=== PATIENT | female | born 1935 | race Caucasian/White ===

== ENCOUNTER → 2016-10-06 | Outpatient (REF) | payer OTHER, MEDICAID ==
[~2016-10-06] MED LIST: /FAMO2TA PO; /FERG32TA PO; /GLYB5TA; /HYDR10TAB PO; /PANT40TA PO; /WARF25TA; /WARF2TA PO; /WARF5TA; /WARF5TA OR; /WARF5TA PO; ACET-654 PO; ACET325S2 PO; ACET650S3 PR; ACET65SU PR; ACET65TA OR; ADV100INH INH; ADV250INH INH; ALB2.5NEB INH; ALDA25TA2 PO; ALLO100T; ALLO100T OR; ALPR0.25 PO; AMLO10TA OR; AMLO5TAB; AMLO5TAB OR; ARANESP IV; ASPI81TA45 OR; ASPI81TA7 PO; BACT2OIN2 TOP; BALMEX TOP; BALMOINT60 EXT; BISA10SU PR; BUSP5TA PO; BUSP5TAB45 PO; CALCCHW12; CALCIUM/VITAMIN D; CALTRATE OR; CARV12.5 OR; CARV12.5 PO; CARV25TA; CEFT500T; CELE20TA PO; CEPH2CAP PO; CIPR500T4 OR; CITA20TA4 PO; CLOP75TA2 PO; COLA100C PO; COLA100C2 OR; COLA50CA3 PO; CORE12.5; CORE25TA; CORE25TA PO; COUM1TAB19 PO; DIGO0.126; DOCU10CA PO; DOCU10ELUD PO; DULC10SU2 PR; DUONSOL; DUONSOL NEB; ENEM1ENE4 PR; ENEMENE3 PR; FIBER THERAPY; FIBER THERAPY OR; FISH1000 PO; FLEEENE4 PR; FLUC10TA OR; FOLI1TAB2 PO; FOLI1TAB86 PO; FOSAMAX; FURO40TA2; GLUC1VL SC; GLUC4GMTAB PO; GUAISYP5 PO; HUMA100I SC; HUMA75VL; HUMULIN; HUMULIN R; HUMULIN R U-500; HUMULIN R U500 SC; HYDR-3713 PO; INSUH10VL SC; INSUHUMDS SC; INSULADS SC; INSULANT SC; INSULIN; INSULIN HUMAN; INSULIN REG; IPRA2IN INH; IPRASOL4 INH; KAYE1POW5 PO; KLON0.5T PO; LASI40TA; LASI40TA OR; LASI40TA PO; LEVA250T; LEVO250T PO; LEVOFLOXACIN; LEVOFLOXACIN PO; LISI20TA5; LISI40TA; LISI40TA OR; LORT5TAB PO; LOSA50TA20 PO; LOVAZA; LOVAZA OR; MILK2400 PO; MILKSUS PO; MIRA255PW PO; MIRA33504 PO; MIRAPEX; MIRAPEX OR; MUCI600T34 PO; MULTCAP PO; MULTIVIT OR; MULTIVIT/MINERALS PO; MULTLIQ PO; Milk Of Magnesia PO; NEPHTAB PO; NEPRLIQ PO; NEPRLIQ3 PO; NORT10CA2; NORT10CA2 OR; NOVOLOG; NOVOLOG SC; NOVOLOG100 MG/ML; NYAM10003 EXT; NYST100024 TOP; NYSTATIN TOPICAL TOP; NYSTPOW TOP; ONDA1TAB15 PO; ONE A DAY VITAMIN; OXYGEN; PANT40TA2 PO; PLAV75TA38 PO; PROT1TAB2 PO; RENV2TAB PO; ROBISYP PO; SENO8.6T10 PO; SENO8.6T2 PO; SENO8.6T9 PO; SERT25TA85 PO; SILV1CRE19 TOP; SILV50CR TOP; SILVADINE TOP; SIMV40TA2; SIMV40TA2 OR; SIMV40TA2 PO; SODI15SS PO; SODI200S PO; TEKTURNA; TEKTURNA OR; TIOTROPIUM INH; TORS100T12 PO; TRAM50TA2 OR; TYLE325T5 PO; ULOR80TA2 PO; VANC10005 IV; VANC1INJ IV; VELP5CHW PO; VIT D OR; VITAMIN D50000 UNT; VITAMIN D50000 UNT OR; WARF-20 PO; WARF-23 PO; WARF05TA PO; WARF1TAB OR; WARF5VL; XANA0.25 PO; ZETI10TA; ZOCO40TA PO; ZOLO50TA PO; [UNRECOGNIZED DRUG - CODE] PO; [UNRECOGNIZED DRUG - OTHER]; [UNRECOGNIZED DRUG - OTHER]; [UNRECOGNIZED DRUG - OTHER]; [UNRECOGNIZED DRUG - OTHER]; [UNRECOGNIZED DRUG - OTHER]; [UNRECOGNIZED DRUG - OTHER] EX; [UNRECOGNIZED DRUG - OTHER] INH; [UNRECOGNIZED DRUG - REMARK]; aldactone PO; aranesp; coreg PO; demadex; lantus SC; nephrovite; sertaline PO; spiriva INH; uloric PO
[2016-10-06 07:57] LABS: INR 2.53
== END ==
LOC: SKLAB3 07:00
PROVIDERS: ATTEND Family Medicine
DX: I48.91 Unspecified atrial fibrillation (principal)

== ENCOUNTER → 2016-10-13 | Outpatient (REF) | payer OTHER, MEDICAID ==
[2016-10-13 08:53] LABS: INR 2.7
== END | disposition home or self-care (01) ==
LOC: SKLAB3 14:01
PROVIDERS: ATTEND Family Medicine
DX: Z51.81 Encounter for therapeutic drug level monitoring (principal); Z79.01 Long term (current) use of anticoagulants

== ENCOUNTER → 2016-10-22 | Outpatient (REF) | payer OTHER, MEDICAID ==
[2016-10-22 08:51] LABS: INR 1.76
== END ==
LOC: SKLAB3 07:00
PROVIDERS: ATTEND Family Medicine
DX: I48.91 Unspecified atrial fibrillation (principal)

== ENCOUNTER → 2016-10-27 | Outpatient (REF) | payer OTHER, MEDICAID ==
[2016-10-27 07:56] LABS: INR 3.72
== END ==
LOC: SKLAB3 10-27 07:00
PROVIDERS: ATTEND Family Medicine
DX: I48.91 Unspecified atrial fibrillation (principal)

== ENCOUNTER → 2016-11-03 | Outpatient (REF) | payer OTHER, MEDICAID ==
[2016-11-03 07:42] LABS: INR 2.28
== END | disposition home or self-care (01) ==
LOC: SKLAB3 08:25
PROVIDERS: ATTEND Family Medicine
DX: Z51.81 Encounter for therapeutic drug level monitoring (principal); Z79.01 Long term (current) use of anticoagulants

== ENCOUNTER → 2016-11-10 | Outpatient (REF) | payer OTHER, MEDICAID ==
[2016-11-10 14:01] LABS: INR 2.16
== END | disposition home or self-care (01) ==
LOC: SKLAB3 08:00
PROVIDERS: ATTEND Family Medicine
DX: Z51.81 Encounter for therapeutic drug level monitoring (principal); Z79.01 Long term (current) use of anticoagulants

== ENCOUNTER → 2016-11-17 | Outpatient (REF) | payer OTHER, MEDICAID ==
[2016-11-17 08:20] LABS: INR 2.55
== END ==
LOC: SKLAB3 06:47
PROVIDERS: ATTEND Family Medicine
DX: Z51.81 Encounter for therapeutic drug level monitoring (principal); Z79.01 Long term (current) use of anticoagulants

== ENCOUNTER → 2016-11-24 | Outpatient (REF) | payer OTHER, MEDICAID ==
[2016-11-24 08:12] LABS: INR 2.9
== END ==
LOC: SKLAB3 07:00
PROVIDERS: ATTEND Family Medicine
DX: Z51.81 Encounter for therapeutic drug level monitoring (principal); Z79.01 Long term (current) use of anticoagulants

== ENCOUNTER → 2016-12-01 | Outpatient (REF) | payer OTHER, MEDICAID ==
[2016-12-01 07:31] LABS: INR 2.13
== END ==
LOC: SKLAB3 08:00
PROVIDERS: ATTEND Family Medicine
DX: I48.91 Unspecified atrial fibrillation (principal); Z79.01 Long term (current) use of anticoagulants

== ENCOUNTER → 2016-12-08 | Outpatient (REF) | payer OTHER, MEDICAID ==
[2016-12-08 08:03] LABS: INR 1.89
== END ==
LOC: SKLAB3 08:00
PROVIDERS: ATTEND Family Medicine
DX: I48.91 Unspecified atrial fibrillation (principal)

== ENCOUNTER → 2016-12-15 | Outpatient (REF) | payer OTHER, MEDICAID ==
[2016-12-15 07:57] LABS: INR 2.12
== END ==
LOC: SKLAB3 08:00
PROVIDERS: ATTEND Family Medicine
DX: I48.91 Unspecified atrial fibrillation (principal)

== ENCOUNTER → 2016-12-22 | Outpatient (REF) | payer OTHER, MEDICAID ==
[2016-12-22 08:35] LABS: INR 2.03
== END ==
LOC: SKLAB3 08:00
PROVIDERS: ATTEND Family Medicine
DX: I48.91 Unspecified atrial fibrillation (principal)

== ENCOUNTER → 2016-12-29 | Outpatient (REF) | payer OTHER, MEDICAID ==
[~2016-12-29] MED LIST changes: -COLA100C PO; +COLA100C3 PO
[2016-12-29 08:49] LABS: INR 1.64
== END ==
LOC: SKLAB3 08:00
PROVIDERS: ATTEND Family Medicine
DX: Z51.81 Encounter for therapeutic drug level monitoring (principal); Z79.01 Long term (current) use of anticoagulants

== ENCOUNTER → 2017-01-05 | Outpatient (REF) | payer OTHER, MEDICAID ==
[2017-01-05 12:02] LABS: INR 2.13
== END ==
LOC: SKLAB3 08:00
PROVIDERS: ATTEND Family Medicine
DX: Z51.81 Encounter for therapeutic drug level monitoring (principal); Z79.01 Long term (current) use of anticoagulants

== ENCOUNTER → 2017-01-12 | Outpatient (REF) | payer OTHER, MEDICAID ==
[2017-01-12 08:19] LABS: INR 1.44
== END ==
LOC: SKLAB3 08:00
PROVIDERS: ATTEND Family Medicine
DX: I48.91 Unspecified atrial fibrillation (principal)

== ENCOUNTER → 2017-01-19 | Outpatient (REF) | payer OTHER, MEDICAID ==
[2017-01-19 07:48] LABS: INR 2.62
== END ==
LOC: SKLAB3 07:00
PROVIDERS: ATTEND Family Medicine
DX: Z51.81 Encounter for therapeutic drug level monitoring (principal); Z79.01 Long term (current) use of anticoagulants

== ENCOUNTER → 2017-01-26 | Outpatient (REF) | payer OTHER, MEDICAID ==
[2017-01-26 08:45] LABS: INR 2.36
== END ==
LOC: SKLAB3 07:00
PROVIDERS: ATTEND Family Medicine
DX: Z51.81 Encounter for therapeutic drug level monitoring (principal); Z79.01 Long term (current) use of anticoagulants

== ENCOUNTER → 2017-02-02 | Outpatient (REF) | payer OTHER, MEDICAID ==
[2017-02-02 11:24] LABS: INR 3.1
== END ==
LOC: SKLAB3 08:00
PROVIDERS: ATTEND Family Medicine
DX: Z51.81 Encounter for therapeutic drug level monitoring (principal); Z79.01 Long term (current) use of anticoagulants

== ENCOUNTER → 2017-02-05 | Outpatient (REF) | payer OTHER, MEDICAID | LOC: SKLAB7 12:48 | PROVIDERS: ATTEND Family Medicine | DX: Z86.14 Personal history of Methicillin resistant Staphylococcus aureus infection (principal) ==

== ENCOUNTER → 2017-02-09 | Outpatient (REF) | payer OTHER, MEDICAID ==
[2017-02-09 09:09] LABS: INR 3.13
== END ==
LOC: SKLAB3 08:00
PROVIDERS: ATTEND Family Medicine
DX: I48.91 Unspecified atrial fibrillation (principal)

== ENCOUNTER → 2017-02-16 | Outpatient (REF) | payer OTHER, MEDICAID ==
[2017-02-16 10:04] LABS: INR 2.77
== END ==
LOC: SKLAB3 08:00
PROVIDERS: ATTEND Family Medicine
DX: Z51.81 Encounter for therapeutic drug level monitoring (principal); Z79.01 Long term (current) use of anticoagulants

== ENCOUNTER → 2017-02-23 | Outpatient (REF) | payer OTHER, MEDICAID ==
[2017-02-23 07:56] LABS: INR 2.56
== END ==
LOC: SKLAB3 08:00
PROVIDERS: ATTEND Family Medicine
DX: Z51.81 Encounter for therapeutic drug level monitoring (principal); Z79.01 Long term (current) use of anticoagulants

== ENCOUNTER → 2017-03-02 | Outpatient (REF) | payer OTHER, MEDICAID ==
[2017-03-02 08:18] LABS: INR 2.7
== END ==
LOC: SKLAB3 08:00
PROVIDERS: ATTEND Family Medicine
DX: Z51.81 Encounter for therapeutic drug level monitoring (principal); Z79.01 Long term (current) use of anticoagulants

== ENCOUNTER → 2017-03-09 | Outpatient (REF) | payer OTHER, MEDICAID | LOC: SKLAB3 07:00 | PROVIDERS: ATTEND Family Medicine | DX: I48.91 Unspecified atrial fibrillation (principal) ==

== ENCOUNTER → 2017-03-16 | Outpatient (REF) | payer OTHER, MEDICAID | LOC: SKLAB3 07:00 | PROVIDERS: ATTEND Family Medicine | DX: E11.9 Type 2 diabetes mellitus without complications (principal); I48.91 Unspecified atrial fibrillation ==

== ENCOUNTER → 2017-03-16 | Outpatient (REF) | payer OTHER, MEDICAID ==
[2017-03-16 07:44] LABS: INR 3.22
== END ==
LOC: SKLAB3 07:00
PROVIDERS: ATTEND Family Medicine
DX: E11.9 Type 2 diabetes mellitus without complications (principal); I48.91 Unspecified atrial fibrillation

== ENCOUNTER → 2017-03-23 | Outpatient (REF) | payer OTHER, MEDICAID ==
[~2017-03-23] MED LIST changes: -ACET-654 PO; +ACET1TAB17 PO; +BACT2OIN10 TOP; -BACT2OIN2 TOP; -COLA100C3 PO; +COLA100C5 PO; +DOXY100T2 PO; +ENEMENE16 PR; -ENEMENE3 PR; -FOLI1TAB2 PO; +FOLI1TAB4 PO; -NYST100024 TOP; +NYST1POW9 TOP; -ONDA1TAB15 PO; +ONDA4TAB5 PO; +PLAV1TAB2 PO; -PLAV75TA38 PO; -SENO8.6T2 PO; +SENO8.6T5 PO; -SILV1CRE19 TOP; +SILV1CRE60 TOP; +SORB1SOL PO
[2017-03-23 10:03] LABS: INR 2.9
== END ==
LOC: SKLAB3 07:00
PROVIDERS: ATTEND Family Medicine
DX: Z51.81 Encounter for therapeutic drug level monitoring (principal); Z79.01 Long term (current) use of anticoagulants; I48.91 Unspecified atrial fibrillation

== ENCOUNTER → 2017-03-29 | Outpatient (REF) | payer OTHER, MEDICAID ==
[2017-03-29 12:54] LABS: INR 2.88
== END ==
LOC: SKLAB3 07:00
PROVIDERS: ATTEND Family Medicine
DX: Z51.81 Encounter for therapeutic drug level monitoring (principal); Z79.01 Long term (current) use of anticoagulants; I48.91 Unspecified atrial fibrillation

== ENCOUNTER → 2017-04-02 | Outpatient (REF) | payer OTHER, MEDICAID | LOC: SKLAB3 15:12 | PROVIDERS: ATTEND Family Medicine | DX: S60.522A Blister (nonthermal) of left hand, initial encounter (principal); X58.XXXA Exposure to other specified factors, initial encounter; Y92.9 Unspecified place or not applicable; Y93.9 Activity, unspecified; Y99.9 Unspecified external cause status ==

== ENCOUNTER → 2017-04-06 | Outpatient (REF) | payer OTHER, MEDICAID ==
[2017-04-06 08:25] LABS: INR 2.75
== END ==
LOC: SKLAB3 07:00
PROVIDERS: ATTEND Family Medicine
DX: Z51.81 Encounter for therapeutic drug level monitoring (principal); Z79.01 Long term (current) use of anticoagulants; I48.91 Unspecified atrial fibrillation

== ENCOUNTER → 2017-04-13 | Outpatient (REF) | payer OTHER, MEDICAID ==
[2017-04-13 06:57] LABS: INR 2.6
== END ==
LOC: SKLAB3 07:00
PROVIDERS: ATTEND Family Medicine
DX: Z51.81 Encounter for therapeutic drug level monitoring (principal); Z79.01 Long term (current) use of anticoagulants; I48.91 Unspecified atrial fibrillation

== ENCOUNTER → 2017-04-16 | Outpatient (REF) | payer OTHER, MEDICAID | LOC: SKLAB3 10:47 | PROVIDERS: ATTEND Family Medicine | DX: Z86.73 Personal history of transient ischemic attack (TIA), and cerebral infarction without residual deficits (principal) ==

== ENCOUNTER → 2017-04-20 | Outpatient (REF) | payer OTHER, MEDICAID ==
[2017-04-20 08:36] LABS: INR 3.16
== END ==
LOC: SKLAB3 07:00
PROVIDERS: ATTEND Family Medicine
DX: Z51.81 Encounter for therapeutic drug level monitoring (principal); Z79.01 Long term (current) use of anticoagulants; I48.91 Unspecified atrial fibrillation

== ENCOUNTER → 2017-04-27 | Outpatient (REF) | payer OTHER, MEDICAID ==
[2017-04-27 09:14] LABS: INR 3.17
== END ==
LOC: SKLAB3 07:22
PROVIDERS: ATTEND Family Medicine
DX: I48.91 Unspecified atrial fibrillation (principal); Z86.14 Personal history of Methicillin resistant Staphylococcus aureus infection

== ENCOUNTER → 2017-05-04 | Outpatient (REF) | payer OTHER, MEDICAID | LOC: SKLAB3 14:27 | PROVIDERS: ATTEND Family Medicine | DX: Z86.73 Personal history of transient ischemic attack (TIA), and cerebral infarction without residual deficits (principal) ==

== ENCOUNTER → 2017-05-04 | Outpatient (REF) | payer OTHER, MEDICAID ==
[2017-05-04 07:45] LABS: INR 2.62
== END ==
LOC: SKLAB3 07:00
PROVIDERS: ATTEND Family Medicine
DX: Z51.81 Encounter for therapeutic drug level monitoring (principal); Z79.01 Long term (current) use of anticoagulants; I48.91 Unspecified atrial fibrillation

== ENCOUNTER → 2017-05-11 | Outpatient (REF) | payer OTHER, MEDICAID ==
[2017-05-11 08:05] LABS: INR 2.82
== END ==
LOC: SKLAB3 07:00
PROVIDERS: ATTEND Family Medicine
DX: Z51.81 Encounter for therapeutic drug level monitoring (principal); Z79.01 Long term (current) use of anticoagulants; I48.91 Unspecified atrial fibrillation

== ENCOUNTER → 2017-05-18 | Outpatient (REF) | payer OTHER, MEDICAID ==
[2017-05-18 08:28] LABS: INR 3.12
== END ==
LOC: SKLAB3 07:00
PROVIDERS: ATTEND Family Medicine
DX: Z51.81 Encounter for therapeutic drug level monitoring (principal); Z79.01 Long term (current) use of anticoagulants; I48.91 Unspecified atrial fibrillation

== ENCOUNTER → 2017-05-25 | Outpatient (REF) | payer OTHER, MEDICAID ==
[2017-05-25 07:27] LABS: INR 3.21
== END ==
LOC: SKLAB3 05-24 14:18
PROVIDERS: ATTEND Family Medicine
DX: Z51.81 Encounter for therapeutic drug level monitoring (principal); Z79.01 Long term (current) use of anticoagulants

== ENCOUNTER → 2017-06-01 | Outpatient (REF) | payer OTHER, MEDICAID ==
[2017-06-01 09:37] LABS: INR 3.01
== END ==
LOC: SKLAB3 07:00
PROVIDERS: ATTEND Family Medicine
DX: Z51.81 Encounter for therapeutic drug level monitoring (principal); Z79.01 Long term (current) use of anticoagulants

== ENCOUNTER → 2017-06-08 | Outpatient (REF) | payer OTHER, MEDICAID ==
[2017-06-08 07:44] LABS: INR 3.31
== END ==
LOC: SKLAB3 08:02
PROVIDERS: ATTEND Family Medicine
DX: Z51.81 Encounter for therapeutic drug level monitoring (principal); Z79.01 Long term (current) use of anticoagulants; I48.91 Unspecified atrial fibrillation

== ENCOUNTER → 2017-06-15 | Outpatient (REF) | payer OTHER, MEDICAID ==
[2017-06-15 08:16] LABS: INR 3.12
== END ==
LOC: SKLAB3 07:00
PROVIDERS: ATTEND Family Medicine
DX: I48.91 Unspecified atrial fibrillation (principal)

== ENCOUNTER → 2017-06-22 | Outpatient (REF) | payer OTHER, MEDICAID ==
[2017-06-22 07:39] LABS: INR 3.14
== END ==
LOC: SKLAB3 07:00
PROVIDERS: ATTEND Family Medicine
DX: Z51.81 Encounter for therapeutic drug level monitoring (principal); Z79.01 Long term (current) use of anticoagulants; I48.91 Unspecified atrial fibrillation

== ENCOUNTER → 2017-06-24 | Outpatient (REF) | payer OTHER, MEDICAID ==
[2017-06-24 09:57] LABS: BASO % 0.3 % (0.0-1.0); EOS # 0.3 10^3/uL (0.0-0.50); EOS % 2.8 % (0.0-3.0); IMMATURE GRANULOCYTE % 0.5 % (0-0); LYMPH # 1.8 10^3/uL (1.5-4.5); LYMPH % 19.5 % (24.0-44.0); MEAN CORPUSCULAR HEMOGLOBIN 32.9 pg (27.0-33.0); MEAN CORPUSCULAR HGB CONC 30.6 g/dl (32.0-36.5); MEAN CORPUSCULAR VOLUME 107.7 fl (80.0-96.0); MONO # 1.4 10^3/uL (0.0-0.8); MONO % 14.3 % (0.0-5.0); NEUTROPHILS # 5.9 10^3/uL (1.8-7.7); NEUTROPHILS % 62.6 % (36.0-66.0); PLATELET COUNT, AUTOMATED 229 10^3/uL (150-450); RED CELL DISTRIBUTION WIDTH 15.7 % (11.5-14.5); WHITE BLOOD COUNT 9.4 10^3/uL (4.0-10.0)
[2017-06-24 10:12] LABS: INR 3.71
[2017-06-24 20:39] LABS: MEAN CORPUSCULAR HEMOGLOBIN 33.4 pg (27.0-33.0); MEAN CORPUSCULAR HGB CONC 31.3 g/dl (32.0-36.5); MEAN CORPUSCULAR VOLUME 106.8 fl (80.0-96.0); RED CELL DISTRIBUTION WIDTH 15.4 % (11.5-14.5); WHITE BLOOD COUNT 11.2 10^3/uL (4.0-10.0)
== END ==
LOC: SKLAB3 09:25
PROVIDERS: ATTEND Family Medicine
DX: K62.5 Hemorrhage of anus and rectum (principal)

== ENCOUNTER → 2017-06-25 | Outpatient (REF) | payer OTHER, MEDICAID ==
--- NOTE | 2017-06-25 17:17 | REP ---
REASON: Pain. COMPARISON: None. There is evidence of an old irregular erosion involving the distal aspect of the tuft of the 2nd digit of the left hand. There is no evidence of an acute fracture. IMPRESSION: Chronic changes seen involving the tuft of the 2nd digit of the left hand. Signed by Barron Ramos DO 06/28/2017 04:40 P
== END ==
LOC: SKLAB3 13:53
PROVIDERS: ATTEND Family Medicine
DX: M19.042 Primary osteoarthritis, left hand (principal)

== ENCOUNTER → 2017-06-26 | Outpatient (REF) | payer OTHER, MEDICAID ==
[2017-06-26 08:19] LABS: MEAN CORPUSCULAR HEMOGLOBIN 33.8 pg (27.0-33.0); MEAN CORPUSCULAR HGB CONC 30.6 g/dl (32.0-36.5)
[2017-06-26 08:27] LABS: MEAN CORPUSCULAR VOLUME 110.5 fl (80.0-96.0)
== END ==
LOC: SKLAB3 12:08
PROVIDERS: ATTEND Family Medicine
DX: D72.829 Elevated white blood cell count, unspecified (principal)

== ENCOUNTER → 2017-06-29 | Outpatient (REF) | payer OTHER, MEDICAID | LOC: SKLAB3 19:03 | PROVIDERS: ATTEND Family Medicine | DX: K62.5 Hemorrhage of anus and rectum (principal) ==

== ENCOUNTER → 2017-06-29 | Outpatient (REF) | payer OTHER, MEDICAID ==
[2017-06-29 08:03] LABS: INR 1.17
[2017-06-29 18:48] LABS: MEAN CORPUSCULAR HEMOGLOBIN 33.7 pg (27.0-33.0); MEAN CORPUSCULAR HGB CONC 30.6 g/dl (32.0-36.5); RED CELL DISTRIBUTION WIDTH 16.5 % (11.5-14.5); WHITE BLOOD COUNT 10.1 10^3/uL (4.0-10.0)
== END ==
LOC: SKLAB3 07:05
PROVIDERS: ATTEND Family Medicine
DX: I48.91 Unspecified atrial fibrillation (principal)

== ENCOUNTER → 2017-06-30 | Outpatient (REF) | payer OTHER, MEDICAID ==
[2017-06-30 05:10] LABS: MEAN CORPUSCULAR HEMOGLOBIN 33.6 pg (27.0-33.0); RED CELL DISTRIBUTION WIDTH 16.4 % (11.5-14.5); WHITE BLOOD COUNT 10.1 10^3/uL (4.0-10.0)
[2017-06-30 05:13] LABS: MEAN CORPUSCULAR VOLUME 108.4 fl (80.0-96.0)
== END ==
LOC: SKLAB3 00:14
PROVIDERS: ATTEND Family Medicine
DX: K62.5 Hemorrhage of anus and rectum (principal)

== ENCOUNTER 2017-07-01 13:57 | Inpatient (IN) | payer OTHER, MEDICAID, MEDICARE ==
[~2017-07-01] VITALS: Ht 160 cm; Wt 90.9 kg
[~2017-07-01 13:57] MED LIST changes: -DOXY100T2 PO; -SORB1SOL PO
[2017-07-01] MEDS ORDERED: SORB1SOL PO (14:40)
[2017-07-01] MEDS ORDERED: NEPHTAB PO (14:40)
[2017-07-01 16:11] LABS: BASO % 0.1 % (0.0-1.0); EOS # 0.2 10^3/uL (0.0-0.50); EOS % 1.7 % (0.0-3.0); IMMATURE GRANULOCYTE % 0.4 % (0-0); LYMPH % 14.3 % (24.0-44.0); MEAN CORPUSCULAR HEMOGLOBIN 33.9 pg (27.0-33.0); MONO % 13.5 % (0.0-5.0); NEUTROPHILS # 9.6 10^3/uL (1.8-7.7); PLATELET COUNT, AUTOMATED 165 10^3/uL (150-450); RED CELL DISTRIBUTION WIDTH 16.5 % (11.5-14.5); WHITE BLOOD COUNT 13.7 10^3/uL (4.0-10.0)
[2017-07-01 16:13] LABS: ADD MORPHOLOGY? YES; MEAN CORPUSCULAR VOLUME 109.5 fl (80.0-96.0); MONO # 1.9 10^3/uL (0.0-0.8)
[2017-07-01] MEDS ORDERED: PANTOPRAZOLE 40MG INJ (PROTONIX) (C9113) IV ONE (16:15)
[2017-07-01 16:25] LABS: INR 1.34
[2017-07-01 16:40] LABS: ANISOCYTOSIS 2+
[2017-07-01 16:49] LABS: ALBUMIN/GLOBULIN RATIO 0.91 (1.00-1.93); BILIRUBIN,DIRECT 0.2 MG/DL (0.0-0.2); BILIRUBIN,TOTAL 0.4 MG/DL (0.2-1.0); CALCIUM LEVEL 8.2 MG/DL (8.8-10.2); CREATININE FOR GFR 4.17 MG/DL (0.55-1.02); GLOMERULAR FILTRATION RATE 10.9 (>32); POTASSIUM SERUM 4.9 MEQ/L (3.5-5.1); TOTAL PROTEIN 6.3 GM/DL (6.4-8.2)
[2017-07-01] MEDS ORDERED: WARF-20 PO (18:20)
[2017-07-01] MEDS ORDERED: ONDANSETRON 4MG/2ML VIAL (J2405) IV PRN (20:45)
[2017-07-01] MEDS ORDERED: GLUCOSE 4 GM CHEW TABLET PO PRN (20:45)
[2017-07-01] MEDS ORDERED: IPRATROPIUM 0.5MG/ALBUTEROL 2.5MG INH SOL UD 3ML (DUONEB)(J7620) INH PRN (20:45)
[2017-07-01] MEDS ORDERED: guaiFENesin DM LIQ 10ML UD PO PRN (20:45)
[2017-07-01] MEDS ORDERED: ACETAMINOPHEN 650 MG SUPP PR PRN (20:45)
[2017-07-01] MEDS ORDERED: GLUCAGON FOR INJ 1 MG VIAL (J1610) SC PRN (20:45)
[2017-07-01] MEDS ORDERED: ONDANSETRON 4 MG TAB (S0181) PO PRN (20:45)
[2017-07-01] MEDS ORDERED: DEXTROSE 50% 50 ML SYRINGE IV PRN (20:45)
[2017-07-01] MEDS: SIMVASTATIN 20 MG TAB PO SCH (21:00)
[2017-07-01] MEDS: ADVAIR HFA 45/21MCG INHALER INH SCH (21:00)
[2017-07-01] MEDS: HumaLOG INSULIN (NovoLOG) PER UNIT SC SCH (21:00)
[2017-07-01] MEDS ORDERED: CARVedilol 12.5 MG TAB PO SCH (21:00)
[2017-07-01] MEDS: DOCUSATE SODIUM 100 MG CAP PO SCH (22:04)
[2017-07-01] MEDS: SENOKOT S TAB PO SCH (22:04)
[2017-07-01] MEDS: DOXYCYCLINE HYCLATE 100 MG TAB PO SCH (22:06)
[2017-07-01] MEDS: IPRATROPIUM 0.5MG/ALBUTEROL 2.5MG INH SOL UD 3ML (DUONEB)(J7620) INH SCH (22:45)
[2017-07-02 01:08] VITALS: BP 97/42
[2017-07-02 04:00] VITALS: BP 92/42
[2017-07-02] MEDS ORDERED: METAL LOCK LOOP XX ONE (05:13)
[2017-07-02 07:19] LABS: ALBUMIN 2.7 GM/DL (3.2-5.2); ALBUMIN/GLOBULIN RATIO 0.84 (1.00-1.93); BILIRUBIN,TOTAL 0.5 MG/DL (0.2-1.0); CALCIUM LEVEL 8.3 MG/DL (8.8-10.2); CREATININE FOR GFR 4.87 MG/DL (0.55-1.02); GLOMERULAR FILTRATION RATE 9.1 (>32); TOTAL PROTEIN 5.9 GM/DL (6.4-8.2)
[2017-07-02 07:22] LABS: POTASSIUM SERUM 5.3 MEQ/L (3.5-5.1)
--- NOTE | 2017-07-02 07:48 | HPE ---
DATE OF ADMISSION: 07/01/2017 PRIMARY CARE PROVIDER: Marty Ho MD VICE PRESIDENT QUALITY: Mei Landeros MD BUSINESS APPLICATIONS DEVELOPER: Alyssa Bauman MD CHIEF COMPLAINT: Maroon-colored stools. HISTORY OF PRESENT ILLNESS: The patient is an 82-year-old female resident of [facility] who has notably had maroon-colored stools for the past 1 week. Coumadin for atrial fibrillation was discontinued several days ago, however, she is continued on her Plavix and maroon-colored stools continued. The patient herself denies any specific complaints. She denies any lightheadedness, dizziness, fatigue, or anything other than she has felt over the last several months. She denies chest pain, lightheadedness, dizziness, or any other change in her medications. PAST MEDICAL HISTORY: 1. Coronary artery disease status post coronary artery bypass graft (CABG). 2. Methicillin-resistant Staphylococcus aureus (MRSA). 3. Endocarditis. 4. Diabetes mellitus. 5. Peripheral vascular disease. 6. Congestive heart failure. 7. Atrial fibrillation status post pacer, normally on Coumadin. 8. Anemia of chronic disease in end-stage renal disease. 9. Mitral valve disease status post porcine replacement. 10. Depression. 11. Chronic obstructive pulmonary disease (COPD). 12. Gastroparesis. 13. Peripheral vascular disease with left below knee amputation (BKA), right above knee amputation (AKA). 14. End-stage renal disease on hemodialysis. 15. Heparin-induced thrombocytopenia. ALLERGIES: HEPARIN, LEVOFLOXACIN, MORPHINE, ZOSYN, METOPROLOL. SURGICAL HISTORY: 1. Tunneled hemodialysis (HD) catheter placement. 2. Hysterectomy. 3. Pacemaker insertion. 4. Mitral valve replacement with porcine valve. 5. CABG. 6. Left BKA. 7. Right AKA. SOCIAL HISTORY: She is a resident of [facility]. She travels with a DO NOT RESUSCITATE/DO NOT INTUBATE Medical Orders for Life-Sustaining Treatment form. She is a never smoker. Denies alcohol. She is accompanied in the emergency room by four adult children and one adult grandchild. FAMILY HISTORY: Noncontributory. REVIEW OF SYSTEMS: Negative other than history present illness (HPI). LONG TERM MEDICATIONS: - Dulcolax per rectally daily as needed for constipation - Plavix 75 mg daily - enema per rectally as needed for constipation daily - NovoLog before food - milk of magnesia 30 mL by mouth as needed for constipation daily - Nepro with Carb Steady 90 mL by mouth twice a day - sorbitol 15 grams 70% weekly by mouth - acetaminophen 650 per rectum every 4 hours as needed for pain or fever, 650 mg by mouth every 4 hours as needed for pain - DuoNebs inhaled every 2 hours as needed for wheezing and four times a day - carvedilol 12.5 mg by mouth twice a day - Celexa 20 mg daily - Senna-S 8.6-50 mg one tablet by mouth twice a day - Colace 100 mg by mouth twice a day - folic acid 1 mg daily - guaifenesin-dextromethorphan 100-10 mg/5 mL solution 10 mL every 2 hours as needed for cough - Zofran 4 mg every 6 hours as needed for nausea - Protonix 40 mg daily - Advair Diskus 100-50 one puff inhaled twice a day - Renvela 3200 mg by mouth with meals - simvastatin 40 mg by mouth nightly - vitamin B complex PHYSICAL EXAMINATION: Temperature 99.3, pulse 60, respiratory rate 18, blood pressure 121/44, oxygen saturation 100% on room air. GENERAL: She is an obese, elderly, female. She appears pale. She is laying in a stretcher at a 60 degree angle on her right side. She does not appear to be in any acute distress whatsoever. She does not have any accessory muscle use and is quite comfortable. HEENT: Cranial nerves II-XII are grossly intact. She has moist mucous membranes. She has conjunctival pallor. No elevation in central venous pressure (CVP). CARDIOVASCULAR: S1, S2, irregularly irregular and she does have a pansystolic murmur. RESPIRATORY EXAM: Fairly clear. ABDOMINAL EXAM: Bowel sounds are present. The abdomen is soft and is obese. EXTREMITIES: She is status post amputation of the bilateral lower extremities. LABORATORY STUDIES: WBC 13.7, hemoglobin 9.3, hematocrit 30, platelet count 165. Chemistry panel: Sodium 137, potassium 4.9, chloride 101, bicarbonate 28, BUN 34, creatinine 4.1, lactic acid 2.5, alkaline phosphatase 186, lipase 278, INR is 1.3. No new imaging. ASSESSMENT AND PLAN: This is an 82-year-old female with gastrointestinal (GI) bleed. 1. Gastrointestinal (GI) bleed, likely lower, likely related to anticoagulation and antiplatelet use. She has a history of atrial fibrillation for which she was on Coumadin, this has been held. At this time her INR is 1.3, however she has remained on Plavix and I will hold this. She is asymptomatic at this point in time and is scheduled for regular hemodialysis tomorrow. I have contacted nephrology service who will see the patient in consultation. The plan is to transfuse her potentially during hemodialysis tomorrow. Continue to trend her hemoglobin and hematocrit. I will provide her with a clear liquid diet, consistent carbohydrate, renal diet. If her hemoglobin and hematocrit does not respond appropriately to transfusion or she should continue to bleed or drop, she may need repeat colonoscopies. These were done, as per the family statements, several years ago by Dr. Galeano. 2. End-stage renal disease. Nephrology's help will be greatly appreciated. Continue with Nepro. Dialysis Wednesday, Wednesday, Wednesday. Renvela, vitamin B complex. 3. Congestive heart failure. Volume status is optimized via hemodialysis. The patient is on a beta casie. 4. Diabetes mellitus. She will be on sliding scale insulin. 5. Left index finger swelling. She may have a paronychial abscess present. I will place her on doxycycline 100 mg by mouth twice a day. Should it not improve, could consider general surgery consultation for incision and drainage ( I and D). Apparently, she has been struggling with this for quite some time at the skilled nursing. 6. Peripheral vascular disease status post bypass, currently at her baseline. 7. Anemia of chronic disease and renal disease as well as acute blood loss. Continue to monitor. She may benefit from erythropoietin. 8. Depression. Continue with Celexa. 9. Chronic obstructive pulmonary disease (COPD). Continue with DuoNebs standing and as needed, as well as Advair. 10. Gastroesophageal reflux disease. Continue with Protonix. 11. Coronary artery disease. She is on a beta casie and a statin. We are holding any antiplatelets for the time being. 12. Chronic constipation. We will hold some of her bowel regimen for the time being. 13. Heparin-induced thrombocytopenia. We are avoiding all pharmacological anticoagulants at this time. 14. Lactic acidosis, possibly related to bleeding versus chronic increased work of breathing related to chronic obstructive pulmonary disease (COPD). We will trend this. 15. Deep venous thrombosis (DVT) prophylaxis. No pharmacological agents. She does not have lower extremities for compression stockings or thromboembolism deterrents (TEDs). DISPOSITION: The patient is admitted to the progressive care unit under Dr. David's service who will continue following the patient tomorrow at [address] [facility] [place]
[2017-07-02 08:00] VITALS: BP 94/34
[2017-07-02] MEDS: IPRATROPIUM 0.5MG/ALBUTEROL 2.5MG INH SOL UD 3ML (DUONEB)(J7620) INH SCH ×3 (08:00→20:00)
--- NOTE | 2017-07-02 08:26 | ECGEPIP ---
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
[2017-07-02] MEDS: CARVedilol 3.125 MG TAB PO SCH ×2 (09:00→21:00)
[2017-07-02] MEDS ORDERED: DARBEPOETIN 100 MCG/0.5 ML *DIALYSIS* SYRINGE (J0882) IV SCH (09:45)
[2017-07-02] MEDS: ADVAIR HFA 45/21MCG INHALER INH SCH ×2 (10:19→21:49)
[2017-07-02] MEDS: PANTOPRAZOLE 40MG TAB (PROTONIX) PO SCH (10:26)
[2017-07-02] MEDS: NEPHRO-VIT TAB (NEPHROCAPS) PO SCH (10:26)
[2017-07-02] MEDS: HumaLOG INSULIN (NovoLOG) PER UNIT SC SCH ×4 (10:26→21:00)
[2017-07-02] MEDS: (RENVELA) SEVELAMER **CARBONate** 800 MG TAB PO SCH ×3 (10:26→17:17)
[2017-07-02] MEDS: FOLIC ACID 1 MG TAB PO SCH (10:27)
[2017-07-02] MEDS: DOXYCYCLINE HYCLATE 100 MG TAB PO SCH ×2 (10:27→21:05)
[2017-07-02] MEDS: MUPIROCIN 2% OINT 22 GM TUBE TOP SCH ×2 (11:20→21:00)
[2017-07-02] MEDS: CitaloPRAM (CeleXA) 20 MG TAB PO SCH (11:20)
[2017-07-02] MEDS: SENOKOT S TAB PO SCH ×2 (11:20→21:06)
[2017-07-02] MEDS: DOCUSATE SODIUM 100 MG CAP PO SCH ×2 (11:20→21:05)
[2017-07-02] MEDS ORDERED: HEPARIN 1,000 UNITS/ML 10ML VIAL (FOR RADIOLOGY& DIALYSIS ONLY) XX ONE (12:00)
--- NOTE | 2017-07-02 12:45 | IPNPDOC ---
Subjective Date Seen The patient was seen on 07/02/17. Subjective Chief Complaint/HPI The patient is a 82-year-old female admitted with a reason for visit of Gi Bleed. Events since last encounter Had BM this am. No blood documented. Guiac sent Feels well. No n/v or abd pain Constitutional: Denies: Chills, Fever Pulmonary: Denies: Dyspnea, Cough Cardiovascular: Denies: Chest Pain, Palpitations Gastrointestinal: Denies: Nausea, Vomiting, Abdominal Pain, Diarrhea, Constipation Objective Physical Examination General Exam: Positive: Alert, No Acute Distress Chest Exam: Positive: Normal air movement, Rales (few crackles extreme bases BL ), Negative: Rhonchi, Wheezing Heart Exam: Positive: Rate Normal, Regular Rhythm Abdomen Exam: Positive: Normal bowel sounds, Soft, Negative: Tenderness Extremity Exam: Positive: Other (BL AKA) Skin Exam: Positive: Other skin issue (left index finger with swelling of DIP localized around peronychea with scabbed wound on ulnar aspect need neail withotu surrounding erythema or drainage or floculance.) Assessment /Plan Problems (1) GI bleed Status: Acute Problem Text: Coumadin held a few days ago - INR 1.34 Plavicx held on admission No further blood noted per nursing in ER overflow. Occult blood pending. Hgb stable thus far (2) Paronychia Status: Acute Problem Text: doxycycline ordered Start Bactroban (3) ESRD (end stage renal disease) on dialysis Status: Chronic Response to Treatment: Stable Problem Text: per Nephrology (4) CHF (congestive heart failure) Status: Chronic Response to Treatment: Stable (5) A-fib Status: Chronic Response to Treatment: Stable Problem Text: coumadin held per GI bleed (6) Diabetes Status: Chronic Plan/VTE VTE Prophylaxis Ordered?: No (BL AKa, GI bleed) VTE Exclusion Pharmacological: Active Bleeding VS, I&O, 24H, Fishbone Vital Signs/I&O Vital Signs Date Time Temp Pulse Resp B/P (MAP) Pulse Ox O2 Delivery O2 Flow Rate FiO2 07/02/17 09:00 60 94/34 07/02/17 08:00 97.3 18 98 Room Air 07/02/17 04:00 2.0 I&O- Last 24 Hours up to 6 AM 07/03/17 06:00 Intake Total 360 ml Balance 360 ml Laboratory Data 24H LABS Laboratory Tests 2 07/01/17 16:04: Immature Granulocyte % (Auto) 0.4H, White Blood Count 13.7H, Red Blood Count 2.74L, Hemoglobin 9.3L, Hematocrit 30.0L, Mean Corpuscular Volume 109.5H, Mean Corpuscular Hemoglobin 33.9H, Mean Corpuscular Hemoglobin Concent 31.0L, Red Cell Distribution Width 16.5H, Platelet Count 165, Neutrophils (%) (Auto) 70.0H , Lymphocytes (%) (Auto) 14.3L, Monocytes (%) (Auto) 13.5H, Eosinophils (%) ( Auto) 1.7, Basophils (%) (Auto) 0.1, Neutrophils # (Auto) 9.6H, Lymphocytes # ( Auto) 2.0, Monocytes # (Auto) 1.9H, Eosinophils # (Auto) 0.2, Basophils # (Auto ) 0.0, Immature Granulocyte # (Auto) 0.1H, Nucleated Red Blood Cells % (auto) 0.0, Platelet Estimate NORMAL, Anisocytosis 2+, Macrocytosis 2+, Prothrombin Time 16.9H, Prothromb Time International Ratio 1.34, Activated Partial Thromboplast Time 37.9, Anion Gap 8, Glomerular Filtration Rate 10.9L, Lactic Acid Level 2.5*H, Calcium Level 8.2L, Aspartate Amino Transf (AST/SGOT) 19, Alanine Aminotransferase (ALT/SGPT) 20, Alkaline Phosphatase 186H, Total Bilirubin 0.4, Direct Bilirubin 0.2, Total Protein 6.3L, Albumin 3.0L, Albumin/ Globulin Ratio 0.91L, Lipase 278 07/01/17 19:59: Lactic Acid Level 2.4*H 07/01/17 22:12: Bedside Glucose (Misc Panel) 199H 07/02/17 06:44: Anion Gap 9, Glomerular Filtration Rate 9.1L, Calcium Level 8.3L, Aspartate Amino Transf (AST/SGOT) 17, Alanine Aminotransferase (ALT/SGPT) 19, Alkaline Phosphatase 155H, Total Bilirubin 0.5, Total Protein 5.9L, Albumin 2.7L, Albumin /Globulin Ratio 0.84L, Blood Urea Nitrogen 42H, Creatinine 4.87H, Sodium Level 135L, Potassium Level 5.3H, Chloride Level 100, Carbon Dioxide Level 26, Gamma Glutamyl Transpeptidase 93H CBC/BMP Laboratory Tests 07/01/17 16:04 Red Blood Count 2.74 L, Mean Corpuscular Volume 109.5 H, Mean Corpuscular Hemoglobin 33.9 H, Mean Corpuscular Hemoglobin Concent 31.0 L, Red Cell Distribution Width 16.5 H, Neutrophils (%) (Auto) 70.0 H, Lymphocytes (%) (Auto ) 14.3 L, Monocytes (%) (Auto) 13.5 H, Eosinophils (%) (Auto) 1.7, Basophils (% ) (Auto) 0.1, Neutrophils # (Auto) 9.6 H, Lymphocytes # (Auto) 2.0, Monocytes # (Auto) 1.9 H, Eosinophils # (Auto) 0.2, Basophils # (Auto) 0.0 07/02/17 00:37 07/02/17 06:44 Calcium Level 8.3 L, Aspartate Amino Transf (AST/SGOT) 17, Alanine Aminotransferase (ALT/SGPT) 19, Gamma Glutamyl Transpeptidase 93 H, Alkaline Phosphatase 155 H, Total Bilirubin 0.5, Total Protein 5.9 L, Albumin 2.7 L KAMINI ROTHMAN PA-C Jul 02, 2017 12:45
[2017-07-02 16:00] VITALS: BP 144/54
[2017-07-02] MEDS: ACETAMINOPHEN 325 MG TAB PO PRN (17:18)
[2017-07-02 20:00] VITALS: BP 121/45
[2017-07-02] MEDS: SIMVASTATIN 20 MG TAB PO SCH (21:06)
[2017-07-02 23:59] VITALS: BP 130/59
[2017-07-03 04:30] VITALS: BP 94/50
[2017-07-03 05:43] LABS: MEAN CORPUSCULAR HEMOGLOBIN 33.8 pg (27.0-33.0); MEAN CORPUSCULAR HGB CONC 30.8 g/dl (32.0-36.5)
[2017-07-03 05:47] LABS: MEAN CORPUSCULAR VOLUME 109.8 fl (80.0-96.0)
[2017-07-03 06:17] LABS: ALBUMIN 2.7 GM/DL (3.2-5.2); ALBUMIN/GLOBULIN RATIO 0.82 (1.00-1.93); BILIRUBIN,TOTAL 0.4 MG/DL (0.2-1.0); CALCIUM LEVEL 8.2 MG/DL (8.8-10.2); CREATININE FOR GFR 2.89 MG/DL (0.55-1.02); GLOMERULAR FILTRATION RATE 16.6 (>32)
[2017-07-03 06:31] LABS: POTASSIUM SERUM 4.2 MEQ/L (3.5-5.1)
[2017-07-03] MEDS: ADVAIR HFA 45/21MCG INHALER INH SCH ×2 (07:17→20:01)
[2017-07-03] MEDS: IPRATROPIUM 0.5MG/ALBUTEROL 2.5MG INH SOL UD 3ML (DUONEB)(J7620) INH SCH ×4 (07:17→20:00)
[2017-07-03 08:08] VITALS: BP 115/46
[2017-07-03] MEDS: HumaLOG INSULIN (NovoLOG) PER UNIT SC SCH ×4 (08:29→21:00)
[2017-07-03] MEDS: (RENVELA) SEVELAMER **CARBONate** 800 MG TAB PO SCH ×3 (08:29→18:00)
[2017-07-03] MEDS: SENOKOT S TAB PO SCH ×2 (08:29→20:56)
[2017-07-03] MEDS: DOCUSATE SODIUM 100 MG CAP PO SCH ×2 (08:30→20:56)
[2017-07-03] MEDS: CitaloPRAM (CeleXA) 20 MG TAB PO SCH (08:30)
[2017-07-03] MEDS: FOLIC ACID 1 MG TAB PO SCH (08:30)
[2017-07-03] MEDS: DOXYCYCLINE HYCLATE 100 MG TAB PO SCH ×2 (08:30→20:56)
[2017-07-03] MEDS: PANTOPRAZOLE 40MG TAB (PROTONIX) PO SCH (08:30)
[2017-07-03] MEDS: CARVedilol 3.125 MG TAB PO SCH ×2 (08:31→21:00)
[2017-07-03] MEDS: MUPIROCIN 2% OINT 22 GM TUBE TOP SCH ×2 (08:35→20:57)
[2017-07-03] MEDS: NEPHRO-VIT TAB (NEPHROCAPS) PO SCH (08:35)
[2017-07-03 12:04] VITALS: BP 114/50
[2017-07-03 20:00] VITALS: BP 119/50
[2017-07-03] MEDS: SIMVASTATIN 20 MG TAB PO SCH (20:56)
--- NOTE | 2017-07-03 21:09 | IPNPDOC ---
Subjective Date Seen The patient was seen on 07/03/17. Subjective Chief Complaint/HPI The patient is a 82-year-old female admitted with a reason for visit of Gi Bleed. Events since last encounter She has had no further GI bleeding. Her H&H has been stable. She has no other complaints. She would like to return back to the [facility] as soon as possible. Constitutional: Denies: Fever, Malaise Pulmonary: Denies: Cough Cardiovascular: Denies: Chest Pain, Palpitations Gastrointestinal: Denies: Nausea, Vomiting, Abdominal Pain, Melena, Hematochezia Genitourinary: Denies: Dysuria Psych: Reports: Mood Normal Objective Physical Examination General Exam: Positive: Alert, No Acute Distress Chest Exam: Positive: Normal air movement, Negative: Wheezing Heart Exam: Positive: Rate Normal, Regular Rhythm Abdomen Exam: Positive: Normal bowel sounds, Soft, Negative: Tenderness Extremity Exam: Positive: Other (BL AKA) Psych Exam: Positive: Mood NL Assessment /Plan Problems (1) GI bleed Status: Acute Problem Text: Coumadin held, I'll check an INR for tomorrow. Plavix held on admission. Her H&H has been stable. No further blood noted per the patient or nursing. Occult blood pending. (2) Paronychia Status: Acute Problem Text: On doxycycline and Bactroban. We'll monitor. (3) ESRD (end stage renal disease) on dialysis Status: Chronic Response to Treatment: Stable Problem Text: per Nephrology (4) CHF (congestive heart failure) Status: Chronic Response to Treatment: Stable (5) A-fib Status: Chronic Response to Treatment: Stable Problem Text: coumadin held per GI bleed (6) Diabetes Status: Chronic Plan/VTE VTE Prophylaxis Ordered?: No (BL AKa, GI bleed) VTE Exclusion Pharmacological: Active Bleeding Disposition Will go back to the [facility] likely on Wednesday. VS, I&O, 24H, Fishbone Vital Signs/I&O Vital Signs Date Time Temp Pulse Resp B/P (MAP) Pulse Ox O2 Delivery O2 Flow Rate FiO2 07/03/17 20:00 97.2 61 20 119/50 (73) 98 07/03/17 08:51 Nasal Cannula 2.0 I&O- Last 24 Hours up to 6 AM 07/04/17 05:59 Intake Total 800 ml Output Total 0 ml Balance 800 ml Laboratory Data 24H LABS Laboratory Tests 2 07/03/17 04:59: Anion Gap 8, Glomerular Filtration Rate 16.6L, Blood Urea Nitrogen 16#, Creatinine 2.89H, Sodium Level 136, Potassium Level 4.2#, Chloride Level 99, Carbon Dioxide Level 29, Calcium Level 8.2L, Aspartate Amino Transf (AST/SGOT) 18, Alanine Aminotransferase (ALT/SGPT) 17, Alkaline Phosphatase 147H, Total Bilirubin 0.4, Total Protein 6.0L, Albumin 2.7L, Albumin/Globulin Ratio 0.82L 07/03/17 11:26: Bedside Glucose (Misc Panel) 146H 07/03/17 16:47: Bedside Glucose (Misc Panel) 133H 07/03/17 20:13: Bedside Glucose (Misc Panel) 134H CBC/BMP Laboratory Tests 07/03/17 04:59 Red Blood Count 2.66 L, Mean Corpuscular Volume 109.8 H, Mean Corpuscular Hemoglobin 33.8 H, Mean Corpuscular Hemoglobin Concent 30.8 L, Red Cell Distribution Width 16.0 H, Calcium Level 8.2 L, Aspartate Amino Transf (AST/SGOT ) 18, Alanine Aminotransferase (ALT/SGPT) 17, Alkaline Phosphatase 147 H, Total Bilirubin 0.4, Total Protein 6.0 L, Albumin 2.7 L Sharan Musa MD Jul 03, 2017 21:09
[2017-07-04 04:00] VITALS: BP 119/52
[2017-07-04 05:40] LABS: MEAN CORPUSCULAR HEMOGLOBIN 32.9 pg (27.0-33.0); MEAN CORPUSCULAR HGB CONC 29.8 g/dl (32.0-36.5); RED CELL DISTRIBUTION WIDTH 15.9 % (11.5-14.5); WHITE BLOOD COUNT 9.2 10^3/uL (4.0-10.0)
[2017-07-04 05:41] LABS: MEAN CORPUSCULAR VOLUME 110.6 fl (80.0-96.0)
[2017-07-04 05:58] LABS: ALBUMIN 2.7 GM/DL (3.2-5.2); CALCIUM LEVEL 8.8 MG/DL (8.8-10.2); CREATININE FOR GFR 4.43 MG/DL (0.55-1.02); GLOMERULAR FILTRATION RATE 10.2 (>32); PHOSPHORUS LEVEL 3.9 MG/DL (2.5-4.9); POTASSIUM SERUM 4.8 MEQ/L (3.5-5.1)
[2017-07-04] MEDS: ADVAIR HFA 45/21MCG INHALER INH SCH ×2 (07:11→19:40)
[2017-07-04] MEDS: IPRATROPIUM 0.5MG/ALBUTEROL 2.5MG INH SOL UD 3ML (DUONEB)(J7620) INH SCH ×4 (07:12→19:41)
[2017-07-04 07:53] VITALS: BP 123/58
[2017-07-04] MEDS: CARVedilol 3.125 MG TAB PO SCH ×2 (09:00→20:38)
[2017-07-04] MEDS: (RENVELA) SEVELAMER **CARBONate** 800 MG TAB PO SCH ×3 (09:09→17:13)
[2017-07-04] MEDS: HumaLOG INSULIN (NovoLOG) PER UNIT SC SCH ×4 (09:09→20:34)
[2017-07-04] MEDS: SENOKOT S TAB PO SCH ×2 (09:10→20:33)
[2017-07-04] MEDS: DOCUSATE SODIUM 100 MG CAP PO SCH ×2 (09:10→20:33)
[2017-07-04] MEDS: PANTOPRAZOLE 40MG TAB (PROTONIX) PO SCH (09:10)
[2017-07-04] MEDS: NEPHRO-VIT TAB (NEPHROCAPS) PO SCH (09:10)
[2017-07-04] MEDS: DOXYCYCLINE HYCLATE 100 MG TAB PO SCH ×2 (09:10→20:33)
[2017-07-04] MEDS: FOLIC ACID 1 MG TAB PO SCH (09:10)
[2017-07-04] MEDS: CitaloPRAM (CeleXA) 20 MG TAB PO SCH (09:10)
[2017-07-04] MEDS: MUPIROCIN 2% OINT 22 GM TUBE TOP SCH ×2 (09:11→20:34)
[2017-07-04] MEDS: ACETAMINOPHEN 325 MG TAB PO PRN (10:49)
[2017-07-04 11:05] VITALS: BP 117/49
--- NOTE | 2017-07-04 11:38 | CR ---
DATE OF CONSULTATION: 07/02/2017 REQUESTING PHYSICIAN: Dr. Fabricio Funes. REASON FOR CONSULTATION: Management of end-stage renal disease on hemodialysis. CHIEF COMPLAINT: Maroon colored stools. HISTORY OF PRESENT ILLNESS: Patient is an 82-year-old female resident of [facility] who is end-stage renal disease on hemodialysis Wednesday, Wednesday, Wednesday via tunneled PermaCath. The patient also has a history of coronary artery disease status post coronary artery bypass graft (CABG), atrial fibrillation status post pacemaker, on Coumadin, cardiomyopathy, history of mitral valve replacement with porcine valve, history of endocarditis, diabetes, peripheral vascular disease status post left iglyr-soe-rosh amputation and right btkhf-zna-btwj amputation. The patient was in her usual state of health until she developed maroon colored stools for about the past week. Her Coumadin was discontinued at that time and she continued on her Plavix. The patient continued to have maroon colored stools and so was sent to the emergency room. The patient herself denies any symptoms. No lightheadedness. No chest pain. No shortness of breath, palpitations, fatigue. She is seen today on hemodialysis and is tolerating her maintenance treatment without issue. Her hemoglobin since admission has been stable at 9.3, which is fairly close to her baseline. PAST MEDICAL HISTORY: 1. Coronary artery disease status post CABG. 2. Mitral valve replacement with porcine valve. 3. Peripheral vascular disease status post left msplt-czj-gbbr amputation and right lgdoe-uul-adrr amputation. 4. End-stage renal disease on hemodialysis via right internal jugular (IJ) PermaCath Wednesday, Wednesday, Wednesday. 5. Congestive heart failure. 6. Diabetes. 7. Endocarditis. 8. Atrial fibrillation status post pacemaker. 9. Depression. 10. Gastroparesis. 11. Heparin-induced thrombocytopenia. PAST SURGICAL HISTORY: 1. Tunneled PermaCath in the right IJ. 2. Hysterectomy. 3. Pacemaker insertion. 4. Mitral valve replacement with porcine valve. 5. CABG. 6. Left below-knee amputation (BKA). 7. Right above-knee amputation (AKA). ALLERGIES: HEPARIN, LEVAQUIN, MORPHINE, ZOSYN, METOPROLOL. SOCIAL HISTORY: The patient resides at [facility]. She is a never smoker, no alcohol, no drugs. DO NOT RESUSCITATE/DO NOT INTUBATE. FAMILY HISTORY: Noncontributory. REVIEW OF SYSTEMS: Negative for headache, lightheadedness, change in vision, nausea, vomiting, diarrhea, abdominal pain, chest pain, shortness of breath, palpitations. Review of systems positive for 1-week history of recurrent maroon colored stools. Remainder of review of systems is negative. [facility] MEDICATIONS: - carvedilol 12.5 mg by mouth twice a day - Plavix 75 mg daily - insulin - Nepro twice a day - Celexa 20 mg daily - Colace 100 mg twice a day - folic acid 1 mg daily - Protonix 40 mg daily - Renvela 3200 mg by mouth with meals - simvastatin 40 mg by mouth nightly - vitamin B complex - sorbitol 15 grams by mouth weekly PHYSICAL EXAMINATION: Temperature 97.3, pulse 60, respiratory rate 18, blood pressure systolic 94-144 over diastolic 34-54, saturating 98% on room air. Intake and output: Hemodialysis today removed 1500 mL ultrafiltration. GENERAL: The patient is seen on hemodialysis receiving her maintenance treatment with no acute distress. HEAD AND NECK: Extraocular muscles are intact. Mucous membranes are moist. Neck veins are not prominent. CARDIOVASCULAR: S1, S2, irregularly irregular. Systolic ejection murmur. RESPIRATORY: Symmetric air entry bilaterally without crackle. ABDOMEN: Soft, obese, nontender. Bowel sounds present. EXTREMITIES: Status post bilateral lower extremity amputations. NEUROLOGIC: Alert, conversational, appropriately interactive. PSYCHIATRIC: Appropriate mood and affect. LABORATORIES: White count 13.7, hemoglobin 9.3, repeat hemoglobin 9.3, platelets 165. Sodium 135, potassium 5.3, bicarbonate 26, calcium 8.3, corrected calcium 9.3, glucose 117. INPATIENT MEDICATIONS: Reviewed by myself and include: - carvedilol 3.125 mg by mouth twice a day - Celexa 20 mg by mouth daily - Aranesp 100 mcg intravenously (IV) with hemodialysis - folic acid 1 mg by mouth daily - doxycycline 100 mg by mouth twice a day - insulin - Bactroban topical ointment - Protonix 40 mg by mouth daily - Advair two puffs inhaled twice a day - sevelamer 3200 mg by mouth with meals - Zocor 40 mg at bedtime - vitamin B complex one tablet by mouth daily ASSESSMENT AND PLAN: This is an 82-year-old female with past medical history of end-stage renal disease on hemodialysis, atrial fibrillation, and other lengthy comorbid conditions as mentioned above, who was admitted with gastrointestinal (GI) bleed. 1. GI bleed. Patient's hemoglobin has remained stable. Her Coumadin is on hold. She is tolerating a clear liquid diet and is on oral Protonix. We will continue to trend her hemoglobin and transfuse if her hemoglobin falls to around eight or less. At this point, hold transfusion. The patient continues on Aranesp with hemodialysis. 2. End-stage renal disease. The patient continues with her maintenance hemodialysis sessions. While she is on a clear liquid diet, her Renvela can be held as discussed with the nursing staff. 3. History of atrial fibrillation. Coumadin currently on hold. The patient is rate controlled with a beta casie. 4. History of congestive heart failure. The patient will continue to receive ultrafiltration as tolerated by hemodynamics and her volume status is fairly acceptable at present. 5. Mild lactic acidosis. May be due to slow GI bleed. Repeat lactic is pending. Thank you for involving us in the care of this patient. I will be happy to follow the patient along with you.
--- NOTE | 2017-07-04 11:38 | IPN ---
DATE OF SERVICE: 07/03/2017 SUBJECTIVE: The patient was seen this morning at the bedside. She denies any complaints. Per the patient and the nursing staff at the bedside, the patient has not had any more stools overnight. Her hemoglobin has remained stable and the patient denies any symptoms. REVIEW OF SYSTEMS: Negative for chest pain, palpitations, nausea, vomiting, shortness of breath. Remainder of review of systems is negative. VITAL SIGNS: Temperature 97.7, pulse 60, respiratory rate 18, blood pressure 115/46, saturating 100% on 2 liters nasal cannula. Intake and output: Hemodialysis yesterday removed 1500 mL. Weight in the bed scale today 91.8 kg. PHYSICAL EXAMINATION: GENERAL: The patient is awake, alert, oriented, sipping on beverages in no acute distress. HEAD AND NECK: Extraocular muscles are intact. Moist mucous membranes. Neck is supple. No jugular venous distention (JVD). CHEST: S1, S2, 2+ radial pulse. LUNGS: Clear to auscultation bilaterally. ABDOMEN: Soft, obese, nontender. EXTREMITIES: Bilateral amputations of the lower extremities. NEUROLOGIC: Conversational, appropriately interactive. PSYCHIATRIC: Appropriate mood and affect. LABORATORIES: White count 9.0, hemoglobin 9.0, platelets 191. Sodium 136, potassium 4.2, bicarbonate 29, corrected calcium 9.1, glucose 134. INPATIENT MEDICATIONS: Reviewed by myself. There is no change in the past 24 hours. ASSESSMENT AND PLAN: 1. Slow gastrointestinal (GI) bleed. Patient's Coumadin has been held for about 1 week. Her Plavix has been held on admission. Her hemoglobin has been fairly stable. Goal hemoglobin in dialysis patients is 10-11. Patient is not far off from her baseline. She has not had any recurrent bloody stools per the patient or the nursing staff. She remains on Protonix. 2. End-stage renal disease on hemodialysis. The patient continues on her maintenance hemodialysis treatments. Next treatment will be Wednesday, 07/05. 3. Congestive heart failure (CHF). Volume status fairly stable at present. Continue with ultrafiltration on hemodialysis. 4. Atrial fibrillation. Rate controlled with beta casie. Anticoagulation currently on hold.
[2017-07-04 14:00] VITALS: BP 111/44
[2017-07-04] MEDS: SIMVASTATIN 20 MG TAB PO SCH (20:33)
--- NOTE | 2017-07-04 21:28 | IPNPDOC ---
Subjective Date Seen The patient was seen on 07/04/17. Subjective Chief Complaint/HPI The patient is a 82-year-old female admitted with a reason for visit of Gi Bleed. Events since last encounter Both the patient and nursing denies seeing any new blood today. Unfortunately her H&H did drop a bit. She has no other complaints. General: Reports: Normal Appetite Pulmonary: Denies: Cough Cardiovascular: Denies: Chest Pain, Palpitations Genitourinary: Denies: Dysuria Psych: Reports: Mood Normal Objective Physical Examination General Exam: Positive: Alert, No Acute Distress Chest Exam: Positive: Clear to auscultation, Normal air movement Heart Exam: Positive: Rate Normal, Regular Rhythm Abdomen Exam: Positive: Normal bowel sounds, Soft, Negative: Tenderness Extremity Exam: Positive: Other (BL AKA) Psych Exam: Positive: Mood NL Assessment /Plan Problems (1) GI bleed Status: Acute Problem Text: Coumadin held, I'll check an INR for tomorrow. Plavix held on admission. Her H&H drifted down a little bit. No further blood noted per the patient or nursing. We'll need to monitor carefully. (2) ESRD (end stage renal disease) on dialysis Status: Chronic Response to Treatment: Stable Problem Text: Dr. Pal Bauman has seen her today. (3) Paronychia Status: Acute Problem Text: On doxycycline and Bactroban. We'll monitor. (4) CHF (congestive heart failure) Status: Chronic Response to Treatment: Stable (5) A-fib Status: Chronic Response to Treatment: Stable Problem Text: coumadin held per GI bleed (6) Diabetes Status: Chronic Plan/VTE VTE Prophylaxis Ordered?: No (BL AKa, GI bleed) VTE Exclusion Pharmacological: Active Bleeding VS, I&O, 24H, Fishbone Vital Signs/I&O Vital Signs Date Time Temp Pulse Resp B/P (MAP) Pulse Ox O2 Delivery O2 Flow Rate FiO2 07/04/17 20:38 60 98/62 07/04/17 14:00 97.8 18 97 Room Air 07/04/17 07:53 2.0 I&O- Last 24 Hours up to 6 AM 07/05/17 05:59 Intake Total 1280 ml Output Total 0 ml Balance 1280 ml Laboratory Data 24H LABS Laboratory Tests 2 07/04/17 04:51: Blood Urea Nitrogen 30#H, Creatinine 4.43#H, Sodium Level 136, Potassium Level 4.8, Chloride Level 99, Carbon Dioxide Level 29, Anion Gap 8, Glomerular Filtration Rate 10.2L, Calcium Level 8.8, Phosphorus Level 3.9, Albumin 2.7L 07/04/17 11:28: Bedside Glucose (Misc Panel) 171H 07/04/17 16:19: Bedside Glucose (Misc Panel) 160H 07/04/17 20:24: Bedside Glucose (Misc Panel) 105 CBC/BMP Laboratory Tests 07/04/17 04:51 Red Blood Count 2.55 L, Mean Corpuscular Volume 110.6 H, Mean Corpuscular Hemoglobin 32.9, Mean Corpuscular Hemoglobin Concent 29.8 L, Red Cell Distribution Width 15.9 H, Anion Gap 8 Sharan Musa MD Jul 04, 2017 21:28
--- NOTE | 2017-07-04 21:34 | IPN ---
DATE: 07/04/2017 SUBJECTIVE: The patient was seen this morning at the bedside. She has no complaints. She feels well. She is tolerating her renal diet. She had one bowel movement overnight. A stool occult is still pending. She denies any abdominal cramps. She feels well. REVIEW OF SYSTEMS: Negative for chest pain, palpitations, shortness of breath, nausea, vomiting, diarrhea, abdominal pain. Remainder of review of systems is negative. OBJECTIVE: VITAL SIGNS: Temperature 97.7, pulse 60, respiratory rate 18, blood pressure 117/49, saturating 100% on room air. INTAKE AND OUTPUT: Oral intake yesterday 800 mL. PHYSICAL EXAMINATION: GENERAL: The patient is seen in bed, sitting upright, eating, alert and oriented times three in no acute distress. HEAD/NECK: Extraocular muscles are intact. Mucous membranes are moist. Neck is supple. No jugular venous distention (JVD). CARDIOVASCULAR: S1, S2. Irregularly irregular. Systolic murmur. Two plus radial pulse. No edema at the hips. RESPIRATORY: Clear to auscultation. Patient breathing comfortable on room air. ABDOMEN: Obese, soft, nontender. EXTREMITIES: Status post amputation of the bilateral lower extremities. NEUROLOGIC: Appropriately interactive and conversational. PSYCHIATRIC: Appropriate mood and affect. LABORATORY DATA: Hemoglobin 8.4 from 9.0 earlier, and 9.3 before that. White count 9.2, platelets 201. Sodium 136, potassium 4.8, bicarbonate 29, glucose 160, corrected calcium 9.8, phosphorus 3.9. MICROBIOLOGY: Stool occult blood is ordered and pending. INPATIENT MEDICATIONS: Reviewed by myself. The patient's Plavix and Coumadin both remain on hold. She continues on Aranesp and Protonix. There is no significant change in the past 24 hours in her medications. ASSESSMENT AND PLAN: 1. End-stage renal disease on hemodialysis via right internal jugular (IJ) PermaCath. The patient's next hemodialysis treatment will be WednesdayJuly 05. If her hemoglobin drops further, she will received packed red blood cells with dialysis tomorrow as she will be dialyzed inpatient. She cannot be discharged until the following morning, provided that she remains stable. 2. Gastrointestinal (GI) bleed. The patient's Coumadin and Plavix are both on hold. She is on Protonix. She had one stool in the past 24 hours. Stool occult is still pending. Her hemoglobin has slowly drifted down over the past 48 hours, likely a component of dilution along with GI bleed. Today's hemoglobin is 8.4. If her hemoglobin is lower tomorrow, I will transfuse her a unit of packed red blood cells with dialysis. She continues on Aranesp as well. 3. Atrial fibrillation. The patient remains on beta casie. Her anticoagulant is held. DISPOSITION: The patient will be dialyzed inpatient on 07/05; hence, cannot be discharged until 07/06. She should have gastrointestinal evaluation as outpatient for endoscopy, colonoscopy, or as decided upon by the primary medical service.
[2017-07-04 22:00] VITALS: BP 98/62
[2017-07-05 06:00] VITALS: BP 119/48
[2017-07-05] MEDS: CARVedilol 3.125 MG TAB PO SCH ×2 (06:14→20:26)
[2017-07-05] MEDS: CitaloPRAM (CeleXA) 20 MG TAB PO SCH (06:21)
[2017-07-05] MEDS: SENOKOT S TAB PO SCH ×2 (06:21→20:30)
[2017-07-05] MEDS: FOLIC ACID 1 MG TAB PO SCH (06:21)
[2017-07-05] MEDS: (RENVELA) SEVELAMER **CARBONate** 800 MG TAB PO SCH ×3 (06:22→18:17)
[2017-07-05] MEDS: DOXYCYCLINE HYCLATE 100 MG TAB PO SCH ×2 (06:22→20:30)
[2017-07-05] MEDS: MUPIROCIN 2% OINT 22 GM TUBE TOP SCH ×2 (06:22→20:31)
[2017-07-05] MEDS: PANTOPRAZOLE 40MG TAB (PROTONIX) PO SCH (06:22)
[2017-07-05] MEDS: DOCUSATE SODIUM 100 MG CAP PO SCH ×2 (06:22→20:30)
[2017-07-05 06:23] LABS: MEAN CORPUSCULAR HEMOGLOBIN 33.5 pg (27.0-33.0); MEAN CORPUSCULAR HGB CONC 30.6 g/dl (32.0-36.5); RED CELL DISTRIBUTION WIDTH 15.9 % (11.5-14.5); WHITE BLOOD COUNT 10.6 10^3/uL (4.0-10.0)
[2017-07-05 06:25] LABS: MEAN CORPUSCULAR VOLUME 109.4 fl (80.0-96.0)
[2017-07-05 06:37] LABS: INR 1.3
[2017-07-05] MEDS: ACETAMINOPHEN 325 MG TAB PO PRN (06:38)
[2017-07-05] MEDS: ADVAIR HFA 45/21MCG INHALER INH SCH ×2 (07:40→19:35)
[2017-07-05] MEDS: IPRATROPIUM 0.5MG/ALBUTEROL 2.5MG INH SOL UD 3ML (DUONEB)(J7620) INH SCH ×4 (07:41→19:36)
[2017-07-05] MEDS: HumaLOG INSULIN (NovoLOG) PER UNIT SC SCH ×4 (07:54→20:26)
--- NOTE | 2017-07-05 10:44 | IPNPDOC ---
Subjective Date Seen The patient was seen on 07/05/17. Subjective Chief Complaint/HPI The patient is a 82-year-old female admitted with a reason for visit of Gi Bleed. Events since last encounter Hgb stable. left hand with abscessed finger noted by nursing staff Constitutional: Denies: Chills, Fever, Night Sweats ENT: Denies: Head Aches, Ear Pain, Dysphagia Pulmonary: Denies: Dyspnea, Cough Cardiovascular: Denies: Chest Pain, Palpitations, Orthopnea, Paroxysmal Noc. Dyspnea, Lt Headedness Objective Physical Examination General Exam: Positive: Alert, No Acute Distress Chest Exam: Positive: Normal air movement, Negative: Wheezing Heart Exam: Positive: Rate Normal, Regular Rhythm Abdomen Exam: Positive: Normal bowel sounds, Soft, Negative: Tenderness Extremity Exam: Positive: Other (BL AKA) Skin Exam: Positive: Other skin issue (left hand 1st finger with infection, ingrown finger nail) Psych Exam: Positive: Mood NL Assessment /Plan Problems (1) GI bleed Status: Acute Problem Text: 07/05: INR subtherapeutic. remains on hold due to anemia. NO OB resulted Coumadin held, I'll check an INR for tomorrow. Plavix held on admission. Her H& H has been stable. No further blood noted per the patient or nursing. Occult blood pending. (2) Paronychia Status: Acute Problem Text: On doxycycline and Bactroban. We'll monitor. (3) ESRD (end stage renal disease) on dialysis Status: Chronic Response to Treatment: Stable Problem Text: per Nephrology (4) CHF (congestive heart failure) Status: Chronic Response to Treatment: Stable (5) A-fib Status: Chronic Response to Treatment: Stable Problem Text: coumadin held per GI bleed (6) Diabetes Status: Chronic Plan/VTE VTE Prophylaxis Ordered?: No (BL AKa, GI bleed) VTE Exclusion Pharmacological: Active Bleeding VS, I&O, 24H, Fishbone Vital Signs/I&O Vital Signs Date Time Temp Pulse Resp B/P (MAP) Pulse Ox O2 Delivery O2 Flow Rate FiO2 07/05/17 07:55 Room Air 07/05/17 06:14 60 119/48 07/05/17 06:00 98.3 18 96 2.0 I&O- Last 24 Hours up to 6 AM 07/06/17 06:00 Intake Total 180 ml Output Total 0 ml Balance 180 ml Laboratory Data 24H LABS Laboratory Tests 2 07/04/17 11:28: Bedside Glucose (Misc Panel) 171H 07/04/17 16:19: Bedside Glucose (Misc Panel) 160H 07/04/17 20:24: Bedside Glucose (Misc Panel) 105 07/05/17 05:38: Prothrombin Time 16.5H, Prothromb Time International Ratio 1.30 07/05/17 06:21: Bedside Glucose (Misc Panel) 132H CBC/BMP Laboratory Tests 07/05/17 05:38 Red Blood Count 2.54 L, Mean Corpuscular Volume 109.4 H, Mean Corpuscular Hemoglobin 33.5 H, Mean Corpuscular Hemoglobin Concent 30.6 L, Red Cell Distribution Width 15.9 H Prachi Riggs HAIRCUTTER Jul 05, 2017 10:44
[2017-07-05] MEDS: NEPHRO-VIT TAB (NEPHROCAPS) PO SCH (13:05)
[2017-07-05] MEDS ORDERED: HEPARIN 1,000 UNITS/ML 10ML VIAL (FOR RADIOLOGY& DIALYSIS ONLY) XX ONE (15:00)
[2017-07-05] MEDS: SIMVASTATIN 20 MG TAB PO SCH (20:30)
--- NOTE | 2017-07-05 21:17 | IPN ---
DATE: 07/05/2017 SUBJECTIVE: The patient is seen this morning on hemodialysis. She has no complaints. She feels well. She continues to receive oral antibiotics for her left hand index finger paronychia. She is recieving 1 unit packed red blood cells with hemodialysis. She did not have any bowel movements overnight. Her hemoglobin today is 8.5. REVIEW OF SYSTEMS: Negative for headache, dizziness, chest pain, palpitations, shortness of breath, nausea, vomiting, diarrhea, positive for left hand index finger tenderness. Remainder of review of systems is negative. VITAL SIGNS: Temperature 98.3, pulse 60, respiratory rate 18, blood pressure 119/48, saturating 96% on 2 liters nasal cannula. Intake and output: Hemodialysis today removed 2000 mL ultrafiltration. Weight on the bed scale pre-dialysis 91.1 kg. PHYSICAL EXAMINATION: General: The patient is seen on hemodialysis, comfortable. In no acute distress. Head and neck: Extraocular muscles are intact. Neck is supple. Moist tongue. She has a right IJ permacath. Chest: S1, S2. 2+ radial pulse. Lungs: Clear to auscultation bilaterally. Abdomen: Soft, obese, nontender. Extremities: Bilateral lower extremity amputatio, left hand with index finger with purplish discoloration. LABS: White count 10.6, hemoglobin 8.5, platelets 239. Sodium 136, potassium 4.8 , bicarbonate 29, calcium 8.8, phosphorous 3.9, glucose 98. Microbiology: Her fecal occult blood has not resulted. INPATIENT MEDICATIONS: Reviewed by myself. There are no significant changes in the last 24 hours. ASSESSMENT AND PLAN: 1. End-stage renal disease, on hemodialysis. The patient continues with her maintenance treatment. She received 1 unit packed red blood cells with dialysis today. 2. GI bleed. The patient's Coumadin and Plavix are both held. She is on oral Protonix. There is only one bowel movement recorded in the last three days. That is likely why her fecal occult has not yet resulted. She continues on Aranesp with hemodialysis. She should followup with GI as outpatient or as decided upon the primary medical service. 3. Atrial fibrillation. The patient remained rate controlled with a beta casie. Her anticoagulation is on hold. 4. Left index finger swelling. The patient reports a history of recent trauma to the finger. She is currently on antibiotics with doxycycline as well as Bactroban. Further management as per the primary team. MTDD
[2017-07-05 22:00] VITALS: BP 118/52
[2017-07-06 06:00] VITALS: BP 133/56
[2017-07-06 07:07] LABS: RED CELL DISTRIBUTION WIDTH 18.7 % (11.5-14.5); WHITE BLOOD COUNT 10.7 10^3/uL (4.0-10.0)
[2017-07-06 07:10] LABS: MEAN CORPUSCULAR VOLUME 106.5 fl (80.0-96.0)
[2017-07-06] MEDS: NEPHRO-VIT TAB (NEPHROCAPS) PO SCH (08:00)
[2017-07-06] MEDS: PANTOPRAZOLE 40MG TAB (PROTONIX) PO SCH (08:00)
[2017-07-06] MEDS: SENOKOT S TAB PO SCH (08:00)
[2017-07-06] MEDS: IPRATROPIUM 0.5MG/ALBUTEROL 2.5MG INH SOL UD 3ML (DUONEB)(J7620) INH SCH ×2 (08:00→12:00)
[2017-07-06] MEDS: FOLIC ACID 1 MG TAB PO SCH (08:00)
[2017-07-06] MEDS: DOXYCYCLINE HYCLATE 100 MG TAB PO SCH (08:00)
[2017-07-06] MEDS: CitaloPRAM (CeleXA) 20 MG TAB PO SCH (08:00)
[2017-07-06] MEDS: DOCUSATE SODIUM 100 MG CAP PO SCH (08:00)
[2017-07-06] MEDS: (RENVELA) SEVELAMER **CARBONate** 800 MG TAB PO SCH (08:00)
[2017-07-06] MEDS: HumaLOG INSULIN (NovoLOG) PER UNIT SC SCH (08:01)
[2017-07-06 08:04] VITALS: BP 133/56
[2017-07-06] MEDS: CARVedilol 3.125 MG TAB PO SCH (08:04)
[2017-07-06] MEDS: MUPIROCIN 2% OINT 22 GM TUBE TOP SCH (08:05)
[2017-07-06] MEDS ORDERED: DOXY100T2 PO (08:28)
[2017-07-06] MEDS: ADVAIR HFA 45/21MCG INHALER INH SCH (09:00)
--- NOTE | 2017-07-06 10:05 | DSES ---
DATE OF ADMISSION: 07/01/2017 DATE OF DISCHARGE: 07/06/2017 ATTENDING PHYSICIAN: Padma Morales DO PRIMARY CARE PHYSICIAN: Marty Ho MD, at [facility] CATTLE STICKER: Mei Landeros MD S[employer]OL [employer]ANT CONSULTANT: Alyssa Bauman MD HISTORY OF PRESENT ILLNESS: An 82-year-old female presented to the emergency department (ED) with maroon-colored stools for the past week. Her warfarin had been discontinued several days prior to her presentation. The patient was continued on her Plavix, and her maroon-colored stools had continued. The patient presented with no active complaints or symptoms of active gastrointestinal (GI) bleed. She was subsequently admitted to family medicine service. HOSPITAL COURSE: The patient's nephrology service was consulted, and she was maintained on her hemodialysis days throughout her hospitalization. Hemoglobins have remained stable throughout her hospitalization, and intervention was deemed inappropriate in the inpatient setting. Most recent hemoglobin is 9.7, which appears the patient's baseline. Renal function monitored and treated by the patient's field crop grower. On physical examination today, blood pressure 133/56, oxygen saturation 95% on 2 liters nasal cannula, heart rate 60, respiratory rate 18, temperature 97.5. Most recent hemoglobin 9.7. Stool was not obtained for hemoccult while hospitalized. On physical examination, HEENT: Neck is supple without lymphadenopathy or jugular venous distention (JVD). Cardiovascular: Heart rate and rhythm are regular. Pulmonary: Lungs are clear. Abdomen: Soft and nontender. Skin: The patient does have an ingrown fingernail, which is thickened and yellow along with a small cellulitis noted to the 1st finger. ASSESSMENT/DISCHARGE DIAGNOSES: 1. Gastrointestinal bleed, likely related to anticoagulation and antiplatelet use. 2. End-stage renal disease. SECONDARY DIAGNOSES: Include: 1. Congestive heart failure. 2. Diabetes. 3. Left index finger cellulitis with paronychia. 4. Peripheral vascular disease. 5. Anemia of chronic disease. 6. Depression. 7. Chronic obstructive pulmonary disease. 8. Gastroesophageal reflux disease. 9. Coronary artery disease. 10. Chronic constipation. 11. Heparin-induced thrombocytopenia. 12. Lactic acidosis. PLAN: The patient will be discharged back to [facility]. Diet is a renal diet. Activity is returned to previous activity. MEDICATIONS: Are as follows: - doxycycline 100 mg by mouth twice a day - acetaminophen 325 mg two by mouth every 4 hours as needed for pain - acetaminophen 650 mg suppository every 4 hours per rectum as needed for pain or fever - DuoNeb every 2 hours as needed for wheezing - DuoNeb every 6 hours scheduled - Dulcolax suppository daily as needed constipation - carvedilol 12.5 mg by mouth twice a day - citalopram 20 mg by mouth daily - Senokot/docusate one tablet by mouth twice a day - Colace 100 mg by mouth twice a day - enema daily as needed constipation - folic acid 1 mg by mouth daily - guaifenesin with dextromethorphan 10 mL by mouth every 4 hours as needed for cough - insulin sliding scale before meals - milk of magnesia 30 mL by mouth daily as needed constipation - Nepro with Carb Steady one 90 mL can by mouth twice a day - Zofran 4 mg by mouth every 6 hours as needed for nausea - Protonix 40 mg daily - Advair 100-50 mcg one puff twice a day - Renvela 800 mg tablets - she is to take 3200 mg by mouth with meals - simvastatin 40 mg by mouth nightly - Sorbitol 70% solution 15 grams by mouth weekly - vitamin B complex one tablet by mouth daily MEDICATIONS: Held include her Plavix, as well as her warfarin. The patient will need a GI consult as an outpatient for further evaluation of the maroon-colored stools. However, she does have a stable hemoglobin at this point. The patient's finger continues to have significant paronychia with some surrounding cellulitis, and a surgical consult may be warranted for further treatment on an outpatient basis, as well. The patient is discharged in stable and satisfactory condition. No further questions at discharge. MTDD
== END 2017-07-06 11:30 | DRG 813 ==
LOC: EDBD 13:57 → M ED 13:57 → M ED INP 20:22 → M PCU 07-02 15:28 → M MSPAV 07-04 10:59
PROVIDERS: ADMIT Internal Medicine; ATTEND Family Medicine
PROC: 5A1D70Z Performance of Urinary Filtration, Intermittent, Less than 6 Hours Per Day (ICD-10-PCS; principal; 2017-07-02)
PROC: 30253N1 (ICD-10-PCS; 2017-07-05)
DX: D68.32 Hemorrhagic disorder due to extrinsic circulating anticoagulants (principal); N18.6 End stage renal disease; K62.5 Hemorrhage of anus and rectum; D62 Acute posthemorrhagic anemia; E87.2 Acidosis; I48.2 Chronic atrial fibrillation; I25.10 Atherosclerotic heart disease of native coronary artery without angina pectoris; E11.51 Type 2 diabetes mellitus with diabetic peripheral angiopathy without gangrene; I50.9 Heart failure, unspecified; D63.1 Anemia in chronic kidney disease; F32.9 Major depressive disorder, single episode, unspecified; J44.9 Chronic obstructive pulmonary disease, unspecified; E11.43 Type 2 diabetes mellitus with diabetic autonomic (poly)neuropathy; E66.9 Obesity, unspecified; D75.82 Heparin induced thrombocytopenia (HIT); K59.00 Constipation, unspecified; K21.9 Gastro-esophageal reflux disease without esophagitis; L03.012 Cellulitis of left finger; K31.84 Gastroparesis; Z66 Do not resuscitate; Z89.611 Acquired absence of right leg above knee; Z89.512 Acquired absence of left leg below knee; Z95.3 Presence of xenogenic heart valve; Z86.14 Personal history of Methicillin resistant Staphylococcus aureus infection; Z99.2 Dependence on renal dialysis; Z95.0 Presence of cardiac pacemaker; Z95.1 Presence of aortocoronary bypass graft; Z79.02 Long term (current) use of antithrombotics/antiplatelets; Z79.4 Long term (current) use of insulin; Z79.899 Other long term (current) drug therapy; Z79.01 Long term (current) use of anticoagulants; Z88.6 Allergy status to analgesic agent; Z88.8 Allergy status to other drugs, medicaments and biological substances; Z68.35 Body mass index [BMI] 35.0-35.9, adult; T45.515A Adverse effect of anticoagulants, initial encounter

== ENCOUNTER → 2017-07-01 | Outpatient (REF) | payer OTHER, MEDICAID ==
[2017-07-01 09:22] LABS: MEAN CORPUSCULAR HEMOGLOBIN 33.6 pg (27.0-33.0); MEAN CORPUSCULAR HGB CONC 30.2 g/dl (32.0-36.5); RED CELL DISTRIBUTION WIDTH 16.4 % (11.5-14.5); WHITE BLOOD COUNT 8.6 10^3/uL (4.0-10.0)
[2017-07-01 09:27] LABS: MEAN CORPUSCULAR VOLUME 111.1 fl (80.0-96.0)
== END ==
LOC: SKLAB3 06:58
PROVIDERS: ATTEND Family Medicine
DX: D64.9 Anemia, unspecified (principal)

== ENCOUNTER → 2017-07-02 | Outpatient (REF) | payer OTHER, MEDICAID ==
[~2017-07-02] MED LIST changes: +DOXY100T2 PO; +SORB1SOL PO
--- NOTE | 2017-07-02 17:23 | CR ---
DATE OF CONSULTATION: 07/02/2017 REASON FOR CONSULTATION: Rectal bleeding. HISTORY OF PRESENT ILLNESS: The patient is an 82-year-old woman who resides at the [facility] for about the last 2 years. She has multiple medical problems including end-stage renal disease on hemodialysis, diabetes mellitus, peripheral vascular disease status post bilateral below-knee amputations, atrial fibrillation, chronic obstructive pulmonary disease, and congestive heart failure. She has been on Coumadin for her atrial fib. She reports that she has had some rectal bleeding for about the last week. She was noted to have a mild to moderate drop in her hematocrit over the last several days but it has been stable over the last 2-3 days. She was transferred from the [facility] to the emergency department for evaluation. She was found to have some guaiac positive material, but not bright red blood on rectal exam. She has had a colonoscopy back in August 2015, by Dr. Perera at which time he also performed an EGD. Her colonoscopy had shown some internal hemorrhoids which were described as moderate as well as multiple diverticula of the sigmoid colon. The patient has do not intubate (DNI ) and Do not resuscitate (DNR) in place at the [facility]. MEDICATIONS: Medications are multiple and as listed in the patient's medical record. ALLERGIES: Allergies are reported to levofloxacin, morphine, piperacillin, tazobactam. SURGICAL HISTORY: Surgical history is significant for a tunneled hemodialysis catheter. She has had a hysterectomy. She has undergone a pacemaker insertion as well as a mitral valve replacement with a porcine valve. She has had a coronary artery bypass grafting. She is described as having a left below-knee amputation and a right above-knee amputation secondary to have a peripheral vascular disease. SOCIAL HISTORY: Patient is a nonsmoker. She has several children who are apparently still involved in her care. FAMILY HISTORY: Is of no benefit in this elderly patient. REVIEW OF SYSTEMS: Shows no chest pain or shortness of breath. It is solely because of her rectal bleeding that she is presenting. PHYSICAL EXAMINATION: Reveals a pleasant older woman lying on the hospital stretcher. She is alert, oriented and cooperative. She seems to have a pretty good grasp of her medical history. Vital signs at time of her exam show her to be afebrile with a pulse of approximately 60, respirations of 16 and an acceptable blood pressure of approximately 127 systolic. Her room air O2 sats are fine. Physical exam reveals her to be perhaps slightly pale. Sclerae are anicteric. Her mucous membranes are moist. Heart exam shows a regular rhythm with a systolic murmur. Lungs are clear to auscultation. The abdomen is somewhat protuberant. She has bowel sounds present. There is no tympany to percussion. There is no tenderness to percussion. The abdomen is soft and nontender to palpation. LABORATORY DATA: Laboratory studies reveal a white blood cell count of 14 with a hemoglobin of 9 and a hematocrit of 30 and platelet count of 165,000. This is minimally changed from labs done on the and the morning of the 5th at the [facility]. On the her hemoglobin was 9.8 with a hematocrit of 32. Her chemistry profile showed normal electrolytes with BUN of 34, creatinine 4.1 and a glucose of 226. IMPRESSION: 1. Rectal bleeding which based on her report and the changes in her hemoglobin and hematocrit would seem to be relatively minor bleeding. RECOMMENDATIONS: The patient has A DO NOT RESUSCITATE and DO NOT INTUBATE order as part of her health plan. She has multiple medical problems including cardiac , respiratory and renal problems. She is on dialysis. She has known diverticulosis, which is a potential source for bleeding as well as noted hemorrhoids. As of 2 years ago we know that she did not have a malignant lesion to account for her bleeding. This is one thing we probably do not need to be concerned with. I do not think an aggressive approach to identifying the source of her bleeding is warranted. Her Coumadin is being held at this point and I think this is reasonable. I would recommend close monitoring of the patient as to the degree of bleeding and whether this ceases on its own. Only if her bleeding became more pronounced or her blood testing showed significant fall in her hemoglobin and hematocrit would I recommend any additional testing. PHILIP
== END ==
LOC: SKLAB3 07:00
PROVIDERS: ATTEND Family Medicine
DX: D64.9 Anemia, unspecified (principal); K92.1 Melena

== ENCOUNTER → 2017-08-18 | Outpatient (REF) | payer OTHER, MEDICAID | LOC: SKLAB3 07:00 | PROVIDERS: ATTEND Family Medicine | DX: E11.9 Type 2 diabetes mellitus without complications (principal) ==

== ENCOUNTER → 2017-11-16 | Outpatient (REF) | payer OTHER, MEDICAID ==
[2017-11-16 08:20] LABS: ESTIMATED AVERAGE GLUCOSE 177 MG/DL (60-110); HEMOGLOBIN A1c 7.8 %
== END ==
LOC: SKLAB2 14:11
DX: E11.9 Type 2 diabetes mellitus without complications (principal); R05 Cough
CPT/HCPCS: 71045

== ENCOUNTER 2017-11-23 11:11 | Inpatient (IN) | payer OTHER, MEDICAID ==
[2017-11-23] MEDS: IPRATROPIUM 0.5MG/ALBUTEROL 2.5MG INH SOL UD 3ML (DUONEB)(J7620) NEB ×6 (12:38→20:09)
[2017-11-23 13:11] LABS: INFLUENZA A AMPLIFICATION NEGATIVE (NEGATIVE); INFLUENZA B AMPLIFICATION NEGATIVE (NEGATIVE)
[2017-11-23 13:16] LABS: BASO % 0.2 % (0.0-1.0); EOS # 0.1 10^3/uL (0.0-0.50); EOS % 0.8 % (0.0-3.0); HEMATOCRIT 34.1 % (36.0-47.0); HEMOGLOBIN 10.8 g/dl (12.0-16.0); IMMATURE GRANULOCYTE % 2.7 % (0-3.0); LYMPH # 1.3 10^3/uL (1.5-4.5); MEAN CORPUSCULAR HEMOGLOBIN 33.2 pg (27.0-33.0); MEAN CORPUSCULAR HGB CONC 31.7 g/dl (32.0-36.5); MEAN CORPUSCULAR VOLUME 104.9 fl (80.0-96.0); MONO # 1.9 10^3/uL (0.0-0.8); MONO % 11.8 % (0.0-5.0); NEUTROPHILS # 12.5 10^3/uL (1.8-7.7); NEUTROPHILS % 76.5 % (36.0-66.0); PLATELET COUNT, AUTOMATED 149 10^3/uL (150-450); RED BLOOD COUNT 3.25 10^6/uL (4.00-5.40); RED CELL DISTRIBUTION WIDTH 16.3 % (11.5-14.5); WHITE BLOOD COUNT 16.4 10^3/uL (4.0-10.0)
[2017-11-23 13:27] LABS: INR 1.07; PROTHROMBIN TIME 14.1 SECONDS (12.4-14.5)
[2017-11-23 13:45] LABS: LACTIC ACID SEPSIS PROTOCOL 2.1 MMOL/L (0.4-2.0)
[2017-11-23] MEDS ORDERED: IPRATROPIUM 0.5MG/ALBUTEROL 2.5MG INH SOL UD 3ML (DUONEB)(J7620) NEB ×2 (13:45)
[2017-11-23 13:46] LABS: ALBUMIN 2.8 GM/DL (3.2-5.2); ALKALINE PHOSPHATASE 130 U/L (45-117); ALT/SGPT 29 U/L (12-78); ANION GAP 10 MEQ/L (8-16); AST/SGOT 19 U/L (7-37); BILIRUBIN,DIRECT 0.2 MG/DL (0.0-0.2); BILIRUBIN,TOTAL 0.5 MG/DL (0.2-1.0); BLOOD UREA NITROGEN 44 MG/DL (7-18); CALCIUM LEVEL 8.1 MG/DL (8.8-10.2); CARBON DIOXIDE LEVEL 26 MEQ/L (21-32); CHLORIDE LEVEL 97 MEQ/L (98-107); CREATININE FOR GFR 3.68 MG/DL (0.55-1.30); GLOMERULAR FILTRATION RATE 12.6 (>32); GLUCOSE, FASTING 243 MG/DL (70-100); NT-PRO BNP 31854 PG/ML (<450); POTASSIUM SERUM 4.7 MEQ/L (3.5-5.1); SODIUM LEVEL 133 MEQ/L (136-145); TOTAL PROTEIN 6.3 GM/DL (6.4-8.2)
[2017-11-23] MEDS ORDERED: ACETAMINOPHEN TAB 650MG DOSE (2X325MG) PO ×2 (14:00)
[2017-11-23] MEDS ORDERED: DEXTROSE 50% 50 ML SYRINGE IV ×2 (14:00)
[2017-11-23] MEDS ORDERED: GLUCOSE 4 GM CHEW TABLET PO ×2 (14:00)
[2017-11-23] MEDS ORDERED: GLUCAGON FOR INJ 1 MG VIAL (J1610) SC ×2 (14:00)
[2017-11-23] MEDS ORDERED: MEROPENEM INJ 1 GM in APPROPRIATE DILUENT 1 EA IV (14:45)
[2017-11-23] MEDS: NS 500 ML IV ×2 (15:00)
[2017-11-23] MEDS: MEROPENEM INJ 500 MG in APPROPRIATE DILUENT 1 EA IV (16:00)
[2017-11-23] MEDS: ASPIRIN 81 MG ENTERIC TAB PO ×2 (18:01)
[2017-11-23] MEDS: CitaloPRAM (CeleXA) 20 MG TAB PO ×2 (18:01)
[2017-11-23 18:03] LABS: BEDSIDE GLUCOSE 236 MG/DL (83-110)
[2017-11-23] MEDS: HumaLOG INSULIN (NovoLOG) PER UNIT SC ×4 (18:17→21:00)
[2017-11-23 18:22] LABS: CK-MB VALUE MASS 2.1 NG/ML (0.0-3.6); CPK CREATINE PHOSPHOKINASE 80 U/L (26-192); MB/CK RELATIVE INDEX 2.62 (< OR =4); TROPONIN I 0.06 NG/ML (< 0.10)
[2017-11-23] MEDS: CARVedilol 12.5 MG TAB PO ×2 (20:41)
[2017-11-23] MEDS: DOCUSATE SODIUM 100 MG CAP PO ×2 (21:00)
[2017-11-23] MEDS: SENOKOT S TAB PO ×2 (22:11)
[2017-11-23] MEDS: SIMVASTATIN 40 MG TAB PO ×2 (22:11)
[2017-11-23 23:10] LABS: BEDSIDE GLUCOSE 208 MG/DL (83-110)
[2017-11-24] MEDS: IPRATROPIUM 0.5MG/ALBUTEROL 2.5MG INH SOL UD 3ML (DUONEB)(J7620) NEB ×8 (01:55→21:54)
[2017-11-24 02:34] LABS: CK-MB VALUE MASS 2.1 NG/ML (0.0-3.6); CPK CREATINE PHOSPHOKINASE 89 U/L (26-192); MB/CK RELATIVE INDEX 2.35 (< OR =4); TROPONIN I 0.07 NG/ML (< 0.10)
[2017-11-24 05:41] LABS: BASO % 0.1 % (0.0-1.0); EOS # 0.1 10^3/uL (0.0-0.50); EOS % 0.9 % (0.0-3.0); HEMATOCRIT 32.4 % (36.0-47.0); HEMOGLOBIN 10.4 g/dl (12.0-16.0); IMMATURE GRANULOCYTE % 1.9 % (0-3.0); LYMPH # 1.5 10^3/uL (1.5-4.5); LYMPH % 9.1 % (24.0-44.0); MEAN CORPUSCULAR HEMOGLOBIN 32.5 pg (27.0-33.0); MEAN CORPUSCULAR HGB CONC 32.1 g/dl (32.0-36.5); MEAN CORPUSCULAR VOLUME 101.3 fl (80.0-96.0); MONO # 1.7 10^3/uL (0.0-0.8); MONO % 10.2 % (0.0-5.0); NEUTROPHILS # 12.6 10^3/uL (1.8-7.7); NEUTROPHILS % 77.8 % (36.0-66.0); PLATELET COUNT, AUTOMATED 143 10^3/uL (150-450); RED CELL DISTRIBUTION WIDTH 16.1 % (11.5-14.5); WHITE BLOOD COUNT 16.2 10^3/uL (4.0-10.0)
[2017-11-24 06:26] LABS: ALBUMIN 2.6 GM/DL (3.2-5.2); ALBUMIN/GLOBULIN RATIO 0.74 (1.00-1.93); ALKALINE PHOSPHATASE 119 U/L (45-117); ALT/SGPT 26 U/L (12-78); ANION GAP 12 MEQ/L (8-16); AST/SGOT 17 U/L (7-37); BILIRUBIN,TOTAL 0.6 MG/DL (0.2-1.0); BLOOD UREA NITROGEN 53 MG/DL (7-18); CALCIUM LEVEL 7.9 MG/DL (8.8-10.2); CARBON DIOXIDE LEVEL 22 MEQ/L (21-32); CHLORIDE LEVEL 98 MEQ/L (98-107); CREATININE FOR GFR 4.44 MG/DL (0.55-1.30); GLOMERULAR FILTRATION RATE 10.1 (>32); GLUCOSE, FASTING 188 MG/DL (70-100); MAGNESIUM LEVEL 2.2 MG/DL (1.8-2.4); POTASSIUM SERUM 4.5 MEQ/L (3.5-5.1); SODIUM LEVEL 132 MEQ/L (136-145); TOTAL PROTEIN 6.1 GM/DL (6.4-8.2)
[2017-11-24] MEDS: PANTOPRAZOLE 40MG TAB (PROTONIX) PO ×2 (09:04)
[2017-11-24] MEDS: SENOKOT S TAB PO ×4 (09:04→20:10)
[2017-11-24] MEDS: HumaLOG INSULIN (NovoLOG) PER UNIT SC ×8 (09:04→20:16)
[2017-11-24] MEDS: ASPIRIN 81 MG ENTERIC TAB PO ×2 (09:04)
[2017-11-24] MEDS: DOCUSATE SODIUM 100 MG CAP PO ×4 (09:04→20:10)
[2017-11-24] MEDS: CitaloPRAM (CeleXA) 20 MG TAB PO ×2 (09:04)
[2017-11-24 10:46] LABS: CK-MB VALUE MASS 2.2 NG/ML (0.0-3.6); CPK CREATINE PHOSPHOKINASE 84 U/L (26-192); MB/CK RELATIVE INDEX 2.61 (< OR =4); TROPONIN I 0.06 NG/ML (< 0.10)
[2017-11-24] MEDS: HEPARIN 1,000 UNITS/ML 10ML VIAL (FOR RADIOLOGY& DIALYSIS ONLY) XX ×2 (11:15)
[2017-11-24 12:04] LABS: BEDSIDE GLUCOSE 174 MG/DL (83-110)
[2017-11-24 17:20] LABS: BEDSIDE GLUCOSE 132 MG/DL (83-110)
[2017-11-24] MEDS: MEROPENEM INJ 500 MG in APPROPRIATE DILUENT 1 EA IV (17:22)
[2017-11-24] MEDS: VANCOMYCIN HCL 1,000 MG, VIAL MATE ADAPTER 1 EACH in D5W 250 ML IV ×2 (17:57)
[2017-11-24 20:11] LABS: BEDSIDE GLUCOSE 209 MG/DL (83-110)
[2017-11-24] MEDS: SIMVASTATIN 40 MG TAB PO ×2 (20:11)
[2017-11-24] MEDS: CARVedilol 12.5 MG TAB PO ×2 (20:13)
[2017-11-25] MEDS: IPRATROPIUM 0.5MG/ALBUTEROL 2.5MG INH SOL UD 3ML (DUONEB)(J7620) NEB ×8 (01:15→19:16)
[2017-11-25 06:07] LABS: BASO % 0.1 % (0.0-1.0); EOS # 0.1 10^3/uL (0.0-0.50); EOS % 0.6 % (0.0-3.0); HEMATOCRIT 32.5 % (36.0-47.0); HEMOGLOBIN 10.4 g/dl (12.0-16.0); IMMATURE GRANULOCYTE % 1.9 % (0-3.0); LYMPH # 1.3 10^3/uL (1.5-4.5); LYMPH % 8.1 % (24.0-44.0); MEAN CORPUSCULAR HEMOGLOBIN 33.1 pg (27.0-33.0); MEAN CORPUSCULAR VOLUME 103.5 fl (80.0-96.0); MONO # 1.8 10^3/uL (0.0-0.8); MONO % 11.2 % (0.0-5.0); NEUTROPHILS # 12.5 10^3/uL (1.8-7.7); NEUTROPHILS % 78.1 % (36.0-66.0); PLATELET COUNT, AUTOMATED 154 10^3/uL (150-450); RED BLOOD COUNT 3.14 10^6/uL (4.00-5.40); RED CELL DISTRIBUTION WIDTH 16.1 % (11.5-14.5); WHITE BLOOD COUNT 15.9 10^3/uL (4.0-10.0)
[2017-11-25 06:16] LABS: ALBUMIN 2.4 GM/DL (3.2-5.2); ALBUMIN/GLOBULIN RATIO 0.62 (1.00-1.93); ALKALINE PHOSPHATASE 130 U/L (45-117); ALT/SGPT 23 U/L (12-78); ANION GAP 11 MEQ/L (8-16); AST/SGOT 18 U/L (7-37); BILIRUBIN,TOTAL 0.6 MG/DL (0.2-1.0); BLOOD UREA NITROGEN 26 MG/DL (7-18); CALCIUM LEVEL 7.9 MG/DL (8.8-10.2); CARBON DIOXIDE LEVEL 26 MEQ/L (21-32); CHLORIDE LEVEL 99 MEQ/L (98-107); CREATININE FOR GFR 3.13 MG/DL (0.55-1.30); GLOMERULAR FILTRATION RATE 15.2 (>32); GLUCOSE, FASTING 227 MG/DL (70-100); POTASSIUM SERUM 4.1 MEQ/L (3.5-5.1); SODIUM LEVEL 136 MEQ/L (136-145); TOTAL PROTEIN 6.3 GM/DL (6.4-8.2)
[2017-11-25] MEDS: HumaLOG INSULIN (NovoLOG) PER UNIT SC ×8 (07:42→20:34)
[2017-11-25] MEDS: ASPIRIN 81 MG ENTERIC TAB PO ×2 (09:18)
[2017-11-25] MEDS: PANTOPRAZOLE 40MG TAB (PROTONIX) PO ×2 (09:18)
[2017-11-25] MEDS: SENOKOT S TAB PO ×4 (09:18→20:33)
[2017-11-25] MEDS: CitaloPRAM (CeleXA) 20 MG TAB PO ×2 (09:18)
[2017-11-25] MEDS: DOCUSATE SODIUM 100 MG CAP PO ×4 (09:18→20:33)
[2017-11-25] MEDS: CARVedilol 12.5 MG TAB PO ×4 (09:19→20:33)
[2017-11-25 11:15] LABS: BEDSIDE GLUCOSE 154 MG/DL (83-110)
[2017-11-25] MEDS: CHECK TO SEE IF PATIENT IS RECEIVING DIALYSIS TODAY AND REFER TO THE VANCOMYCIN ORDER XX ×2 (15:24)
[2017-11-25] MEDS: MEROPENEM INJ 500 MG in APPROPRIATE DILUENT 1 EA IV (15:31)
[2017-11-25 16:53] LABS: BEDSIDE GLUCOSE 160 MG/DL (83-110)
[2017-11-25] MEDS: SIMVASTATIN 40 MG TAB PO ×2 (20:34)
[2017-11-25 20:36] LABS: BEDSIDE GLUCOSE 198 MG/DL (83-110)
[2017-11-26] MEDS: IPRATROPIUM 0.5MG/ALBUTEROL 2.5MG INH SOL UD 3ML (DUONEB)(J7620) NEB ×6 (02:48→20:05)
[2017-11-26 05:03] LABS: BASO % 0.2 % (0.0-1.0); EOS # 0.2 10^3/uL (0.0-0.50); HEMATOCRIT 32.2 % (36.0-47.0); HEMOGLOBIN 10.1 g/dl (12.0-16.0); IMMATURE GRANULOCYTE % 1.8 % (0-3.0); LYMPH # 1.3 10^3/uL (1.5-4.5); LYMPH % 8.2 % (24.0-44.0); MEAN CORPUSCULAR HEMOGLOBIN 32.6 pg (27.0-33.0); MEAN CORPUSCULAR HGB CONC 31.4 g/dl (32.0-36.5); MEAN CORPUSCULAR VOLUME 103.9 fl (80.0-96.0); MONO # 1.8 10^3/uL (0.0-0.8); MONO % 11.1 % (0.0-5.0); NEUTROPHILS # 12.4 10^3/uL (1.8-7.7); NEUTROPHILS % 77.7 % (36.0-66.0); PLATELET COUNT, AUTOMATED 159 10^3/uL (150-450)
[2017-11-26 05:19] LABS: ALBUMIN 2.5 GM/DL (3.2-5.2); ALBUMIN/GLOBULIN RATIO 0.66 (1.00-1.93); ALKALINE PHOSPHATASE 133 U/L (45-117); ALT/SGPT 23 U/L (12-78); ANION GAP 10 MEQ/L (8-16); AST/SGOT 19 U/L (7-37); BILIRUBIN,TOTAL 0.6 MG/DL (0.2-1.0); BLOOD UREA NITROGEN 38 MG/DL (7-18); CALCIUM LEVEL 7.8 MG/DL (8.8-10.2); CARBON DIOXIDE LEVEL 26 MEQ/L (21-32); CHLORIDE LEVEL 99 MEQ/L (98-107); CREATININE FOR GFR 4.27 MG/DL (0.55-1.30); GLOMERULAR FILTRATION RATE 10.6 (>32); GLUCOSE, FASTING 212 MG/DL (70-100); MAGNESIUM LEVEL 2.1 MG/DL (1.8-2.4); POTASSIUM SERUM 4.4 MEQ/L (3.5-5.1); SODIUM LEVEL 135 MEQ/L (136-145); TOTAL PROTEIN 6.3 GM/DL (6.4-8.2); VANCOMYCIN RANDOM 11.3 UG/ML
[2017-11-26] MEDS: HumaLOG INSULIN (NovoLOG) PER UNIT SC ×8 (08:27→21:09)
[2017-11-26] MEDS: CitaloPRAM (CeleXA) 20 MG TAB PO ×2 (08:28)
[2017-11-26] MEDS: ASPIRIN 81 MG ENTERIC TAB PO ×2 (08:28)
[2017-11-26] MEDS: SENOKOT S TAB PO ×4 (08:28→21:10)
[2017-11-26] MEDS: PANTOPRAZOLE 40MG TAB (PROTONIX) PO ×2 (08:28)
[2017-11-26] MEDS: DOCUSATE SODIUM 100 MG CAP PO ×4 (08:28→21:10)
[2017-11-26] MEDS: HEPARIN 1,000 UNITS/ML 10ML VIAL (FOR RADIOLOGY& DIALYSIS ONLY) XX ×2 (11:00)
[2017-11-26 13:42] LABS: BEDSIDE GLUCOSE 95 MG/DL (83-110)
[2017-11-26] MEDS: CHECK TO SEE IF PATIENT IS RECEIVING DIALYSIS TODAY AND REFER TO THE VANCOMYCIN ORDER XX ×2 (16:00)
[2017-11-26] MEDS: MEROPENEM INJ 500 MG in APPROPRIATE DILUENT 1 EA IV (16:08)
[2017-11-26] MEDS: VANCOMYCIN HCL 1,000 MG, VIAL MATE ADAPTER 1 EACH in D5W 250 ML IV ×2 (17:06)
[2017-11-26 17:08] LABS: BEDSIDE GLUCOSE 139 MG/DL (83-110)
[2017-11-26] MEDS: CARVedilol 12.5 MG TAB PO ×2 (21:10)
[2017-11-26] MEDS: SIMVASTATIN 40 MG TAB PO ×2 (21:10)
[2017-11-26 21:22] LABS: BEDSIDE GLUCOSE 179 MG/DL (83-110)
[2017-11-27] MEDS: IPRATROPIUM 0.5MG/ALBUTEROL 2.5MG INH SOL UD 3ML (DUONEB)(J7620) NEB ×8 (00:25→20:00)
[2017-11-27] MEDS ORDERED: SLF 3 ML SYR IV ×2 (03:30)
[2017-11-27] MEDS: SLF 3 ML SYR IV ×6 (06:02→21:04)
[2017-11-27 06:30] LABS: BASO % 0.1 % (0.0-1.0); EOS # 0.2 10^3/uL (0.0-0.50); EOS % 1.3 % (0.0-3.0); HEMATOCRIT 33.1 % (36.0-47.0); HEMOGLOBIN 10.5 g/dl (12.0-16.0); IMMATURE GRANULOCYTE % 1.5 % (0-3.0); LYMPH # 1.2 10^3/uL (1.5-4.5); LYMPH % 8.3 % (24.0-44.0); MEAN CORPUSCULAR HEMOGLOBIN 32.8 pg (27.0-33.0); MEAN CORPUSCULAR HGB CONC 31.7 g/dl (32.0-36.5); MEAN CORPUSCULAR VOLUME 103.4 fl (80.0-96.0); MONO # 1.9 10^3/uL (0.0-0.8); MONO % 13.4 % (0.0-5.0); NEUTROPHILS # 10.8 10^3/uL (1.8-7.7); NEUTROPHILS % 75.4 % (36.0-66.0); PLATELET COUNT, AUTOMATED 171 10^3/uL (150-450); RED CELL DISTRIBUTION WIDTH 15.9 % (11.5-14.5); WHITE BLOOD COUNT 14.3 10^3/uL (4.0-10.0)
[2017-11-27 06:54] LABS: ALBUMIN 2.4 GM/DL (3.2-5.2); ALBUMIN/GLOBULIN RATIO 0.62 (1.00-1.93); ALKALINE PHOSPHATASE 135 U/L (45-117); ALT/SGPT 21 U/L (12-78); ANION GAP 10 MEQ/L (8-16); AST/SGOT 20 U/L (7-37); BILIRUBIN,TOTAL 0.6 MG/DL (0.2-1.0); BLOOD UREA NITROGEN 20 MG/DL (7-18); CARBON DIOXIDE LEVEL 27 MEQ/L (21-32); CHLORIDE LEVEL 99 MEQ/L (98-107); CREATININE FOR GFR 2.97 MG/DL (0.55-1.30); GLOMERULAR FILTRATION RATE 16.1 (>32); GLUCOSE, FASTING 215 MG/DL (70-100); MAGNESIUM LEVEL 2.1 MG/DL (1.8-2.4); POTASSIUM SERUM 3.6 MEQ/L (3.5-5.1); SODIUM LEVEL 136 MEQ/L (136-145); TOTAL PROTEIN 6.3 GM/DL (6.4-8.2)
[2017-11-27] MEDS: HumaLOG INSULIN (NovoLOG) PER UNIT SC ×8 (08:17→21:00)
[2017-11-27] MEDS: SENOKOT S TAB PO ×4 (08:17→20:47)
[2017-11-27] MEDS: PANTOPRAZOLE 40MG TAB (PROTONIX) PO ×2 (08:18)
[2017-11-27] MEDS: DOCUSATE SODIUM 100 MG CAP PO ×4 (08:18→20:46)
[2017-11-27] MEDS: ASPIRIN 81 MG ENTERIC TAB PO ×2 (08:18)
[2017-11-27] MEDS: CitaloPRAM (CeleXA) 20 MG TAB PO ×2 (08:18)
[2017-11-27] MEDS: CARVedilol 12.5 MG TAB PO ×4 (08:18→20:46)
[2017-11-27] MEDS: CEFUROXIME 500 MG TAB PO ×2 (09:48)
[2017-11-27 12:05] LABS: BEDSIDE GLUCOSE 160 MG/DL (83-110)
[2017-11-27] MEDS: CHECK TO SEE IF PATIENT IS RECEIVING DIALYSIS TODAY AND REFER TO THE VANCOMYCIN ORDER XX ×2 (16:00)
[2017-11-27 17:13] LABS: BEDSIDE GLUCOSE 141 MG/DL (83-110)
[2017-11-27] MEDS: SIMVASTATIN 40 MG TAB PO ×2 (20:47)
[2017-11-27] MEDS: NYSTATIN 100,000 UNITS/GM TOPICAL PWD 15 GM TOP ×2 (20:48)
[2017-11-27 21:17] LABS: BEDSIDE GLUCOSE 130 MG/DL (83-110)
[2017-11-28] MEDS: IPRATROPIUM 0.5MG/ALBUTEROL 2.5MG INH SOL UD 3ML (DUONEB)(J7620) NEB ×8 (01:28→20:54)
[2017-11-28 06:11] LABS: BASO % 0.2 % (0.0-1.0); EOS # 0.2 10^3/uL (0.0-0.50); EOS % 1.5 % (0.0-3.0); HEMATOCRIT 33.2 % (36.0-47.0); HEMOGLOBIN 10.2 g/dl (12.0-16.0); IMMATURE GRANULOCYTE % 1.6 % (0-3.0); LYMPH # 1.5 10^3/uL (1.5-4.5); LYMPH % 10.1 % (24.0-44.0); MEAN CORPUSCULAR HEMOGLOBIN 32.4 pg (27.0-33.0); MEAN CORPUSCULAR HGB CONC 30.7 g/dl (32.0-36.5); MEAN CORPUSCULAR VOLUME 105.4 fl (80.0-96.0); MONO # 1.9 10^3/uL (0.0-0.8); MONO % 13.1 % (0.0-5.0); NEUTROPHILS # 10.7 10^3/uL (1.8-7.7); NEUTROPHILS % 73.5 % (36.0-66.0); PLATELET COUNT, AUTOMATED 190 10^3/uL (150-450); RED BLOOD COUNT 3.15 10^6/uL (4.00-5.40); WHITE BLOOD COUNT 14.5 10^3/uL (4.0-10.0)
[2017-11-28 06:32] LABS: ALBUMIN 2.5 GM/DL (3.2-5.2); ALBUMIN/GLOBULIN RATIO 0.63 (1.00-1.93); ALKALINE PHOSPHATASE 132 U/L (45-117); ALT/SGPT 20 U/L (12-78); ANION GAP 10 MEQ/L (8-16); AST/SGOT 19 U/L (7-37); BILIRUBIN,TOTAL 0.6 MG/DL (0.2-1.0); BLOOD UREA NITROGEN 30 MG/DL (7-18); CARBON DIOXIDE LEVEL 28 MEQ/L (21-32); CHLORIDE LEVEL 97 MEQ/L (98-107); CREATININE FOR GFR 4.43 MG/DL (0.55-1.30); GLOMERULAR FILTRATION RATE 10.2 (>32); GLUCOSE, FASTING 165 MG/DL (70-100); POTASSIUM SERUM 4.2 MEQ/L (3.5-5.1); SODIUM LEVEL 135 MEQ/L (136-145); TOTAL PROTEIN 6.5 GM/DL (6.4-8.2)
[2017-11-28] MEDS: SLF 3 ML SYR IV ×6 (06:36→20:24)
[2017-11-28] MEDS: CitaloPRAM (CeleXA) 20 MG TAB PO ×2 (08:33)
[2017-11-28] MEDS: ASPIRIN 81 MG ENTERIC TAB PO ×2 (08:33)
[2017-11-28] MEDS: PANTOPRAZOLE 40MG TAB (PROTONIX) PO ×2 (08:33)
[2017-11-28] MEDS: CARVedilol 12.5 MG TAB PO ×4 (08:33→20:24)
[2017-11-28] MEDS: SENOKOT S TAB PO ×4 (08:33→20:23)
[2017-11-28] MEDS: DOCUSATE SODIUM 100 MG CAP PO ×4 (08:33→20:23)
[2017-11-28] MEDS: HumaLOG INSULIN (NovoLOG) PER UNIT SC ×8 (08:34→20:22)
[2017-11-28] MEDS: NYSTATIN 100,000 UNITS/GM TOPICAL PWD 15 GM TOP ×4 (08:35→20:23)
[2017-11-28 11:41] LABS: BEDSIDE GLUCOSE 181 MG/DL (83-110)
[2017-11-28] MEDS: CHECK TO SEE IF PATIENT IS RECEIVING DIALYSIS TODAY AND REFER TO THE VANCOMYCIN ORDER XX ×2 (16:00)
[2017-11-28 17:20] LABS: BEDSIDE GLUCOSE 138 MG/DL (83-110)
[2017-11-28] MEDS: SIMVASTATIN 40 MG TAB PO ×2 (20:23)
[2017-11-28 20:34] LABS: BEDSIDE GLUCOSE 149 MG/DL (83-110)
[2017-11-29] MEDS: IPRATROPIUM 0.5MG/ALBUTEROL 2.5MG INH SOL UD 3ML (DUONEB)(J7620) NEB ×4 (00:55→07:54)
[2017-11-29 05:21] LABS: BASO % 0.3 % (0.0-1.0); EOS # 0.2 10^3/uL (0.0-0.50); HEMATOCRIT 31.7 % (36.0-47.0); HEMOGLOBIN 9.9 g/dl (12.0-16.0); IMMATURE GRANULOCYTE % 1.4 % (0-3.0); LYMPH # 1.5 10^3/uL (1.5-4.5); LYMPH % 12.7 % (24.0-44.0); MEAN CORPUSCULAR HEMOGLOBIN 32.6 pg (27.0-33.0); MEAN CORPUSCULAR HGB CONC 31.2 g/dl (32.0-36.5); MEAN CORPUSCULAR VOLUME 104.3 fl (80.0-96.0); MONO # 1.6 10^3/uL (0.0-0.8); MONO % 13.9 % (0.0-5.0); NEUTROPHILS # 8.2 10^3/uL (1.8-7.7); NEUTROPHILS % 69.7 % (36.0-66.0); PLATELET COUNT, AUTOMATED 173 10^3/uL (150-450); RED BLOOD COUNT 3.04 10^6/uL (4.00-5.40); RED CELL DISTRIBUTION WIDTH 15.8 % (11.5-14.5); WHITE BLOOD COUNT 11.8 10^3/uL (4.0-10.0)
[2017-11-29 05:43] LABS: ALKALINE PHOSPHATASE 118 U/L (45-117); ALT/SGPT 17 U/L (12-78); ANION GAP 13 MEQ/L (8-16); AST/SGOT 15 U/L (7-37); BLOOD UREA NITROGEN 37 MG/DL (7-18); CALCIUM LEVEL 7.7 MG/DL (8.8-10.2); CARBON DIOXIDE LEVEL 24 MEQ/L (21-32); CHLORIDE LEVEL 97 MEQ/L (98-107); CREATININE FOR GFR 5.68 MG/DL (0.55-1.30); GLOMERULAR FILTRATION RATE 7.6 (>32); GLUCOSE, FASTING 148 MG/DL (70-100); POTASSIUM SERUM 3.8 MEQ/L (3.5-5.1); SODIUM LEVEL 134 MEQ/L (136-145)
[2017-11-29] MEDS: SENOKOT S TAB PO ×2 (05:43)
[2017-11-29] MEDS: SLF 3 ML SYR IV ×2 (05:43)
[2017-11-29] MEDS: PANTOPRAZOLE 40MG TAB (PROTONIX) PO ×2 (05:43)
[2017-11-29] MEDS: DOCUSATE SODIUM 100 MG CAP PO ×2 (05:43)
[2017-11-29 05:44] LABS: ALBUMIN 2.4 GM/DL (3.2-5.2); ALBUMIN/GLOBULIN RATIO 0.67 (1.00-1.93); BILIRUBIN,TOTAL 0.5 MG/DL (0.2-1.0)
[2017-11-29] MEDS: ASPIRIN 81 MG ENTERIC TAB PO ×2 (05:44)
[2017-11-29] MEDS: CitaloPRAM (CeleXA) 20 MG TAB PO ×2 (05:44)
[2017-11-29] MEDS: HumaLOG INSULIN (NovoLOG) PER UNIT SC ×2 (08:25)
[2017-11-29] MEDS ORDERED: CEFUROXIME 500 MG TAB PO ×2 (16:00)
== END 2017-11-29 10:15 | DRG 177 ==
LOC: M ED 11:11 → M ED INP 12:45 → M PCU 20:45
DX: J15.6 Pneumonia due to other Gram-negative bacteria (principal); N18.6 End stage renal disease; I13.2 Hypertensive heart and chronic kidney disease with heart failure and with stage 5 chronic kidney disease, or end stage renal disease; E87.1 Hypo-osmolality and hyponatremia; I25.10 Atherosclerotic heart disease of native coronary artery without angina pectoris; J18.9 Pneumonia, unspecified organism; E11.22 Type 2 diabetes mellitus with diabetic chronic kidney disease; E11.51 Type 2 diabetes mellitus with diabetic peripheral angiopathy without gangrene; I50.9 Heart failure, unspecified; I48.91 Unspecified atrial fibrillation; D63.1 Anemia in chronic kidney disease; F32.9 Major depressive disorder, single episode, unspecified; Z66 Do not resuscitate; K31.84 Gastroparesis; J44.9 Chronic obstructive pulmonary disease, unspecified; L53.9 Erythematous condition, unspecified; E11.43 Type 2 diabetes mellitus with diabetic autonomic (poly)neuropathy; E78.5 Hyperlipidemia, unspecified; Z89.511 Acquired absence of right leg below knee; Z89.612 Acquired absence of left leg above knee; Z95.3 Presence of xenogenic heart valve; Z95.5 Presence of coronary angioplasty implant and graft; Z86.14 Personal history of Methicillin resistant Staphylococcus aureus infection; Z99.2 Dependence on renal dialysis; Z95.0 Presence of cardiac pacemaker; Z79.82 Long term (current) use of aspirin; Z79.4 Long term (current) use of insulin; Z79.899 Other long term (current) drug therapy

== ENCOUNTER → 2018-02-15 | Outpatient (REF) | payer OTHER, MEDICAID ==
[2018-02-15 09:35] LABS: ESTIMATED AVERAGE GLUCOSE 171 MG/DL (60-110); HEMOGLOBIN A1c 7.6 %
== END ==
LOC: SKLAB3 07:00
DX: E11.9 Type 2 diabetes mellitus without complications (principal)
CPT/HCPCS: 83036

== ENCOUNTER 2018-03-16 15:41 | Inpatient (IN) | payer OTHER, MEDICAID ==
[2018-03-16 16:19] LABS: BASO % 0.1 % (0.0-1.0); HEMATOCRIT 32.3 % (36.0-47.0); HEMOGLOBIN 10.2 g/dl (12.0-15.5); IMMATURE GRANULOCYTE % 1.1 % (0-3.0); LYMPH % 4.2 % (24.0-44.0); MEAN CORPUSCULAR HEMOGLOBIN 33.1 pg (27.0-33.0); MEAN CORPUSCULAR HGB CONC 31.6 g/dl (32.0-36.5); MEAN CORPUSCULAR VOLUME 104.9 fl (80.0-96.0); MONO # 1.6 10^3/uL (0.0-0.8); MONO % 6.9 % (0.0-5.0); NEUTROPHILS # 19.9 10^3/uL (1.8-7.7); NEUTROPHILS % 87.7 % (36.0-66.0); PLATELET COUNT, AUTOMATED 160 10^3/uL (150-450); RED BLOOD COUNT 3.08 10^6/uL (4.00-5.40); RED CELL DISTRIBUTION WIDTH 15.5 % (11.5-14.5); VENOUS BASE EXCESS -3.1 (-2.0-2.0); VENOUS HCO3 23.1 MEQ/L (23.0-27.0); VENOUS O2 SATURATION 69.7 % (60.0-80.0); VENOUS PARTIAL PRESSURE CO2 46.3 mmHg (38.0-50.0); VENOUS PARTIAL PRESSURE O2 38.3 mmHg (30.0-50.0); VENOUS PH 7.316 UNITS (7.330-7.430); VENOUS STANDARD HCO3 21.4 MEQ/L; VENOUS TOTAL CO2 24.5 MEQ/L (24.0-28.0); WHITE BLOOD COUNT 22.6 10^3/uL (4.0-10.0)
[2018-03-16 16:33] LABS: INR 1.16; PARTIAL THROMBOPLASTIN TIME 37.6 SECONDS (26.8-37.9)
[2018-03-16 16:50] LABS: ALBUMIN 2.8 GM/DL (3.2-5.2); ALKALINE PHOSPHATASE 171 U/L (45-117); ALT/SGPT 22 U/L (12-78); AMYLASE 54 U/L (25-115); ANION GAP 14 MEQ/L (8-16); AST/SGOT 17 U/L (7-37); BILIRUBIN,DIRECT 0.3 MG/DL (0.0-0.2); BILIRUBIN,TOTAL 0.6 MG/DL (0.2-1.0); BLOOD UREA NITROGEN 21 MG/DL (7-18); CARBON DIOXIDE LEVEL 25 MEQ/L (21-32); CHLORIDE LEVEL 100 MEQ/L (98-107); CK-MB VALUE MASS < 1.0 NG/ML (<3.6); CPK CREATINE PHOSPHOKINASE 42 U/L (26-192); CREATININE FOR GFR 2.75 MG/DL (0.55-1.30); GLOMERULAR FILTRATION RATE 17.6 (>32); GLUCOSE, FASTING 316 MG/DL (70-100); MB/CK RELATIVE INDEX 2.38 (< OR =4); POTASSIUM SERUM 4.3 MEQ/L (3.5-5.1); SODIUM LEVEL 139 MEQ/L (136-145); TOTAL PROTEIN 6.3 GM/DL (6.4-8.2); TROPONIN I 0.04 NG/ML (< 0.10)
[2018-03-16 16:56] LABS: LACTIC ACID SEPSIS PROTOCOL 2.2 MMOL/L (0.4-2.0)
[2018-03-16] MEDS ORDERED: GENTAMICIN 100 MG in D5W 50 ML IV (17:45)
[2018-03-16] MEDS: VANCOMYCIN HCL 1,000 MG, VIAL MATE ADAPTER 1 EACH in D5W 250 ML IV (18:09)
[2018-03-16] MEDS ORDERED: ONDANSETRON 4MG/2ML VIAL (J2405) IV (19:00)
[2018-03-16] MEDS: GENTAMICIN 100 MG in APPROPRIATE DILUENT 1 EA IV (19:41)
[2018-03-16] MEDS ORDERED: IPRATROPIUM 0.5MG/ALBUTEROL 2.5MG INH SOL UD 3ML (DUONEB)(J7620) INH (19:45)
[2018-03-16] MEDS ORDERED: MOM 30ML SUSPENSION UDC PO (19:45)
[2018-03-16] MEDS ORDERED: BISACODYL 10 MG SUPP PR (19:45)
[2018-03-16] MEDS ORDERED: guaiFENesin DM LIQ 10ML UD PO (19:45)
[2018-03-16] MEDS: IPRATROPIUM 0.5MG/ALBUTEROL 2.5MG INH SOL UD 3ML (DUONEB)(J7620) INH (20:00)
[2018-03-16] MEDS: ADVAIR HFA 45/21MCG INHALER INH (21:00)
[2018-03-16] MEDS: HEPARIN SOD (PORCINE) 5000 UNITS/ML VIAL SC (21:04)
[2018-03-16] MEDS: DOCUSATE SODIUM 100 MG CAP PO (21:05)
[2018-03-16] MEDS: SENOKOT S TAB PO (21:05)
[2018-03-16] MEDS: CARVedilol 12.5 MG TAB PO (21:05)
[2018-03-16] MEDS: SIMVASTATIN 40 MG TAB PO (21:09)
[2018-03-17] MEDS: zolPIDEM TARTRATE 5 MG TAB PO (00:19)
[2018-03-17] MEDS: CARVedilol 12.5 MG TAB PO ×2 (06:00→21:00)
[2018-03-17 06:40] LABS: BASO % 0.1 % (0.0-1.0); HEMATOCRIT 30.4 % (36.0-47.0); HEMOGLOBIN 9.8 g/dl (12.0-15.5); IMMATURE GRANULOCYTE % 0.8 % (0-3.0); LYMPH # 1.4 10^3/uL (1.5-4.5); LYMPH % 6.3 % (24.0-44.0); MEAN CORPUSCULAR HEMOGLOBIN 33.6 pg (27.0-33.0); MEAN CORPUSCULAR HGB CONC 32.2 g/dl (32.0-36.5); MEAN CORPUSCULAR VOLUME 104.1 fl (80.0-96.0); MONO % 9.8 % (0.0-5.0); NEUTROPHILS # 17.7 10^3/uL (1.8-7.7); PLATELET COUNT, AUTOMATED 172 10^3/uL (150-450); RED BLOOD COUNT 2.92 10^6/uL (4.00-5.40); RED CELL DISTRIBUTION WIDTH 15.5 % (11.5-14.5); WHITE BLOOD COUNT 21.3 10^3/uL (4.0-10.0)
[2018-03-17 06:42] LABS: MONO # 2.1 10^3/uL (0.0-0.8); POSITIVE DIFF POS FLAG
[2018-03-17 07:04] LABS: ALBUMIN 2.6 GM/DL (3.2-5.2); ALBUMIN/GLOBULIN RATIO 0.63 (1.00-1.93); ALKALINE PHOSPHATASE 156 U/L (45-117); ALT/SGPT 17 U/L (12-78); ANION GAP 12 MEQ/L (8-16); AST/SGOT 18 U/L (7-37); BILIRUBIN,TOTAL 0.5 MG/DL (0.2-1.0); BLOOD UREA NITROGEN 30 MG/DL (7-18); CALCIUM LEVEL 8.3 MG/DL (8.8-10.2); CARBON DIOXIDE LEVEL 25 MEQ/L (21-32); CHLORIDE LEVEL 103 MEQ/L (98-107); CREATININE FOR GFR 3.53 MG/DL (0.55-1.30); GLOMERULAR FILTRATION RATE 13.2 (>32); GLUCOSE, FASTING 261 MG/DL (70-100); MAGNESIUM LEVEL 2.4 MG/DL (1.8-2.4); POTASSIUM SERUM 4.1 MEQ/L (3.5-5.1); SODIUM LEVEL 140 MEQ/L (136-145); TOTAL PROTEIN 6.7 GM/DL (6.4-8.2)
[2018-03-17 07:09] LABS: VANCOMYCIN LEVEL TROUGH 12.6 UG/ML (10.0-20.0)
[2018-03-17 07:11] LABS: GENTAMICIN LEVEL TROUGH 3.8 MCG/ML (0.0-2.0)
[2018-03-17] MEDS ORDERED: GLUCOSE 4 GM CHEW TABLET PO (08:00)
[2018-03-17] MEDS ORDERED: DEXTROSE 50% 50 ML SYRINGE IV (08:00)
[2018-03-17] MEDS ORDERED: GLUCAGON FOR INJ 1 MG VIAL (J1610) SC (08:00)
[2018-03-17] MEDS ORDERED: cefTAZidime 1 GM in D5W MINI-BAG PLUS 50 ML IV (08:45)
[2018-03-17] MEDS: IPRATROPIUM 0.5MG/ALBUTEROL 2.5MG INH SOL UD 3ML (DUONEB)(J7620) INH ×4 (08:57→20:00)
[2018-03-17] MEDS: ADVAIR HFA 45/21MCG INHALER INH ×2 (08:59→20:27)
[2018-03-17] MEDS ORDERED: GENTAMICIN 80 MG in APPROPRIATE DILUENT 1 EA IV (09:00)
[2018-03-17 09:17] LABS: LACTIC ACID SEPSIS PROTOCOL 1.4 MMOL/L (0.4-2.0)
[2018-03-17 09:22] LABS: ABG BASE EXCESS 1.8 (-2.0-2.0); ABG HCO3 27.2 MEQ/L (22.0-26.0); ABG O2 SATURATION 98.3 % (95.0-99.0); ABG PARTIAL PRESSURE CO2 46.1 mmHg (35.0-45.0); ABG STANDARD HCO3 26.1 MEQ/L (22.0-26.0); ABG TOTAL CO2 28.6 MEQ/L (23.0-31.0); ABG pH (ARTERIAL) 7.388 UNITS (7.350-7.450)
[2018-03-17] MEDS: HumaLOG INSULIN (NovoLOG) PER UNIT SC ×4 (10:02→21:00)
[2018-03-17] MEDS: NS 500 ML IV (10:03)
[2018-03-17] MEDS: MIRALAX *UNIT DOSE* 17GM PACKET PO (10:03)
[2018-03-17] MEDS: VITAMIN D 1,000 INTERNATIONAL UNITS TABLET PO (10:03)
[2018-03-17] MEDS: DOCUSATE SODIUM 100 MG CAP PO ×2 (10:04→21:51)
[2018-03-17] MEDS: FOLIC ACID 1 MG TAB PO (10:04)
[2018-03-17] MEDS: ASPIRIN ENTERIC 325 MG TAB PO (10:04)
[2018-03-17] MEDS: PANTOPRAZOLE 40MG TAB (PROTONIX) PO (10:04)
[2018-03-17] MEDS: NEPHRO-VIT TAB (NEPHROCAPS) PO (10:04)
[2018-03-17] MEDS: SENOKOT S TAB PO ×2 (10:04→21:51)
[2018-03-17] MEDS: CitaloPRAM (CeleXA) 20 MG TAB PO (10:04)
[2018-03-17 11:38] LABS: BEDSIDE GLUCOSE 251 MG/DL (83-110)
[2018-03-17] MEDS: MEROPENEM INJ 500 MG in APPROPRIATE DILUENT 1 EA IV (12:36)
[2018-03-17] MEDS: **VANCO AFTER HD** MISC XX (16:19)
[2018-03-17 16:41] LABS: BEDSIDE GLUCOSE 132 MG/DL (83-110)
[2018-03-17] MEDS ORDERED: LIDOCAINE 1% MDV 20ML VIAL As Ordered (19:51)
[2018-03-17] MEDS: LIDOCAINE 1% MDV 20ML VIAL SC (20:00)
[2018-03-17 20:51] LABS: BEDSIDE GLUCOSE 177 MG/DL (83-110)
[2018-03-17] MEDS: SIMVASTATIN 40 MG TAB PO (21:51)
[2018-03-18 06:27] LABS: BASO % 0.2 % (0.0-1.0); EOS # 0.3 10^3/uL (0.0-0.50); EOS % 1.6 % (0.0-3.0); HEMOGLOBIN 9.6 g/dl (12.0-15.5); IMMATURE GRANULOCYTE % 0.9 % (0-3.0); LYMPH # 1.4 10^3/uL (1.5-4.5); LYMPH % 9.2 % (24.0-44.0); MEAN CORPUSCULAR HEMOGLOBIN 33.2 pg (27.0-33.0); MEAN CORPUSCULAR VOLUME 103.8 fl (80.0-96.0); MONO % 12.9 % (0.0-5.0); NEUTROPHILS # 11.4 10^3/uL (1.8-7.7); NEUTROPHILS % 75.2 % (36.0-66.0); PLATELET COUNT, AUTOMATED 162 10^3/uL (150-450); RED BLOOD COUNT 2.89 10^6/uL (4.00-5.40); RED CELL DISTRIBUTION WIDTH 15.6 % (11.5-14.5); WHITE BLOOD COUNT 15.2 10^3/uL (4.0-10.0)
[2018-03-18 06:46] LABS: ALBUMIN 2.5 GM/DL (3.2-5.2); ALBUMIN/GLOBULIN RATIO 0.61 (1.00-1.93); ALKALINE PHOSPHATASE 146 U/L (45-117); ALT/SGPT 19 U/L (12-78); ANION GAP 10 MEQ/L (8-16); AST/SGOT 18 U/L (7-37); BILIRUBIN,TOTAL 0.4 MG/DL (0.2-1.0); BLOOD UREA NITROGEN 48 MG/DL (7-18); CALCIUM LEVEL 8.2 MG/DL (8.8-10.2); CARBON DIOXIDE LEVEL 25 MEQ/L (21-32); CHLORIDE LEVEL 102 MEQ/L (98-107); CREATININE FOR GFR 4.48 MG/DL (0.55-1.30); GLUCOSE, FASTING 132 MG/DL (70-100); MAGNESIUM LEVEL 2.4 MG/DL (1.8-2.4); POTASSIUM SERUM 4.6 MEQ/L (3.5-5.1); SODIUM LEVEL 137 MEQ/L (136-145); TOTAL PROTEIN 6.6 GM/DL (6.4-8.2)
[2018-03-18] MEDS ORDERED: DARBEPOETIN 100 MCG/0.5 ML *DIALYSIS* SYRINGE (J0882) IV (08:00)
[2018-03-18] MEDS: IPRATROPIUM 0.5MG/ALBUTEROL 2.5MG INH SOL UD 3ML (DUONEB)(J7620) INH ×4 (08:00→20:00)
[2018-03-18] MEDS: ADVAIR HFA 45/21MCG INHALER INH ×2 (08:13→23:35)
[2018-03-18] MEDS: SENOKOT S TAB PO ×2 (08:31→21:40)
[2018-03-18] MEDS: VITAMIN D 1,000 INTERNATIONAL UNITS TABLET PO (08:32)
[2018-03-18] MEDS: ASPIRIN ENTERIC 325 MG TAB PO (08:32)
[2018-03-18] MEDS: DOCUSATE SODIUM 100 MG CAP PO ×2 (08:32→21:00)
[2018-03-18] MEDS: PANTOPRAZOLE 40MG TAB (PROTONIX) PO (08:33)
[2018-03-18] MEDS: ACETAMINOPHEN 500 MG TAB PO (08:33)
[2018-03-18] MEDS: FOLIC ACID 1 MG TAB PO (08:33)
[2018-03-18] MEDS: MIRALAX *UNIT DOSE* 17GM PACKET PO (08:33)
[2018-03-18] MEDS: CitaloPRAM (CeleXA) 20 MG TAB PO (08:33)
[2018-03-18] MEDS: HumaLOG INSULIN (NovoLOG) PER UNIT SC ×4 (08:34→20:41)
[2018-03-18 11:44] LABS: BEDSIDE GLUCOSE 146 MG/DL (83-110)
[2018-03-18] MEDS: NEPHRO-VIT TAB (NEPHROCAPS) PO (12:39)
[2018-03-18] MEDS: **VANCO AFTER HD** MISC XX (15:06)
[2018-03-18] MEDS: MEROPENEM INJ 500 MG in APPROPRIATE DILUENT 1 EA IV (15:36)
[2018-03-18 17:23] LABS: BEDSIDE GLUCOSE 195 MG/DL (83-110)
[2018-03-18 20:33] LABS: BEDSIDE GLUCOSE 184 MG/DL (83-110)
[2018-03-18] MEDS: CARVedilol 12.5 MG TAB PO (21:00)
[2018-03-18] MEDS: SIMVASTATIN 40 MG TAB PO (21:40)
[2018-03-19] MEDS: CARVedilol 12.5 MG TAB PO ×2 (05:24→21:27)
[2018-03-19 06:36] LABS: BASO % 0.3 % (0.0-1.0); EOS # 0.2 10^3/uL (0.0-0.50); EOS % 2.1 % (0.0-3.0); HEMATOCRIT 30.9 % (36.0-47.0); IMMATURE GRANULOCYTE % 1.5 % (0-3.0); LYMPH # 1.4 10^3/uL (1.5-4.5); MEAN CORPUSCULAR HEMOGLOBIN 33.1 pg (27.0-33.0); MEAN CORPUSCULAR HGB CONC 32.4 g/dl (32.0-36.5); MEAN CORPUSCULAR VOLUME 102.3 fl (80.0-96.0); MONO # 1.4 10^3/uL (0.0-0.8); MONO % 12.3 % (0.0-5.0); NEUTROPHILS # 7.8 10^3/uL (1.8-7.7); NEUTROPHILS % 70.8 % (36.0-66.0); PLATELET COUNT, AUTOMATED 176 10^3/uL (150-450); RED BLOOD COUNT 3.02 10^6/uL (4.00-5.40); RED CELL DISTRIBUTION WIDTH 15.3 % (11.5-14.5); WHITE BLOOD COUNT 11.1 10^3/uL (4.0-10.0)
[2018-03-19] MEDS ORDERED: LIDOCAINE 2% INJ 100 MG/5 ML SDV (FOR ANES.) As Ordered (06:58)
[2018-03-19] MEDS ORDERED: PROPOFOL 200 MG/20 ML VIAL As Ordered (06:59)
[2018-03-19 07:00] LABS: ALBUMIN 2.5 GM/DL (3.2-5.2); ALBUMIN/GLOBULIN RATIO 0.64 (1.00-1.93); ALKALINE PHOSPHATASE 155 U/L (45-117); ALT/SGPT 21 U/L (12-78); ANION GAP 13 MEQ/L (8-16); AST/SGOT 20 U/L (7-37); BILIRUBIN,TOTAL 0.3 MG/DL (0.2-1.0); BLOOD UREA NITROGEN 66 MG/DL (7-18); CARBON DIOXIDE LEVEL 24 MEQ/L (21-32); CHLORIDE LEVEL 100 MEQ/L (98-107); CREATININE FOR GFR 5.57 MG/DL (0.55-1.30); GLOMERULAR FILTRATION RATE 7.8 (>32); GLUCOSE, FASTING 184 MG/DL (70-100); MAGNESIUM LEVEL 2.5 MG/DL (1.8-2.4); POTASSIUM SERUM 4.8 MEQ/L (3.5-5.1); SODIUM LEVEL 137 MEQ/L (136-145); TOTAL PROTEIN 6.4 GM/DL (6.4-8.2)
[2018-03-19] MEDS ORDERED: fentaNYL 100 MCG/2 ML INJECTION (J3010) As Ordered (07:00)
[2018-03-19] MEDS: BUPIVACAINE HCL 0.5% 30 ML VIAL As Ordered (07:15)
[2018-03-19] MEDS: HEPARIN SOD (PORCINE) 5000 UNITS/ML VIAL As Ordered (07:15)
[2018-03-19] MEDS: LIDOCAINE 1% MDV 20ML VIAL As Ordered (07:15)
[2018-03-19] MEDS: HumaLOG INSULIN (NovoLOG) PER UNIT SC ×4 (07:30→21:00)
[2018-03-19] MEDS ORDERED: MIDAZOLAM INJ 2 MG/2 ML VIAL (J2250) As Ordered (07:50)
[2018-03-19] MEDS: IPRATROPIUM 0.5MG/ALBUTEROL 2.5MG INH SOL UD 3ML (DUONEB)(J7620) INH ×4 (08:00→20:00)
[2018-03-19] MEDS: ALBUTEROL SULFATE 2.5 MG/0.5 ML INH NEB SOLN INH (08:12)
[2018-03-19] MEDS ORDERED: ALBUTEROL SULFATE 2.5 MG/0.5 ML INH NEB SOLN As Ordered (08:18)
[2018-03-19] MEDS: ADVAIR HFA 45/21MCG INHALER INH ×2 (08:27→20:29)
[2018-03-19] MEDS ORDERED: fentaNYL 100 MCG/2 ML INJECTION (J3010) IV (08:30)
[2018-03-19] MEDS: NS 1,000 ML IV (10:15)
[2018-03-19] MEDS: MIRALAX *UNIT DOSE* 17GM PACKET PO (11:01)
[2018-03-19] MEDS: NEPHRO-VIT TAB (NEPHROCAPS) PO (11:19)
[2018-03-19] MEDS: VITAMIN D 1,000 INTERNATIONAL UNITS TABLET PO (11:20)
[2018-03-19] MEDS: ASPIRIN ENTERIC 325 MG TAB PO (11:20)
[2018-03-19] MEDS: SENOKOT S TAB PO ×2 (11:20→21:00)
[2018-03-19] MEDS: FOLIC ACID 1 MG TAB PO (11:21)
[2018-03-19] MEDS: PANTOPRAZOLE 40MG TAB (PROTONIX) PO (11:21)
[2018-03-19] MEDS: CitaloPRAM (CeleXA) 20 MG TAB PO (11:21)
[2018-03-19 13:36] LABS: BEDSIDE GLUCOSE 168 MG/DL (83-110)
[2018-03-19] MEDS: HEPARIN 1,000 UNITS/ML 10ML VIAL (FOR RADIOLOGY& DIALYSIS ONLY) XX (13:45)
[2018-03-19] MEDS: **VANCO AFTER HD** MISC XX (15:32)
[2018-03-19] MEDS: VANCOMYCIN HCL 1,000 MG, VIAL MATE ADAPTER 1 EACH in D5W 250 ML IV (15:32)
[2018-03-19 16:50] LABS: BEDSIDE GLUCOSE 270 MG/DL (83-110)
[2018-03-19 20:27] LABS: BEDSIDE GLUCOSE 209 MG/DL (83-110)
[2018-03-19] MEDS: SIMVASTATIN 40 MG TAB PO (21:26)
[2018-03-19] MEDS: ACETAMINOPHEN 500 MG TAB PO (23:47)
[2018-03-20] MEDS: CARVedilol 12.5 MG TAB PO ×2 (05:00→21:39)
[2018-03-20 06:01] LABS: BASO % 0.3 % (0.0-1.0); EOS # 0.3 10^3/uL (0.0-0.50); HEMOGLOBIN 9.9 g/dl (12.0-15.5); IMMATURE GRANULOCYTE % 2.9 % (0-3.0); LYMPH # 1.7 10^3/uL (1.5-4.5); LYMPH % 17.7 % (24.0-44.0); MEAN CORPUSCULAR HEMOGLOBIN 32.8 pg (27.0-33.0); MEAN CORPUSCULAR HGB CONC 31.9 g/dl (32.0-36.5); MEAN CORPUSCULAR VOLUME 102.6 fl (80.0-96.0); MONO # 1.3 10^3/uL (0.0-0.8); MONO % 14.2 % (0.0-5.0); NEUTROPHILS # 5.8 10^3/uL (1.8-7.7); NEUTROPHILS % 61.9 % (36.0-66.0); PLATELET COUNT, AUTOMATED 200 10^3/uL (150-450); RED BLOOD COUNT 3.02 10^6/uL (4.00-5.40); RED CELL DISTRIBUTION WIDTH 15.4 % (11.5-14.5); WHITE BLOOD COUNT 9.4 10^3/uL (4.0-10.0)
[2018-03-20 06:22] LABS: ALBUMIN 2.4 GM/DL (3.2-5.2); ALKALINE PHOSPHATASE 158 U/L (45-117); ALT/SGPT 19 U/L (12-78); ANION GAP 10 MEQ/L (8-16); AST/SGOT 21 U/L (7-37); BILIRUBIN,TOTAL 0.4 MG/DL (0.2-1.0); BLOOD UREA NITROGEN 36 MG/DL (7-18); C REACTIVE PROTEIN QUANTITATIV 6.68 MG/DL (0.00-0.30); CALCIUM LEVEL 8.1 MG/DL (8.8-10.2); CARBON DIOXIDE LEVEL 25 MEQ/L (21-32); CHLORIDE LEVEL 103 MEQ/L (98-107); CREATININE FOR GFR 3.91 MG/DL (0.55-1.30); GLOMERULAR FILTRATION RATE 11.7 (>32); GLUCOSE, FASTING 128 MG/DL (70-100); MAGNESIUM LEVEL 2.2 MG/DL (1.8-2.4); POTASSIUM SERUM 4.1 MEQ/L (3.5-5.1); SODIUM LEVEL 138 MEQ/L (136-145); TOTAL PROTEIN 6.4 GM/DL (6.4-8.2)
[2018-03-20 06:31] LABS: ERYTHROCYTE SEDIMENTATION RATE 68 mm/hr (0-30)
[2018-03-20] MEDS: MIRALAX *UNIT DOSE* 17GM PACKET PO (07:15)
[2018-03-20] MEDS: SENOKOT S TAB PO ×2 (07:15→21:32)
[2018-03-20] MEDS: HumaLOG INSULIN (NovoLOG) PER UNIT SC ×4 (07:24→21:35)
[2018-03-20] MEDS: VITAMIN D 1,000 INTERNATIONAL UNITS TABLET PO (07:24)
[2018-03-20] MEDS: PANTOPRAZOLE 40MG TAB (PROTONIX) PO (07:24)
[2018-03-20] MEDS: ASPIRIN ENTERIC 325 MG TAB PO (07:25)
[2018-03-20] MEDS: ACETAMINOPHEN 500 MG TAB PO (07:25)
[2018-03-20] MEDS: NEPHRO-VIT TAB (NEPHROCAPS) PO (07:25)
[2018-03-20] MEDS: FOLIC ACID 1 MG TAB PO (07:25)
[2018-03-20] MEDS: CitaloPRAM (CeleXA) 20 MG TAB PO (07:25)
[2018-03-20] MEDS: IPRATROPIUM 0.5MG/ALBUTEROL 2.5MG INH SOL UD 3ML (DUONEB)(J7620) INH ×4 (08:00→20:00)
[2018-03-20] MEDS: ADVAIR HFA 45/21MCG INHALER INH ×2 (08:47→21:43)
[2018-03-20 11:54] LABS: BEDSIDE GLUCOSE 214 MG/DL (83-110)
[2018-03-20] MEDS: **VANCO AFTER HD** MISC XX (12:06)
[2018-03-20 16:57] LABS: BEDSIDE GLUCOSE 238 MG/DL (83-110)
[2018-03-20] MEDS: SIMVASTATIN 40 MG TAB PO (21:37)
[2018-03-20 21:52] LABS: BEDSIDE GLUCOSE 184 MG/DL (83-110)
[2018-03-21 06:08] LABS: BASO % 0.3 % (0.0-1.0); EOS # 0.3 10^3/uL (0.0-0.50); EOS % 2.9 % (0.0-3.0); HEMATOCRIT 29.7 % (36.0-47.0); HEMOGLOBIN 9.8 g/dl (12.0-15.5); IMMATURE GRANULOCYTE % 2.4 % (0-3.0); LYMPH # 1.8 10^3/uL (1.5-4.5); LYMPH % 19.4 % (24.0-44.0); MEAN CORPUSCULAR HEMOGLOBIN 33.6 pg (27.0-33.0); MEAN CORPUSCULAR VOLUME 101.7 fl (80.0-96.0); MONO # 1.4 10^3/uL (0.0-0.8); MONO % 14.7 % (0.0-5.0); NEUTROPHILS # 5.6 10^3/uL (1.8-7.7); NEUTROPHILS % 60.3 % (36.0-66.0); PLATELET COUNT, AUTOMATED 184 10^3/uL (150-450); RED BLOOD COUNT 2.92 10^6/uL (4.00-5.40); RED CELL DISTRIBUTION WIDTH 15.4 % (11.5-14.5); WHITE BLOOD COUNT 9.2 10^3/uL (4.0-10.0)
[2018-03-21 06:26] LABS: ALBUMIN 2.4 GM/DL (3.2-5.2); ALBUMIN/GLOBULIN RATIO 0.67 (1.00-1.93); ALKALINE PHOSPHATASE 139 U/L (45-117); ALT/SGPT 17 U/L (12-78); ANION GAP 10 MEQ/L (8-16); AST/SGOT 15 U/L (7-37); BILIRUBIN,TOTAL 0.3 MG/DL (0.2-1.0); BLOOD UREA NITROGEN 44 MG/DL (7-18); CALCIUM LEVEL 7.8 MG/DL (8.8-10.2); CARBON DIOXIDE LEVEL 24 MEQ/L (21-32); CHLORIDE LEVEL 102 MEQ/L (98-107); CREATININE FOR GFR 5.05 MG/DL (0.55-1.30); GLOMERULAR FILTRATION RATE 8.7 (>32); GLUCOSE, FASTING 150 MG/DL (70-100); MAGNESIUM LEVEL 2.4 MG/DL (1.8-2.4); POTASSIUM SERUM 4.4 MEQ/L (3.5-5.1); SODIUM LEVEL 136 MEQ/L (136-145); VANCOMYCIN RANDOM 18.9 UG/ML
[2018-03-21] MEDS: FOLIC ACID 1 MG TAB PO (07:01)
[2018-03-21] MEDS: ASPIRIN ENTERIC 325 MG TAB PO (07:01)
[2018-03-21] MEDS: PANTOPRAZOLE 40MG TAB (PROTONIX) PO (07:01)
[2018-03-21] MEDS: VITAMIN D 1,000 INTERNATIONAL UNITS TABLET PO (07:01)
[2018-03-21] MEDS: CitaloPRAM (CeleXA) 20 MG TAB PO (07:02)
[2018-03-21] MEDS: HumaLOG INSULIN (NovoLOG) PER UNIT SC ×4 (07:30→21:00)
[2018-03-21] MEDS: NEPHRO-VIT TAB (NEPHROCAPS) PO (07:40)
[2018-03-21] MEDS: IPRATROPIUM 0.5MG/ALBUTEROL 2.5MG INH SOL UD 3ML (DUONEB)(J7620) INH ×4 (08:00→20:00)
[2018-03-21] MEDS: SENOKOT S TAB PO ×2 (09:00→22:54)
[2018-03-21] MEDS: MIRALAX *UNIT DOSE* 17GM PACKET PO (09:00)
[2018-03-21] MEDS: ADVAIR HFA 45/21MCG INHALER INH ×2 (09:38→21:00)
[2018-03-21 11:34] LABS: BEDSIDE GLUCOSE 215 MG/DL (83-110)
[2018-03-21 14:11] LABS: BEDSIDE GLUCOSE 203 MG/DL (83-110)
[2018-03-21] MEDS: **VANCO AFTER HD** MISC XX (16:00)
[2018-03-21] MEDS: VANCOMYCIN HCL 1,000 MG, VIAL MATE ADAPTER 1 EACH in D5W 250 ML IV (16:49)
[2018-03-21 16:50] LABS: BEDSIDE GLUCOSE 147 MG/DL (83-110)
[2018-03-21] MEDS ORDERED: LIDOCAINE 2% INJ 100 MG/5 ML SDV (FOR ANES.) As Ordered ×2 (17:31→18:35)
[2018-03-21] MEDS ORDERED: PROPOFOL 200 MG/20 ML VIAL As Ordered (17:31)
[2018-03-21] MEDS: CETACAINE SPRAY 5GM As Ordered (18:11)
[2018-03-21] MEDS ORDERED: fentaNYL 100 MCG/2 ML INJECTION (J3010) As Ordered (18:35)
[2018-03-21] MEDS ORDERED: NORCO, ANEXSIA 5/325MG TABLET (HYDROcodone/ACETAMINOPHEN) PO (19:00)
[2018-03-21] MEDS: LR 1,000 ML IV (19:00)
[2018-03-21] MEDS ORDERED: ONDANSETRON 4MG/2ML VIAL (J2405) IV (19:00)
[2018-03-21 21:14] LABS: BEDSIDE GLUCOSE 170 MG/DL (83-110)
[2018-03-21] MEDS: SIMVASTATIN 40 MG TAB PO (22:54)
[2018-03-21] MEDS: CARVedilol 12.5 MG TAB PO (22:54)
[2018-03-22 06:42] LABS: BASO # 0.1 10^3/uL (0.0-0.2); BASO % 0.5 % (0.0-1.0); EOS # 0.3 10^3/uL (0.0-0.50); EOS % 3.1 % (0.0-3.0); HEMATOCRIT 32.6 % (36.0-47.0); HEMOGLOBIN 10.4 g/dl (12.0-15.5); IMMATURE GRANULOCYTE % 3.6 % (0-3.0); LYMPH # 1.9 10^3/uL (1.5-4.5); LYMPH % 20.4 % (24.0-44.0); MEAN CORPUSCULAR HEMOGLOBIN 33.2 pg (27.0-33.0); MEAN CORPUSCULAR HGB CONC 31.9 g/dl (32.0-36.5); MEAN CORPUSCULAR VOLUME 104.2 fl (80.0-96.0); MONO # 1.4 10^3/uL (0.0-0.8); MONO % 14.8 % (0.0-5.0); NEUTROPHILS # 5.5 10^3/uL (1.8-7.7); NEUTROPHILS % 57.6 % (36.0-66.0); PLATELET COUNT, AUTOMATED 195 10^3/uL (150-450); RED BLOOD COUNT 3.13 10^6/uL (4.00-5.40); RED CELL DISTRIBUTION WIDTH 15.6 % (11.5-14.5); WHITE BLOOD COUNT 9.5 10^3/uL (4.0-10.0)
[2018-03-22] MEDS: CARVedilol 12.5 MG TAB PO (06:48)
[2018-03-22 07:11] LABS: ALBUMIN 2.6 GM/DL (3.2-5.2); ALBUMIN/GLOBULIN RATIO 0.67 (1.00-1.93); ALKALINE PHOSPHATASE 160 U/L (45-117); ALT/SGPT 19 U/L (12-78); ANION GAP 12 MEQ/L (8-16); AST/SGOT 16 U/L (7-37); BILIRUBIN,TOTAL 0.3 MG/DL (0.2-1.0); BLOOD UREA NITROGEN 30 MG/DL (7-18); CALCIUM LEVEL 8.3 MG/DL (8.8-10.2); CARBON DIOXIDE LEVEL 24 MEQ/L (21-32); CHLORIDE LEVEL 102 MEQ/L (98-107); CREATININE FOR GFR 4.31 MG/DL (0.55-1.30); GLOMERULAR FILTRATION RATE 10.5 (>32); GLUCOSE, FASTING 151 MG/DL (70-100); MAGNESIUM LEVEL 2.3 MG/DL (1.8-2.4); POTASSIUM SERUM 4.6 MEQ/L (3.5-5.1); SODIUM LEVEL 138 MEQ/L (136-145); TOTAL PROTEIN 6.5 GM/DL (6.4-8.2)
[2018-03-22] MEDS: ADVAIR HFA 45/21MCG INHALER INH (07:57)
[2018-03-22] MEDS: IPRATROPIUM 0.5MG/ALBUTEROL 2.5MG INH SOL UD 3ML (DUONEB)(J7620) INH (07:58)
[2018-03-22] MEDS: MIRALAX *UNIT DOSE* 17GM PACKET PO (09:13)
[2018-03-22] MEDS: ASPIRIN ENTERIC 325 MG TAB PO (09:14)
[2018-03-22] MEDS: NEPHRO-VIT TAB (NEPHROCAPS) PO (09:14)
[2018-03-22] MEDS: FOLIC ACID 1 MG TAB PO (09:14)
[2018-03-22] MEDS: PANTOPRAZOLE 40MG TAB (PROTONIX) PO (09:14)
[2018-03-22] MEDS: SENOKOT S TAB PO (09:14)
[2018-03-22] MEDS: CitaloPRAM (CeleXA) 20 MG TAB PO (09:14)
[2018-03-22] MEDS: VITAMIN D 1,000 INTERNATIONAL UNITS TABLET PO (09:14)
[2018-03-22] MEDS: HumaLOG INSULIN (NovoLOG) PER UNIT SC (09:16)
== END 2018-03-22 11:45 | DRG 314 ==
LOC: M MSPAV 03-17 02:40 → M ED 15:41 → M ED INP 18:58
PROC: B246ZZ4 Ultrasonography of Right and Left Heart, Transesophageal (ICD-10-PCS; principal; 2018-03-19 07:14)
PROC: 02HV33Z Insertion of Infusion Device into Superior Vena Cava, Percutaneous Approach (ICD-10-PCS; 2018-03-19 07:14)
DX: T82.7XXA Infection and inflammatory reaction due to other cardiac and vascular devices, implants and grafts, initial encounter (principal); N18.6 End stage renal disease; A41.9 Sepsis, unspecified organism; E87.2 Acidosis; I82.210 Acute embolism and thrombosis of superior vena cava; I25.10 Atherosclerotic heart disease of native coronary artery without angina pectoris; E11.51 Type 2 diabetes mellitus with diabetic peripheral angiopathy without gangrene; I50.9 Heart failure, unspecified; I48.91 Unspecified atrial fibrillation; D63.1 Anemia in chronic kidney disease; F32.9 Major depressive disorder, single episode, unspecified; J44.9 Chronic obstructive pulmonary disease, unspecified; G47.33 Obstructive sleep apnea (adult) (pediatric); E11.43 Type 2 diabetes mellitus with diabetic autonomic (poly)neuropathy; K31.84 Gastroparesis; Z95.3 Presence of xenogenic heart valve; Z66 Do not resuscitate; Z89.611 Acquired absence of right leg above knee; Z89.512 Acquired absence of left leg below knee; Z95.0 Presence of cardiac pacemaker; Z95.1 Presence of aortocoronary bypass graft; Z99.2 Dependence on renal dialysis; Z79.82 Long term (current) use of aspirin; Z79.899 Other long term (current) drug therapy; Z88.8 Allergy status to other drugs, medicaments and biological substances

== ENCOUNTER → 2018-03-16 | Outpatient (REF) | payer OTHER, MEDICAID ==
[2018-03-16 14:24] LABS: BASO % 0.1 % (0.0-1.0); HEMATOCRIT 32.5 % (36.0-47.0); HEMOGLOBIN 10.3 g/dl (12.0-15.5); IMMATURE GRANULOCYTE % 1.2 % (0-3.0); LYMPH # 1.8 10^3/uL (1.5-4.5); LYMPH % 7.7 % (24.0-44.0); MEAN CORPUSCULAR HEMOGLOBIN 33.4 pg (27.0-33.0); MEAN CORPUSCULAR HGB CONC 31.7 g/dl (32.0-36.5); MEAN CORPUSCULAR VOLUME 105.5 fl (80.0-96.0); MONO # 1.7 10^3/uL (0.0-0.8); MONO % 7.4 % (0.0-5.0); NEUTROPHILS # 19.7 10^3/uL (1.8-7.7); NEUTROPHILS % 83.6 % (36.0-66.0); PLATELET COUNT, AUTOMATED 170 10^3/uL (150-450); RED BLOOD COUNT 3.08 10^6/uL (4.00-5.40); RED CELL DISTRIBUTION WIDTH 15.6 % (11.5-14.5); WHITE BLOOD COUNT 23.5 10^3/uL (4.0-10.0)
== END ==
LOC: SKLAB3 13:08
DX: R50.9 Fever, unspecified (principal); R94.31 Abnormal electrocardiogram [ECG] [EKG]; Z98.890 Other specified postprocedural states; Z95.0 Presence of cardiac pacemaker; I51.7 Cardiomegaly; J98.11 Atelectasis; Z95.828 Presence of other vascular implants and grafts

== ENCOUNTER → 2018-04-08 | Outpatient (REF) | payer OTHER, MEDICAID | LOC: SKLAB3 08:00 | DX: R89.5 Abnormal microbiological findings in specimens from other organs, systems and tissues (principal) | CPT/HCPCS: 36415 ==

== ENCOUNTER → 2018-04-18 | Outpatient (REF) | payer OTHER, MEDICAID ==
[2018-04-18 12:56] LABS: HEMATOCRIT 29.4 % (36.0-47.0); HEMOGLOBIN 9.2 g/dl (12.0-15.5); MEAN CORPUSCULAR HEMOGLOBIN 34.1 pg (27.0-33.0); MEAN CORPUSCULAR HGB CONC 31.3 g/dl (32.0-36.5); MEAN CORPUSCULAR VOLUME 108.9 fl (80.0-96.0); PLATELET COUNT, AUTOMATED 110 10^3/uL (150-450); RED CELL DISTRIBUTION WIDTH 17.5 % (11.5-14.5); WHITE BLOOD COUNT 7.7 10^3/uL (4.0-10.0)
[2018-04-18 13:22] LABS: ANION GAP 7 MEQ/L (8-16); BLOOD UREA NITROGEN 11 MG/DL (7-18); CALCIUM LEVEL 8.1 MG/DL (8.8-10.2); CARBON DIOXIDE LEVEL 30 MEQ/L (21-32); CHLORIDE LEVEL 104 MEQ/L (98-107); CREATININE FOR GFR 2.13 MG/DL (0.55-1.30); GLOMERULAR FILTRATION RATE 23.7 (>32); GLUCOSE, FASTING 158 MG/DL (70-100); POTASSIUM SERUM 3.8 MEQ/L (3.5-5.1); SODIUM LEVEL 141 MEQ/L (136-145)
== END ==
LOC: SKLAB3 04:31
DX: R06.02 Shortness of breath (principal); R06.2 Wheezing
CPT/HCPCS: 71045

== ENCOUNTER 2018-04-20 01:02 | Emergency (ER) | payer OTHER, MEDICAID ==
[2018-04-20] MEDS ORDERED: ISOVUE-370 76% 100ML VIAL (Q9967) As Ordered ×2 (01:50→05:45)
[2018-04-20] MEDS ORDERED: CitaloPRAM (CeleXA) 20 MG TAB PO (09:00)
[2018-04-20] MEDS ORDERED: PANTOPRAZOLE 40MG TAB (PROTONIX) PO (09:00)
[2018-04-20] MEDS ORDERED: VITAMIN D 1,000 INTERNATIONAL UNITS TABLET PO (09:00)
[2018-04-20] MEDS ORDERED: NEPHRO-VIT TAB (NEPHROCAPS) PO (09:00)
[2018-04-20] MEDS ORDERED: DOCUSATE SODIUM 100 MG CAP PO (09:00)
[2018-04-20] MEDS ORDERED: MIRALAX *UNIT DOSE* 17GM PACKET PO (09:00)
[2018-04-20] MEDS ORDERED: SENOKOT S TAB PO (09:00)
[2018-04-20] MEDS ORDERED: FOLIC ACID 1 MG TAB PO (09:00)
[2018-04-20] MEDS ORDERED: ACETAMINOPHEN TAB 650MG DOSE (2X325MG) PO ×2 (09:00→09:15)
[2018-04-20] MEDS ORDERED: ASPIRIN ENTERIC 325 MG TAB PO (09:00)
[2018-04-20] MEDS ORDERED: HEPARIN DRIP 25,000 UNITS in APPROPRIATE DILUENT 1 EA IV (09:13)
[2018-04-20] MEDS ORDERED: HEPARIN SOD (PORCINE) 5000 UNITS/ML VIAL IV (09:15)
[2018-04-20] MEDS ORDERED: MOM 30ML SUSPENSION UDC PO (09:15)
[2018-04-20] MEDS ORDERED: BISACODYL 10 MG SUPP PR (09:15)
[2018-04-20] MEDS ORDERED: guaiFENesin DM LIQ 10ML UD PO (09:15)
[2018-04-20] MEDS ORDERED: IPRATROPIUM 0.5MG/ALBUTEROL 2.5MG INH SOL UD 3ML (DUONEB)(J7620) INH ×2 (09:15→13:00)
[2018-04-20] MEDS ORDERED: SIMVASTATIN 40 MG TAB PO (21:00)
[2018-04-21] MEDS ORDERED: CARVedilol 12.5 MG TAB PO (09:00)
== END 2018-04-20 10:49 ==
LOC: M ED 04-22 08:57 → M ED INP 08:57
DX: T82.868A Thrombosis due to vascular prosthetic devices, implants and grafts, initial encounter (principal); N18.6 End stage renal disease; I13.2 Hypertensive heart and chronic kidney disease with heart failure and with stage 5 chronic kidney disease, or end stage renal disease; I82.C21 Chronic embolism and thrombosis of right internal jugular vein; R06.02 Shortness of breath; I25.10 Atherosclerotic heart disease of native coronary artery without angina pectoris; E11.22 Type 2 diabetes mellitus with diabetic chronic kidney disease; I50.9 Heart failure, unspecified; E78.00 Pure hypercholesterolemia, unspecified; K21.9 Gastro-esophageal reflux disease without esophagitis; M10.9 Gout, unspecified; E11.51 Type 2 diabetes mellitus with diabetic peripheral angiopathy without gangrene; I48.91 Unspecified atrial fibrillation; E55.9 Vitamin D deficiency, unspecified; E11.40 Type 2 diabetes mellitus with diabetic neuropathy, unspecified; Z95.1 Presence of aortocoronary bypass graft; Z99.2 Dependence on renal dialysis; Z95.0 Presence of cardiac pacemaker; Z89.611 Acquired absence of right leg above knee; Z89.512 Acquired absence of left leg below knee; Z79.82 Long term (current) use of aspirin; Z79.4 Long term (current) use of insulin; Z79.899 Other long term (current) drug therapy; Z95.2 Presence of prosthetic heart valve; Z98.41 Cataract extraction status, right eye; Z98.42 Cataract extraction status, left eye; Y83.1 Surgical operation with implant of artificial internal device as the cause of abnormal reaction of the patient, or of later complication, without mention of misadventure at the time of the procedure
CPT/HCPCS: Q9967

== ENCOUNTER 2018-04-22 09:53 | Inpatient (IN) | payer OTHER, MEDICAID ==
[2018-04-22] MEDS: FOLIC ACID 1 MG TAB PO (09:00)
[2018-04-22] MEDS: MIRALAX *UNIT DOSE* 17GM PACKET PO (09:00)
[2018-04-22] MEDS: CitaloPRAM (CeleXA) 20 MG TAB PO (09:00)
[2018-04-22] MEDS: ASPIRIN ENTERIC 325 MG TAB PO (09:00)
[2018-04-22] MEDS: VITAMIN D 1,000 INTERNATIONAL UNITS TABLET PO (09:00)
[2018-04-22] MEDS: NEPHRO-VIT TAB (NEPHROCAPS) PO (09:00)
[2018-04-22 11:22] LABS: LACTIC ACID SEPSIS PROTOCOL 1.4 MMOL/L (0.4-2.0)
[2018-04-22 11:33] LABS: BASO % 0.1 % (0.0-1.0); EOS # 0.1 10^3/uL (0.0-0.50); EOS % 1.8 % (0.0-3.0); HEMATOCRIT 31.8 % (36.0-47.0); HEMOGLOBIN 9.7 g/dl (12.0-15.5); IMMATURE GRANULOCYTE % 0.5 % (0-3.0); LYMPH # 0.9 10^3/uL (1.5-4.5); LYMPH % 11.4 % (24.0-44.0); MEAN CORPUSCULAR HEMOGLOBIN 33.8 pg (27.0-33.0); MEAN CORPUSCULAR HGB CONC 30.5 g/dl (32.0-36.5); MEAN CORPUSCULAR VOLUME 110.8 fl (80.0-96.0); MONO # 1.2 10^3/uL (0.0-0.8); NEUTROPHILS # 5.4 10^3/uL (1.8-7.7); NEUTROPHILS % 70.2 % (36.0-66.0); PLATELET COUNT, AUTOMATED 109 10^3/uL (150-450); RED BLOOD COUNT 2.87 10^6/uL (4.00-5.40); WHITE BLOOD COUNT 7.6 10^3/uL (4.0-10.0)
[2018-04-22 11:45] LABS: POS COUNT POS FLAG
[2018-04-22 11:46] LABS: INR 1.07; PROTHROMBIN TIME 14.1 SECONDS (12.1-14.4)
[2018-04-22 11:57] LABS: ALBUMIN/GLOBULIN RATIO 0.94 (1.00-1.93); ALKALINE PHOSPHATASE 242 U/L (45-117); ALT/SGPT 49 U/L (12-78); ANION GAP 6 MEQ/L (8-16); AST/SGOT 67 U/L (7-37); BILIRUBIN,DIRECT 0.5 MG/DL (0.0-0.2); BILIRUBIN,TOTAL 0.8 MG/DL (0.2-1.0); BLOOD UREA NITROGEN 10 MG/DL (7-18); CALCIUM LEVEL 8.1 MG/DL (8.8-10.2); CARBON DIOXIDE LEVEL 33 MEQ/L (21-32); CHLORIDE LEVEL 105 MEQ/L (98-107); CREATININE FOR GFR 1.94 MG/DL (0.55-1.30); GLOMERULAR FILTRATION RATE 26.4 (>32); GLUCOSE, FASTING 158 MG/DL (70-100); NT-PRO BNP 15748 PG/ML (<450); SODIUM LEVEL 144 MEQ/L (136-145); TOTAL PROTEIN 6.2 GM/DL (6.4-8.2)
[2018-04-22] MEDS ORDERED: GLUCOSE 4 GM CHEW TABLET PO (13:15)
[2018-04-22] MEDS ORDERED: DEXTROSE 50% 50 ML SYRINGE IV (13:15)
[2018-04-22] MEDS ORDERED: BISACODYL 10 MG SUPP PR (13:15)
[2018-04-22] MEDS ORDERED: GLUCAGON FOR INJ 1 MG VIAL (J1610) SC (13:15)
[2018-04-22] MEDS ORDERED: ONDANSETRON 4MG/2ML VIAL (J2405) IV (13:30)
[2018-04-22 13:48] LABS: C REACTIVE PROTEIN QUANTITATIV 5.04 MG/DL (0.00-0.30)
[2018-04-22 14:21] LABS: ERYTHROCYTE SEDIMENTATION RATE 28 mm/hr (0-30)
[2018-04-22 17:13] LABS: CK-MB VALUE MASS 1.2 NG/ML (<3.6); CPK CREATINE PHOSPHOKINASE 37 U/L (26-192); MB/CK RELATIVE INDEX 3.24 (< OR =4); TROPONIN I 0.04 NG/ML (< 0.10)
[2018-04-22 17:31] LABS: BEDSIDE GLUCOSE 144 MG/DL (83-110)
[2018-04-22] MEDS: HumaLOG INSULIN (NovoLOG) PER UNIT SC ×2 (17:41→20:48)
[2018-04-22] MEDS: POLYVINYL ALCOHOL OPHTH SOLN 15 ML(LIQUITEARS) OU ×2 (17:41→21:11)
[2018-04-22] MEDS: MIDODRINE 5 MG TAB PO (17:42)
[2018-04-22] MEDS: (RENVELA) SEVELAMER **CARBONate** 800 MG TAB PO (17:47)
[2018-04-22] MEDS: CARVedilol 12.5 MG TAB PO (17:47)
[2018-04-22] MEDS: NS 250 ML IV (20:15)
[2018-04-22] MEDS: ADVAIR HFA 45/21MCG INHALER INH (20:31)
[2018-04-22 20:52] LABS: BEDSIDE GLUCOSE 164 MG/DL (83-110)
[2018-04-22] MEDS: SENOKOT S TAB PO (21:11)
[2018-04-22] MEDS: SIMVASTATIN 40 MG TAB PO (21:11)
[2018-04-22 23:00] LABS: CPK CREATINE PHOSPHOKINASE 35 U/L (26-192); TROPONIN I 0.02 NG/ML (< 0.10)
[2018-04-22 23:01] LABS: CK-MB VALUE MASS 1.2 NG/ML (<3.6); MB/CK RELATIVE INDEX 3.42 (< OR =4)
[2018-04-23] MEDS: CARVedilol 12.5 MG TAB PO (05:05)
[2018-04-23 05:45] LABS: HEMATOCRIT 31.6 % (36.0-47.0); HEMOGLOBIN 9.4 g/dl (12.0-15.5); MEAN CORPUSCULAR HEMOGLOBIN 33.3 pg (27.0-33.0); MEAN CORPUSCULAR HGB CONC 29.7 g/dl (32.0-36.5); MEAN CORPUSCULAR VOLUME 112.1 fl (80.0-96.0); PLATELET COUNT, AUTOMATED 125 10^3/uL (150-450); RED BLOOD COUNT 2.82 10^6/uL (4.00-5.40); RED CELL DISTRIBUTION WIDTH 18.1 % (11.5-14.5); WHITE BLOOD COUNT 6.7 10^3/uL (4.0-10.0)
[2018-04-23 06:03] LABS: ALBUMIN 2.8 GM/DL (3.2-5.2); ALBUMIN/GLOBULIN RATIO 0.93 (1.00-1.93); ALKALINE PHOSPHATASE 236 U/L (45-117); ALT/SGPT 42 U/L (12-78); ANION GAP 10 MEQ/L (8-16); AST/SGOT 51 U/L (7-37); BILIRUBIN,TOTAL 0.8 MG/DL (0.2-1.0); CALCIUM LEVEL 8.1 MG/DL (8.8-10.2); CARBON DIOXIDE LEVEL 27 MEQ/L (21-32); CHLORIDE LEVEL 105 MEQ/L (98-107); CREATININE FOR GFR 2.79 MG/DL (0.55-1.30); GLOMERULAR FILTRATION RATE 17.3 (>32); GLUCOSE, FASTING 144 MG/DL (70-100); MAGNESIUM LEVEL 2.2 MG/DL (1.8-2.4); POTASSIUM SERUM 4.1 MEQ/L (3.5-5.1); SODIUM LEVEL 142 MEQ/L (136-145); TOTAL PROTEIN 5.8 GM/DL (6.4-8.2)
[2018-04-23 06:20] LABS: BLOOD UREA NITROGEN 16 MG/DL (7-18)
[2018-04-23] MEDS: ADVAIR HFA 45/21MCG INHALER INH ×2 (07:42→19:40)
[2018-04-23] MEDS: FONDAPARINUX SODIUM 2.5 MG/0.5 ML SYR (J1652 PER 0.5MG) SC (09:19)
[2018-04-23] MEDS: HumaLOG INSULIN (NovoLOG) PER UNIT SC ×4 (09:19→21:00)
[2018-04-23] MEDS: MIRALAX *UNIT DOSE* 17GM PACKET PO (09:19)
[2018-04-23] MEDS: FOLIC ACID 1 MG TAB PO (09:20)
[2018-04-23] MEDS: ASPIRIN ENTERIC 325 MG TAB PO (09:20)
[2018-04-23] MEDS: (RENVELA) SEVELAMER **CARBONate** 800 MG TAB PO ×3 (09:20→18:01)
[2018-04-23] MEDS: POLYVINYL ALCOHOL OPHTH SOLN 15 ML(LIQUITEARS) OU ×3 (09:20→21:05)
[2018-04-23] MEDS: PANTOPRAZOLE 40MG TAB (PROTONIX) PO (09:20)
[2018-04-23] MEDS: NEPHRO-VIT TAB (NEPHROCAPS) PO (09:20)
[2018-04-23] MEDS: MIDODRINE 5 MG TAB PO ×3 (09:20→16:00)
[2018-04-23] MEDS: CitaloPRAM (CeleXA) 20 MG TAB PO (09:20)
[2018-04-23] MEDS: SENOKOT S TAB PO ×2 (09:20→21:05)
[2018-04-23] MEDS: VITAMIN D 1,000 INTERNATIONAL UNITS TABLET PO (09:21)
[2018-04-23 11:53] LABS: BEDSIDE GLUCOSE 149 MG/DL (83-110)
[2018-04-23] MEDS ORDERED: DARBEPOETIN 100 MCG/0.5 ML *DIALYSIS* SYRINGE (J0882) IV (19:15)
[2018-04-23] MEDS: SIMVASTATIN 40 MG TAB PO (21:05)
[2018-04-23 21:34] LABS: BEDSIDE GLUCOSE 147 MG/DL (83-110)
[2018-04-23 22:17] LABS: BEDSIDE GLUCOSE 169 MG/DL (83-110)
[2018-04-24] MEDS: ACETAMINOPHEN 325 MG TAB PO (04:26)
[2018-04-24 06:08] LABS: HEMATOCRIT 31.2 % (36.0-47.0); HEMOGLOBIN 9.5 g/dl (12.0-15.5); MEAN CORPUSCULAR HEMOGLOBIN 33.6 pg (27.0-33.0); MEAN CORPUSCULAR HGB CONC 30.4 g/dl (32.0-36.5); MEAN CORPUSCULAR VOLUME 110.2 fl (80.0-96.0); PLATELET COUNT, AUTOMATED 133 10^3/uL (150-450); RED BLOOD COUNT 2.83 10^6/uL (4.00-5.40); WHITE BLOOD COUNT 7.4 10^3/uL (4.0-10.0)
[2018-04-24 06:33] LABS: ALBUMIN 2.8 GM/DL (3.2-5.2); ALBUMIN/GLOBULIN RATIO 0.82 (1.00-1.93); ALKALINE PHOSPHATASE 229 U/L (45-117); ALT/SGPT 37 U/L (12-78); ANION GAP 7 MEQ/L (8-16); AST/SGOT 44 U/L (7-37); BILIRUBIN,TOTAL 0.7 MG/DL (0.2-1.0); BLOOD UREA NITROGEN 14 MG/DL (7-18); CALCIUM LEVEL 8.2 MG/DL (8.8-10.2); CARBON DIOXIDE LEVEL 27 MEQ/L (21-32); CHLORIDE LEVEL 104 MEQ/L (98-107); CREATININE FOR GFR 2.82 MG/DL (0.55-1.30); GLOMERULAR FILTRATION RATE 17.1 (>32); GLUCOSE, FASTING 125 MG/DL (70-100); MAGNESIUM LEVEL 2.1 MG/DL (1.8-2.4); POTASSIUM SERUM 4.2 MEQ/L (3.5-5.1); SODIUM LEVEL 138 MEQ/L (136-145); TOTAL PROTEIN 6.2 GM/DL (6.4-8.2)
[2018-04-24] MEDS: HumaLOG INSULIN (NovoLOG) PER UNIT SC ×4 (07:30→20:43)
[2018-04-24] MEDS: ADVAIR HFA 45/21MCG INHALER INH ×2 (07:34→20:51)
[2018-04-24] MEDS: VITAMIN D 1,000 INTERNATIONAL UNITS TABLET PO (08:37)
[2018-04-24] MEDS: (RENVELA) SEVELAMER **CARBONate** 800 MG TAB PO ×3 (08:37→17:26)
[2018-04-24] MEDS: FOLIC ACID 1 MG TAB PO (08:37)
[2018-04-24] MEDS: SENOKOT S TAB PO ×2 (08:37→22:19)
[2018-04-24] MEDS: MIRALAX *UNIT DOSE* 17GM PACKET PO (08:37)
[2018-04-24] MEDS: CitaloPRAM (CeleXA) 20 MG TAB PO (08:37)
[2018-04-24] MEDS: NEPHRO-VIT TAB (NEPHROCAPS) PO (08:37)
[2018-04-24] MEDS: ASPIRIN ENTERIC 325 MG TAB PO (08:37)
[2018-04-24] MEDS: PANTOPRAZOLE 40MG TAB (PROTONIX) PO (08:37)
[2018-04-24] MEDS: FONDAPARINUX SODIUM 2.5 MG/0.5 ML SYR (J1652 PER 0.5MG) SC (08:38)
[2018-04-24] MEDS: POLYVINYL ALCOHOL OPHTH SOLN 15 ML(LIQUITEARS) OU ×3 (08:38→22:19)
[2018-04-24] MEDS: MIDODRINE 5 MG TAB PO ×3 (08:38→15:33)
[2018-04-24 11:39] LABS: BEDSIDE GLUCOSE 157 MG/DL (83-110)
[2018-04-24 16:29] LABS: BEDSIDE GLUCOSE 126 MG/DL (83-110)
[2018-04-24 19:56] LABS: BEDSIDE GLUCOSE 139 MG/DL (83-110)
[2018-04-24] MEDS: SIMVASTATIN 40 MG TAB PO (22:19)
[2018-04-25] MEDS: (RENVELA) SEVELAMER **CARBONate** 800 MG TAB PO ×3 (06:27→18:07)
[2018-04-25] MEDS: MIRALAX *UNIT DOSE* 17GM PACKET PO (06:27)
[2018-04-25] MEDS: VITAMIN D 1,000 INTERNATIONAL UNITS TABLET PO (06:27)
[2018-04-25] MEDS: MIDODRINE 5 MG TAB PO ×3 (06:27→18:07)
[2018-04-25] MEDS: PANTOPRAZOLE 40MG TAB (PROTONIX) PO (06:28)
[2018-04-25] MEDS: CitaloPRAM (CeleXA) 20 MG TAB PO (06:28)
[2018-04-25] MEDS: ACETAMINOPHEN 325 MG TAB PO ×2 (06:28→22:12)
[2018-04-25] MEDS: SENOKOT S TAB PO ×2 (06:28→20:14)
[2018-04-25] MEDS: FOLIC ACID 1 MG TAB PO (06:28)
[2018-04-25] MEDS: POLYVINYL ALCOHOL OPHTH SOLN 15 ML(LIQUITEARS) OU ×3 (06:29→20:14)
[2018-04-25] MEDS: ASPIRIN ENTERIC 325 MG TAB PO (06:29)
[2018-04-25 06:40] LABS: HEMATOCRIT 34.1 % (36.0-47.0); HEMOGLOBIN 10.4 g/dl (12.0-15.5); MEAN CORPUSCULAR HGB CONC 30.5 g/dl (32.0-36.5); MEAN CORPUSCULAR VOLUME 111.4 fl (80.0-96.0); PLATELET COUNT, AUTOMATED 138 10^3/uL (150-450); RED BLOOD COUNT 3.06 10^6/uL (4.00-5.40); RED CELL DISTRIBUTION WIDTH 17.8 % (11.5-14.5); WHITE BLOOD COUNT 8.1 10^3/uL (4.0-10.0)
[2018-04-25] MEDS: NEPHRO-VIT TAB (NEPHROCAPS) PO (06:41)
[2018-04-25 06:58] LABS: CORTISOL AM 25.6 UG/DL (4.3-22.4)
[2018-04-25 06:59] LABS: ALBUMIN/GLOBULIN RATIO 0.83 (1.00-1.93); ALKALINE PHOSPHATASE 255 U/L (45-117); ALT/SGPT 33 U/L (12-78); ANION GAP 7 MEQ/L (8-16); AST/SGOT 30 U/L (7-37); BILIRUBIN,TOTAL 0.7 MG/DL (0.2-1.0); BLOOD UREA NITROGEN 23 MG/DL (7-18); CALCIUM LEVEL 8.3 MG/DL (8.8-10.2); CARBON DIOXIDE LEVEL 28 MEQ/L (21-32); CHLORIDE LEVEL 102 MEQ/L (98-107); CREATININE FOR GFR 4.01 MG/DL (0.55-1.30); GLOMERULAR FILTRATION RATE 11.4 (>32); GLUCOSE, FASTING 116 MG/DL (70-100); MAGNESIUM LEVEL 2.3 MG/DL (1.8-2.4); POTASSIUM SERUM 4.3 MEQ/L (3.5-5.1); SODIUM LEVEL 137 MEQ/L (136-145); TOTAL PROTEIN 6.6 GM/DL (6.4-8.2)
[2018-04-25] MEDS: ADVAIR HFA 45/21MCG INHALER INH ×2 (07:50→19:58)
[2018-04-25] MEDS: HumaLOG INSULIN (NovoLOG) PER UNIT SC ×4 (08:48→20:21)
[2018-04-25] MEDS: HEPARIN 1,000 UNITS/ML 10ML VIAL (FOR RADIOLOGY& DIALYSIS ONLY) XX (11:15)
[2018-04-25 12:00] LABS: BEDSIDE GLUCOSE 146 MG/DL (83-110)
[2018-04-25 18:06] LABS: BEDSIDE GLUCOSE 143 MG/DL (83-110)
[2018-04-25] MEDS: SIMVASTATIN 40 MG TAB PO (20:14)
[2018-04-25 20:21] LABS: BEDSIDE GLUCOSE 131 MG/DL (83-110)
[2018-04-25] MEDS: NS 250 ML IV (21:29)
[2018-04-26 06:24] LABS: HEMATOCRIT 34.8 % (36.0-47.0); HEMOGLOBIN 10.5 g/dl (12.0-15.5); MEAN CORPUSCULAR HEMOGLOBIN 33.2 pg (27.0-33.0); MEAN CORPUSCULAR HGB CONC 30.2 g/dl (32.0-36.5); MEAN CORPUSCULAR VOLUME 110.1 fl (80.0-96.0); PLATELET COUNT, AUTOMATED 152 10^3/uL (150-450); RED BLOOD COUNT 3.16 10^6/uL (4.00-5.40); RED CELL DISTRIBUTION WIDTH 17.7 % (11.5-14.5); WHITE BLOOD COUNT 7.9 10^3/uL (4.0-10.0)
[2018-04-26 06:52] LABS: ALBUMIN 2.9 GM/DL (3.2-5.2); ALBUMIN/GLOBULIN RATIO 0.76 (1.00-1.93); ALKALINE PHOSPHATASE 244 U/L (45-117); ALT/SGPT 28 U/L (12-78); ANION GAP 9 MEQ/L (8-16); AST/SGOT 26 U/L (7-37); BILIRUBIN,TOTAL 0.7 MG/DL (0.2-1.0); BLOOD UREA NITROGEN 14 MG/DL (7-18); CALCIUM LEVEL 8.5 MG/DL (8.8-10.2); CARBON DIOXIDE LEVEL 27 MEQ/L (21-32); CHLORIDE LEVEL 103 MEQ/L (98-107); CREATININE FOR GFR 3.34 MG/DL (0.55-1.30); GLOMERULAR FILTRATION RATE 14.1 (>32); GLUCOSE, FASTING 123 MG/DL (70-100); MAGNESIUM LEVEL 2.2 MG/DL (1.8-2.4); POTASSIUM SERUM 4.5 MEQ/L (3.5-5.1); SODIUM LEVEL 139 MEQ/L (136-145); TOTAL PROTEIN 6.7 GM/DL (6.4-8.2)
[2018-04-26] MEDS: ADVAIR HFA 45/21MCG INHALER INH ×2 (08:18→20:01)
[2018-04-26] MEDS: ASPIRIN ENTERIC 325 MG TAB PO (09:04)
[2018-04-26] MEDS: SENOKOT S TAB PO ×2 (09:04→20:35)
[2018-04-26] MEDS: CitaloPRAM (CeleXA) 20 MG TAB PO (09:04)
[2018-04-26] MEDS: (RENVELA) SEVELAMER **CARBONate** 800 MG TAB PO ×3 (09:04→17:26)
[2018-04-26] MEDS: FOLIC ACID 1 MG TAB PO (09:04)
[2018-04-26] MEDS: HumaLOG INSULIN (NovoLOG) PER UNIT SC ×4 (09:04→20:20)
[2018-04-26] MEDS: MIDODRINE 5 MG TAB PO ×3 (09:05→16:07)
[2018-04-26] MEDS: MIRALAX *UNIT DOSE* 17GM PACKET PO (09:05)
[2018-04-26] MEDS: VITAMIN D 1,000 INTERNATIONAL UNITS TABLET PO (09:05)
[2018-04-26] MEDS: PANTOPRAZOLE 40MG TAB (PROTONIX) PO (09:05)
[2018-04-26] MEDS: POLYVINYL ALCOHOL OPHTH SOLN 15 ML(LIQUITEARS) OU ×3 (09:06→20:36)
[2018-04-26] MEDS: NEPHRO-VIT TAB (NEPHROCAPS) PO (09:18)
[2018-04-26 11:25] LABS: BEDSIDE GLUCOSE 161 MG/DL (83-110)
[2018-04-26 16:29] LABS: BEDSIDE GLUCOSE 136 MG/DL (83-110)
[2018-04-26 20:13] LABS: BEDSIDE GLUCOSE 155 MG/DL (83-110)
[2018-04-26] MEDS: SIMVASTATIN 40 MG TAB PO (20:35)
[2018-04-26] MEDS: ACETAMINOPHEN 325 MG TAB PO (20:36)
[2018-04-27] MEDS: CitaloPRAM (CeleXA) 20 MG TAB PO (06:14)
[2018-04-27] MEDS: FOLIC ACID 1 MG TAB PO (06:14)
[2018-04-27] MEDS: MIDODRINE 5 MG TAB PO (06:15)
[2018-04-27] MEDS: VITAMIN D 1,000 INTERNATIONAL UNITS TABLET PO (06:15)
[2018-04-27] MEDS: ASPIRIN ENTERIC 325 MG TAB PO (06:15)
[2018-04-27] MEDS: PANTOPRAZOLE 40MG TAB (PROTONIX) PO (06:15)
[2018-04-27] MEDS: NEPHRO-VIT TAB (NEPHROCAPS) PO (06:15)
[2018-04-27] MEDS: MIRALAX *UNIT DOSE* 17GM PACKET PO (06:15)
[2018-04-27] MEDS: SENOKOT S TAB PO (06:15)
[2018-04-27] MEDS: POLYVINYL ALCOHOL OPHTH SOLN 15 ML(LIQUITEARS) OU (06:15)
[2018-04-27 06:22] LABS: HEMATOCRIT 33.2 % (36.0-47.0); MEAN CORPUSCULAR HEMOGLOBIN 33.2 pg (27.0-33.0); MEAN CORPUSCULAR HGB CONC 30.1 g/dl (32.0-36.5); MEAN CORPUSCULAR VOLUME 110.3 fl (80.0-96.0); PLATELET COUNT, AUTOMATED 170 10^3/uL (150-450); RED BLOOD COUNT 3.01 10^6/uL (4.00-5.40); RED CELL DISTRIBUTION WIDTH 17.8 % (11.5-14.5); WHITE BLOOD COUNT 10.3 10^3/uL (4.0-10.0)
[2018-04-27 06:36] LABS: ALBUMIN 2.8 GM/DL (3.2-5.2); ALBUMIN/GLOBULIN RATIO 0.78 (1.00-1.93); ALKALINE PHOSPHATASE 253 U/L (45-117); ALT/SGPT 24 U/L (12-78); ANION GAP 9 MEQ/L (8-16); AST/SGOT 32 U/L (7-37); BILIRUBIN,TOTAL 0.5 MG/DL (0.2-1.0); BLOOD UREA NITROGEN 23 MG/DL (7-18); CALCIUM LEVEL 8.3 MG/DL (8.8-10.2); CARBON DIOXIDE LEVEL 28 MEQ/L (21-32); CHLORIDE LEVEL 101 MEQ/L (98-107); CREATININE FOR GFR 4.46 MG/DL (0.55-1.30); GLOMERULAR FILTRATION RATE 10.1 (>32); GLUCOSE, FASTING 141 MG/DL (70-100); MAGNESIUM LEVEL 2.1 MG/DL (1.8-2.4); POTASSIUM SERUM 4.8 MEQ/L (3.5-5.1); SODIUM LEVEL 138 MEQ/L (136-145); TOTAL PROTEIN 6.4 GM/DL (6.4-8.2)
[2018-04-27] MEDS: HumaLOG INSULIN (NovoLOG) PER UNIT SC (07:18)
[2018-04-27] MEDS: (RENVELA) SEVELAMER **CARBONate** 800 MG TAB PO (07:18)
[2018-04-27] MEDS ORDERED: MOM 30ML SUSPENSION UDC PO (07:30)
[2018-04-27] MEDS ORDERED: guaiFENesin DM LIQ 10ML UD PO (07:30)
[2018-04-27] MEDS: ACETAMINOPHEN TAB 650MG DOSE (2X325MG) PO (07:44)
[2018-04-27] MEDS: DOCUSATE SODIUM 100 MG CAP PO (07:45)
[2018-04-27] MEDS: ADVAIR HFA 45/21MCG INHALER INH (07:50)
== END 2018-04-27 08:22 | DRG 312 ==
LOC: M MSPAV 04-23 21:16 → M ED 09:53 → M ED INP 13:54 → M PCU 15:40
PROVIDERS: Hospitalist
PROC: 5A1D70Z Performance of Urinary Filtration, Intermittent, Less than 6 Hours Per Day (ICD-10-PCS; principal; 2018-04-23)
DX: I95.3 Hypotension of hemodialysis (principal); N18.6 End stage renal disease; E11.22 Type 2 diabetes mellitus with diabetic chronic kidney disease; E11.51 Type 2 diabetes mellitus with diabetic peripheral angiopathy without gangrene; E11.43 Type 2 diabetes mellitus with diabetic autonomic (poly)neuropathy; I48.2 Chronic atrial fibrillation; D63.1 Anemia in chronic kidney disease; I50.9 Heart failure, unspecified; J44.9 Chronic obstructive pulmonary disease, unspecified; Z66 Do not resuscitate; E66.01 Morbid (severe) obesity due to excess calories; K59.00 Constipation, unspecified; Z99.2 Dependence on renal dialysis; F32.9 Major depressive disorder, single episode, unspecified; Z95.0 Presence of cardiac pacemaker; Z95.4 Presence of other heart-valve replacement; Z95.1 Presence of aortocoronary bypass graft; Z89.521 Acquired absence of right knee; Z89.522 Acquired absence of left knee; Z86.14 Personal history of Methicillin resistant Staphylococcus aureus infection; Z87.891 Personal history of nicotine dependence; Z79.82 Long term (current) use of aspirin; Z79.899 Other long term (current) drug therapy; Z79.4 Long term (current) use of insulin; Z88.5 Allergy status to narcotic agent; Z88.8 Allergy status to other drugs, medicaments and biological substances; Z88.1 Allergy status to other antibiotic agents

== ENCOUNTER → 2018-05-17 | Outpatient (REF) | payer MEDICAID, MEDICARE, OTHER ==
[2018-05-17 08:15] LABS: ESTIMATED AVERAGE GLUCOSE 117 MG/DL (60-110); HEMOGLOBIN A1c 5.7 %
== END ==
LOC: SKLAB3 08:00
DX: E11.9 Type 2 diabetes mellitus without complications (principal)
CPT/HCPCS: 83036

== ENCOUNTER → 2018-08-15 | Outpatient (REF) | payer MEDICAID, MEDICARE ==
[2018-08-15 12:12] LABS: ESTIMATED AVERAGE GLUCOSE 134 MG/DL (60-110); HEMOGLOBIN A1c 6.3 %
== END ==
LOC: SKLAB3 07:00
DX: E11.9 Type 2 diabetes mellitus without complications (principal)
CPT/HCPCS: 83036

== ENCOUNTER 2018-08-21 02:36 | Inpatient (IN) | payer MEDICARE, MEDICAID ==
[2018-08-21] MEDS: IPRATROPIUM 0.5MG/ALBUTEROL 2.5MG INH SOL UD 3ML (DUONEB)(J7620) NEB ×4 (03:00→20:24)
[2018-08-21 03:35] LABS: BASO % 0.3 % (0.0-1.0); EOS # 0.4 10^3/uL (0.0-0.50); EOS % 3.3 % (0.0-3.0); HEMATOCRIT 33.7 % (36.0-47.0); HEMOGLOBIN 10.5 g/dl (12.0-15.5); IMMATURE GRANULOCYTE % 0.4 % (0-3.0); LYMPH # 1.4 10^3/uL (1.5-4.5); LYMPH % 10.9 % (24.0-44.0); MEAN CORPUSCULAR HEMOGLOBIN 32.9 pg (27.0-33.0); MEAN CORPUSCULAR HGB CONC 31.2 g/dl (32.0-36.5); MEAN CORPUSCULAR VOLUME 105.6 fl (80.0-96.0); MONO # 1.6 10^3/uL (0.0-0.8); MONO % 12.7 % (0.0-5.0); NEUTROPHILS # 9.2 10^3/uL (1.8-7.7); NEUTROPHILS % 72.4 % (36.0-66.0); PLATELET COUNT, AUTOMATED 192 10^3/uL (150-450); RED BLOOD COUNT 3.19 10^6/uL (4.00-5.40); RED CELL DISTRIBUTION WIDTH 19.1 % (11.5-14.5); WHITE BLOOD COUNT 12.7 10^3/uL (4.0-10.0)
[2018-08-21 03:52] LABS: LACTIC ACID SEPSIS PROTOCOL 1.3 MMOL/L (0.4-2.0)
[2018-08-21 03:53] LABS: ANION GAP 12 MEQ/L (8-16); BLOOD UREA NITROGEN 39 MG/DL (7-18); CALCIUM LEVEL 8.7 MG/DL (8.8-10.2); CARBON DIOXIDE LEVEL 27 MEQ/L (21-32); CHLORIDE LEVEL 97 MEQ/L (98-107); CPK CREATINE PHOSPHOKINASE 56 U/L (26-192); CREATININE FOR GFR 4.59 MG/DL (0.55-1.30); GLOMERULAR FILTRATION RATE 9.7 (>32); GLUCOSE, FASTING 189 MG/DL (70-100); MB/CK RELATIVE INDEX 3.39 (< OR =4); NT-PRO BNP 20853 PG/ML (<450); POTASSIUM SERUM 4.7 MEQ/L (3.5-5.1); SODIUM LEVEL 136 MEQ/L (136-145); TROPONIN I 0.04 NG/ML (< 0.10)
[2018-08-21 04:05] LABS: INFLUENZA A AMPLIFICATION NEGATIVE (NEGATIVE); INFLUENZA B AMPLIFICATION NEGATIVE (NEGATIVE)
[2018-08-21 04:25] LABS: VENOUS BASE EXCESS -0.7 (-2.0-2.0); VENOUS HCO3 26.3 MEQ/L (23.0-27.0); VENOUS O2 SATURATION 97.8 % (60.0-80.0); VENOUS PARTIAL PRESSURE CO2 54.4 mmHg (38.0-50.0); VENOUS PARTIAL PRESSURE O2 105.7 mmHg (30.0-50.0); VENOUS PH 7.303 UNITS (7.330-7.430); VENOUS STANDARD HCO3 23.9 MEQ/L
[2018-08-21 05:39] LABS: VENOUS BASE EXCESS -3.4 (-2.0-2.0); VENOUS HCO3 23.3 MEQ/L (23.0-27.0); VENOUS O2 SATURATION 89.9 % (60.0-80.0); VENOUS PARTIAL PRESSURE CO2 49.1 mmHg (38.0-50.0); VENOUS PARTIAL PRESSURE O2 64.5 mmHg (30.0-50.0); VENOUS PH 7.294 UNITS (7.330-7.430); VENOUS STANDARD HCO3 21.5 MEQ/L; VENOUS TOTAL CO2 24.8 MEQ/L (24.0-28.0)
[2018-08-21] MEDS: IMIPENEM/CILASTATIN 500 MG in D5W MINI-BAG PLUS 100 ML IV ×2 (05:46→17:45)
[2018-08-21] MEDS ORDERED: NS 1,000 ML IV (06:04)
[2018-08-21] MEDS ORDERED: GLUCAGON FOR INJ 1 MG VIAL (J1610) SC (06:15)
[2018-08-21] MEDS ORDERED: BISACODYL 5 MG TAB PO (06:15)
[2018-08-21] MEDS ORDERED: HEPARIN SOD (PORCINE) 5000 UNITS/ML VIAL SC (06:15)
[2018-08-21] MEDS ORDERED: IPRATROPIUM 0.5MG/ALBUTEROL 2.5MG INH SOL UD 3ML (DUONEB)(J7620) NEB (06:15)
[2018-08-21] MEDS ORDERED: DEXTROSE 50% 50 ML SYRINGE IV (06:15)
[2018-08-21] MEDS ORDERED: GLUCOSE 4 GM CHEW TABLET PO (06:15)
[2018-08-21] MEDS ORDERED: BISACODYL 10 MG SUPP PR (06:15)
[2018-08-21] MEDS ORDERED: VANCOMYCIN INTERMITTENT/PULSE DOSING BY CLINICAL PHARMACIST PER DOSING PROTOCOL XX (07:00)
[2018-08-21] MEDS: ADVAIR HFA 45/21MCG INHALER INH ×2 (07:56→20:24)
[2018-08-21] MEDS ORDERED: FONDAPARINUX SODIUM 2.5 MG/0.5 ML SYR (J1652 PER 0.5MG) SC (09:00)
[2018-08-21] MEDS: MIRALAX *UNIT DOSE* 17GM PACKET PO (09:00)
[2018-08-21 09:38] LABS: BEDSIDE GLUCOSE 291 MG/DL (83-110)
[2018-08-21] MEDS: (RENVELA) SEVELAMER **CARBONate** 800 MG TAB PO ×3 (09:53→18:43)
[2018-08-21] MEDS: HumaLOG INSULIN (NovoLOG) PER UNIT SC ×4 (09:53→20:57)
[2018-08-21] MEDS: SENOKOT S TAB PO ×2 (09:54→20:58)
[2018-08-21] MEDS: CitaloPRAM (CeleXA) 10 MG TABLET PO (09:54)
[2018-08-21] MEDS: DOCUSATE SODIUM 100 MG CAP PO ×2 (09:54→20:58)
[2018-08-21] MEDS: MIDODRINE 5 MG TAB PO ×3 (09:54→17:46)
[2018-08-21] MEDS: ASPIRIN ENTERIC 325 MG TAB PO (09:54)
[2018-08-21] MEDS: FOLIC ACID 1 MG TAB PO (09:54)
[2018-08-21] MEDS: VANCOMYCIN HCL 1,000 MG, VIAL MATE ADAPTER 1 EACH in D5W 250 ML IV (09:55)
[2018-08-21] MEDS: PANTOPRAZOLE 40MG TAB (PROTONIX) PO (10:03)
[2018-08-21 11:55] LABS: BEDSIDE GLUCOSE 274 MG/DL (83-110)
[2018-08-21] MEDS ORDERED: D5W IV (12:00)
[2018-08-21] MEDS ORDERED: CILASTATIN IV (12:00)
[2018-08-21] MEDS ORDERED: IMIPENEM IV (12:00)
[2018-08-21 17:55] LABS: BEDSIDE GLUCOSE 270 MG/DL (83-110)
[2018-08-21 20:32] LABS: BEDSIDE GLUCOSE 274 MG/DL (83-110)
[2018-08-21] MEDS: SIMVASTATIN 40 MG TAB PO (20:58)
[2018-08-22] MEDS: IPRATROPIUM 0.5MG/ALBUTEROL 2.5MG INH SOL UD 3ML (DUONEB)(J7620) NEB ×4 (01:34→20:00)
[2018-08-22] MEDS: CitaloPRAM (CeleXA) 10 MG TABLET PO (06:08)
[2018-08-22] MEDS: IMIPENEM/CILASTATIN 500 MG in D5W MINI-BAG PLUS 100 ML IV ×2 (06:08→17:36)
[2018-08-22] MEDS: (RENVELA) SEVELAMER **CARBONate** 800 MG TAB PO ×3 (06:09→17:36)
[2018-08-22] MEDS: SENOKOT S TAB PO ×2 (06:09→20:15)
[2018-08-22] MEDS: PANTOPRAZOLE 40MG TAB (PROTONIX) PO (06:09)
[2018-08-22] MEDS: DOCUSATE SODIUM 100 MG CAP PO ×2 (06:10→20:14)
[2018-08-22] MEDS: MIDODRINE 5 MG TAB PO ×3 (06:10→17:36)
[2018-08-22] MEDS: HumaLOG INSULIN (NovoLOG) PER UNIT SC ×4 (07:30→20:15)
[2018-08-22] MEDS: ADVAIR HFA 45/21MCG INHALER INH ×2 (08:04→20:24)
[2018-08-22] MEDS ORDERED: SLF 3 ML SYR IV (10:45)
[2018-08-22 11:47] LABS: BEDSIDE GLUCOSE 195 MG/DL (83-110)
[2018-08-22] MEDS: ASPIRIN ENTERIC 325 MG TAB PO (12:08)
[2018-08-22 13:38] LABS: HEMATOCRIT 32.9 % (36.0-47.0); HEMOGLOBIN 10.5 g/dl (12.0-15.5); MEAN CORPUSCULAR HEMOGLOBIN 33.8 pg (27.0-33.0); MEAN CORPUSCULAR HGB CONC 31.9 g/dl (32.0-36.5); MEAN CORPUSCULAR VOLUME 105.8 fl (80.0-96.0); PLATELET COUNT, AUTOMATED 200 10^3/uL (150-450); RED BLOOD COUNT 3.11 10^6/uL (4.00-5.40); RED CELL DISTRIBUTION WIDTH 19.1 % (11.5-14.5)
[2018-08-22 14:21] LABS: ANION GAP 10 MEQ/L (8-16); BLOOD UREA NITROGEN 55 MG/DL (7-18); CALCIUM LEVEL 8.5 MG/DL (8.8-10.2); CARBON DIOXIDE LEVEL 26 MEQ/L (21-32); CHLORIDE LEVEL 97 MEQ/L (98-107); CREATININE FOR GFR 5.74 MG/DL (0.55-1.30); GLOMERULAR FILTRATION RATE 7.5 (>32); GLUCOSE, FASTING 186 MG/DL (70-100); POTASSIUM SERUM 4.9 MEQ/L (3.5-5.1); SODIUM LEVEL 133 MEQ/L (136-145); VANCOMYCIN RANDOM 12.6 UG/ML
[2018-08-22 17:22] LABS: BEDSIDE GLUCOSE 110 MG/DL (83-110)
[2018-08-22] MEDS: HEPARIN 1,000 UNITS/ML 10ML VIAL (FOR RADIOLOGY& DIALYSIS ONLY) XX (17:25)
[2018-08-22] MEDS: FOLIC ACID 1 MG TAB PO (17:35)
[2018-08-22] MEDS: MIRALAX *UNIT DOSE* 17GM PACKET PO (17:35)
[2018-08-22] MEDS: SLF 3 ML SYR IV ×2 (17:36→21:25)
[2018-08-22] MEDS: VANCOMYCIN HCL 1,000 MG, VIAL MATE ADAPTER 1 EACH in D5W 250 ML IV (17:37)
[2018-08-22] MEDS: **VANCO AFTER HD** MISC XX (17:38)
[2018-08-22 20:15] LABS: BEDSIDE GLUCOSE 133 MG/DL (83-110)
[2018-08-22] MEDS: SIMVASTATIN 40 MG TAB PO (20:15)
[2018-08-23] MEDS: IPRATROPIUM 0.5MG/ALBUTEROL 2.5MG INH SOL UD 3ML (DUONEB)(J7620) NEB ×4 (02:00→20:00)
[2018-08-23 05:38] LABS: HEMATOCRIT 33.4 % (36.0-47.0); HEMOGLOBIN 10.4 g/dl (12.0-15.5); MEAN CORPUSCULAR HEMOGLOBIN 32.6 pg (27.0-33.0); MEAN CORPUSCULAR HGB CONC 31.1 g/dl (32.0-36.5); MEAN CORPUSCULAR VOLUME 104.7 fl (80.0-96.0); PLATELET COUNT, AUTOMATED 185 10^3/uL (150-450); RED BLOOD COUNT 3.19 10^6/uL (4.00-5.40); WHITE BLOOD COUNT 9.7 10^3/uL (4.0-10.0)
[2018-08-23] MEDS: SLF 3 ML SYR IV ×3 (05:51→20:18)
[2018-08-23] MEDS: IMIPENEM/CILASTATIN 500 MG in D5W MINI-BAG PLUS 100 ML IV ×2 (05:51→20:18)
[2018-08-23 06:04] LABS: ALBUMIN 3.2 GM/DL (3.2-5.2); ANION GAP 9 MEQ/L (8-16); BLOOD UREA NITROGEN 29 MG/DL (7-18); CARBON DIOXIDE LEVEL 28 MEQ/L (21-32); CHLORIDE LEVEL 100 MEQ/L (98-107); CREATININE FOR GFR 4.05 MG/DL (0.55-1.30); GLOMERULAR FILTRATION RATE 11.2 (>32); GLUCOSE, FASTING 115 MG/DL (70-100); PHOSPHORUS LEVEL 3.5 MG/DL (2.5-4.9); POTASSIUM SERUM 4.6 MEQ/L (3.5-5.1); SODIUM LEVEL 137 MEQ/L (136-145)
[2018-08-23] MEDS: ADVAIR HFA 45/21MCG INHALER INH ×2 (08:02→19:48)
[2018-08-23] MEDS: CitaloPRAM (CeleXA) 10 MG TABLET PO (08:10)
[2018-08-23] MEDS: FOLIC ACID 1 MG TAB PO (08:10)
[2018-08-23] MEDS: DOCUSATE SODIUM 100 MG CAP PO ×2 (08:10→20:18)
[2018-08-23] MEDS: HumaLOG INSULIN (NovoLOG) PER UNIT SC ×4 (08:10→21:00)
[2018-08-23] MEDS: MIDODRINE 5 MG TAB PO ×3 (08:10→16:01)
[2018-08-23] MEDS: ASPIRIN ENTERIC 325 MG TAB PO (08:10)
[2018-08-23] MEDS: SENOKOT S TAB PO ×2 (08:10→20:18)
[2018-08-23] MEDS: (RENVELA) SEVELAMER **CARBONate** 800 MG TAB PO ×3 (08:10→17:55)
[2018-08-23] MEDS: MIRALAX *UNIT DOSE* 17GM PACKET PO (08:11)
[2018-08-23] MEDS: PANTOPRAZOLE 40MG TAB (PROTONIX) PO (08:11)
[2018-08-23 11:43] LABS: BEDSIDE GLUCOSE 161 MG/DL (83-110)
[2018-08-23] MEDS: **VANCO AFTER HD** MISC XX (16:00)
[2018-08-23] MEDS: SIMVASTATIN 40 MG TAB PO (20:18)
[2018-08-23 21:02] LABS: BEDSIDE GLUCOSE 151 MG/DL (83-110)
[2018-08-23 21:02] LABS: BEDSIDE GLUCOSE 148 MG/DL (83-110)
[2018-08-24] MEDS: ACETAMINOPHEN TAB 650MG DOSE (2X325MG) PO (01:44)
[2018-08-24] MEDS: IPRATROPIUM 0.5MG/ALBUTEROL 2.5MG INH SOL UD 3ML (DUONEB)(J7620) NEB ×2 (02:00→08:00)
[2018-08-24] MEDS: ASPIRIN ENTERIC 325 MG TAB PO (06:16)
[2018-08-24] MEDS: MIRALAX *UNIT DOSE* 17GM PACKET PO (06:16)
[2018-08-24] MEDS: (RENVELA) SEVELAMER **CARBONate** 800 MG TAB PO (06:16)
[2018-08-24] MEDS: MIDODRINE 5 MG TAB PO (06:16)
[2018-08-24] MEDS: PANTOPRAZOLE 40MG TAB (PROTONIX) PO (06:17)
[2018-08-24] MEDS: CitaloPRAM (CeleXA) 10 MG TABLET PO (06:17)
[2018-08-24] MEDS: IMIPENEM/CILASTATIN 500 MG in D5W MINI-BAG PLUS 100 ML IV (06:17)
[2018-08-24] MEDS: FOLIC ACID 1 MG TAB PO (06:17)
[2018-08-24] MEDS: SENOKOT S TAB PO (06:17)
[2018-08-24] MEDS: DOCUSATE SODIUM 100 MG CAP PO (06:17)
[2018-08-24] MEDS: SLF 3 ML SYR IV (06:18)
[2018-08-24 06:27] LABS: BEDSIDE GLUCOSE 144 MG/DL (83-110)
[2018-08-24] MEDS: ADVAIR HFA 45/21MCG INHALER INH (08:14)
[2018-08-24] MEDS: HumaLOG INSULIN (NovoLOG) PER UNIT SC (08:19)
== END 2018-08-24 09:30 | DRG 193 ==
LOC: M MS5PR 08-23 16:07 → M ED 02:36 → M ED INP 06:04 → M PCU 07:50
PROC: 5A1D70Z Performance of Urinary Filtration, Intermittent, Less than 6 Hours Per Day (ICD-10-PCS; principal; 2018-08-22)
DX: J18.9 Pneumonia, unspecified organism (principal); N18.6 End stage renal disease; J96.01 Acute respiratory failure with hypoxia; J44.0 Chronic obstructive pulmonary disease with (acute) lower respiratory infection; Z68.42 Body mass index [BMI] 45.0-49.9, adult; Y95 Nosocomial condition; E11.22 Type 2 diabetes mellitus with diabetic chronic kidney disease; E11.51 Type 2 diabetes mellitus with diabetic peripheral angiopathy without gangrene; I50.9 Heart failure, unspecified; I48.91 Unspecified atrial fibrillation; D63.1 Anemia in chronic kidney disease; Z66 Do not resuscitate; E66.01 Morbid (severe) obesity due to excess calories; F32.9 Major depressive disorder, single episode, unspecified; I95.89 Other hypotension; I25.10 Atherosclerotic heart disease of native coronary artery without angina pectoris; E11.43 Type 2 diabetes mellitus with diabetic autonomic (poly)neuropathy; Z86.718 Personal history of other venous thrombosis and embolism; Z95.3 Presence of xenogenic heart valve; Z99.2 Dependence on renal dialysis; Z95.1 Presence of aortocoronary bypass graft; Z95.0 Presence of cardiac pacemaker; Z86.14 Personal history of Methicillin resistant Staphylococcus aureus infection; Z89.611 Acquired absence of right leg above knee; Z89.512 Acquired absence of left leg below knee; Z79.82 Long term (current) use of aspirin; Z79.899 Other long term (current) drug therapy; Z88.1 Allergy status to other antibiotic agents; Z88.5 Allergy status to narcotic agent; Z88.8 Allergy status to other drugs, medicaments and biological substances; Z79.4 Long term (current) use of insulin

== ENCOUNTER → 2018-08-26 | Outpatient (REF) | payer MEDICARE, MEDICAID ==
[2018-08-26 15:11] LABS: HEMATOCRIT 35.8 % (36.0-47.0); MEAN CORPUSCULAR HEMOGLOBIN 32.1 pg (27.0-33.0); MEAN CORPUSCULAR HGB CONC 30.7 g/dl (32.0-36.5); MEAN CORPUSCULAR VOLUME 104.4 fl (80.0-96.0); PLATELET COUNT, AUTOMATED 163 10^3/uL (150-450); RED BLOOD COUNT 3.43 10^6/uL (4.00-5.40); RED CELL DISTRIBUTION WIDTH 18.4 % (11.5-14.5); WHITE BLOOD COUNT 9.2 10^3/uL (4.0-10.0)
[2018-08-26 15:51] LABS: ANION GAP 8 MEQ/L (8-16); BLOOD UREA NITROGEN 19 MG/DL (7-18); CALCIUM LEVEL 8.4 MG/DL (8.8-10.2); CARBON DIOXIDE LEVEL 28 MEQ/L (21-32); CHLORIDE LEVEL 102 MEQ/L (98-107); CPK CREATINE PHOSPHOKINASE 41 U/L (26-192); CREATININE FOR GFR 3.18 MG/DL (0.55-1.30); GLOMERULAR FILTRATION RATE 14.9 (>32); GLUCOSE, FASTING 111 MG/DL (70-100); POTASSIUM SERUM 4.6 MEQ/L (3.5-5.1); SODIUM LEVEL 138 MEQ/L (136-145); TROPONIN I 0.06 NG/ML (< 0.10)
== END ==
LOC: SKLAB3 14:40
DX: I51.7 Cardiomegaly (principal); I44.4 Left anterior fascicular block; R07.9 Chest pain, unspecified
CPT/HCPCS: 71045

== ENCOUNTER → 2018-11-01 | Outpatient (CLI) | payer MEDICARE, MEDICAID ==
[~2018-11-01] MED LIST changes: -ACET1TAB17 PO; +ACET1TAB55 PO; +ALBU83IN INH; +ASPI325T25 PO; +ASPI81TA24 PO; +CEFU50TA PO; +CELE10TA PO; +DOXY-350 PO; +DOXY100C PO; +DOXY100T PO; -ENEMENE16 PR; +ENEMENE4 PR; +ENEMENE6 PR; +FOLI1TAB11 PO; -FOLI1TAB4 PO; +HEPARIN 1,000 UNITS/ML 10ML VIAL (FOR RADIOLOGY& DIALYSIS ONLY) As Ordered ONE; +HUMA100I3 SC; +IPRA0.00 INH; -IPRASOL4 INH; +ISOVUE-300 61% 50ML VIAL (Q9967) As Ordered ONE; +KION15SU PO; +LIDOCAINE 2% MDV 20 ML VIAL As Ordered ONE; +MIDO5TA PO; +MILK120011 PO; -MILKSUS PO; +MUCI600T37 PO; -PANT40TA2 PO; +PANT40TA3 PO; +PRED10TA2 PO; +REFR0.5D8 OU; +VANC250C2 IV; +VITA2000 PO
--- NOTE | 2018-11-01 22:10 | ROOPDOC ---
[facility] Report Of Operation Report of Operation DATE OF PROCEDURE: 11/01/2018 PREPROCEDURE DIAGNOSES: End-stage renal disease requiring access for renal replacement therapy. Dysfunctional right brachiocephalic autogenous arterio venous fistula, dysfunctional left internal jugular vein tunneled central venous catheter. POSTPROCEDURE DIAGNOSES: End-stage renal disease requiring access for renal replacement therapy. Dysfunctional right brachiocephalic autogenous arteriovenous fistula, dysfunctional left internal jugular vein tunneled central venous catheter. PROCEDURE: Fluoroscopic guided left internal jugular vein 23 cm tip to cuff tunneled central venous catheter evaluation. Removal of the left internal jugular vein tunneled central venous catheter with removal of a 23 cm tip to cuff [employer] [place] catheter. Placement of a left internal jugular vein tunneled central venous catheter with a 23 cm tip to cuff [facility] split hemodialysis catheter. ATTENDING SURGEON: DR. Lyla Magallanes M.D. TURN OPERATOR: Cristine Means and Annelise Mo INDICATION:Patient is an 83-year-old female who has renal failure who requires access for renal replacement therapy. Patient has previously undergone ultrasound and fluoroscopic guided left internal jugular vein tunneled central venous catheter placement with a 23 cm tip to cuff [employer] [place] hemodialysis catheter. The catheter has been dysfunctional with inability to perform adequate hemodialysis. 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 Patient will undergo evaluation of her left internal jugular vein tunneled central venous catheter with possible removal, replacement, angioplasty, stenting, atherectomy and/or placement of a catheter at a new location. The procedure was described and explained to the patient in detail including drawing of pictures demonstrating the procedure and anatomy. Risks, benefits and alternative treatment options were discussed with the patient. Alternative treatment options included but were not limited to no intervention. Benefits included but were not limited to access for hemodialysis until permanent access for renal replacement therapy is created and/or functional. Risks included, but were not limited to infection, bleeding, pneumothorax, hemothorax, possible need for open surgical intervention, allergic reaction or complication from prepping and draping materials, possible need for transfusion of blood products, allergic and/or adverse reaction to the local or IV anesthetic , cerebrovascular accident, myocardial infarction, pulmonary embolus, deep venous thrombosis, loss of limb, loss of life, poor satisfaction, poor outcome and or results. Risks of not performing the procedure included but were not limited to inability to obtain renal replacement therapy via hemodialysis and . The patient's questions were answered. The patient voices understanding and acceptance of these risks, benefits and alternative treatment options. The patient voices acceptance of the risks associated with the procedure and consents to proceed. There were no promises or guarantees made to the patient regarding the outcome or results of the procedure. ANESTHESIA: Local with 20 mL of 2% lidocaine. EBL: 20 ml. IVF: 120 ml. FLUORO TIME: 0.5 minutes. CONTRAST: None. COMPLICATIONS: None. DRAINS: None. SPECIMENS: None. IMPLANTS: Left internal jugular vein tunneled central venous catheter with use of a 23 cm tip to cuff [facility] split hemodialysis catheter. DESCRIPTION OF PROCEDURE: Patient was taken to the angiography suite, placed supine on the angiography room table and then prepped and draped in a standard surgical fashion. A procedural timeout was conducted by myself and the team members in the room confirming the correct patient, procedure and laterality. Fluoroscopy was used to evaluate the tunneled left internal jugular vein central venous catheter which showed the catheter tip to be foreshortened into the superior vena cava and abutting against the wall of the superior vena cava with pacer wires coursing from the left side into the right heart. Both ports of the catheter were aspirated noted to not aspirate at all after which 2 stiff angled glide wires were advanced through the catheter ports and advanced into the inferior vena cava. The skin and subcutaneous tissue overlying the catheter and subcutaneous cuff were then anesthetized with 2% lidocaine. The subcutaneous cuff were sharply dissected free through the entry site in the right chest. The catheter was removed. The new catheter was positioned under fluoroscopic guidance with the tip in the superior vena cava right atrial junction after being advanced over the 2 angled glide wires under fluoroscopic guidance. Both ports of the catheter were aspirated, noted to aspirate easily and then flushed with heparinized saline. The catheter was secured to the right anterior chest wall using #2-0 Prolene suture after anesthetizing the overlying skin and subcutaneous tissue with 2% lidocaine. Dressings were applied. The patient tolerated the procedure well. All instrument, sponge and needle counts w ere correct at the end of the case. There were no complications. Dr. Magallanes was present for and directed the entire case. Patient was transferred to the recovery area and subsequently discharged in stable condition. The tunneled central venous catheter is stable for use for hemodialysis access. RADIOLOGIC SUPERVISION AND INTERPRETATION: The initial fluoroscopic evaluation showed the left internal jugular vein tunneled central venous catheter to be with the tip in the superior vena cava with the tip of the catheter abutting against the wall of this. Vena cava. The catheter was removed over 2 stiff angled glide wires and there was fibrin sheath noted to be adherent to the catheter. Fluoroscopic guidance was then used to position the new catheter with the tip in the superior vena cava/right atrial junction after being advanced over the 2 stiff angled Glidewire's. Final fluoroscopic image showed the catheter to be in good position and good alignment with no pneumo- or hemothorax noted with the tip in the superior vena cava/right atrial junction. The tunneled central venous catheter is stable for use for hemodialysis access. Eddie Magallanes MD Nov 01, 2018 22:10
== END | disposition home or self-care (01) ==
LOC: M IRPRO 07:15
PROVIDERS: ATTEND Surgery Vascular Surgery
DX: T82.49XA Other complication of vascular dialysis catheter, initial encounter (principal); T82.590A Other mechanical complication of surgically created arteriovenous fistula, initial encounter; N18.6 End stage renal disease; Z99.2 Dependence on renal dialysis
CPT/HCPCS: 36581; 77001; C1750; C1769; Q9967

== ENCOUNTER → 2018-11-15 | Outpatient (REF) | payer MEDICARE, MEDICAID ==
[~2018-11-15] MED LIST changes: -/FAMO2TA PO; -/FERG32TA PO; -/GLYB5TA; -/HYDR10TAB PO; -/PANT40TA PO; -/WARF25TA; -/WARF2TA PO; -/WARF5TA; -/WARF5TA OR; -/WARF5TA PO; +ASPI-255 PO; -ASPI325T25 PO; -CITA20TA4 PO; +CITA20TA6 PO; +COUM1TAB16 PO; +COUM1TAB17; +COUM1TAB17 OR; +COUM1TAB17 PO; +COUM1TAB18; -DOCU10ELUD PO; +DOCU5LIQ PO; +FAMO1TAB11 PO; +FERR1TAB6 PO; +GLUC1VIA2 SC; -GLUC1VL SC; -GLUC4GMTAB PO; +GLYB1TAB29; -HEPARIN 1,000 UNITS/ML 10ML VIAL (FOR RADIOLOGY& DIALYSIS ONLY) As Ordered ONE; +HYDR-3677 PO; -ISOVUE-300 61% 50ML VIAL (Q9967) As Ordered ONE; +LEAD1CHW PO; -LIDOCAINE 2% MDV 20 ML VIAL As Ordered ONE; -MIRA255PW PO; +NEPH1TAB11 PO; -NEPHTAB PO; +POLY1POW4 PO; -SILV50CR TOP; +THER1CRE16 TOP; -VANC250C2 IV; +VANC250C3 IV
[2018-11-15 08:11] LABS: HEMOGLOBIN A1c 5.7 %
== END ==
LOC: SKLAB3 07:00
PROVIDERS: ATTEND Family Medicine
DX: E11.9 Type 2 diabetes mellitus without complications (principal)

== ENCOUNTER 2018-11-17 15:09 | Inpatient (IN) | payer MEDICARE, MEDICAID ==
[2018-11-17] MEDS ORDERED: ALPR0.25 PO (16:37)
[2018-11-17 17:26] LABS: BASO % 0.2 % (0.0-1.0); EOS % 0.2 % (0.0-3.0); HEMATOCRIT 34.2 % (36.0-47.0); HEMOGLOBIN 10.8 g/dl (12.0-15.5); MEAN CORPUSCULAR HEMOGLOBIN 33.2 pg (27.0-33.0); MEAN CORPUSCULAR HGB CONC 31.6 g/dl (32.0-36.5); MEAN CORPUSCULAR VOLUME 105.2 fl (80.0-96.0); MONO % 11.9 % (0.0-5.0); NEUTROPHILS # 13.5 10^3/uL (1.8-7.7); NEUTROPHILS % 81.3 % (36.0-66.0); PLATELET COUNT, AUTOMATED 189 10^3/uL (150-450); RED BLOOD COUNT 3.25 10^6/uL (4.00-5.40); WHITE BLOOD COUNT 16.6 10^3/uL (4.0-10.0)
[2018-11-17] MEDS ORDERED: IPRATROPIUM 0.5MG/ALBUTEROL 2.5MG INH SOL UD 3ML (DUONEB)(J7620) NEB ONE (17:30)
[2018-11-17 17:56] LABS: BLOOD UREA NITROGEN 26 MG/DL (7-18); CALCIUM LEVEL 8.4 MG/DL (8.8-10.2); CARBON DIOXIDE LEVEL 28 MEQ/L (21-32); CHLORIDE LEVEL 100 MEQ/L (98-107); CK-MB VALUE MASS < 1.0 NG/ML (<3.6); CPK CREATINE PHOSPHOKINASE 29 U/L (26-192); CREATININE FOR GFR 3.28 MG/DL (0.55-1.30); GLOMERULAR FILTRATION RATE 14.3 (>32); GLUCOSE, FASTING 161 MG/DL (70-100); MB/CK RELATIVE INDEX 3.45 (< OR =4); NT-PRO BNP 25516 PG/ML (<450); POTASSIUM SERUM 4.3 MEQ/L (3.5-5.1); SODIUM LEVEL 137 MEQ/L (136-145); THYROID STIMULATING HORMONE 0.532 uIU/ML (0.358-3.740); TROPONIN I 0.04 NG/ML (< 0.10)
--- NOTE | 2018-11-17 18:16 | ECGEPIP ---
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
[2018-11-17] MEDS ORDERED: MEROPENEM INJ 1 GM in APPROPRIATE DILUENT 1 EA IV ONE ×2 (18:30→20:30)
[2018-11-17] MEDS ORDERED: VANCOMYCIN HCL 1,000 MG, VIAL MATE ADAPTER 1 EACH in D5W 250 ML IV ONE ×2 (19:00→20:30)
[2018-11-17] MEDS ORDERED: BISACODYL 10 MG SUPP PR PRN (20:15)
[2018-11-17] MEDS ORDERED: POLYVINYL ALCOHOL OPHTH SOLN 15 ML(LIQUITEARS) OU PRN (20:30)
[2018-11-17] MEDS ORDERED: IPRATROPIUM 0.5MG/ALBUTEROL 2.5MG INH SOL UD 3ML (DUONEB)(J7620) INH PRN (20:30)
[2018-11-17] MEDS ORDERED: (RENVELA) SEVELAMER **CARBONate** 800 MG TAB PO SCH (20:30)
[2018-11-17] MEDS ORDERED: GLUCAGON FOR INJ 1 MG VIAL (J1610) SC PRN (20:45)
[2018-11-17] MEDS ORDERED: DEXTROSE 50% 50 ML SYRINGE IV PRN (20:45)
[2018-11-17] MEDS ORDERED: GLUCOSE 4 GM CHEW TABLET PO PRN (20:45)
[2018-11-17] MEDS: ACETAMINOPHEN TAB 650MG DOSE (2X325MG) PO PRN (21:00)
[2018-11-17] MEDS: DOCUSATE SODIUM 100 MG CAP PO SCH (21:00)
[2018-11-17] MEDS: ADVAIR HFA 45/21MCG INHALER INH SCH (21:00)
[2018-11-17] MEDS: SENOKOT S TAB PO SCH (21:00)
[2018-11-17] MEDS ORDERED: HEPARIN SOD (PORCINE) 5000 UNITS/ML VIAL SC SCH (21:00)
[2018-11-17] MEDS: SIMVASTATIN 40 MG TAB PO SCH (21:00)
[2018-11-17] MEDS: HumaLOG INSULIN (NovoLOG) PER UNIT SC SCH (21:00)
--- NOTE | 2018-11-17 21:20 | HPE ---
DATE OF ADMISSION: 11/17/2018 CHIEF COMPLAINT: Shortness of breath, weakness, cough. HISTORY OF PRESENT ILLNESS: This is an 83-year-old female with past medical history of end-stage renal disease, on hemodialysis Wednesday, Wednesday, Wednesday, atrial fibrillation, not on anticoagulation secondary to history of gastrointestinal (GI) bleed, chronic hypoxic respiratory failure, on chronic oxygen at bedtime, who presents from [facility] with shortness of breath for 5-6 days with coughing, chills, and general malaise. Patient reports everyone in the [place] [facility] seems to have been ill lately. She has been having a slightly productive cough. She has overall felt unwell and short of breath. She denies any reported fevers. REVIEW OF SYSTEMS: Negative in systems except as noted above. PAST MEDICAL HISTORY: As noted above in history of present illness (HPI). Additionally, patient has a history of diabetes and bilateral amputations. PAST SURGICAL HISTORY: 1. History of open heart surgery. 2. 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 HOME MEDICATIONS: - Tylenol 650 mg every 4 as needed for pain - DuoNeb every 2 as needed wheezing - DuoNeb every 4 around the clock - alprazolam 0.25 mg every 8 as needed for anxiety - aspirin 325 mg daily - Dulcolax 10 mg suppository daily as needed for constipation - Refresh Tears one drop both eyes three times a day - vitamin D 2000 capsules daily - Celexa 10 mg daily - Senokot-S two tablets by mouth twice a day - Colace 100 mg twice a day - folic acid 1 mg daily - midodrine 5 mg daily - Protonix 40 mg daily - MiraLax one packet daily - Advair one puff daily - Renagel 1600 mg with meals - simvastatin 40 mg at bedtime - Nephro-Erica one tablet daily - insulin sliding scale - Kionex 15 grams one time a week ALLERGIES: Patient is allergic to HEPARIN, LEVOFLOXACIN, MORPHINE, PIPERACILLIN, and TAZOBACTAM. FAMILY HISTORY: Both her parents had heart disease. SOCIAL HISTORY: Patient has been for 5 years and has eight children. One of her children is from cancer. No smoking, alcohol, drugs. PHYSICAL EXAMINATION: VITAL SIGNS: Show temperature of 98.2, blood pressure 118/71, heart rate of 95, saturating 98% on 2 liters. GENERAL: She appears mildly short of breath and fatigued. HEENT: Oropharynx clear. CARDIOVASCULAR: Patient has a systolic murmur and is with an irregularly irregular rate. LUNGS: Unable to examine her lungs posteriorly secondary to patient's weakness but was clear in the anterior lung field. ABDOMEN: Soft, nontender, nondistended. EXTREMITIES: Patient has a right AKA and a left BKA. No edema. NEUROLOGIC: She is alert and oriented, follows commands. No focal neurologic deficits. SKIN: Intact. PSYCHIATRIC: Mood stable. LABORATORY DATA: Reveal leukocytosis with a white count to 16, hemoglobin of 10, platelets of 189. Chemistry reveals a potassium of 4.3, creatinine of 3.8. Lactate 1.3. Troponin negative. BNP is elevated to 25,000. Her last was 20,000 in July 2018. IMAGING: Shows chest x-ray with bibasilar atelectasis or infiltrates, increased on the right and new on the left. Right upper lobe atelectasis or infiltrate. New compared to the previous study. Small right pleural effusion. Cardiomegaly. ASSESSMENT AND PLAN: This is an 83-year-old female who presents from a [place] [facility] with history of end-stage renal disease, on dialysis Wednesday, Wednesday, Wednesday, atrial fibrillation, not on anticoagulation, diabetes, peripheral vascular disease with bilateral amputations, who presents with shortness of breath, cough, and bilateral infiltrates concerning for bilateral healthcare-acquired pneumonia. 1. Bilateral healthcare-acquired pneumonia. Given patient's history of allergy to Zosyn, will start the patient on vancomycin and meropenem for healthcare-acquired pneumonia (HCAP) coverage. We will give her supportive care with supplemental oxygenation and nebulizer treatment. I am also going to order blood cultures for her as well as sputum cultures. 2. End-stage renal disease. Patient should continue hemodialysis Wednesday, Wednesday, Wednesday. Team in the morning to consult nephrology for ongoing dialysis here while patient is in the hospital. 3. Atrial fibrillation. Patient is not on anticoagulation and has been deemed not an anticoagulant candidate. She is currently rate controlled. 4. Patient has a history of diabetes, and I am starting her on an insulin sliding scale. 5. Patient has a long home medication list, and her medications were continued. 6. Deep vein thrombosis (DVT) prophylaxis. Patient is reportedly allergic to heparin, and I am going to avoid Lovenox given that she is on dialysis. Primary team tomorrow can decide whether they want to put her on any sort of DVT prophylaxis. Patient reports that she does not have a DO NOT RESUSCITATE on file but is considering. At this time she wants more time to think about it, and primary team can readdress this in the morning. Patient's primary care physician is Dr. Ho, and the patient will be transferred to the family medicine service tomorrow.
--- NOTE | 2018-11-17 23:55 | PHACANCOPD ---
PHARMACY VANCOMYCIN DOSING Pt Demographics Demographics Patient Age:83 , Weight:83.450 , Gender: female Adjusted Body Weight Events Past 24 Hours Events Past 24 Hours: YES: Dialysis Vancomycin Vancomycin indication: HAP Vancomycin Target Ranges: 15-20 mcg/ml Vancomycin Load Y/N: No Load Dose Date Time Vancomycin Load Dose: Date: Time: Vancomycin Dose Date: 11/17/18. Current Vancomycin Dose: [VANCO 1GM IV x1 @ 21:00] Intermittent Dosing?: Yes Labs Labs Laboratory Tests 11/17/18 17:19 Red Blood Count 3.25 L, Mean Corpuscular Volume 105.2 H, Mean Corpuscular Hemoglobin 33.2 H, Mean Corpuscular Hemoglobin Concent 31.6 L, Red Cell Distribution Width 18.7 H, Neutrophils (%) (Auto) 81.3 H, Lymphocytes (%) (Auto) 6.0 L, Monocytes (%) (Auto) 11.9 H, Eosinophils (%) (Auto) 0.2, Basophils (%) (Auto) 0.2, Neutrophils # (Auto) 13.5 H, Lymphocytes # (Auto) 1.0 L, Monocytes # (Auto) 2.0 H, Eosinophils # (Auto) 0.0, Basophils # (Auto) 0.0, Calcium Level 8.4 L, Total Creatine Kinase 29 Creatinine Clearance Date:11/17/18. Creatinine Clearance: [<10ml/min Hx HD MWFs]. Assessment and Plan Maintaining Current Dose?: Yes Reason for dose change: No Dose Change Pharmacist Note Pharmacist Note Date: 11/17/18. PharmD note: 83YO FEMALE 83kg in WEIGHT; NOTED RT AKA & LT BKA THEREFORE 55" HEIGHT. NOTED Hx of HS MON WED & FRIs SHE RECEIVED A 1GM DOSE OF VANCO IN THE ER @21:00 WE WILL PROCEED WITH VANCO FM FOLLOWING HD DAYS BERTHA RAPP PHARMACY Nov 17, 2018 23:55
[2018-11-18 04:45] VITALS: BP 115/47
[2018-11-18] MEDS: MIDODRINE 5 MG TAB PO SCH ×3 (05:48→16:00)
[2018-11-18 06:19] LABS: HEMATOCRIT 34.5 % (36.0-47.0); MEAN CORPUSCULAR HEMOGLOBIN 32.9 pg (27.0-33.0); MEAN CORPUSCULAR HGB CONC 31.9 g/dl (32.0-36.5); MEAN CORPUSCULAR VOLUME 103.3 fl (80.0-96.0); PLATELET COUNT, AUTOMATED 196 10^3/uL (150-450); RED BLOOD COUNT 3.34 10^6/uL (4.00-5.40); WHITE BLOOD COUNT 18.8 10^3/uL (4.0-10.0)
[2018-11-18 06:47] LABS: CALCIUM LEVEL 8.5 MG/DL (8.8-10.2); CREATININE FOR GFR 3.77 MG/DL (0.55-1.30); GLOMERULAR FILTRATION RATE 12.2 (>32); POTASSIUM SERUM 4.6 MEQ/L (3.5-5.1)
[2018-11-18 07:37] LABS: VANCOMYCIN RANDOM 12.6 UG/ML
[2018-11-18] MEDS: ADVAIR HFA 45/21MCG INHALER INH SCH ×2 (07:40→18:23)
[2018-11-18] MEDS: IPRATROPIUM 0.5MG/ALBUTEROL 2.5MG INH SOL UD 3ML (DUONEB)(J7620) INH SCH ×4 (07:40→18:22)
[2018-11-18 08:00] VITALS: BP 118/60
--- NOTE | 2018-11-18 08:02 | IPNPDOC ---
Subjective Date Seen The patient was seen on 11/18/18. Subjective Chief Complaint/HPI Patient lying in bed as I entered the room. She appeared to be comfortable. She reported to feel tired. Constitutional: Denies: Chills, Fever Pulmonary: Reports: Cough; Denies: Dyspnea, Pleuritic Chest Pain Cardiovascular: Denies: Chest Pain, Palpitations, Orthopnea Gastrointestinal: Denies: Nausea, Abdominal Pain Psych: Reports: Mood Normal Objective Physical Examination General Exam: Positive: Alert, No Acute Distress Neck Exam: Positive: Supple; Negative: JVD Chest Exam: Positive: Rhonchi (Bibasilar); Negative: Rales, Wheezing Heart Exam: Positive: Rate Normal, Irregular Rhythm, Murmurs Telemetry: Positive: Atrial fibrillation Abdomen Exam: Positive: Normal bowel sounds, Soft; Negative: Tenderness Extremity Exam: Positive: Other (RLE AKA, LLE BKA) Skin Exam: Positive: Nl turgor and temperature Psych Exam: Positive: Mood NL Assessment /Plan Assessment Agree with below. Seen with family at bedside, appeared comfortable. -- CDT Problems (1) Nosocomial pneumonia Status: Acute Problem Text: 11/18/18: D1 of Vancomycin and Meropenem. Duonebs and O2. BC are pending. WBC 18.8, T-Max 100.9 Chest x-ray: Impression: 1. Bibasilar atelectasis or infiltrates increased on the right and new on the left. 2. Right upper lobe atelectasis or infiltrate new compared to the previous study. 3. Small right pleural effusion. 4. Cardiomegaly. (2) Diabetes mellitus, type 2 Status: Chronic Response to Treatment: Stable Problem Text: 11/18/18: Basal insulin with sliding scale coverage. Carb Con sistent diet (3) End stage renal disease on dialysis Status: Chronic Problem Specific Plan: Consult Specialist Problem Text: Nephrology to be consulted Plan/VTE VTE Prophylaxis Ordered?: No (Hx of GI bleed) VS, I&O, 24H, Fishbone Vital Signs/I&O Vital Signs Date Time Temp Pulse Resp B/P (MAP) Pulse Ox O2 Delivery O2 Flow Rate FiO2 11/18/18 04:45 97.7 82 18 115/47 (69) 4.0 11/17/18 23:08 94 11/17/18 22:38 Nasal Cannula I&O- Last 24 Hours up to 6 AM 11/18/18 06:00 Intake Total 0 ml Output Total 0 ml Balance 0 ml Laboratory Data 24H LABS Laboratory Tests 2 11/17/18 17:19: Immature Granulocyte % (Auto) 0.4, White Blood Count 16.6H, Red Blood Count 3.25L, Hemoglobin 10.8L, Hematocrit 34.2L, Mean Corpuscular Volume 105.2H, Mean Corpuscular Hemoglobin 33.2H, Mean Corpuscular Hemoglobin Concent 31.6L, Red Cell Distribution Width 18.7H, Platelet Count 189, Neutrophils (%) (Auto) 81.3H, Lymphocytes (%) (Auto) 6.0L, Monocytes (%) (Auto) 11.9H, Eosinophils (%) (Auto) 0.2, Basophils (%) (Auto) 0.2, Neutrophils # (Auto) 13.5H, Lymphocytes # (Auto) 1.0L, Monocytes # (Auto) 2.0H, Eosinophils # (Auto) 0.0, Basophils # (Auto) 0.0, Nucleated Red Blood Cells % (auto) 0.0, Anion Gap 9, Glomerular Filtration Rate 14.3L, Lactic Acid Level 1.3, Blood Urea Nitrogen 26H, Creatinine 3.28H, Sodium Level 137, Potassium Level 4.3, Chloride Level 100, Carbon Dioxide Level 28, Calcium Level 8.4L, Total Creatine Kinase 29, Creatine Kinase MB < 1.0, Creatine Kinase MB Relative Index 3.45, Troponin I 0.04, [id number]-Type Natriuretic Peptide 95984I, Thyroid Stimulating Hormone (TSH) 0.532 11/17/18 21:00: Bedside Glucose (Misc Panel) 130H 11/18/18 05:43: Nucleated Red Blood Cells % (auto) 0.0, Anion Gap 10, Glomerular Filtration Rate 12.2L, Blood Urea Nitrogen 33H, Creatinine 3.77H, Sodium Level 133L, Potassium Level 4.6, Chloride Level 98, Carbon Dioxide Level 25, Calcium Level 8.5L, Random Vancomycin Level 12.6 CBC/BMP Laboratory Tests 11/17/18 17:19 Red Blood Count 3.25 L, Mean Corpuscular Volume 105.2 H, Mean Corpuscular Hemoglobin 33.2 H, Mean Corpuscular Hemoglobin Concent 31.6 L, Red Cell Distribution Width 18.7 H, Neutrophils (%) (Auto) 81.3 H, Lymphocytes (%) (Auto) 6.0 L, Monocytes (%) (Auto) 11.9 H, Eosinophils (%) (Auto) 0.2, Basophils (%) (Auto) 0.2, Neutrophils # (Auto) 13.5 H, Lymphocytes # (Auto) 1.0 L, Monocytes # (Auto) 2.0 H, Eosinophils # (Auto) 0.0, Basophils # (Auto) 0.0, Calcium Level 8.4 L, Total Creatine Kinase 29 11/18/18 05:43 Red Blood Count 3.34 L, Mean Corpuscular Volume 103.3 H, Mean Corpuscular Hemoglobin 32.9, Mean Corpuscular Hemoglobin Concent 31.9 L, Red Cell Distribution Width 18.5 H, Calcium Level 8.5 L Microbiology Microbiology 11/18/18 Blood Culture, Received Pending SAMSON REEDER Nov 18, 2018 08:02 NICHO ORELLANA DO Nov 19, 2018 01:50
[2018-11-18] MEDS ORDERED: VANCOMYCIN HCL 500 MG in D5W MINI-BAG PLUS 100 ML IV ONE (09:00)
[2018-11-18] MEDS: DOCUSATE SODIUM 100 MG CAP PO SCH ×2 (09:00→20:49)
[2018-11-18] MEDS: MIRALAX *UNIT DOSE* 17GM PACKET PO SCH (09:18)
[2018-11-18] MEDS: ASPIRIN ENTERIC 325 MG TAB PO SCH (09:18)
[2018-11-18] MEDS: HumaLOG INSULIN (NovoLOG) PER UNIT SC SCH ×4 (09:18→21:00)
[2018-11-18] MEDS: VITAMIN D 1,000 INTERNATIONAL UNITS TABLET PO SCH (09:19)
[2018-11-18] MEDS: NEPHRO-VIT TAB (NEPHROCAPS) PO SCH (09:19)
[2018-11-18] MEDS: CitaloPRAM (CeleXA) 10 MG TABLET PO SCH (09:19)
[2018-11-18] MEDS: SENOKOT S TAB PO SCH ×2 (09:19→20:48)
[2018-11-18] MEDS: FOLIC ACID 1 MG TAB PO SCH (09:19)
[2018-11-18] MEDS: PANTOPRAZOLE 40MG TAB (PROTONIX) PO SCH (09:19)
[2018-11-18 12:00] VITALS: BP 116/59
--- NOTE | 2018-11-18 15:22 | PHACANCOPD ---
PHARMACY VANCOMYCIN DOSING Pt Demographics Demographics Patient Age:83 , Weight:83.500 , Gender: female Adjusted Body Weight Vancomycin Vancomycin indication: HAP Vancomycin Target Ranges: 15-20 mcg/ml Vancomycin Load Y/N: No Load Dose Date Time Vancomycin Load Dose: Date: Time: Vancomycin Dose Date: 11/17/18. Current Vancomycin Dose: [VANCO 1GM IV x1 @ 21:00] Intermittent Dosing?: Yes Labs Micro Microbiology 11/18/18 Blood Culture, Received Pending 11/18/18 Gram Stain - Final, Resulted 11/18/18 Sputum Culture, Resulted Pending 11/18/18 MRSA Screen, Received Pending Creatinine Clearance Date:11/17/18. Creatinine Clearance: [<10ml/min Hx HD MWFs]. Assessment and Plan Maintaining Current Dose?: Yes Reason for dose change: No Dose Change Pharmacist Note Pharmacist Note 11/18/18: Day #2 vancomycin therapy for the empiric treatment of HAP (pt recently discharged 09/2018) - aiming for a goal trough of 15-20mcg/ml. A random vancomycin level was obtained this morning which resulted at 12.6mcg/ml (patient receives dialysis M,W,F). An additional 500mg dose was given prior to dialysis this morning to ensure the patient remained therapeutic during her dialysis session, and she will resume her current regimen of vanco 1g IV today after HD. We will continue to monitor and schedule further random levels accordingly. Date: 11/17/18. PharmD note: 83YO FEMALE 83kg in WEIGHT; NOTED RT AKA & LT BKA THEREFORE 55" HEIGHT. NOTED Hx of HS MON WED & FRIs SHE RECEIVED A 1GM DOSE OF VANCO IN THE ER @21:00 WE WILL PROCEED WITH VANCO FM FOLLOWING HD DAYS CHARMAINE RUIZ PHARMACY Nov 18, 2018 15:22
--- NOTE | 2018-11-18 15:30 | CR ---
DATE OF CONSULTATION: 11/18/2018 CONSULTATION FOR: Dr. Noman David REASON FOR CONSULTATION: To assist in the management of end-stage renal disease. HISTORY OF PRESENT ILLNESS: Mrs. Garcia is an 83-year-old female with multiple chronic medical problems, including hypertension, end-stage renal disease, diabetes, peripheral vascular disease, and congestive heart failure. She was admitted last evening with shortness of breath and cough and noticed to have pneumonia. She is due for dialysis today, and nephrology consultation was requested. The patient is seen this morning. PAST MEDICAL HISTORY: Significant for 1. Longstanding history of diabetes. 2. Hypertension. 3. Congestive heart failure. 4. End-stage renal disease. 5. Anemia with prior history of gastrointestinal (GI) bleed. 6. History of atrial fibrillation. 7. History of prior pneumonia just a couple of months ago. 8. History of chronic hypoxemia, on oxygen. PAST SURGICAL HISTORY: Significant for: 1. Arteriovenous (AV) fistula creation and ligation due to steal syndrome. 2. Perm-A-Cath placement. 3. Bilateral lower extremity amputations. 4. She has right [id number] and left [id number] amputations. 5. She also has history of coronary artery bypass graft (CABG) in the past. PERSONAL AND SOCIAL HISTORY: The patient is a long-term [facility] resident and does not smoke or drink. FAMILY HISTORY: Significant for diabetes but no family history for end-stage renal disease. REVIEW OF SYSTEMS: The patient reports cough and shortness of breath. She has chronic hypoxemia and has been on supplemental oxygen. She denies any hemoptysis or pleuritic type of chest pain. GASTROINTESTINAL SYSTEM: Negative for nausea, vomiting or diarrhea. GENITOURINARY SYSTEM: Significant for prior history of urinary tract infections (UTIs). She denies any dysuria or hematuria. ENDOCRINE SYSTEM: S significant for type 2 diabetes and secondary hyperparathyroidism. She does not have any thyroid problems known. HEMATOLOGICAL SYSTEM: Significant for anemia of chronic kidney disease. She is not on any anticoagulation. NEUROLOGICAL SYSTEM: Negative for seizures or stroke. PSYCHOSOCIAL SYSTEM: Significant for anxiety and neurological system is negative for seizures or stroke. MEDICATIONS: Her medications as an outpatient include: - DuoNeb every 4 hours as needed - alprazolam 0.25 mg every 8 hours as needed for anxiety - aspirin 325 mg daily - vitamin D 2000 units daily - Dulcolax suppository 10 mg as needed for constipation - Celexa 10 mg daily - Senokot-S two tablets twice a day - folic acid 1 mg daily - midodrine 5 mg three times a day - Protonix 40 mg daily - Advair Diskus twice a day - Renagel 1600 mg three times a day with meals - simvastatin 40 mg daily - Nephro-Erica one tablet daily ALLERGIES: She has allergy to LEVOFLOXACIN, MORPHINE, TAZOBACTAM, HEPARIN, and Sulfa. PHYSICAL EXAMINATION: The patient is sitting in the bed with head end elevated this morning and the time of my visit. She is using oxygen via nasal cannula at 4 liters. Temperature 97.3 degrees Fahrenheit, heart rate 80 per minute, respiratory rate 18 per minute, blood pressure 118/60 mm of mercury, and oxygen saturation 99% on 4 liters oxygen. Her head is atraumatic. Neck is supple, and jugular venous distention (JVD) is mildly elevated. She has no oral thrush or ulcers. Heart sounds are irregular in rhythm and without a pericardial friction rub. Lungs with diminished breath sounds and bilateral rales. Abdomen soft, obese, and nontender, and bowel sounds are normal. Extremities have no cyanosis or clubbing. Bilateral lower extremity amputations are chronic and old. Neurologically, she is at her baseline mentation. LABORATORY DATA: Today's labs show WBC count 18.8, hemoglobin 11.0, hematocrit 34.5. Sodium 133, potassium 4.6, CO2 27 BUN 33, and creatinine 3.77. Glucose 163 and calcium 8.5. PROBLEMS: 1. End-stage renal disease. The patient is regularly dialyzed on Wednesday, Wednesday, and Wednesday schedule. She was last dialyzed on Wednesday and is going to be dialyzed this afternoon. 2. Shortness of breath and hypoxemia. This is a chronic problem, however, seems to be worse, most likely related to her pneumonia and decompensated volume status. We will try to remove about 3 liters of fluid as tolerated. Her chest x-ray did show bilateral basilar infiltrates. 3. Anemia. Her anemia is optimum at this point. Does not need any urgent intervention. 4. Pneumonia. The patient has history of recurrent pneumonia. She is being treated with meropenem and vancomycin in view of methicillin-resistant Staphylococcus aureus (MRSA). Vancomycin will need to be dosed after each hemodialysis. 5. Chronic hypotension. The patient should continue with midodrine three times a day as chronically. We will try to remove fluid as tolerated with dialysis. Thank you for involving me in the care of Mrs. Garcia. I will follow her along with you. PHILIP
[2018-11-18] MEDS ORDERED: VANCOMYCIN HCL 1,000 MG, VIAL MATE ADAPTER 1 EACH in D5W 250 ML IV SCH (16:00)
[2018-11-18] MEDS: **VANCO AFTER HD** MISC XX SCH (16:00)
[2018-11-18 16:06] VITALS: BP 143/56
[2018-11-18] MEDS: MEROPENEM INJ 500 MG in APPROPRIATE DILUENT 1 EA IV SCH (20:48)
[2018-11-18] MEDS: SIMVASTATIN 40 MG TAB PO SCH (20:48)
[2018-11-18 22:00] VITALS: BP 130/82
[2018-11-19 02:00] VITALS: BP 151/57
[2018-11-19 06:00] VITALS: BP 120/60
[2018-11-19] MEDS: IPRATROPIUM 0.5MG/ALBUTEROL 2.5MG INH SOL UD 3ML (DUONEB)(J7620) INH SCH ×4 (08:00→19:51)
[2018-11-19] MEDS: MIDODRINE 5 MG TAB PO SCH ×3 (08:20→17:45)
[2018-11-19] MEDS: (RENVELA) SEVELAMER **CARBONate** 800 MG TAB PO SCH ×3 (08:21→17:45)
[2018-11-19] MEDS: HumaLOG INSULIN (NovoLOG) PER UNIT SC SCH ×4 (08:21→22:00)
[2018-11-19] MEDS: CitaloPRAM (CeleXA) 10 MG TABLET PO SCH (08:22)
[2018-11-19] MEDS: ASPIRIN ENTERIC 325 MG TAB PO SCH (08:22)
[2018-11-19] MEDS: MIRALAX *UNIT DOSE* 17GM PACKET PO SCH (08:22)
[2018-11-19] MEDS: FOLIC ACID 1 MG TAB PO SCH (08:22)
[2018-11-19] MEDS: DOCUSATE SODIUM 100 MG CAP PO SCH ×2 (08:22→20:02)
[2018-11-19] MEDS: VITAMIN D 1,000 INTERNATIONAL UNITS TABLET PO SCH (08:22)
[2018-11-19] MEDS: SENOKOT S TAB PO SCH ×2 (08:23→20:02)
[2018-11-19] MEDS: NEPHRO-VIT TAB (NEPHROCAPS) PO SCH (08:23)
[2018-11-19] MEDS: PANTOPRAZOLE 40MG TAB (PROTONIX) PO SCH (08:23)
[2018-11-19 08:40] LABS: BASO % 0.3 % (0.0-1.0); EOS # 0.3 10^3/uL (0.0-0.50); EOS % 2.5 % (0.0-3.0); HEMATOCRIT 32.8 % (36.0-47.0); HEMOGLOBIN 10.3 g/dl (12.0-15.5); LYMPH # 0.9 10^3/uL (1.5-4.5); LYMPH % 6.8 % (24.0-44.0); MEAN CORPUSCULAR HEMOGLOBIN 32.7 pg (27.0-33.0); MEAN CORPUSCULAR HGB CONC 31.4 g/dl (32.0-36.5); MEAN CORPUSCULAR VOLUME 104.1 fl (80.0-96.0); MONO % 15.4 % (0.0-5.0); NEUTROPHILS # 9.5 10^3/uL (1.8-7.7); PLATELET COUNT, AUTOMATED 191 10^3/uL (150-450); RED BLOOD COUNT 3.15 10^6/uL (4.00-5.40); WHITE BLOOD COUNT 12.9 10^3/uL (4.0-10.0)
[2018-11-19] MEDS: ADVAIR HFA 45/21MCG INHALER INH SCH ×2 (08:41→19:52)
[2018-11-19 10:00] VITALS: BP 106/41
--- NOTE | 2018-11-19 13:56 | IPNPDOC ---
Subjective Date Seen The patient was seen on 11/19/18. Subjective Chief Complaint/HPI No new complaints. Breathing is improved. No fevers, no chills Constitutional: Denies: Chills ENT: Denies: Head Aches Pulmonary: Denies: Dyspnea, Pleuritic Chest Pain Cardiovascular: Denies: Chest Pain, Palpitations Gastrointestinal: Denies: Nausea, Abdominal Pain Hematologic: Denies: Bruising, Bleeding Excessively Neurological: Denies: Weakness, Numbness Psych: Reports: Mood Normal Objective Physical Examination General Exam: Positive: Alert, No Acute Distress Neck Exam: Positive: Supple; Negative: JVD Chest Exam: Positive: Rhonchi (Bibasilar); Negative: Rales, Wheezing Heart Exam: Positive: Rate Normal, Irregular Rhythm, Murmurs Telemetry: Positive: Atrial fibrillation Abdomen Exam: Positive: Normal bowel sounds, Soft; Negative: Tenderness Extremity Exam: Positive: Other (RLE AKA, LLE BKA) Skin Exam: Positive: Nl turgor and temperature Psych Exam: Positive: Mood NL Assessment /Plan Problems (1) Nosocomial pneumonia Status: Acute Response to Treatment: Improving Problem Text: 11/19: Day 2 of antibiotics. WBC improved. 11/18/18: D1 of Vancomycin and Meropenem. Duonebs and O2. BC are pending. WBC 18.8, T-Max 100.9 Chest x-ray: Impression: 1. Bibasilar atelectasis or infiltrates increased on the right and new on the left. 2. Right upper lobe atelectasis or infiltrate new compared to the previous study. 3. Small right pleural effusion. 4. Cardiomegaly. (2) Diabetes mellitus, type 2 Status: Chronic Response to Treatment: Stable Problem Text: 11/18/18: Basal insulin with sliding scale coverage. Carb Consistent diet (3) End stage renal disease on dialysis Status: Chronic Problem Specific Plan: Consult Specialist Problem Text: 11/19. Dr. Bauman's note reviewed, appreciate. Nephrology to be consulted Plan/VTE VTE Prophylaxis Ordered?: Yes VS, I&O, 24H, Fishbone Vital Signs/I&O Vital Signs Date Time Temp Pulse Resp B/P (MAP) Pulse Ox O2 Delivery O2 Flow Rate FiO2 11/19/18 11:53 4.0 11/19/18 10:00 97.1 89 20 106/41 (62) 100 2/21/19 22:38 Nasal Cannula I&O- Last 24 Hours up to 6 AM 11/19/18 06:00 Intake Total 710 ml Output Total 2500 ml Balance -1790 ml Laboratory Data 24H LABS Laboratory Tests 2 11/18/18 17:08: Bedside Glucose (Misc Panel) 94 11/18/18 21:20: Bedside Glucose (Misc Panel) 170H 11/19/18 08:13: Immature Granulocyte % (Auto) 1.0, White Blood Count 12.9H, Red Blood Count 3.15L, Hemoglobin 10.3L, Hematocrit 32.8L, Mean Corpuscular Volume 104.1H, Mean Corpuscular Hemoglobin 32.7, Mean Corpuscular Hemoglobin Concent 31.4L, Red Cell Distribution Width 18.2H, Platelet Count 191, Neutrophils (%) (Auto) 74.0H, Lymphocytes (%) (Auto) 6.8L, Monocytes (%) (Auto) 15.4H, Eosinophils (%) (Auto) 2.5, Basophils (%) (Auto) 0.3, Neutrophils # (Auto) 9.5H, Lymphocytes # (Auto) 0.9L, Monocytes # (Auto) 2.0H, Eosinophils # (Auto) 0.3, Basophils # (Auto) 0.0, Nucleated Red Blood Cells % (auto) 0.0 CBC/BMP Laboratory Tests 11/19/18 08:13 Red Blood Count 3.15 L, Mean Corpuscular Volume 104.1 H, Mean Corpuscular Hemoglobin 32.7, Mean Corpuscular Hemoglobin Concent 31.4 L, Red Cell Distribution Width 18.2 H, Neutrophils (%) (Auto) 74.0 H, Lymphocytes (%) (Auto) 6.8 L, Monocytes (%) (Auto) 15.4 H, Eosinophils (%) (Auto) 2.5, Basophils (%) (Auto) 0.3, Neutrophils # (Auto) 9.5 H, Lymphocytes # (Auto) 0.9 L, Monocytes # (Auto) 2.0 H, Eosinophils # (Auto) 0.3, Basophils # (Auto) 0.0 Microbiology Microbiology 11/18/18 Blood Culture - Preliminary, Resulted No growth after 24 hours . All specim... 11/18/18 Gram Stain - Final, Resulted 11/18/18 Sputum Culture - Preliminary, Resulted Yeast Like Organism 11/18/18 MRSA Screen - Final, Complete Marin Teran MD Nov 19, 2018 13:54
[2018-11-19 14:00] VITALS: BP 146/93
[2018-11-19] MEDS: **VANCO AFTER HD** MISC XX SCH (16:00)
[2018-11-19 18:00] VITALS: BP 110/50
[2018-11-19] MEDS: MEROPENEM INJ 500 MG in APPROPRIATE DILUENT 1 EA IV SCH (20:02)
[2018-11-19] MEDS: SIMVASTATIN 40 MG TAB PO SCH (20:02)
[2018-11-19 22:00] VITALS: BP 132/53
--- NOTE | 2018-11-19 23:25 | IPN ---
DATE: 11/19/2018 Ms. Garcia is seen this morning on her bedside. She is feeling much better today and her dyspnea and cough has improved. She was dialyzed yesterday which she tolerated very well. We were able to remove about 2.5 liters of fluid. She is being treated for bilateral pneumonia. She denies any nausea, vomiting, chest pain or hemoptysis. PHYSICAL EXAMINATION: VITAL SIGNS: On physical exam temperature 97.1 degrees Fahrenheit, heart rate 89 per minute and respiratory rate 20 per minute. Blood pressure 106/40 mmHg and oxygen saturation 100% on 4 liters oxygen. HEENT: Head is atraumatic. Neck is supple and without jugular venous distention (JVD) or thyroid enlargement. Perma-Cath is present on left upper chest. HEART: Sounds are irregular in rhythm. LUNGS: Lungs with bibasilar rales. ABDOMEN: Soft, obese and nontender and bowel sounds are normal. EXTREMITIES: Extremities have no cyanosis or clubbing. She has bilateral lower extremity amputations previously. NEUROLOGICAL: Neurologically she is at her baseline mentation without a focal deficit. LABORATORIES: Today's laboratories show white blood cell (WBC) count 12.9, hemoglobin 10.3 and hematocrit 32.8. PROBLEMS: 1. End-stage renal disease. The patient was dialyzed yesterday and her next dialysis will be scheduled for Wednesday. 2. Congestive heart failure. Volume status is very well compensated now, 2.5 liters fluid was removed yesterday. We will continue to aggressively manage her volume status with dialysis. 3. Bilateral pneumonia. Her leukocytosis and dyspnea has improved significantly. She remains on antibiotics and oxygen supplementation. 4. Anemia. Anemia is stable and does not need any urgent intervention at present.
[2018-11-20 06:00] VITALS: BP 144/65
[2018-11-20 06:14] LABS: BASO % 0.2 % (0.0-1.0); EOS # 0.4 10^3/uL (0.0-0.50); EOS % 3.4 % (0.0-3.0); HEMATOCRIT 34.7 % (36.0-47.0); HEMOGLOBIN 10.9 g/dl (12.0-15.5); LYMPH # 1.2 10^3/uL (1.5-4.5); LYMPH % 10.1 % (24.0-44.0); MEAN CORPUSCULAR HEMOGLOBIN 32.8 pg (27.0-33.0); MEAN CORPUSCULAR HGB CONC 31.4 g/dl (32.0-36.5); MEAN CORPUSCULAR VOLUME 104.5 fl (80.0-96.0); MONO # 1.7 10^3/uL (0.0-0.8); MONO % 14.9 % (0.0-5.0); NEUTROPHILS # 8.2 10^3/uL (1.8-7.7); NEUTROPHILS % 70.5 % (36.0-66.0); PLATELET COUNT, AUTOMATED 160 10^3/uL (150-450); RED BLOOD COUNT 3.32 10^6/uL (4.00-5.40); WHITE BLOOD COUNT 11.7 10^3/uL (4.0-10.0)
[2018-11-20] MEDS: ADVAIR HFA 45/21MCG INHALER INH SCH ×2 (07:26→19:56)
[2018-11-20] MEDS: IPRATROPIUM 0.5MG/ALBUTEROL 2.5MG INH SOL UD 3ML (DUONEB)(J7620) INH SCH ×4 (07:26→19:58)
[2018-11-20] MEDS: MIRALAX *UNIT DOSE* 17GM PACKET PO SCH (08:19)
[2018-11-20] MEDS: HumaLOG INSULIN (NovoLOG) PER UNIT SC SCH ×4 (08:20→21:00)
[2018-11-20] MEDS: (RENVELA) SEVELAMER **CARBONate** 800 MG TAB PO SCH ×3 (08:20→18:16)
[2018-11-20] MEDS: ASPIRIN ENTERIC 325 MG TAB PO SCH (08:21)
[2018-11-20] MEDS: MIDODRINE 5 MG TAB PO SCH ×3 (08:21→18:16)
[2018-11-20] MEDS: PANTOPRAZOLE 40MG TAB (PROTONIX) PO SCH (08:21)
[2018-11-20] MEDS: VITAMIN D 1,000 INTERNATIONAL UNITS TABLET PO SCH (08:21)
[2018-11-20] MEDS: SENOKOT S TAB PO SCH ×2 (08:21→20:05)
[2018-11-20] MEDS: DOCUSATE SODIUM 100 MG CAP PO SCH ×2 (08:21→20:05)
[2018-11-20] MEDS: FOLIC ACID 1 MG TAB PO SCH (08:22)
[2018-11-20] MEDS: NEPHRO-VIT TAB (NEPHROCAPS) PO SCH (08:22)
[2018-11-20] MEDS: CitaloPRAM (CeleXA) 10 MG TABLET PO SCH (08:22)
[2018-11-20] MEDS ORDERED: ENOXAPARIN 30 MG/0.3 ML SYR (J1650) SC SCH (09:00)
[2018-11-20 10:00] VITALS: BP 127/44
--- NOTE | 2018-11-20 10:45 | IPNPDOC ---
Subjective Date Seen The patient was seen on 11/20/18. Subjective Chief Complaint/HPI see HPI. Constitutional: Denies: Chills ENT: Denies: Head Aches Pulmonary: Reports: Cough (overall feels she is improving.); Denies: Dyspnea Cardiovascular: Denies: Chest Pain Gastrointestinal: Denies: Nausea, Abdominal Pain Psych: Reports: Mood Normal Objective Physical Examination General Exam: Positive: Alert, No Acute Distress Neck Exam: Positive: Supple; Negative: JVD Chest Exam: Positive: Rales (right base. ), Rhonchi (Bibasilar but minimal); Negative: Wheezing Heart Exam: Positive: Rate Normal, Irregular Rhythm, Murmurs Telemetry: Positive: Atrial fibrillation Abdomen Exam: Positive: Normal bowel sounds, Soft; Negative: Tenderness Extremity Exam: Positive: Other (RLE AKA, LLE BKA) Skin Exam: Positive: Nl turgor and temperature Psych Exam: Positive: Mood NL Assessment /Plan Problems (1) Nosocomial pneumonia Status: Acute Response to Treatment: Improving Problem Text: 11/20: Day 3. WBC slowing improving. Nothing on cultures. Likely could return to [place] tomorrow or next day depending on dialysis schedule. will stop vanco today since we have no definite indicator of need of this agent. Sputum growing yeast organism which hasn't been targeted for treatment and symptoms are improving, suspect this organism is colonizer. Consider change to doxycyline at discharge. 11/19: Day 2 of antibiotics. WBC improved. 11/18/18: D1 of Vancomycin and Meropenem. Duonebs and O2. BC are pending. WBC 18.8, T-Max 100.9 Chest x-ray: Impression: 1. Bibasilar atelectasis or infiltrates increased on the right and new on the left. 2. Right upper lobe atelectasis or infiltrate new compared to the previous study. 3. Small right pleural effusion. 4. Cardiomegaly. (2) Diabetes mellitus, type 2 Status: Chronic Response to Treatment: Stable Problem Text: 11/18/18: Basal insulin with sliding scale coverage. Carb Consistent diet (3) End stage renal disease on dialysis Status: Chronic Problem Specific Plan: Consult Specialist Problem Text: 11/19. Dr. Bauman's note reviewed, appreciate. Nephrology to be consulted Plan/VTE VTE Prophylaxis Ordered?: Yes Plan Anticipated Discharge: [facility] VS, I&O, 24H, [place] Vital Signs/I&O Vital Signs Date Time Temp Pulse Resp B/P (MAP) Pulse Ox O2 Delivery O2 Flow Rate FiO2 11/20/18 06:00 97.0 74 19 144/65 (91) 99 4.0 11/17/18 22:38 Nasal Cannula I&O- Last 24 Hours up to 6 AM 11/20/18 06:00 Intake Total 1220 ml Output Total 0 ml Balance 1220 ml Laboratory Data 24H LABS Laboratory Tests 2 11/20/18 05:53: Immature Granulocyte % (Auto) 0.9, White Blood Count 11.7H, Red Blood Count 3.3 2L, Hemoglobin 10.9L, Hematocrit 34.7L, Mean Corpuscular Volume 104.5H, Mean Corpuscular Hemoglobin 32.8, Mean Corpuscular Hemoglobin Concent 31.4L, Red Cell Distribution Width 17.9H, Platelet Count 160, Neutrophils (%) (Auto) 70.5H, Lymphocytes (%) (Auto) 10.1L, Monocytes (%) (Auto) 14.9H, Eosinophils (%) (Auto) 3.4H, Basophils (%) (Auto) 0.2, Neutrophils # (Auto) 8.2H, Lymphocytes # (Auto) 1.2L, Monocytes # (Auto) 1.7H, Eosinophils # (Auto) 0.4, Basophils # (Auto) 0.0, Nucleated Red Blood Cells % (auto) 0.0 CBC/BMP Laboratory Tests 11/20/18 05:53 Red Blood Count 3.32 L, Mean Corpuscular Volume 104.5 H, Mean Corpuscular Hemoglobin 32.8, Mean Corpuscular Hemoglobin Concent 31.4 L, Red Cell Distribution Width 17.9 H, Neutrophils (%) (Auto) 70.5 H, Lymphocytes (%) (Auto) 10.1 L, Monocytes (%) (Auto) 14.9 H, Eosinophils (%) (Auto) 3.4 H, Basophils (%) (Auto) 0.2, Neutrophils # (Auto) 8.2 H, Lymphocytes # (Auto) 1.2 L, Monocytes # (Auto) 1.7 H, Eosinophils # (Auto) 0.4, Basophils # (Auto) 0.0 Microbiology Microbiology 11/18/18 Blood Culture - Preliminary, Resulted No Growth after 48 hours. All Specime... 11/18/18 Gram Stain - Final, Complete 11/18/18 Sputum Culture - Final, Complete Yeast Like Organism 11/18/18 MRSA Screen - Final, Complete Marin Teran MD Nov 20, 2018 10:45
[2018-11-20 14:00] VITALS: BP 125/51
[2018-11-20] MEDS: **VANCO AFTER HD** MISC XX SCH (16:00)
[2018-11-20 18:00] VITALS: BP 125/57
[2018-11-20] MEDS: SIMVASTATIN 40 MG TAB PO SCH (20:05)
[2018-11-20] MEDS: MEROPENEM INJ 500 MG in APPROPRIATE DILUENT 1 EA IV SCH (20:05)
[2018-11-20 22:00] VITALS: BP 138/61
[2018-11-20] MEDS: ACETAMINOPHEN TAB 650MG DOSE (2X325MG) PO PRN (23:08)
[2018-11-21] MEDS: ALPRAZolam 0.25 MG TAB PO PRN ×2 (00:20→20:31)
[2018-11-21 06:00] VITALS: BP 129/62
[2018-11-21] MEDS: MIDODRINE 5 MG TAB PO SCH ×3 (06:00→16:00)
[2018-11-21] MEDS: FOLIC ACID 1 MG TAB PO SCH (06:01)
[2018-11-21] MEDS: MIRALAX *UNIT DOSE* 17GM PACKET PO SCH (06:01)
[2018-11-21] MEDS: VITAMIN D 1,000 INTERNATIONAL UNITS TABLET PO SCH (06:01)
[2018-11-21] MEDS: DOCUSATE SODIUM 100 MG CAP PO SCH ×2 (06:01→20:23)
[2018-11-21] MEDS: ASPIRIN ENTERIC 325 MG TAB PO SCH (06:01)
[2018-11-21] MEDS: CitaloPRAM (CeleXA) 10 MG TABLET PO SCH (06:01)
[2018-11-21] MEDS: PANTOPRAZOLE 40MG TAB (PROTONIX) PO SCH (06:02)
[2018-11-21] MEDS: NEPHRO-VIT TAB (NEPHROCAPS) PO SCH (06:02)
[2018-11-21] MEDS: SENOKOT S TAB PO SCH ×2 (06:02→20:24)
[2018-11-21 06:20] LABS: BASO % 0.2 % (0.0-1.0); EOS # 0.5 10^3/uL (0.0-0.50); EOS % 4.6 % (0.0-3.0); HEMATOCRIT 30.7 % (36.0-47.0); HEMOGLOBIN 9.9 g/dl (12.0-15.5); LYMPH # 1.6 10^3/uL (1.5-4.5); LYMPH % 14.1 % (24.0-44.0); MEAN CORPUSCULAR HEMOGLOBIN 32.6 pg (27.0-33.0); MEAN CORPUSCULAR HGB CONC 32.2 g/dl (32.0-36.5); MONO # 1.8 10^3/uL (0.0-0.8); MONO % 16.2 % (0.0-5.0); NEUTROPHILS # 7.1 10^3/uL (1.8-7.7); NEUTROPHILS % 63.8 % (36.0-66.0); PLATELET COUNT, AUTOMATED 195 10^3/uL (150-450); RED BLOOD COUNT 3.04 10^6/uL (4.00-5.40); WHITE BLOOD COUNT 11.1 10^3/uL (4.0-10.0)
[2018-11-21] MEDS: ADVAIR HFA 45/21MCG INHALER INH SCH ×2 (06:23→23:25)
[2018-11-21 07:23] LABS: VANCOMYCIN RANDOM 17.3 UG/ML
[2018-11-21] MEDS: HumaLOG INSULIN (NovoLOG) PER UNIT SC SCH ×4 (07:36→21:00)
[2018-11-21] MEDS: (RENVELA) SEVELAMER **CARBONate** 800 MG TAB PO SCH ×3 (07:36→18:32)
[2018-11-21] MEDS: IPRATROPIUM 0.5MG/ALBUTEROL 2.5MG INH SOL UD 3ML (DUONEB)(J7620) INH SCH ×4 (08:00→23:25)
--- NOTE | 2018-11-21 09:25 | IPNPDOC ---
Subjective Date Seen The patient was seen on 11/21/18. Subjective Chief Complaint/HPI pneumonia Events since last encounter Denies c/o. planned HD today. Pulmonary: Reports: Dyspnea (chronic); Denies: Cough Cardiovascular: Denies: Chest Pain, Palpitations, Orthopnea, Paroxysmal Noc. Dyspnea, Lt Headedness Gastrointestinal: Denies: Nausea, Vomiting, Abdominal Pain, Diarrhea, Constipation Objective Physical Examination General Exam: Positive: Alert, No Acute Distress Neck Exam: Positive: Supple; Negative: JVD Chest Exam: Positive: Rales (right base. ), Rhonchi (Bibasilar but minimal); Negative: Wheezing Heart Exam: Positive: Rate Normal, Irregular Rhythm, Murmurs Abdomen Exam: Positive: Normal bowel sounds, Soft; Negative: Tenderness Extremity Exam: Positive: Other (RLE AKA, LLE BKA) Skin Exam: Positive: Nl turgor and temperature Psych Exam: Positive: Mood NL Assessment /Plan Problems (1) Nosocomial pneumonia Status: Acute Response to Treatment: Improving Problem Text: 11/21/18: transition to doxycycline today. Anticipate DC back to [facility] tomorrow. Wean oxygen to 2LNC which she is on chronically. 11/20: Day 3. WBC slowing improving. Nothing on cultures. Likely could return to [place] tomorrow or next day depending on dialysis schedule. will stop vanco today since we have no definite indicator of need of this agent. Sputum growing yeast organism which hasn't been targeted for treatment and symptoms are improving, suspect this organism is colonizer. Consider change to doxycyline at discharge. 11/19: Day 2 of antibiotics. WBC improved. 11/18/18: D1 of Vancomycin and Meropenem. Duonebs and O2. BC are pending. WBC 18.8, T-Max 100.9 Chest x-ray: Impression: 1. Bibasilar atelectasis or infiltrates increased on the right and new on the left. 2. Right upper lobe atelectasis or infiltrate new compared to the previous study. 3. Small right pleural effusion. 4. Cardiomegaly. (2) Diabetes mellitus, type 2 Status: Chronic Response to Treatment: Stable Problem Text: 11/18/18: Basal insulin with sliding scale coverage. Carb Consistent diet (3) End stage renal disease on dialysis Status: Chronic Problem Specific Plan: Consult Specialist Problem Text: 11/19. Dr. Bauman's note reviewed, appreciate. Nephrology to be consulted Plan/VTE VTE Prophylaxis Ordered?: Yes Plan Anticipated Discharge: Residential VS, I&O, 24H, Fishbone Vital Signs/I&O Vital Signs Date Time Temp Pulse Resp B/P (MAP) Pulse Ox O2 Delivery O2 Flow Rate FiO2 11/21/18 06:24 Nasal Cannula 4.0 11/21/18 06:00 96.0 79 18 129/62 (84) 100 I&O- Last 24 Hours up to 6 AM 11/21/18 06:00 Intake Total 1230 ml Output Total 0 ml Balance 1230 ml Laboratory Data 24H LABS Laboratory Tests 2 11/20/18 11:39: Bedside Glucose (Misc Panel) 178H 11/20/18 20:48: Bedside Glucose (Misc Panel) 125H 11/21/18 05:40: Immature Granulocyte % (Auto) 1.1, White Blood Count 11.1H, Red Blood Count 3.04L, Hemoglobin 9.9L, Hematocrit 30.7L, Mean Corpuscular Volume 101.0H, Mean Corpuscular Hemoglobin 32.6, Mean Corpuscular Hemoglobin Concent 32.2, Red Cell Distribution Width 17.4H, Platelet Count 195, Neutrophils (%) (Auto) 63.8, Lymphocytes (%) (Auto) 14.1L, Monocytes (%) (Auto) 16.2H, Eosinophils (%) (Auto) 4.6H, Basophils (%) (Auto) 0.2, Neutrophils # (Auto) 7.1, Lymphocytes # (Auto) 1.6, Monocytes # (Auto) 1.8H, Eosinophils # (Auto) 0.5, Basophils # (Auto) 0.0, Nucleated Red Blood Cells % (auto) 0.0, Random Vancomycin Level 17.3 CBC/BMP Laboratory Tests 11/21/18 05:40 Red Blood Count 3.04 L, Mean Corpuscular Volume 101.0 H, Mean Corpuscular Hemoglobin 32.6, Mean Corpuscular Hemoglobin Concent 32.2, Red Cell Distribution Width 17.4 H, Neutrophils (%) (Auto) 63.8, Lymphocytes (%) (Auto) 14.1 L, Monocytes (%) (Auto) 16.2 H, Eosinophils (%) (Auto) 4.6 H, Basophils (%) (Auto) 0.2, Neutrophils # (Auto) 7.1, Lymphocytes # (Auto) 1.6, Monocytes # (Auto) 1.8 H, Eosinophils # (Auto) 0.5, Basophils # (Auto) 0.0 Microbiology Microbiology 11/18/18 Blood Culture - Preliminary, Resulted No Growth after 72 hours. All specime... 11/18/18 Gram Stain - Final, Complete 11/18/18 Sputum Culture - Final, Complete Yeast Like Organism 11/18/18 MRSA Screen - Final, Complete Prachi Riggs Nov 21, 2018 09:25
[2018-11-21 10:00] VITALS: BP 135/53
[2018-11-21 10:16] LABS: ALBUMIN 2.9 GM/DL (3.2-5.2); CALCIUM LEVEL 8.2 MG/DL (8.8-10.2); CREATININE FOR GFR 4.35 MG/DL (0.55-1.30); GLOMERULAR FILTRATION RATE 10.4 (>32); PHOSPHORUS LEVEL 2.9 MG/DL (2.5-4.9); POTASSIUM SERUM 4.5 MEQ/L (3.5-5.1)
[2018-11-21] MEDS ORDERED: HEPARIN 1,000 UNITS/ML 10ML VIAL (FOR RADIOLOGY& DIALYSIS ONLY) XX ONE (11:00)
[2018-11-21] MEDS: DOXYCYCLINE HYCLATE 100 MG TAB PO SCH ×2 (11:18→20:23)
[2018-11-21 18:00] VITALS: BP 136/81
[2018-11-21] MEDS: SIMVASTATIN 40 MG TAB PO SCH (20:23)
[2018-11-21 22:00] VITALS: BP 128/62
[2018-11-22 02:00] VITALS: BP 132/64
[2018-11-22 06:00] VITALS: BP 136/62
[2018-11-22 06:13] LABS: BASO % 0.2 % (0.0-1.0); EOS # 0.6 10^3/uL (0.0-0.50); EOS % 6.4 % (0.0-3.0); HEMOGLOBIN 10.2 g/dl (12.0-15.5); LYMPH # 1.1 10^3/uL (1.5-4.5); LYMPH % 12.9 % (24.0-44.0); MEAN CORPUSCULAR HEMOGLOBIN 33.4 pg (27.0-33.0); MEAN CORPUSCULAR HGB CONC 31.9 g/dl (32.0-36.5); MEAN CORPUSCULAR VOLUME 104.9 fl (80.0-96.0); MONO # 1.5 10^3/uL (0.0-0.8); MONO % 17.8 % (0.0-5.0); NEUTROPHILS # 5.3 10^3/uL (1.8-7.7); NEUTROPHILS % 61.8 % (36.0-66.0); PLATELET COUNT, AUTOMATED 192 10^3/uL (150-450); RED BLOOD COUNT 3.05 10^6/uL (4.00-5.40); WHITE BLOOD COUNT 8.6 10^3/uL (4.0-10.0)
--- NOTE | 2018-11-22 06:58 | IPN ---
DATE OF SERVICE: 11/21/2018 SUBJECTIVE: Patient was seen and examined at the bedside. Today morning, she is afebrile, hemodynamically stable. She reports her shortness of breath is improving. Today is her regular day of dialysis. She denies any active complaints at this point. OBJECTIVE: Vital signs: Temperature is 96.9 degrees Fahrenheit, blood pressure 135/53, pulse 63, respiratory rate of 16, saturating 100% on nasal cannula at 3 liters. Intake and output: Urine output is not recorded. Weight on the bed scale is not available. PHYSICAL EXAMINATION: General: Patient is awake, alert, oriented times three, sitting up in bed, no apparent distress. Head and neck exam: Extraocular muscles intact. Pupils equally round and reactive to light. Mucous membranes are moist. Neck is supple, there is mildly elevated jugular venous distention (JVD). Cardiovascular: Patient has ejection systolic murmur grade 4/6 in intensity. Respiratory: Mildly decreased breath sounds at the bases with inspiratory crackles bilaterally at the bases. Abdomen is soft, obese, positive bowel sounds. Nontender. No organomegaly. 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 Central nervous system: No focal deficit. Power is 5/5 in bilateral upper extremities. LAB REVIEW: CBC showed WBC of 11.1, hemoglobin is 9.9, platelets are 195. BMP showed sodium 134, potassium 4.5, chloride 97, bicarbonate 28, BUN 37, creatinine is 4.3, calcium is 8.2, phosphorus 2.9, albumin is 2.9. CURRENT INPATIENT MEDICATION: Patient's medications were all reviewed by me. There is no significant change in medication today as compared with yesterday except that IV meropenem and vancomycin have been stopped. She has been started on doxycycline 100 mg by mouth twice a day. ASSESSMENT AND PLAN: 1. Endstage renal disease with hemodialysis. Patient's regular dialysis days are Wednesday, Wednesday, Wednesday. She will be dialyzed today according to her regular schedule. I will try to remove at least 2 liters of fluid as tolerated by her blood pressure. 2. Bilateral pneumonia. Patient was on IV antibiotics. She has been switched to oral antibiotics now. The rest of the management is as per primary team. 3. Anemia and endstage renal disease. Hemoglobin is 9.9 which is slightly suboptimal. I will start the patient on Aranesp with dialysis.
[2018-11-22] MEDS: IPRATROPIUM 0.5MG/ALBUTEROL 2.5MG INH SOL UD 3ML (DUONEB)(J7620) INH SCH (07:20)
[2018-11-22] MEDS: MIDODRINE 5 MG TAB PO SCH (07:57)
[2018-11-22] MEDS: HumaLOG INSULIN (NovoLOG) PER UNIT SC SCH (08:04)
[2018-11-22] MEDS: DOCUSATE SODIUM 100 MG CAP PO SCH (08:04)
[2018-11-22] MEDS: SENOKOT S TAB PO SCH (08:05)
[2018-11-22] MEDS: FOLIC ACID 1 MG TAB PO SCH (08:05)
[2018-11-22] MEDS: MIRALAX *UNIT DOSE* 17GM PACKET PO SCH (08:05)
[2018-11-22] MEDS: NEPHRO-VIT TAB (NEPHROCAPS) PO SCH (08:05)
[2018-11-22] MEDS: CitaloPRAM (CeleXA) 10 MG TABLET PO SCH (08:05)
[2018-11-22] MEDS: (RENVELA) SEVELAMER **CARBONate** 800 MG TAB PO SCH (08:05)
[2018-11-22] MEDS: ASPIRIN ENTERIC 325 MG TAB PO SCH (08:05)
[2018-11-22] MEDS: PANTOPRAZOLE 40MG TAB (PROTONIX) PO SCH (08:05)
[2018-11-22] MEDS: DOXYCYCLINE HYCLATE 100 MG TAB PO SCH (08:05)
[2018-11-22] MEDS: VITAMIN D 1,000 INTERNATIONAL UNITS TABLET PO SCH (08:06)
[2018-11-22] MEDS ORDERED: DOXY100T PO (08:10)
[2018-11-22] MEDS: ADVAIR HFA 45/21MCG INHALER INH SCH (09:00)
--- NOTE | 2018-11-22 11:02 | DSES ---
DATE OF ADMISSION: 11/17/2018 DATE OF DISCHARGE: 11/22/2018 PRIMARY CARE PHYSICIAN: Dr. Marty Ho at [facility]. ACTING TEACHER: Dr. Alyssa Bauman. HISTORY OF PRESENT ILLNESS: 83-year-old female with past medical history of endstage renal disease on hemodialysis, atrial fibrillation, chronic hypoxic respiratory failure on chronic oxygen at bedtime, who presented to the emergency department from [facility] with a 5-6 day history of cough and chills, general malaise and shortness of breath. Workup in the emergency department proved positive for bibasilar atelectasis versus infiltrate and right upper lobe atelectasis versus infiltrate as well as a small right sided pleural effusion. Patient was subsequently admitted to the Family Medicine Service. She was placed on broad spectrum antibiotics for presumed nosocomial infection. Blood cultures negative. Patient did have sputum culture which showed a few yeast like organism most likely colonization at this point. Patient's oxygenation was needed to be increased upon admission, however has been subsequently weaned down to her chronic use of 2 liters nasal cannula with oxygen saturations in the 100% range. Patient has remained with her hemodialysis days and nephrology has been following and managing while she has been inpatient. Patient has been tolerating oral diet well. Had denied any complaints and states today she feels she is back at baseline and anxious to return to [facility]. Patient was transitioned to oral antibiotics within the last 24 hours. She has tolerated that well. Imaging completed during hospitalization includes chest x-ray as already stated. Consults nephrology as already stated. Procedures none. On physical exam today, vital signs are stable. She is afebrile. HEENT: Neck is supple without lymphadenopathy or jugular venous distention (JVD). Cardiovascular: Heart rate and rhythm are irregularly irregular. Pulmonary: Lungs are clear with mild diminishing bibasilar. Abdomen: Soft, nontender. No edema to upper extremity is noted. Patient has a bilateral below knee amputation. ASSESSMENT: DISCHARGE DIAGNOSES: 1. Bilateral nosocomial pneumonia. 2. Endstage renal disease on hemodialysis. 3. Type 2 diabetes. 4. Chronic obstructive pulmonary disease (COPD). 5. Hyperlipidemia. PLAN: Patient will be discharged back to [facility]. Diet is carbohydrate consistent. Activity is return to previous. Followup with primary care physician at [facility] within the next 7 days. Medications are as follows: - doxycycline hyclate 100 mg by mouth twice daily - acetaminophen 325 two by mouth every 4 hours as needed for pain or fever - Tylenol 650 by mouth twice daily - albuterol with ipratropium every 2 hours as needed for wheezing - albuterol with ipratropium four times daily scheduled - alprazolam 0.25 mg by mouth every 8 hours as needed for anxiety - aspirin enteric coated 325 by mouth daily - bisacodyl 10 mg UT daily as needed constipation - Refresh tears one drop both eyes three times daily - vitamin D3 2000 international units by mouth daily - citalopram 10 mg by mouth daily - Senokot two tablets by mouth twice daily - Colace 100 mg by mouth twice daily - enema per rectum daily as needed constipation - folic acid 1 mg by mouth daily - Lispro sliding scale subcu, return to previous dosing from [facility] - midodrine 5 mg by mouth four times per week - midodrine 5 mg tablets by mouth three times per week - Nepro with carbohydrate steady 90 mL by mouth twice daily - pantoprazole 40 mg by mouth daily - MiraLax 17 grams by mouth daily - Advair one puff twice daily - Renvela 800 mg tablets two by mouth four times weekly and 1500 mg by mouth three times weekly - simvastatin 40 mg by mouth daily at bedtime - Kionex 15 grams by mouth one time per week - vitamin B complex Nephrovite one tablet by mouth daily Patient is discharged in stable and satisfactory condition. There was no further questions at time of discharge.
--- NOTE | 2018-11-22 22:01 | IPN ---
DATE OF VISIT: 11/20/2018 HISTORY OF PRESENT ILLNESS: Mrs. Garcia is seen this morning on her bedside. She is feeling much better and her dyspnea has improved significantly. She denies any fever or chills. She has no nausea or vomiting. PHYSICAL EXAMINATION: Vital signs: Temperature 97.3 degrees Fahrenheit, heart rate 60 per minute, respiratory rate (cut off) . Blood pressure 127/44 mmHg and oxygen saturation 100% on 4 liters oxygen. HEENT: Head is atraumatic. She has no oral thrush or ulcers. Neck is supple and Perma-Cath is present on left upper chest into the left internal jugular vein. Heart: Sounds are irregular in rhythm. Lungs: Diminished breath sounds at bases. Abdomen: Soft and nontender. Bowel sounds are normal. Extremities: No cyanosis or clubbing. She has bilateral lower extremity amputations. Neurologically: She is alert and oriented times three. LABORATORY DATA: Today's labs show WBC count 11.7, hemoglobin 10.9 and hematocrit 34.7. Sodium 133, potassium 4.6, CO2 25, BUN 33 and creatinine 3.77. PROBLEMS: 1. End-stage renal disease. The patient is regularly dialyzed on Wednesday, Wednesday and Wednesday schedule. She was last dialyzed on Wednesday and we will plan to dialyze her again tomorrow. 2. Congestive heart failure. She is known to have systolic congestive heart failure. Volume status is very well compensated and will try to remove about 3 liters of fluid with dialysis tomorrow as tolerated. 3. Anemia. Her anemia is mild and stable and does not need any urgent intervention at this point. 4. Pneumonia. The patient is currently afebrile and doing well and remains on antibiotics. Blood cultures have been negative so far.
== END 2018-11-22 09:40 | DRG 193 ==
LOC: EDBD 15:09 → M ED 15:09 → M ED INP 20:26 → M PCU 23:08 → M MSPAV 11-18 14:00
PROVIDERS: ADMIT Internal Medicine; ATTEND Family Medicine
PROC: 5A1D70Z Performance of Urinary Filtration, Intermittent, Less than 6 Hours Per Day (ICD-10-PCS; principal; 2018-11-18)
DX: J18.9 Pneumonia, unspecified organism (principal); N18.6 End stage renal disease; J93.11 Primary spontaneous pneumothorax; I13.2 Hypertensive heart and chronic kidney disease with heart failure and with stage 5 chronic kidney disease, or end stage renal disease; I48.91 Unspecified atrial fibrillation; E11.22 Type 2 diabetes mellitus with diabetic chronic kidney disease; Y95 Nosocomial condition; I50.9 Heart failure, unspecified; D63.1 Anemia in chronic kidney disease; J44.9 Chronic obstructive pulmonary disease, unspecified; I95.89 Other hypotension; Z79.899 Other long term (current) drug therapy; Z99.2 Dependence on renal dialysis; Z95.1 Presence of aortocoronary bypass graft; Z89.512 Acquired absence of left leg below knee; Z79.82 Long term (current) use of aspirin; Z89.611 Acquired absence of right leg above knee; Z88.2 Allergy status to sulfonamides; Z79.4 Long term (current) use of insulin; Z88.1 Allergy status to other antibiotic agents; Z88.5 Allergy status to narcotic agent; Z88.8 Allergy status to other drugs, medicaments and biological substances; Z99.81 Dependence on supplemental oxygen

== ENCOUNTER → 2018-11-17 | Outpatient (REF) | payer MEDICARE, MEDICAID ==
[~2018-11-17] MED LIST changes: +/FAMO2TA PO; +/FERG32TA PO; +/GLYB5TA; +/HYDR10TAB PO; +/PANT40TA PO; +/WARF25TA; +/WARF2TA PO; +/WARF5TA; +/WARF5TA OR; +/WARF5TA PO; -ALBU83IN INH; -ASPI-255 PO; +ASPI325T25 PO; +CITA20TA4 PO; -CITA20TA6 PO; -COUM1TAB16 PO; -COUM1TAB17; -COUM1TAB17 OR; -COUM1TAB17 PO; -COUM1TAB18; +DOCU10ELUD PO; -DOCU5LIQ PO; -DOXY100T PO; -FAMO1TAB11 PO; -FERR1TAB6 PO; -GLUC1VIA2 SC; +GLUC1VL SC; +GLUC4GMTAB PO; -GLYB1TAB29; -HYDR-3677 PO; -LEAD1CHW PO; +MIRA255PW PO; -MUCI600T37 PO; -NEPH1TAB11 PO; +NEPHTAB PO; -POLY1POW4 PO; -PRED10TA2 PO; +SILV50CR TOP; -THER1CRE16 TOP; +VANC250C2 IV; -VANC250C3 IV
[2018-11-17 09:29] LABS: BASO % 0.1 % (0.0-1.0); EOS % 0.2 % (0.0-3.0); HEMATOCRIT 33.8 % (36.0-47.0); HEMOGLOBIN 10.8 g/dl (12.0-15.5); LYMPH % 5.4 % (24.0-44.0); MEAN CORPUSCULAR HEMOGLOBIN 32.8 pg (27.0-33.0); MEAN CORPUSCULAR VOLUME 102.7 fl (80.0-96.0); MONO # 1.7 10^3/uL (0.0-0.8); MONO % 9.7 % (0.0-5.0); NEUTROPHILS # 14.7 10^3/uL (1.8-7.7); NEUTROPHILS % 83.9 % (36.0-66.0); PLATELET COUNT, AUTOMATED 175 10^3/uL (150-450); RED BLOOD COUNT 3.29 10^6/uL (4.00-5.40); WHITE BLOOD COUNT 17.5 10^3/uL (4.0-10.0)
--- NOTE | 2018-11-17 13:40 | REP ---
Chest one-view HISTORY: CHF Comparison: 10/04/2018 Patchy density is present in the lower lobes consistent with bibasilar atelectasis or infiltrate slightly increased on the right and new on the left. The density is present in the right upper lobe consistent with atelectasis or infiltrate. A small right pleural effusion is present. The cardiac silhouette is enlarged. The pulmonary vasculature is normal in appearance. A cardiac pacemaker and central venous catheter are present. Impression: 1. Bibasilar atelectasis or infiltrates increased on the right and new on the left. 2. Right upper lobe atelectasis or infiltrate new compared to the previous study. 3. Small right pleural effusion. 4. Cardiomegaly. Electronically Signed by Cj Kwok MD 11/17/2018 01:32 P
== END ==
LOC: SKLAB3 08:58
PROVIDERS: ATTEND Family Medicine
DX: R53.83 Other fatigue (principal)

== ENCOUNTER 2018-11-29 21:41 | Inpatient (IN) | payer MEDICARE, MEDICAID ==
[~2018-11-29] VITALS: Ht 139.7 cm; Wt 80.8 kg
[2018-11-29] MEDS: HumaLOG INSULIN (NovoLOG) PER UNIT SC SCH (21:00)
[~2018-11-29 21:41] MED LIST changes: -ALBU83IN INH; -MUCI600T37 PO; -PRED10TA2 PO
[2018-11-29 22:51] LABS: BASO % 0.2 % (0.0-1.0); HEMOGLOBIN 10.1 g/dl (12.0-15.5); LYMPH # 0.4 10^3/uL (1.5-4.5); LYMPH % 3.6 % (24.0-44.0); MEAN CORPUSCULAR HEMOGLOBIN 32.9 pg (27.0-33.0); MEAN CORPUSCULAR HGB CONC 30.6 g/dl (32.0-36.5); MEAN CORPUSCULAR VOLUME 107.5 fl (80.0-96.0); MONO # 0.3 10^3/uL (0.0-0.8); MONO % 2.2 % (0.0-5.0); NEUTROPHILS # 11.4 10^3/uL (1.8-7.7); NEUTROPHILS % 93.3 % (36.0-66.0); PLATELET COUNT, AUTOMATED 171 10^3/uL (150-450); RED BLOOD COUNT 3.07 10^6/uL (4.00-5.40); WHITE BLOOD COUNT 12.2 10^3/uL (4.0-10.0)
[2018-11-29] MEDS ORDERED: ALBU83IN INH (23:02)
[2018-11-29] MEDS ORDERED: CITA20TA4 PO (23:02)
[2018-11-29] MEDS ORDERED: PRED10TA2 PO (23:02)
[2018-11-29] MEDS ORDERED: MUCI600T37 PO (23:02)
[2018-11-29] MEDS ORDERED: IMIPENEM/CILASTATIN 500 MG in D5W MINI-BAG PLUS 100 ML IV ONE (23:15)
[2018-11-29] MEDS ORDERED: VANCOMYCIN HCL 1,000 MG, VIAL MATE ADAPTER 1 EACH in D5W 250 ML IV ONE (23:15)
[2018-11-29 23:32] LABS: BILIRUBIN,DIRECT 0.2 MG/DL (0.0-0.2); BILIRUBIN,TOTAL 0.5 MG/DL (0.2-1.0); CALCIUM LEVEL 8.5 MG/DL (8.8-10.2); CREATININE FOR GFR 3.29 MG/DL (0.55-1.30); GLOMERULAR FILTRATION RATE 14.3 (>32); MB/CK RELATIVE INDEX 4.11 (< OR =4); POTASSIUM SERUM 4.7 MEQ/L (3.5-5.1); THYROID STIMULATING HORMONE 0.588 uIU/ML (0.358-3.740); THYROXINE (T4) 7.2 UG/DL (4.5-12.0); TOTAL PROTEIN 6.9 GM/DL (6.4-8.2); TROPONIN I 0.24 NG/ML (< 0.10)
[2018-11-30] MEDS ORDERED: ALBUTEROL SULFATE 2.5 MG/0.5 ML INH NEB SOLN INH PRN (01:15)
[2018-11-30] MEDS ORDERED: BISACODYL 10 MG SUPP PR PRN (01:15)
[2018-11-30] MEDS ORDERED: GLUCAGON FOR INJ 1 MG VIAL (J1610) SC PRN (01:15)
[2018-11-30] MEDS ORDERED: DEXTROSE 50% 50 ML SYRINGE IV PRN (01:15)
[2018-11-30] MEDS ORDERED: GLUCOSE 4 GM CHEW TABLET PO PRN (01:15)
--- NOTE | 2018-11-30 01:23 | REPVR ---
EXAM: CT Chest Without Contrast EXAM DATE/TIME: 11/30/2018 12:11 AM CLINICAL HISTORY: 83 years old, female; Signs and symptoms; Shortness of breath; Additional info: Pneumonia TECHNIQUE: Axial computed tomography images of the chest without intravenous contrast. All CT scans at this facility use at least one of these dose optimization techniques: automated exposure control; mA and/or kV adjustment per patient size (includes targeted exams where dose is matched to clinical indication); or iterative reconstruction. Coronal and sagittal reformatted images were created and reviewed. MIP reconstructed images were created and reviewed. COMPARISON: CT Chest without contrast 04/22/2018 1:30 PM FINDINGS: Limitations: Respiratory motion artifact degrades the image quality. Tubes, catheters and devices: There is a left internal jugular central venous line in place terminating in the superior vena cava. There is a left-sided AICD device in place with leads terminating in the right atrium and right ventricle. Thyroid: The thyroid gland is heterogeneous in appearance and contain several thyroid nodules, the largest measuring approximately 2.2 cm in the left lobe and these findings are similar in appearance compared to the prior CT scan on 04/22/2018. Lungs: There are patchy airspace opacities in the right upper lobe, right middle lobe, left upper lobe, and left lower lobe. There is compressive atelectasis in both lower lobes. The major airways are patent. Pleural space: There is a moderate loculated right pleural effusion and a small nonloculated left pleural effusion. There is no pneumothorax. Heart: The heart is enlarged. No pericardial effusion is noted. There are calcifications of the aortic valve, mitral annulus, and coronary arteries. Postoperative changes are noted from a CABG. Mediastinum: No mediastinal hemorrhage or pneumomediastinum is noted. Pulmonary arteries: The main pulmonary artery is dilated and measures 3.5 cm in diameter, which can be seen with pulmonary artery hypertension. Aorta: The ascending aorta is dilated and measures 4.1 cm x 4.1 cm at the level of the main pulmonary artery. No intramural hematoma is noted. There are extensive atherosclerotic calcifications. Lymph nodes: There is prevascular, pretracheal, aortopulmonary window, and subcarinal lymphadenopathy. For example, there is an 11 mm prevascular lymph node, 10 mm and 17 mm pretracheal lymph nodes, an 11 mm aortopulmonary window lymph node, and a 10 mm subcarinal lymph node. Bones/joints: There is a chronic severe anterior wedge compression fracture of L1, which is similar in appearance compared to the prior CT scan on 04/22/2018. No acute fracture or dislocation is noted. Median sternotomy suture wires are in place. There is no dehiscence of the sternum. There are bridging paraspinal osteophytes at multiple contiguous levels in the thoracic spine, which is compatible with diffuse idiopathic skeletal hyperostosis. Soft tissues: Unremarkable. IMPRESSION: 1. Patchy airspace opacities in the right upper lobe, right middle lobe, left upper lobe, left lower lobe, which may represent pneumonia. 2. Moderate loculated right pleural effusion and a small left pleural effusion. 3. 4.1 cm x 4.1 cm dilated ascending aorta. 4. Prevascular, pretracheal, aortopulmonary window, and subcarinal lymphadenopathy, which may be reactive in nature. 5. Cardiomegaly. 6. Multinodular thyroid gland, which is similar in appearance compared to the prior CT scan on 04/22/2018. 7. Chronic severe anterior wedge compression fracture of L1, which is similar in appearance compared to the prior CT scan on 04/22/2018. COMMENT: Consistent with the [employer] Incidental Findings Committee Report (J Am Marleni Radiol 2015): Thyroid nodules greater than or equal to 1 cm in patients under 35 years old, or greater than or equal to 1.5 cm in patients over 35 years old, should undergo ultrasound. Patients with limited life expectancy and/or comorbidities do not require follow up imaging or biopsy for nodules of any size. Electronically signed by: David Jackson On 11/30/2018 01:23:03 AM
[2018-11-30 03:33] LABS: BASO % 0.1 % (0.0-1.0); HEMATOCRIT 30.5 % (36.0-47.0); HEMOGLOBIN 9.6 g/dl (12.0-15.5); LYMPH # 0.6 10^3/uL (1.5-4.5); LYMPH % 4.8 % (24.0-44.0); MEAN CORPUSCULAR HEMOGLOBIN 32.7 pg (27.0-33.0); MEAN CORPUSCULAR HGB CONC 31.5 g/dl (32.0-36.5); MEAN CORPUSCULAR VOLUME 103.7 fl (80.0-96.0); MONO # 0.7 10^3/uL (0.0-0.8); MONO % 5.5 % (0.0-5.0); NEUTROPHILS # 11.6 10^3/uL (1.8-7.7); NEUTROPHILS % 88.9 % (36.0-66.0); PLATELET COUNT, AUTOMATED 161 10^3/uL (150-450); RED BLOOD COUNT 2.94 10^6/uL (4.00-5.40)
[2018-11-30 03:59] LABS: CALCIUM LEVEL 8.7 MG/DL (8.8-10.2); CREATININE FOR GFR 3.57 MG/DL (0.55-1.30); POTASSIUM SERUM 4.5 MEQ/L (3.5-5.1)
--- NOTE | 2018-11-30 04:29 | HPE ---
DATE OF ADMISSION: 11/29/2018 PRIMARY CARE PROVIDER: Dr. Ho SUPERVISOR OVENS: Dr. Bauman CHIEF COMPLAINT: Shortness of breath and coughing. HISTORY OF PRESENT ILLNESS: This patient is an 83-year-old white female with multiple chronic medical conditions including end-stage renal disease on dialysis presented to the hospital for evaluation of the worsening shortness of breath and coughing. The history was provided by herself, but she is a poor historian. Per the patient, she uses oxygen supplement at 2 liters routinely. She had to be hospitalized here from November 17 to November 22 for pneumonia. In that admission, she was treated with intravenous (IV) vancomycin and meropenem and she was discharged back to correction on oral doxycycline. Per the patient as well as her daughter when she was discharged from hospital on November 22 she stated her difficulty breathing and coughing is not improving even with several days of antibiotics. Anyway after she went back to correction she said she continued to have shortness of breath. She continued to have coughing sometimes with brown phlegm. Also, she stated she may have some low grade temperature. She was sent back here for further evaluation for possible recurrent pneumonia. In [facility] emergency room (ER), she was given IV vancomycin as well as meropenem and medicine service was called for admission. REVIEW OF SYSTEMS: Low grade fever. No chills, no headache. No blurred vision. Positive shortness of breath. Positive coughing with some phlegm but not chest pain. No nausea, no vomiting. No abdominal pain and no diarrhea. All other systems reviewed were negative. PAST MEDICAL HISTORY: 1. End-stage renal disease on hemodialysis. 2. Type 2 diabetes. 3. Chronic atrial fibrillation but not on any anticoagulation treatment due to gastrointestinal (GI) bleed. 4. Chronic respiratory failure on 2 liters of oxygen supplementation. 5. A recent history of pneumonia. PAST SURGICAL HISTORY: 1. Open heart surgery. 2. Left ibind-ocb-huhc amputation (BKA) for peripheral vascular disease. 3. Right xasph-xam-dxpy amputation (AKA) for peripheral vascular disease. MEDICATIONS: Reviewed. ALLERGIES: Allergic to HEPARIN, LEVOFLOXACIN, MORPHINE, and PIPERACILLIN/TAZOBACTAM and TAZOBACTAM. SOCIAL HISTORY: No tobacco use, no alcohol abuse, no illicit drug abuse and she is and she is a resident in the correction. She is DO NOT RESUSCITATE/DO NOT INTUBATE (DNR/DNI). FAMILY HISTORY: Both parents have heart disease. PHYSICAL EXAMINATION: VITAL SIGNS: Temperature is 99.1, heart rate is 101, respirations 24, blood pressure is 120/91, oxygen saturation is 98% on 2 liters oxygen. GENERAL: She is awake, alert and oriented x3. She is not in acute distress. HEENT: Atraumatic. Pupils are equal, round, reactive to light. No jaundice. Extraocular muscles are intact. Ears, nose and throat are normal. Mouth: Mucosa is dry. NECK: No jugular venous distention (JVD). No bruits. LUNGS: Bibasilar crackles but no wheezing. HEART: S1, S2, irregular but no tachycardia. ABDOMEN: Soft, positive bowel sounds, nontender. LOWER EXTREMITIES: She has bilateral amputations. NEUROLOGIC: Nonfocal. SKIN: No rash. PSYCHIATRIC: No acute psychosis. DIAGNOSTIC LABORATORY STUDIES: Include the following: Complete blood count (CBC) and differential: White blood cell (WBC) 12.2, hemoglobin and hematocrit (H and H) 10/33, platelets 171. Sodium 137, potassium 4.7, chloride 101, bicarbonate 23, BUN 31, creatinine 2.21, glucose 172. IMPRESSION: 1. Chronic respiratory failure. 2. Questionable pneumonia. 3. Type 2 diabetes. 4. End-stage renal disease on hemodialysis. PLAN: The patient will be admitted to medical surgical floor. She was treated with vancomycin with meropenem for possible pneumonia recently and she is coming back for shortness of breath. Her chest x-ray as well as chest CT showed right pleural effusion and possible pneumonia. Since she is very complicated she was given IV vancomycin and meropenem. I recommend to consult infectious disease (ID) for further antibiotics management. Will continue her home regular medications. She needs hemodialysis. PHILIP
[2018-11-30] MEDS ORDERED: DOXYCYCLINE HYCLATE 100 MG in D5W MINI-BAG PLUS 100 ML IV SCH (05:00)
[2018-11-30] MEDS ORDERED: HEPARIN SOD (PORCINE) 5000 UNITS/ML VIAL SC SCH (06:00)
[2018-11-30] MEDS: guaiFENesin ER 600 MG TAB PO SCH ×3 (06:30→22:48)
[2018-11-30] MEDS: HumaLOG INSULIN (NovoLOG) PER UNIT SC SCH ×4 (07:30→21:00)
[2018-11-30] MEDS: (RENVELA) SEVELAMER **CARBONate** 800 MG TAB PO SCH ×3 (07:52→17:00)
--- NOTE | 2018-11-30 08:01 | REP ---
Portable chest, single AP upright view, 11:13 p.m.: Comparison is 03:11 p.m. earlier this same date. The bibasilar infiltrates are unchanged. The right pleural effusion is unchanged. Cardiomegaly and sternotomy wires are unchanged. The pacemaker and left IJ central venous catheter remain in satisfactory locations, unchanged. Impression: No interval change. Electronically Signed by Yoan Wells MD 11/30/2018 07:53 A
[2018-11-30] MEDS: IPRATROPIUM 0.5MG/ALBUTEROL 2.5MG INH SOL UD 3ML (DUONEB)(J7620) INH SCH ×3 (08:54→16:00)
[2018-11-30] MEDS ORDERED: MEROPENEM INJ 500 MG in APPROPRIATE DILUENT 1 EA IV SCH (09:00)
[2018-11-30] MEDS: FOLIC ACID 1 MG TAB PO SCH (09:11)
[2018-11-30] MEDS: PANTOPRAZOLE 40MG TAB (PROTONIX) PO SCH (09:11)
[2018-11-30] MEDS: CitaloPRAM (CeleXA) 20 MG TAB PO SCH (09:11)
[2018-11-30] MEDS: predniSONE 10 MG TAB PO SCH (09:11)
[2018-11-30] MEDS: VITAMIN D 1,000 INTERNATIONAL UNITS TABLET PO SCH (09:11)
[2018-11-30] MEDS: SENOKOT S TAB PO SCH ×2 (09:11→21:00)
[2018-11-30] MEDS: MIRALAX *UNIT DOSE* 17GM PACKET PO SCH (09:11)
[2018-11-30] MEDS: ASPIRIN ENTERIC 325 MG TAB PO SCH (09:11)
[2018-11-30] MEDS: NEPHRO-VIT TAB (NEPHROCAPS) PO SCH (09:11)
[2018-11-30] MEDS: DOCUSATE SODIUM 100 MG CAP PO SCH ×2 (09:11→21:00)
--- NOTE | 2018-11-30 09:30 | ECGEPIP ---
Stationary ECG Study [facility] - ED Test Date: 2018-11-29 Pat Name: GARRET IRIZARRY Department: Room: [facility] Gender: F Facility Worker: gt : 1935 Requested By: ROBINSON Coley Order Number: [id number] Reading MD: Cristopher Méndez Measurements Intervals [place] Rate: 96 P: MN: 0 QRS: -36 QRSD: 142 T: 100 QT: 386 QTc: 489 Interpretive Statements UNCERTAIN IRREGULAR RHYTHM LEFT BUNDLE BRANCH BLOCK Movement artifact Electronically Signed On 11-30-2018 9:30:28 EST by Cristopher Méndez
--- NOTE | 2018-11-30 11:51 | IPNPDOC ---
Subjective Date Seen The patient was seen on 11/30/18. Subjective Chief Complaint/HPI Less SOB currently Pulmonary: Reports: Dyspnea; Denies: Cough Cardiovascular: Denies: Chest Pain, Palpitations Gastrointestinal: Denies: Nausea, Vomiting, Abdominal Pain, Diarrhea, Constipation Objective Physical Examination General Exam: Positive: Alert, No Acute Distress (breathing comfortably on 2L NC) Chest Exam: Positive: Clear to auscultation; Negative: Rales, Rhonchi, Wheezing Heart Exam: Positive: Rate Normal, Regular Rhythm Abdomen Exam: Positive: Normal bowel sounds, Soft; Negative: Tenderness Extremity Exam: Negative: Edema Assessment /Plan Problems (1) Influenza A Status: Acute Problem Text: Resp status stable on usual 2L NC. On oseltamivir, dosed after HD (2) Nosocomial pneumonia Status: Acute Problem Text: Initially started on Vanco/Meropenem. Then changed to doxy by admitting physician. (his note mentions discussing the case with ID, but im not certain if this occurred and per haps is why the med change was made). Pending cultures, will change back to meropenem and vanco and stop doxy. (3) Chronic systolic heart failure Status: Chronic Response to Treatment: Stable (4) COPD (chronic obstructive pulmonary disease) Status: Chronic Problem Text: cont nebs & chronic prednisone (5) End stage renal disease on dialysis Status: Chronic Response to Treatment: Stable Problem Text: cont dialysis as per usual routine (6) Diabetes mellitus, type 2 Status: Chronic Response to Treatment: Stable (7) Anemia due to chronic kidney disease, on chronic dialysis Status: Chronic Response to Treatment: Stable (8) Amputation leg, bilat Status: Chronic Response to Treatment: Stable Plan/VTE VTE Prophylaxis Ordered?: Yes (start SQ heparin) VS, I&O, 24H, Fishbone Vital Signs/I&O Vital Signs Date Time Temp Pulse Resp B/P (MAP) Pulse Ox O2 Delivery O2 Flow Rate FiO2 11/30/18 08:55 16 11/30/18 07:26 86 115/67 (83) 100 11/30/18 05:26 97.4 Nasal Cannula 3.0 Laboratory Data 24H LABS Laboratory Tests 2 11/29/18 22:31: Immature Granulocyte % (Auto) 0.7, White Blood Count 12.2H, Red Blood Count 3.07L, Hemoglobin 10.1L, Hematocrit 33.0L, Mean Corpuscular Volume 107.5H, Mean Corpuscular Hemoglobin 32.9, Mean Corpuscular Hemoglobin Concent 30.6L, Red Cell Distribution Width 17.9H, Platelet Count 171, Neutrophils (%) (Auto) 93.3H, Lymphocytes (%) (Auto) 3.6L, Monocytes (%) (Auto) 2.2, Eosinophils (%) (Auto) 0.0, Basophils (%) (Auto) 0.2, Neutrophils # (Auto) 11.4H, Lymphocytes # (Auto) 0.4L, Monocytes # (Auto) 0.3, Eosinophils # (Auto) 0.0, Basophils # (Auto) 0.0, Nucleated Red Blood Cells % (auto) 0.0, Anion Gap 13, Glomerular Filtration Rate 14.3L, Lactic Acid Level 2.1*H, Calcium Level 8.5L, Aspartate Amino Transf (AST/SGOT) 28, Alanine Aminotransferase (ALT/SGPT) 15, Alkaline Phosphatase 126H, Total Bilirubin 0.5, Direct Bilirubin 0.2, Total Creatine Kinase 56, Creatine Kinase MB 2.0, Creatine Kinase MB Relative Index 4.11H, Troponin I 0.24H, QS-Ecv-L-Type Natriuretic Peptide 43000C, Total Protein 6.9, Albumin 3.0L, Albumin/Globulin Ratio 0.77L, Thyroid Stimulating Hormone (TSH) 0.588, Thyroxine (T4) 7.2 11/30/18 01:22: Bedside Glucose (Misc Panel) 156H 11/30/18 03:24: Immature Granulocyte % (Auto) 0.7, White Blood Count 13.0H, Red Blood Count 2.94L, Hemoglobin 9.6L, Hematocrit 30.5L, Mean Corpuscular Volume 103.7H, Mean Corpuscular Hemoglobin 32.7, Mean Corpuscular Hemoglobin Concent 31.5L, Red Cell Distribution Width 17.5H, Platelet Count 161, Neutrophils (%) (Auto) 88.9H, Lymphocytes (%) (Auto) 4.8L, Monocytes (%) (Auto) 5.5H, Eosinophils (%) (Auto) 0.0, Basophils (%) (Auto) 0.1, Neutrophils # (Auto) 11.6H, Lymphocytes # (Auto) 0.6L, Monocytes # (Auto) 0.7, Eosinophils # (Auto) 0.0, Basophils # (Auto) 0.0, Nucleated Red Blood Cells % (auto) 0.0, Anion Gap 12, Glomerular Filtration Rate 13.0L, Calcium Level 8.7L, Lactic Acid Followup at 4 Hours 1.6, Blood Urea Nitrogen 36H, Creatinine 3.57H, Sodium Level 137, Potassium Level 4.5, Chloride Level 99, Carbon Dioxide Level 26 11/30/18 07:27: Bedside Glucose (Misc Panel) 176H CBC/BMP Laboratory Tests 11/29/18 22:31 Red Blood Count 3.07 L, Mean Corpuscular Volume 107.5 H, Mean Corpuscular Hemoglobin 32.9, Mean Corpuscular Hemoglobin Concent 30.6 L, Red Cell Distribution Width 17.9 H, Neutrophils (%) (Auto) 93.3 H, Lymphocytes (%) (Auto) 3.6 L, Monocytes (%) (Auto) 2.2, Eosinophils (%) (Auto) 0.0, Basophils (%) (Auto) 0.2, Neutrophils # (Auto) 11.4 H, Lymphocytes # (Auto) 0.4 L, Monocytes # (Auto) 0.3, Eosinophils # (Auto) 0.0, Basophils # (Auto) 0.0 11/30/18 03:24 Red Blood Count 2.94 L, Mean Corpuscular Volume 103.7 H, Mean Corpuscular Hemoglobin 32.7, Mean Corpuscular Hemoglobin Concent 31.5 L, Red Cell Distribution Width 17.5 H, Neutrophils (%) (Auto) 88.9 H, Lymphocytes (%) (Auto) 4.8 L, Monocytes (%) (Auto) 5.5 H, Eosinophils (%) (Auto) 0.0, Basophils (%) (A uto) 0.1, Neutrophils # (Auto) 11.6 H, Lymphocytes # (Auto) 0.6 L, Monocytes # (Auto) 0.7, Eosinophils # (Auto) 0.0, Basophils # (Auto) 0.0, Calcium Level 8.7 L Microbiology Microbiology 11/30/18 Blood Culture, Received Pending 11/29/18 Blood Culture, Received Pending 11/30/18 Respiratory Virus Panel (PCR) ([facility]LE[facility]) - Final, Complete Influenza A H1-2009 Attending Note Attending Note Patient with pneumonia, nosocomial. complicating influenza. continue antibiotics as ordered, consider KAMINI MATUTE PA-C Nov 30, 2018 11:51 Marin Teran MD Dec 01, 2018 10:10
[2018-11-30 12:00] VITALS: BP 103/46
[2018-11-30] MEDS ORDERED: OSELTAMIVIR PHOSPHATE 30MG CAPSULE PO ONE (14:00)
--- NOTE | 2018-11-30 15:03 | PHACANCOPD ---
PHARMACY VANCOMYCIN DOSING Pt Demographics Demographics Patient Age:83 , Weight: , Gender: female Adjusted Body Weight Date: 11/30/18, Adjusted Body Weight: Kg Events Past 24 Hours Events Past 24 Hours: YES: Dialysis, Elevation in WBC; NO: Diuretic Therapy, Change in CrCl, Fever, Pending Diagnostics, Pending Procedures, Other Vancomycin Vancomycin Target Ranges: 15-20 mcg/ml Vancomycin Load Y/N: Yes Load Dose Date Time Vancomycin Load Dose: 1G Date: 11/29/18 Time: 2300 Vancomycin Dose Date: 11/30/18. Current Vancomycin Dose: Intermittent Dosing?: No Labs Labs Vital Signs Label Value Date Time Patient Temperature 97.9 degrees F 11/30/18 1200 Temperature Source Temporal 11/30/18 1200 Patient Temperature 97.4 degrees F 11/30/18 0526 Temperature Source Oral 11/30/18 0526 Patient Temperature 98.2 degrees F 11/30/18 0156 Temperature Source Oral 11/30/18 0156 Item Value Date Time White Blood Count 13.0 10^3/uL H 11/30/18 0324 White Blood Count 12.2 10^3/uL H 11/29/18 2231 Lactic Acid Level 2.1 MMOL/L *H 11/29/18 2231 Creatinine 3.29 MG/DL H 11/29/18 2231 Creatinine 3.57 MG/DL H 11/30/18 0324 Micro Microbiology 11/30/18 Blood Culture, Received Pending 11/29/18 Blood Culture, Received Pending 11/30/18 Stool Occult Blood (AILEEN) - Final, Complete 11/30/18 Respiratory Virus Panel (PCR) (AILEEN) - Final, Complete Influenza A H1-2008 Creatinine Clearance Date:11/30/18. Creatinine Clearance: . Assessment and Plan Maintaining Current Dose?: Yes Reason for dose change: No Dose Change Pharmacist Note Pharmacist Note Date: 11/30/18. Pharmacist note: [facility]. is an 83 [facility] She is here for worsening SOB. She has been here in Sep and Oct for pneumonia. She has tested positive for Influenza A. We have also started her on Merrem 500mg IV Q24H and Vanco for Pneumonia. I have ordered a MRSA nares to help with future de-escalation. Per her last two visits and consults I have scheduled the pt to receive Vanco 1G IV HD. She receives HD on MWF and is currently receiving it now. I have scheduled a random for Fri AM. We will continue to monitor and adjust dose as needed. RICHARD GOMEZ PHARMACY Nov 30, 2018 15:03
[2018-11-30] MEDS: MEROPENEM INJ 500 MG in APPROPRIATE DILUENT 1 EA IV SCH (15:14)
[2018-11-30] MEDS ORDERED: VANCOMYCIN HCL 1,000 MG, VIAL MATE ADAPTER 1 EACH in D5W 250 ML IV SCH (16:00)
[2018-11-30] MEDS ORDERED: HEPARIN 1,000 UNITS/ML 10ML VIAL (FOR RADIOLOGY& DIALYSIS ONLY) XX ONE (17:00)
[2018-11-30] MEDS ORDERED: OSELTAMIVIR PHOSPHATE 30MG CAPSULE PO SCH (18:00)
[2018-11-30 20:00] VITALS: BP 88/58
[2018-11-30 22:00] VITALS: BP 84/56
[2018-11-30] MEDS: SIMVASTATIN 40 MG TAB PO SCH (22:49)
[2018-11-30] MEDS: ACETAMINOPHEN TAB 650MG DOSE (2X325MG) PO PRN (22:51)
[2018-12-01 06:00] VITALS: BP 125/50
[2018-12-01] MEDS ORDERED: NS 500 ML IV ONE (06:00)
[2018-12-01] MEDS: guaiFENesin ER 600 MG TAB PO SCH ×3 (06:08→21:18)
[2018-12-01] MEDS: (RENVELA) SEVELAMER **CARBONate** 800 MG TAB PO SCH ×3 (06:09→16:28)
--- NOTE | 2018-12-01 06:10 | CR ---
DATE OF CONSULTATION: 11/30/2018 REQUESTING PHYSICIAN: Dr. Teran REASON FOR CONSULTATION: Management of end-stage renal disease on hemodialysis. The patient is an 83-year-old female with a past medical history of end-stage renal disease on hemodialysis on a Wednesday, Wednesday and Wednesday maintenance schedule who is a halfway jail patient, also has history of type 2 diabetes, chronic atrial fibrillation but not on anticoagulation treatment, chronic respiratory failure home oxygen dependent and other comorbid conditions mentioned below. The patient states she was in her usual state of health until late October when she was hospitalized and treated for pneumonia. She was subsequently discharged back to jail on oral doxycycline but she continued to have coughing and shortness of breath and low grade fevers. She ultimately tested positive for the flu. The patient is seen and examined this morning in the hemodialysis unit receiving her maintenance treatment. She denies any acute overnight events. PAST MEDICAL HISTORY: 1. Longstanding diabetes. 2. Hypertension. 3. Congestive heart failure. 4. End-stage renal disease. 5. Anemia with prior history of gastrointestinal (GI) bleed. 6. History of atrial fibrillation (AFib) not on anticoagulation. 7. History of prior pneumonia just a few weeks ago. 8. History of chronic hypoxemia oxygen dependent. PAST SURGICAL HISTORY: 1. Arteriovenous (AV) fistula creation and ligation due to steal syndrome. 2. Permacath placement. 3. Bilateral lower extremity amputations. 4. She has right [id number]-[id number] amputation and left [id number]-ovm-[id number] ampuatation. 5. History of coronary artery bypass grafting. PERSONAL HISTORY AND SOCIAL HISTORY: She is a halfway jail resident. She does not smoke or drink. FAMILY HISTORY: Significant for diabetes but not family history of end-stage renal disease. HOME MEDICATIONS: Home medications are reviewed. ALLERGIES: HEPARIN, LEVAQUIN, MORPHINE, and ZOSYN. REVIEW OF SYSTEMS: CONSTITUTIONAL: She reports fever, cough and fatigue. HEENT: Eyes: She denies visual changing or blurring. ENT: She denies nasal discharge or ear pain. CARDIAC: She has a history of congestive heart failure (CHF) and atrial fibrillation (AFib). PULMONARY: She is oxygen dependent, chronic hypoxemia. She reports cough and shortness of breath. GASTROINTESTINAL (GI): She denies nausea or vomiting. GENITOURINARY: Significant for a prior history of urinary tract infections (UTI). ENDOCRINE: Significant for diabetes and secondary hyperparathyroidism. NEUROLOGIC: Negative for seizures or strokes. PSYCHOSOCIAL: Significant for anxiety. HEMATOLOGIC: Significant for anemia of chronic kidney disease. She is not on anticoagulation. MEDICATIONS: Reviewed and include: - DuoNebs - Xanax - aspirin - vitamin D - Dulcolax - Celexa - Senokot - folic acid - midodrine 5 mg three times a day - Protonix 40 mg by mouth daily - Renagel 1600 mg three times a day with meals - simvastatin 40 mg daily - Nephro-Erica 1 tablet daily - Advair Diskus twice a day ALLERGIES: LEVAQUIN, MORPHINE, ZOSYN, HEPARIN and SULFA. PHYSICAL EXAMINATION: VITAL SIGNS: Temperature 97.9, pulse 87, respiratory rate 20, blood pressure 103/46 saturating 98% on 2 liters nasal cannula. Intake is not recorded. Dialysis today removed 2500. GENERAL: The patient is seen in the hemodialysis unit receiving her maintenance treatment. She is awake, alert, conversational, smiling in no acute respiratory distress. Tongue is moist. Neck is supple. CARDIAC: S1, S2. Regular rate. LUNGS: Show symmetric air entry bilaterally. Occasional cough is noted. No crackle or rale. ABDOMEN: The abdomen is soft, obese and nontender. EXTREMITIES: Show bilateral amputations. There is no edema. NEUROLOGIC: She is cooperative with the physical examination and conversational and interactive. LABORATORIES: White count 13, hemoglobin 9.6, platelets 161. Sodium 137, potassium 4.5, bicarbonate 26, lactic 1.6. Brain natriuretic peptide (BNP) 53055. CT chest November 30, 2018 shows patchy airspace opacities in the right upper right middle, left upper and left lower lobe, moderate loculated right pleural effusion, lymphadenopathy. INPATIENT MEDICATIONS: The patient received: - Primaxin - the patient received one dose of Primaxin - meropenem 500 mg intravenous (IV) daily - vancomycin renally dosed - Mucinex by mouth every 8 hours - Tylenol as needed - DuoNebs - aspirin 325 mg by mouth daily - Celexa 20 mg by mouth daily - docusate 100 mg by mouth twice a day - Senokot 2 tablets by mouth twice a day - folic acid 1 mg by mouth daily - insulin - Tamiflu 30 mg by mouth post dialysis - Protonix 40 mg by mouth daily - prednisone 10 mg by mouth daily - Renvela 1600 mg by mouth with meal - simvastatin 40 mg by mouth at bedtime - vitamin D 2000 units by mouth daily PROBLEMS: 1. End-stage renal disease on hemodialysis on a Wednesday, Wednesday and Wednesday maintenance schedule. The patient was dialyzed today per her maintenance schedule, 2.5 liters were removed. Her electrolytes and volume status are acceptable. No changes are being made to her chronic prescription. 2. Influenza A. The patient is requiring her usual amount of supplemental oxygen and she is receiving renally dosed Tamiflu per the primary team. 3. Healthcare-associated pneumonia. CT chest November 30, 2018 noted pneumonia possibly appears to be multifocal. She also has a moderate loculated right pleural effusion. Given that she has been having recurrent admissions for pneumonia this should likely be drained. Defer to the primary team. She continues on empiric renally dosed vancomycin and meropenem. Leukocytosis is noted and she is afebrile. 4. Chronic systolic congestive heart failure. Brain natriuretic peptide (BNP) 26,000. Dialysis today removed 2500 mL. She is tolerating her treatments and ultrafiltration without issue. 5. Anemia related to chronic renal failure. Hemoglobin is 9.6 which is fairly close to her usual baseline. Aranesp will be resumed as indicated. Thank your for involving me in the care of . Angelina Garcia. I am happy to follow her along with you.
[2018-12-01] MEDS: HumaLOG INSULIN (NovoLOG) PER UNIT SC SCH ×4 (07:30→21:00)
[2018-12-01] MEDS: IPRATROPIUM 0.5MG/ALBUTEROL 2.5MG INH SOL UD 3ML (DUONEB)(J7620) INH SCH ×4 (08:06→20:12)
--- NOTE | 2018-12-01 08:30 | IPNPDOC ---
Subjective Date Seen The patient was seen on 12/01/18. Subjective Chief Complaint/HPI BP was low overnight 84/56 at 2200, but normalized per vital signs this am without intervention. Patient reports breathing feels better today Constitutional: Denies: Chills, Fever Pulmonary: Denies: Dyspnea, Cough Cardiovascular: Denies: Chest Pain, Palpitations Gastrointestinal: Denies: Nausea, Vomiting, Abdominal Pain, Diarrhea, Constipation Objective Physical Examination General Exam: Positive: Alert, No Acute Distress (breathing comfortably on 2L NC) Chest Exam: Positive: Clear to auscultation, Wheezing (Diffuse exp wheezes BL ); Negative: Rales, Rhonchi Heart Exam: Positive: Rate Normal, Regular Rhythm Abdomen Exam: Positive: Normal bowel sounds, Soft; Negative: Tenderness Extremity Exam: Negative: Edema Assessment /Plan Problems (1) Hypotension Status: Acute Response to Treatment: Improving Problem Text: resolved this am. she was post dialysis yesterday when her pressure was low. Patient on chronic prednisone likely has some adrenal insufficiency. I will start hydrocortisone stress dose while undergoing treatment for pneumonia and flu (2) Influenza A Status: Acute Problem Text: Resp status stable on usual 2L NC Tamiflu started yesterday at renal dose Cont nebs (3) Nosocomial pneumonia Status: Acute Problem Text: 12/01 - Abx switched back to Vanco/Meropenem - broader coverage is warranted due to increased infiltrate on CXR felt to be a nosocomial pneumonia (4) Chronic systolic heart failure Status: Chronic Response to Treatment: Stable (5) COPD (chronic obstructive pulmonary disease) Status: Chronic Problem Text: cont nebs & chronic prednisone (6) End stage renal disease on dialysis Status: Chronic Response to Treatment: Stable Problem Text: cont dialysis as per usual routine (7) Diabetes mellitus, type 2 Status: Chronic Response to Treatment: Stable Problem Text: Cont sliding scale - monitor BS and adjust management while on steroids (8) Anemia due to chronic kidney disease, on chronic dialysis Status: Chronic Response to Treatment: Stable (9) Amputation leg, bilat Status: Chronic Response to Treatment: Stable Plan/VTE VTE Prophylaxis Ordered?: Yes (start SQ heparin) Disposition Back to [facility] once stable VS, I&O, 24H, Fishbone Vital Signs/I&O Vital Signs Date Time Temp Pulse Resp B/P (MAP) Pulse Ox O2 Delivery O2 Flow Rate FiO2 12/01/18 08:07 12 12/01/18 06:00 97.3 94 125/50 (75) 95 3.0 11/30/18 05:26 Nasal Cannula I&O- Last 24 Hours up to 6 AM 12/01/18 06:00 Intake Total 480 ml Output Total 2500 ml Balance -2020 ml Laboratory Data 24H LABS Laboratory Tests 2 11/30/18 11:52: Bedside Glucose (Misc Panel) 175H 11/30/18 19:56: Bedside Glucose (Misc Panel) 145H Microbiology Microbiology 11/30/18 Blood Culture - Preliminary, Resulted No growth after 24 hours . All specim... 11/29/18 Blood Culture - Preliminary, Resulted No growth after 24 hours . All specim... 11/30/18 Stool Occult Blood (AILEEN) - Final, Complete 11/30/18 Respiratory Virus Panel (PCR) (AILEEN) - Final, Complete Influenza A H1-2008 KAMINI ROTHMAN PA-C Dec 01, 2018 08:30 Marin Teran MD Dec 01, 2018 10:11
[2018-12-01] MEDS: PANTOPRAZOLE 40MG TAB (PROTONIX) PO SCH (08:50)
[2018-12-01] MEDS: SENOKOT S TAB PO SCH ×2 (08:50→21:00)
[2018-12-01] MEDS: CitaloPRAM (CeleXA) 20 MG TAB PO SCH (08:50)
[2018-12-01] MEDS: FOLIC ACID 1 MG TAB PO SCH (08:50)
[2018-12-01] MEDS: ASPIRIN ENTERIC 325 MG TAB PO SCH (08:50)
[2018-12-01] MEDS: VITAMIN D 1,000 INTERNATIONAL UNITS TABLET PO SCH (08:51)
[2018-12-01] MEDS: MIRALAX *UNIT DOSE* 17GM PACKET PO SCH (08:51)
[2018-12-01] MEDS: predniSONE 10 MG TAB PO SCH (08:51)
[2018-12-01] MEDS: DOCUSATE SODIUM 100 MG CAP PO SCH ×2 (08:51→21:00)
[2018-12-01] MEDS: NEPHRO-VIT TAB (NEPHROCAPS) PO SCH ×2 (09:00→16:28)
[2018-12-01] MEDS: HYDROCORTISONE 100 MG/2 ML VIAL (J1720) IV SCH ×3 (12:38→21:17)
--- NOTE | 2018-12-01 14:14 | IPN ---
DATE OF SERVICE: 12/01/2018 SUBJECTIVE: The patient is seen and examined this morning at the bedside. She complains of ongoing cough and congestion. Blood pressures were soft overnight and I see she received 500 mL of normal saline. She reports her appetite is still poor. VITAL SIGNS: Temperature 97.3, pulse 94, respiratory rate 22, blood pressure 125/50, saturating 95% on 2 liter nasal cannula. Intake yesterday was not fully recorded. Dialysis yesterday removed 2500 mL. Weight in the bed scale today is not recorded. PHYSICAL EXAMINATION: GENERAL: The patient is seen sitting upright in bed, head of bed elevated. HEENT: Extraocular muscles are intact. Tongue is moist. NECK: Veins are not elevated. CARDIAC: S1, S2, regular rate. LUNGS: Show scattered rhonchus and expiratory wheeze. ABDOMEN: Soft, nontender. EXTREMITIES: Show bilateral lower extremity amputations without edema. NEUROLOGIC: She is at her usual baseline mentation, interactive, conversation, and cooperative with physical exam. LABORATORY DATA: White count 13.0, hemoglobin 9.6, platelet 161, sodium 137, potassium 4.5, bicarbonate 26. INPATIENT MEDICATIONS: Reviewed by myself. She continues on meropenem and renally dosed vancomycin. Primary team started her on hydrocortisone 50 mg IV every 6 hours. Remainder of medications are unchanged from prior. PROBLEMS: 1. End-stage renal disease on hemodialysis on Wednesday, Wednesday, and Wednesday schedule. Patient continues with her usual dialysis prescription. Electrolytes are acceptable. She received small amount of IV fluids this morning for borderline blood pressures overnight. Oral intake has been poor. We will decrease ultrafiltration goal as required. 2. Influenza A. Patient continues on her usual supplemental oxygen and is on renally dosed Tamiflu and supportive care with nebulizers. 3. Pneumonia, recurrent. Family reports this is her third hospitalization for pneumonia. She is on renally doses vancomycin and meropenem. She has a moderate loculated right pleural effusion given recurrency of pneumonia I feel this should likely be drained, we will defer to primary team. 4. Chronic systolic congestive heart failure. Volume status is principally regulated by dialysis. Continue Wednesday, Wednesday, and Wednesday schedule. 5. Anemia related to chronic renal failure. Patient continues on Aranesp.
[2018-12-01] MEDS ORDERED: LIDOCAINE 1% MDV 20ML VIAL As Ordered ONE (14:35)
[2018-12-01 15:30] VITALS: BP 127/55
[2018-12-01] MEDS: [UNRECOGNIZED DRUG - OTHER] XX SCH (16:00)
[2018-12-01 16:24] LABS: HEMATOCRIT 30.9 % (36.0-47.0); HEMOGLOBIN 9.6 g/dl (12.0-15.5); MEAN CORPUSCULAR HEMOGLOBIN 32.1 pg (27.0-33.0); MEAN CORPUSCULAR HGB CONC 31.1 g/dl (32.0-36.5); MEAN CORPUSCULAR VOLUME 103.3 fl (80.0-96.0); PLATELET COUNT, AUTOMATED 192 10^3/uL (150-450); RED BLOOD COUNT 2.99 10^6/uL (4.00-5.40); WHITE BLOOD COUNT 10.4 10^3/uL (4.0-10.0)
[2018-12-01] MEDS: MEROPENEM INJ 500 MG in APPROPRIATE DILUENT 1 EA IV SCH ×2 (16:28→16:54)
[2018-12-01] MEDS ORDERED: SODIUM CHLORIDE 0.9% INJ 10 ML SYR IV PRN (17:15)
[2018-12-01] MEDS: SODIUM CHLORIDE 0.9% INJ 10 ML SYR IV SCH (17:37)
[2018-12-01 20:26] LABS: ALBUMIN 3.1 GM/DL (3.2-5.2); BILIRUBIN,TOTAL 0.7 MG/DL (0.2-1.0); CALCIUM LEVEL 8.1 MG/DL (8.8-10.2); CREATININE FOR GFR 2.76 MG/DL (0.55-1.30); GLOMERULAR FILTRATION RATE 17.5 (>32); POTASSIUM SERUM 3.9 MEQ/L (3.5-5.1); TOTAL PROTEIN 6.6 GM/DL (6.4-8.2)
[2018-12-01] MEDS: ACETAMINOPHEN TAB 650MG DOSE (2X325MG) PO PRN (21:17)
[2018-12-01] MEDS: SIMVASTATIN 40 MG TAB PO SCH (21:18)
[2018-12-01 22:00] VITALS: BP 127/56
[2018-12-02] MEDS: HYDROCORTISONE 100 MG/2 ML VIAL (J1720) IV SCH ×4 (03:38→21:02)
[2018-12-02 06:00] VITALS: BP 145/56
[2018-12-02] MEDS: SODIUM CHLORIDE 0.9% INJ 10 ML SYR IV SCH ×2 (06:00→18:14)
[2018-12-02 06:45] LABS: HEMATOCRIT 31.8 % (36.0-47.0); HEMOGLOBIN 10.1 g/dl (12.0-15.5); MEAN CORPUSCULAR HEMOGLOBIN 32.9 pg (27.0-33.0); MEAN CORPUSCULAR HGB CONC 31.8 g/dl (32.0-36.5); MEAN CORPUSCULAR VOLUME 103.6 fl (80.0-96.0); PLATELET COUNT, AUTOMATED 192 10^3/uL (150-450); RED BLOOD COUNT 3.07 10^6/uL (4.00-5.40)
[2018-12-02 06:52] LABS: CALCIUM LEVEL 8.5 MG/DL (8.8-10.2); CREATININE FOR GFR 3.39 MG/DL (0.55-1.30); GLOMERULAR FILTRATION RATE 13.8 (>32); PHOSPHORUS LEVEL 3.7 MG/DL (2.5-4.9); POTASSIUM SERUM 4.1 MEQ/L (3.5-5.1); VANCOMYCIN RANDOM 19.4 UG/ML
[2018-12-02] MEDS: guaiFENesin ER 600 MG TAB PO SCH ×3 (06:55→21:01)
[2018-12-02] MEDS: (RENVELA) SEVELAMER **CARBONate** 800 MG TAB PO SCH ×3 (06:56→18:11)
[2018-12-02] MEDS: VITAMIN D 1,000 INTERNATIONAL UNITS TABLET PO SCH (07:43)
[2018-12-02] MEDS: ASPIRIN ENTERIC 325 MG TAB PO SCH (07:44)
[2018-12-02] MEDS: CitaloPRAM (CeleXA) 20 MG TAB PO SCH (07:44)
[2018-12-02] MEDS: PANTOPRAZOLE 40MG TAB (PROTONIX) PO SCH (07:44)
[2018-12-02] MEDS: SENOKOT S TAB PO SCH ×2 (07:44→21:01)
[2018-12-02] MEDS: predniSONE 10 MG TAB PO SCH (07:44)
[2018-12-02] MEDS: NEPHRO-VIT TAB (NEPHROCAPS) PO SCH (07:44)
[2018-12-02] MEDS: FOLIC ACID 1 MG TAB PO SCH (07:44)
[2018-12-02] MEDS: DOCUSATE SODIUM 100 MG CAP PO SCH ×2 (07:44→21:01)
[2018-12-02] MEDS: HumaLOG INSULIN (NovoLOG) PER UNIT SC SCH ×4 (07:55→21:00)
[2018-12-02] MEDS: IPRATROPIUM 0.5MG/ALBUTEROL 2.5MG INH SOL UD 3ML (DUONEB)(J7620) INH SCH ×4 (07:58→19:37)
--- NOTE | 2018-12-02 08:42 | IPNPDOC ---
Subjective Date Seen The patient was seen on 12/02/18. Subjective Chief Complaint/HPI she thinks her breathing feels better. Constitutional: Denies: Chills, Fever Pulmonary: Denies: Dyspnea, Cough Cardiovascular: Denies: Chest Pain, Palpitations Gastrointestinal: Denies: Nausea, Vomiting, Abdominal Pain, Diarrhea, Constipation Objective Physical Examination General Exam: Positive: Alert, No Acute Distress (breathing comfortably on 2L NC) Chest Exam: Positive: Clear to auscultation; Negative: Rales, Rhonchi, Wheezing Heart Exam: Positive: Rate Normal, Regular Rhythm Abdomen Exam: Positive: Normal bowel sounds, Soft; Negative: Tenderness Extremity Exam: Positive: Other (BL amputation); Negative: Edema Assessment /Plan Problems (1) Loculated pleural effusion Problem Text: CT done 11/30:. Patchy airspace opacities in the right upper lobe, right middle lobe, left upper lobe, left lower lobe, which may represent pneumonia. 2. Moderate loculated right pleural effusion and a small left pleural effusion. 3. 4.1 cm x 4.1 cm dilated ascending aorta. 4. Prevascular, pretracheal, aortopulmonary window, and subcarinal lymphadenopathy, which may be reactive in nature. 5. Cardiomegaly. 6. Multinodular thyroid gland, which is similar in appearance compared to the prior CT scan on 04/22/2018. 7. Chronic severe anterior wedge compression fracture of L1, which is similar in appearance compared to the prior CT scan on 04/22/2018. D/W attending potential drainage of Pleural effusion Discussed imaging and plan with Dr Myers of pulmonary service and agrees drainage would be helpful. Will request consult from her as well. (2) Nosocomial pneumonia Status: Acute Problem Text: 12/02: cont Vanco/Meropenem - broader coverage is warranted due to increased infiltrate on CXR on admission felt to be a nosocomial pneumonia (3) Influenza A Status: Acute Problem Text: 12/02 Resp status stable on usual 2L NC Tamiflu at renal dose Cont nebs (4) Hypotension Status: Resolved Response to Treatment: Improving Problem Text: 12/02 - Had some hypotension the night after dialysis on 11/30, Impr brandie with NS bolus x 500 cc. Now on stress dose Hydrocortisone (Patient on chronic prednisone likely has some adrenal insufficiency). (5) End stage renal disease on dialysis Status: Chronic Response to Treatment: Stable Problem Text: Nephrology following. cont dialysis as per usual routine M/W/ (6) Chronic systolic heart failure Status: Chronic Response to Treatment: Stable (7) COPD (chronic obstructive pulmonary disease) Status: Chronic Problem Text: cont nebs & chronic prednisone (8) Diabetes mellitus, type 2 Status: Chronic Response to Treatment: Stable Problem Text: Cont sliding scale - monitor BS and adjust management while on steroids (9) Anemia due to chronic kidney disease, on chronic dialysis Status: Chronic Response to Treatment: Stable Problem Text: Aranesp per Nephrology (10) Amputation leg, bilat Status: Chronic Response to Treatment: Stable Plan/VTE VTE Prophylaxis Ordered?: No VTE Exclusion Mechanical Proph: Bilateral Amputee VTE Exclusion Pharmacological: History of Drug Allergy Disposition Back to [facility] once stable - Gets HD M/W/F so if d/c to occur on once of those days, we need to arrange for her to be discharged early in am so she can get to HD VS, I&O, 24H, Fishbone Vital Signs/I&O Vital Signs Date Time Temp Pulse Resp B/P (MAP) Pulse Ox O2 Delivery O2 Flow Rate FiO2 12/02/18 06:00 96.2 92 20 145/56 (85) 96 2.0 12/01/18 20:12 Nasal Cannula I&O- Last 24 Hours up to 6 AM 12/02/18 06:00 Intake Total 1320 ml Output Total 0 ml Balance 1320 ml Laboratory Data 24H LABS Laboratory Tests 2 12/01/18 12:23: Bedside Glucose (Misc Panel) 155H 12/01/18 16:07: Nucleated Red Blood Cells % (auto) 0.0 12/01/18 16:17: Bedside Glucose (Misc Panel) 179H 12/01/18 20:59: Bedside Glucose (Misc Panel) 219H 12/02/18 06:03: Nucleated Red Blood Cells % (auto) 0.0, Blood Urea Nitrogen 29H, Creatinine 3.39H, Sodium Level 135L, Potassium Level 4.1, Chloride Level 99, Carbon Dioxide Level 25, Anion Gap 11, Glomerular Filtration Rate 13.8L, Calcium Level 8.5L, Phosphorus Level 3.7, Albumin 3.0L, Random Vancomycin Level 19.4 CBC/BMP Laboratory Tests 12/01/18 16:07 Red Blood Count 2.99 L, Mean Corpuscular Volume 103.3 H, Mean Corpuscular Hemoglobin 32.1, Mean Corpuscular Hemoglobin Concent 31.1 L, Red Cell Distribution Width 17.7 H 12/02/18 06:03 Red Blood Count 3.07 L, Mean Corpuscular Volume 103.6 H, Mean Corpuscular Hemoglobin 32.9, Mean Corpuscular Hemoglobin Concent 31.8 L, Red Cell Distribution Width 18.2 H, Anion Gap 11 Microbiology Microbiology 11/30/18 Blood Culture - Preliminary, Resulted No Growth after 48 hours. All Specime... 11/29/18 Blood Culture - Preliminary, Resulted No Growth after 48 hours. All Specime... 11/30/18 Stool Occult Blood (AILEEN) - Final, Complete 11/30/18 Respiratory Virus Panel (PCR) (AILEEN) - Final, Complete Influenza A H1-2009 KAMINI ROTHMAN PA-C Dec 02, 2018 08:42 Marin Teran MD Dec 02, 2018 13:39
[2018-12-02] MEDS: MIRALAX *UNIT DOSE* 17GM PACKET PO SCH (09:00)
--- NOTE | 2018-12-02 12:13 | REP ---
PICC LINE INSERTION WITH SITE-RITE: REASON FOR PATIENT VISIT: Pneumonia. REASON FOR EXAM: Poor IV access needs IV. PROCEDURE: PICC line insertion with Site-Rite. This procedure was performed under the personal supervision of Dr. Danielle. The risks and benefits of the procedure were explained to the patient and informed consent was obtained. The right basilic vein was localized using ultrasound guidance. The skin was prepped and draped in a sterile fashion. 5 mL of 1% lidocaine were used as a local anesthetic. Using ultrasound guidance the right basilic vein was cannulated and a 0.018 guidewire was inserted and advanced to the SVC using fluoroscopic guidance. The needle was removed and a 4.5 [place] dilator and a Peel-Away sheath was inserted over the guidewire. A 4.5 [place] single lumen catheter was cut to the length of 30 cm. The dilator was removed and the catheter was inserted over the guidewire with the tip ending in the proximal subclavian vein. The Peel-Away sheath was removed and the catheter was flushed with normal saline as per hospital protocol with a patient who has heparin induced thrombocytopenia. The catheter was affixed to the skin and a sterile dressing was applied. The patient tolerated the procedure well and there were no immediate complications. 0.8 minutes of fluoro time was utilized in this procedure. Electronically Signed by Yoan Danielle MD 12/05/2018 11:06 A
--- NOTE | 2018-12-02 13:18 | IPNPDOC ---
Text Note Date of Service The patient was seen on 12/02/18. NOTE 0255 update- Dr. Myers spoke with radiology who was fine with patient being on original 325 mg aspirin dose, they just required an INR and they could do they tap today. If the tap is infectious appearing they will leave it in to drain and if not they will likely just proceed with diagnostic tap. Stat INR order placed. Regarding diagnostic tap, Dr. Myers is aware of patient and will help manage chest tube once it is placed or if a chest tube is needed emergently. Per her instructions and if their are no contraindications she is recommending bumping down aspirin to baby aspirin in case the patient needs an emergent procedure before IR has a chance to do the tap. VS,Fishbone, I+O VS, Fishbone, I+O Laboratory Tests 12/01/18 16:07 Red Blood Count 2.99 L, Mean Corpuscular Volume 103.3 H, Mean Corpuscular Hemoglobin 32.1, Mean Corpuscular Hemoglobin Concent 31.1 L, Red Cell Distribution Width 17.7 H 12/02/18 06:03 Red Blood Count 3.07 L, Mean Corpuscular Volume 103.6 H, Mean Corpuscular Hemoglobin 32.9, Mean Corpuscular Hemoglobin Concent 31.8 L, Red Cell Distribution Width 18.2 H, Anion Gap 11 Vital Signs Date Time Temp Pulse Resp B/P (MAP) Pulse Ox O2 Delivery O2 Flow Rate FiO2 12/02/18 06:00 96.2 92 20 145/56 (85) 96 2.0 12/01/18 20:12 Nasal Cannula I&O- Last 24 Hours up to 6 AM 12/02/18 06:00 Intake Total 1320 ml Output Total 0 ml Balance 1320 ml GME ATTESTATION GME ATTESTATION My faculty preceptor for this patient encounter was physically present during the encounter and was fully available. All aspects of the patient interview, examination, medical decision making process, and medical care plan development were reviewed and approved by the faculty preceptor. The faculty preceptor is aware and concurs with the plan as stated in the body of this note and will attest to such by his/her cosignature. Attending Note Attending Note patient seen and agree with plan developed by Dr. Conde and Georgi David. Dr. Myers has been consulted. Will continue vanco and meropenem pending culture results that may allow narrowing abx choices. SIDRA CONDE DO Dec 02, 2018 13:18 Sidra Teran MD Dec 02, 2018 13:41
[2018-12-02 14:00] VITALS: BP 151/60
[2018-12-02 15:38] LABS: INR 1.34; PROTHROMBIN TIME 16.8 SECONDS (12.1-14.4)
--- NOTE | 2018-12-02 17:28 | REP ---
CHEST, TWO VIEWS: Two views of the chest are performed and compared to prior study 11/29/2018. The patient just had a right thoracentesis. There is no pneumothorax. There is a decreased amount of right pleural fluid. There are bibasilar parenchymal opacities which are slightly improved since the prior chest radiograph. There is cardiomegaly. There is calcification of the thoracic aorta. There is a right arm PICC line with the tip in the right subclavian vein. There is a left central venous catheter with the tip in the superior vena cava. There is a left dual lead pacemaker. There are multiple sternal wires and mediastinal clips present. Electronically Signed by Yoan Danielle MD 12/05/2018 12:16 P
[2018-12-02 17:42] LABS: PH BODY FLUID 7.684 UNITS (NOT ESTABLISHED); SOURCE, BODY FLUID pH PLEURAL
[2018-12-02 17:49] LABS: APPEARANCE, BODY FLUID HAZY (CLEAR); PLEURAL FL COLOR ORANGE (COLORLESS); SOURCE, BODY FLUID PLEURAL
[2018-12-02 18:02] LABS: AMYLASE, BODY FLUID 21 U/L (NOT ESTABLISHED); LDH, BODY FLUID 60 U/L (NOT ESTABLISHED); SOURCE, BODY FLUID AMYLASE PLEURAL; SOURCE, BODY FLUID GLUCOSE PLEURAL; SOURCE, BODY FLUID LDH PLEURAL; SOURCE, BODY FLUID TOT PROTEIN PLEURAL; TOTAL PROTEIN, BODY FLUID 2.1 G/DL (NOT ESTABLISHED)
[2018-12-02] MEDS: MEROPENEM INJ 500 MG in APPROPRIATE DILUENT 1 EA IV SCH (18:10)
[2018-12-02] MEDS: [UNRECOGNIZED DRUG - OTHER] XX SCH (18:11)
[2018-12-02] MEDS ORDERED: PILL CRUSHER/CUTTER 1 EACH XX PRN (18:45)
--- NOTE | 2018-12-02 19:27 | CR ---
DATE OF CONSULTATION: 12/02/2018 HISTORY OF PRESENT ILLNESS: This patient is an 83-year-old female with a past medical history of end-stage renal disease (ESRD) on hemodialysis, diabetes, history of atrial fibrillation not on anticoagulation, history of peripheral vascular disease with bilateral amputations, history of coronary artery disease (CAD), history of chronic hypoxemic respiratory failure on nasal cannula oxygen supplementation, who presented from her long-term with increasing shortness of breath and cough. The patient is a poor historian. However, she reports that she had been having increasing cough and shortness of breath, which was occasionally productive of mucus. She denies any significant chest pain. She was unclear about any fevers or chills. She had recently been hospitalized for pneumonia and treated with IV antibiotics and discharged on by mouth doxycycline. Here, the patient was noted to be afebrile, but did have leukocytosis on admission. She was influenza A positive reportedly. She was started on broad-spectrum antibiotics with improvement in her leukocytosis. She initially had a mildly elevated lactate, which did also trend down. The patient had a CT of the chest done, which showed evidence of some moderate loculated effusion on the right and a small left pleural effusion. She also had some patch airspace opacities in the right lung with some air bronchograms more in the middle lobe and the right upper lobe, as well as some small air opacities in the left upper lobe and left lower lobe. She had some mild mediastinal adenopathy as well. Compared to her last CT, which was last year in 2018, she had a partially loculated right effusion at that time, which was smaller, as well as a small left pleural effusion. The patient currently is still on her usual 2 liters of nasal cannula and has been saturating well. Does not appear to be in any acute respiratory distress, is not tachypneic, is able to speak in complete sentences. PAST MEDICAL AND SURGICAL HISTORY: 1. Diabetes. 2. Hypertension 3. Congestive heart failure (CHF). 4. End-stage renal disease (ESRD) on dialysis. 5. History of atrial fibrillation not on anticoagulation. 6. Chronic hypoxemic respiratory failure on nasal canula supplementation. 7. 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 PermCath placement. 9. 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 10. History of coronary artery disease (CAD), status post bypass. SOCIAL HISTORY: The patient resides at a skilled nursing nursing facility. She denies history of tobacco use or alcohol use in the past. ALLERGIES: HEPARIN, LEVAQUIN, MORPHINE AND ZOSYN. HOME MEDICATIONS: - Tylenol as needed - lispro - midodrine - pantoprazole - sevelamer - albuterol as needed - aspirin 325 mg daily - Dulcolax as needed - vitamin D - citalopram 20 mg daily - Colace and senna - folic acid - prednisone taper from her last admission - simvastatin - vitamin b complex PHYSICAL EXAMINATION: Temperature 97.3, pulse 92, respirations 20, blood pressure 145/56, oxygen saturation 96% on 2 liters nasal cannula supplementation. GENERAL: The patient is an obese female who is sitting in bed, does not appear to be in any acute distress, is able to speak in complete sentences and is awake and alert. HEENT: Normocephalic, atraumatic. Mucous membranes are moist. NECK: Supple. No cervical adenopathy palpated. There is a PermCath in place. CHEST: Irregularly irregular. Normal S1, S2 and a systolic murmur auscultated. PULMONARY: There are some occasional squeaks and rhonchus breath sounds bilaterally with some crackles at the bases and decreased breath sounds on the right base more than the left. GASTROINTESTINAL (GI): Abdomen is obese, soft, nontender, nondistended. EXTREMITIES: There is bilateral lower extremity amputations. No edema noted. LABORATORY: White blood count (WBC) 7.0, hemoglobin 10.0, platelets 192. Chemistry: Sodium 135, potassium 4.1, chloride 99, bicarbonate 25, BUN 29, creatinine 3.39, glucose is 189. LDH was 299. IMAGING: CT chest dated 11/30/18 showed a moderate right pleural effusion which is loculated and a small left pleural effusion, which is not loculated. There are new patch airspace opacities with some air bronchograms in the right upper lobe, right lower lobe, left upper lobe and left lower lobe. There is some compressive atelectasis in the lower lobes bilaterally. There is some mild mediastinal adenopathy. The ascending aorta is dilated and measuring 4.1 cm at the level of the main pulmonary artery, which suggests some pulmonary hypertension. There is also chronic severe compression fracture in L1 and previously noted multinodular thyroid gland is seen again. Compared to her prior CT in March 2018, she did have a right pleural effusion at that time, which was partially loculated and a small left pleural effusion. On this imaging, the effusion appears larger and is more loculated with a larger pocket of fluid in the right upper lobe. ASSESSMENT AND PLAN: 1. Ms. Garcia is an 83-year-old female with a past medical history of diabetes, end-stage renal disease (ESRD) on dialysis, peripheral vascular disease status post amputation, history of congestive heart failure (CHF), history of hypertension, as recently admitted for pneumonia, who presents now with increasing cough and shortness of breath. She was reportedly influenza A positive. Her CT chest shows that her previously noted right effusion has increased and it appears more loculated at this time. She does still have a small left pleural effusion. There are some new patchy airspace disease bilaterally with some air bronchograms. She did also have leukocytosis. The patient therefore has pneumonia, possibly with superimposed bacterial pneumonia. Her pleural effusion appears to have a chronic component, which is likely due to her history of end-stage renal disease (ESRD) and fluid overload. However, given the new opacities and the increased loculation, she may have a component of complicated parapneumonic effusion. Therefore, she will be referred for a diagnostic thoracentesis and possible chest tube placement if the fluid appears to be overtly infected, pus-like. I discussed with interventional radiology about thoracentesis today. The patient is on full dose aspirin 325 mg and as per IR, there is no contraindication for diagnostic thoracentesis while she is still on aspirin. Therefore, will proceed with the thoracentesis today and can restart her usual aspirin dose tomorrow morning as long as there is no evidence of any bleeding post procedure. Will continue with Tamiflu and continue with broad-spectrum antibiotics with vancomycin and meropenem. Her leukocytosis has improved with the antibiotics and her lactate has also trended down. Will follow with the results of the fluid studies. Continue fluid removal with dialysis as per renal. 2. Continue nasal canula with supplementation, wean down as tolerated. 3. Suspect the patient may have a component of recurrent pneumonia due to aspiration and she does report some coughing after eating and drinking occasionally. Will continue with head of bed elevation and aspiration precautions. 4. Deep vein thrombosis (DVT) prophylaxis. 5. The patient is on prednisone, appears to be a taper. She denies any chronic prednisone use and she does not have any history of chronic obstructive pulmonary disease (COPD), has been a never smoker. Would taper off of prednisone and continue with DuoNebs as needed.
[2018-12-02 20:00] VITALS: BP 109/42
[2018-12-02] MEDS: SIMVASTATIN 40 MG TAB PO SCH (21:01)
--- NOTE | 2018-12-02 21:54 | IPN ---
DATE: 12/02/2018 SUBJECTIVE: The patient is seen and examined this morning in hemodialysis unit receiving her maintenance treatment. She complains of ongoing cough. She is pending thoracentesis later today. VITAL SIGNS: Temperature 97.4, pulse 94, respiratory rate 20, blood pressure 151/60, saturating 100% on 2 liter nasal cannula. Intake yesterday was 1200, dialysis today removed 1.6 liters. Weight in the bed scale today is 83.5 kg. PHYSICAL EXAMINATION: GENERAL: The patient is seen in the hemodialysis unit receiving her maintenance treatment, head of the bed is elevated. She is awake, alert, oriented and in no acute respiratory distress. HEENT: Extraocular muscles are intact. Tongue is moist. NECK: Jugular veins are not elevated. CARDIAC: S1, S2, regular rate. LUNGS: Show diminished breath sounds at the bases. Expiratory wheeze. ABDOMEN: Soft, obese, nontender. EXTREMITIES: Show bilateral amputations without edema of the stumps. NEUROLOGIC: She is at her usual baseline mentation, interactive, conversational, and cooperative with physical examination. LABORATORY DATA: White count 7.0, hemoglobin 10.1, platelet 192, sodium 135, potassium 4.1 Microbiology: Pleural fluid cultures are pending. INPATIENT MEDICATIONS: Reviewed by myself. The patient's aspirin dose was decreased. Her remainder of medications are unchanged from prior. PROBLEMS: 1. End-stage renal disease on hemodialysis on Wednesday, Wednesday, and Wednesday schedule. Patient is dialyzed today. Electrolytes are acceptable. She continues on her usual dialysis prescription. 2. Recurrent pneumonia. This is her third hospitalization in the recent past for pneumonia. She has a loculated pleural effusion on the right that should be drained. She is for a thoracentesis later today. She continues on vancomycin and meropenem per the primary team. Blood cultures show no growth. 3. Influenza A. Patient continues on renally dosed Tamiflu and her usual supplemental oxygen and supportive care with nebulizers. 4. Chronic systolic congestive heart failure. Volume status is principally regulated by dialysis. Continue Wednesday, Wednesday, and Wednesday schedule. 5. Use of steroids. The patient appears to be both on oral prednisone and hydrocortisone. I suggest to stop the IV steroids and taper off the prednisone. 6. Chronic hypotension. The patient takes midodrine as an outpatient and this is being resumed.
[2018-12-02 23:59] VITALS: BP 114/51
[2018-12-03] MEDS: HYDROCORTISONE 100 MG/2 ML VIAL (J1720) IV SCH ×4 (03:32→20:33)
[2018-12-03 04:00] VITALS: BP 117/50
[2018-12-03] MEDS: SODIUM CHLORIDE 0.9% INJ 10 ML SYR IV SCH ×2 (04:30→17:54)
[2018-12-03 05:10] LABS: CALCIUM LEVEL 8.5 MG/DL (8.8-10.2); CREATININE FOR GFR 2.03 MG/DL (0.55-1.30); PHOSPHORUS LEVEL 2.7 MG/DL (2.5-4.9)
[2018-12-03] MEDS: (RENVELA) SEVELAMER **CARBONate** 800 MG TAB PO SCH ×3 (06:07→17:54)
[2018-12-03] MEDS: guaiFENesin ER 600 MG TAB PO SCH ×3 (06:07→20:34)
[2018-12-03] MEDS: IPRATROPIUM 0.5MG/ALBUTEROL 2.5MG INH SOL UD 3ML (DUONEB)(J7620) INH SCH ×4 (07:24→20:29)
[2018-12-03 08:00] VITALS: BP 120/48
[2018-12-03] MEDS: MIRALAX *UNIT DOSE* 17GM PACKET PO SCH (08:06)
[2018-12-03] MEDS: HumaLOG INSULIN (NovoLOG) PER UNIT SC SCH ×4 (08:06→20:35)
[2018-12-03] MEDS: predniSONE 10 MG TAB PO SCH (08:07)
[2018-12-03] MEDS: MIDODRINE 5 MG TAB PO SCH ×3 (08:07→15:32)
[2018-12-03] MEDS: CitaloPRAM (CeleXA) 20 MG TAB PO SCH (08:07)
[2018-12-03] MEDS: ASPIRIN 81 MG ENTERIC TAB PO SCH (08:07)
[2018-12-03] MEDS: NEPHRO-VIT TAB (NEPHROCAPS) PO SCH (08:07)
[2018-12-03] MEDS: FOLIC ACID 1 MG TAB PO SCH (08:07)
[2018-12-03] MEDS: PANTOPRAZOLE 40MG TAB (PROTONIX) PO SCH (08:07)
[2018-12-03] MEDS: DOCUSATE SODIUM 100 MG CAP PO SCH ×2 (08:07→20:35)
[2018-12-03] MEDS: SENOKOT S TAB PO SCH ×2 (08:07→20:33)
[2018-12-03] MEDS: VITAMIN D 1,000 INTERNATIONAL UNITS TABLET PO SCH (08:08)
[2018-12-03] MEDS: [UNRECOGNIZED DRUG - OTHER] XX SCH (15:26)
[2018-12-03] MEDS: MEROPENEM INJ 500 MG in APPROPRIATE DILUENT 1 EA IV SCH (15:32)
[2018-12-03 16:00] VITALS: BP 140/70
[2018-12-03 20:00] VITALS: BP 76/0
[2018-12-03] MEDS: ACETAMINOPHEN TAB 650MG DOSE (2X325MG) PO PRN (20:34)
[2018-12-03] MEDS: SIMVASTATIN 40 MG TAB PO SCH (20:35)
[2018-12-03 21:10] VITALS: BP 76/0
[2018-12-03] MEDS ORDERED: NS 500 ML IV ONE (21:30)
[2018-12-04] VITALS: BP 92/0
[2018-12-04] MEDS: SODIUM CHLORIDE 0.9% INJ 10 ML SYR IV SCH ×2 (03:31→17:07)
[2018-12-04] MEDS: HYDROCORTISONE 100 MG/2 ML VIAL (J1720) IV SCH ×2 (03:31→07:49)
[2018-12-04 04:00] VITALS: BP 140/58
[2018-12-04 04:32] LABS: CALCIUM LEVEL 8.3 MG/DL (8.8-10.2); CREATININE FOR GFR 2.94 MG/DL (0.55-1.30); GLOMERULAR FILTRATION RATE 16.3 (>32); PHOSPHORUS LEVEL 3.1 MG/DL (2.5-4.9); POTASSIUM SERUM 4.2 MEQ/L (3.5-5.1)
[2018-12-04] MEDS: (RENVELA) SEVELAMER **CARBONate** 800 MG TAB PO SCH ×3 (05:28→17:06)
[2018-12-04] MEDS: guaiFENesin ER 600 MG TAB PO SCH ×3 (05:28→21:56)
[2018-12-04] MEDS: IPRATROPIUM 0.5MG/ALBUTEROL 2.5MG INH SOL UD 3ML (DUONEB)(J7620) INH SCH ×4 (07:20→20:22)
[2018-12-04] MEDS: MIRALAX *UNIT DOSE* 17GM PACKET PO SCH (07:49)
[2018-12-04] MEDS: predniSONE 10 MG TAB PO SCH (07:50)
[2018-12-04] MEDS: MIDODRINE 5 MG TAB PO SCH ×3 (07:50→17:06)
[2018-12-04] MEDS: FOLIC ACID 1 MG TAB PO SCH (07:50)
[2018-12-04] MEDS: SENOKOT S TAB PO SCH ×2 (07:50→21:57)
[2018-12-04] MEDS: VITAMIN D 1,000 INTERNATIONAL UNITS TABLET PO SCH (07:50)
[2018-12-04] MEDS: CitaloPRAM (CeleXA) 20 MG TAB PO SCH (07:50)
[2018-12-04] MEDS: DOCUSATE SODIUM 100 MG CAP PO SCH ×2 (07:50→21:56)
[2018-12-04] MEDS: HumaLOG INSULIN (NovoLOG) PER UNIT SC SCH ×4 (07:50→20:19)
[2018-12-04] MEDS: ASPIRIN 81 MG ENTERIC TAB PO SCH (07:51)
[2018-12-04] MEDS: PANTOPRAZOLE 40MG TAB (PROTONIX) PO SCH (07:51)
[2018-12-04] MEDS: NEPHRO-VIT TAB (NEPHROCAPS) PO SCH (07:51)
[2018-12-04 08:00] VITALS: BP 124/58
--- NOTE | 2018-12-04 09:17 | IPN ---
DATE OF SERVICE: 12/03/2018 Patient was seen and examined this morning during rounds. She reports that her breathing improved slightly after her thoracentesis yesterday. She denies any fevers or chills. She has no chest pain. She does have an occasional cough productive of mucous but does not feel it has been worsening. PHYSICAL EXAMINATION: Temperature 96.6, pulse 58, respirations 20, blood pressure 120/48, oxygen saturation 100% on 3 liters nasal cannula. General: Patient is an obese female sitting in bed, did not appear to be in acute distress. Is able to speak in complete sentences. HEENT: Normocephalic, atraumatic. Moist mucous membranes. Neck is supple. No cervical adenopathy palpated. There is a PermaCath in place. Chest: Irregularly irregular. Normal S1, S2. Systolic murmur auscultated. Pulmonary: Patient has occasional inspiratory squeaks with rhonchorous breath sounds bilaterally and some faint crackles at the bases. GI: Abdomen is obese, soft, nontender, nondistended. Extremities: She has bilateral lower extremity amputations. LABS: WBC 7.0, hemoglobin 10.1, platelets 192. Chemistries: Sodium 137, potassium 4.0, chloride 101, bicarbonate 27, BUN 16, creatinine 2.03, glucose 157. Pleural fluid studies: pH was 7.684, WBC was 154 with lymphocytic predominance at 90%. Glucose was 190. Total protein was 2.1. LDH was 60. ASSESSMENT AND PLAN: Ms. Garcia is an 83-year-old female with a history of diabetes, ESRD on dialysis, PVD status post amputation, congestive heart failure (CHF), hypertension who was recently admitted for pneumonia and discharged to her retirement. She presented with increasing cough and shortness of breath, was influenza A positive. Her CT chest showed that her previously noted right pleural effusion has increased and appeared more loculated. She also still has a previously noted small left pleural effusion. There are some new patchy air space diseases bilaterally with some air bronchograms. Given the findings and her leukocytosis, patient likely with pneumonia possibly secondary to influenza versus and superimposed bacterial pneumonia. Patient's pleural effusions appear to have been present on her last CT in March 2018 would suggest chronic component likely due to fluid overload from her endstage renal disease, however, given the new opacities and the increased loculation on the right side, she may have a component of a complicated parapneumonic effusion and she was therefore referred for diagnostic thoracentesis yesterday. Patient had approximately 250 mL of fluid removed during her thoracentesis yesterday. The fluid studies did not appear significantly exudative. The fluid appears to be lymphocytic predominant which is more likely seen in exudative malignant effusions or possible tuberculosis effusions. However, her fluid does not appear to be consistent with an exudate given the low protein and low LDH. Her glucose was also increased which is not consistent with bacterial parapneumonic effusion. If we suspect that her fluid is likely due to her chronic fluid overload from her ESRD, the lymphocytic predominant may just be due to the chronic nature of the fluid. - followup with fluid cytology. - Continue with her antibiotics for now with Tamiflu and with vancomycin and meropenem pending the results of her fluid culture studies. - Continue with fluid removal with dialysis as per renal. - Continue nasal canula supplementation and wean down as tolerated. - Patient likely is having episodes of aspiration which may be contributing to her recurrent pneumonias. Would continue with head of bed elevations, aspiration precautions and consider speech and swallow evaluation. - Continue with prednisone taper and DuoNebs as needed Deep venous thrombosis (DVT) prophylaxis. Please do not hesitate to call if any further questions or concerns. MTDD
--- NOTE | 2018-12-04 14:24 | IPN ---
DATE: 12/03/2018 The patient is seen today on progressive care unit (PCU). She thinks she feels a little bit better today. She did have a thoracentesis yesterday and did have dialysis yesterday as well. Still doing some coughing but it is better. She is not having any fever, not having any paroxysms of dyspnea. Current medication regimen calls for her to get aspirin, midodrine, IV hydrocortisone, Nephro-Erica, simvastatin, she is completing a course of Tamiflu, getting vancomycin at dialysis, meropenem, pantoprazole, vitamin D, citalopram, Senokot-S, Colace, folic acid, MiraLax, prednisone, DuoNebs, sliding scale insulin, guaifenesin, Renvela. She as needed nebulizers. On examination, temperature is 96.6, blood pressure 120/48, pulse 88, respirations 20, oxygen saturation on 3 liters is 100%. She is alert, pleasant, cooperative, not in any distress. She appears her usual self. Does have a congested sounding cough but not at all dyspneic appearing. Her lungs show some scattered rhonchi. Heart: Has regular rhythm with a grade 2/6 systolic murmur heard all over the precordium. There may be a separate systolic murmur that radiates to the axilla. Abdomen is soft and nontender without any masses or organomegaly. Bowel sounds are active. Her right leg has an above-knee amputation, left leg has a below-knee amputation. Stumps are not at all inflamed. Labs today show a hemoglobin of 10.1, WBC is down to 7000, BUN 16, creatinine 2.03, potassium 4.0, sodium 137, calcium 8.5, phosphorus 2.7. ASSESSMENT: 1. Pleural effusion, has been drained. 2. Nosocomial pneumonia, plus/minus aspiration, clinically improved. 3. Influenza A, clinically improved. 4. Hypotension, stable. I think this is largely a function of dialysis. 5. End-stage renal disease, on dialysis. 6. Systolic heart failure, stable. 7. Chronic obstructive pulmonary disease (COPD), stable. 8. Diabetes, stable. It should be noted that she has not been able to tolerate long-acting insulin and even at the long term just goes by sliding scale. 9. Anemia of chronic renal disease, stable. 10. Bilateral amputee. 11. History of gastrointestinal (GI) bleeding. She does not get anticoagulants for this reason. PLAN: The patient will continue on her above medications. I have not made any changes today. Presume if she continues to do well through the weekend, I think we are looking at return to the long term early next week. The major reason that she is here is that despite having been in the hospital last week for treatment with pneumonia, she was not getting better, and, in fact, seemed to be getting worse and this may have been a function of influenza A, which may or may not have been there on her previous admission (respiratory panel was negative then). PHILIP
[2018-12-04 16:00] VITALS: BP 134/60
[2018-12-04] MEDS: [UNRECOGNIZED DRUG - OTHER] XX SCH (16:00)
[2018-12-04] MEDS: MEROPENEM INJ 500 MG in APPROPRIATE DILUENT 1 EA IV SCH (17:06)
[2018-12-04 20:00] VITALS: BP 101/70
[2018-12-04] MEDS: SIMVASTATIN 40 MG TAB PO SCH (21:56)
[2018-12-04] MEDS: ACETAMINOPHEN TAB 650MG DOSE (2X325MG) PO PRN (21:57)
[2018-12-05] MEDS ORDERED: traMADol 50 MG TAB PO PRN (01:15)
[2018-12-05 04:45] VITALS: BP 89/38
[2018-12-05] MEDS: MIRALAX *UNIT DOSE* 17GM PACKET PO SCH (05:53)
[2018-12-05] MEDS: VITAMIN D 1,000 INTERNATIONAL UNITS TABLET PO SCH (05:54)
[2018-12-05] MEDS: SENOKOT S TAB PO SCH (05:54)
[2018-12-05] MEDS: NEPHRO-VIT TAB (NEPHROCAPS) PO SCH (05:55)
[2018-12-05] MEDS: guaiFENesin ER 600 MG TAB PO SCH (05:55)
[2018-12-05] MEDS: (RENVELA) SEVELAMER **CARBONate** 800 MG TAB PO SCH ×2 (05:55→12:17)
[2018-12-05] MEDS: predniSONE 10 MG TAB PO SCH (05:55)
[2018-12-05] MEDS: ASPIRIN 81 MG ENTERIC TAB PO SCH (05:55)
[2018-12-05] MEDS: PANTOPRAZOLE 40MG TAB (PROTONIX) PO SCH (05:55)
[2018-12-05] MEDS: FOLIC ACID 1 MG TAB PO SCH (05:56)
[2018-12-05] MEDS: SODIUM CHLORIDE 0.9% INJ 10 ML SYR IV SCH (05:56)
[2018-12-05] MEDS: CitaloPRAM (CeleXA) 20 MG TAB PO SCH (05:56)
[2018-12-05] MEDS: DOCUSATE SODIUM 100 MG CAP PO SCH (05:56)
[2018-12-05] MEDS: MIDODRINE 5 MG TAB PO SCH ×2 (06:22→12:17)
[2018-12-05] MEDS ORDERED: NS 500 ML IV ONE (06:30)
[2018-12-05] MEDS: HumaLOG INSULIN (NovoLOG) PER UNIT SC SCH ×2 (07:30→12:18)
[2018-12-05 08:00] VITALS: BP 158/55
[2018-12-05] MEDS: IPRATROPIUM 0.5MG/ALBUTEROL 2.5MG INH SOL UD 3ML (DUONEB)(J7620) INH SCH ×2 (08:00→12:22)
--- NOTE | 2018-12-05 09:07 | IPNPDOC ---
Subjective Date Seen The patient was seen on 12/05/18. Subjective Chief Complaint/HPI Pt this morning without new concerns. She is seen in dialysis. I spoke with her PCU nurse who is also without concerns. General: Denies: Fatigue Constitutional: Denies: Chills, Fever Pulmonary: Denies: Dyspnea, Cough Cardiovascular: Denies: Chest Pain Gastrointestinal: Denies: Nausea, Vomiting Neurological: Reports: Weakness Psych: Reports: Mood Normal Objective Physical Examination General Exam: Positive: Alert (asleep, but arounds easily.), No Acute Distress (breathing comfortably on 2L NC) Chest Exam: Positive: Clear to auscultation, Diminished; Negative: Normal air movement, Rales, Rhonchi, Wheezing Heart Exam: Positive: Rate Normal, Regular Rhythm Abdomen Exam: Positive: Normal bowel sounds, Soft; Negative: Tenderness Extremity Exam: Positive: Other (B AKA); Negative: Edema Neuro Exam: Positive: Normal Speech Psych Exam: Positive: Mood NL Assessment /Plan Problems (1) Nosocomial pneumonia Status: Acute Problem Text: 12/05 Vanco administered with dialysis. Meropenem D #5 12/02: cont Vanco/Meropenem - broader coverage is warranted due to increased infiltrate on CXR on admission felt to be a nosocomial pneumonia (2) Loculated pleural effusion Problem Text: 12/05 Resp status stable this morning. 12/02 CT done 11/30:. Patchy airspace opacities in the right upper lobe, right middle lobe, left upper lobe, left lower lobe, which may represent pneumonia. 2. Moderate loculated right pleural effusion and a small left pleural effusion. 3. 4.1 cm x 4.1 cm dilated ascending aorta. 4. Prevascular, pretracheal, aortopulmonary window, and subcarinal lymphadenopathy, which may be reactive in nature. 5. Cardiomegaly. 6. Multinodular thyroid gland, which is similar in appearance compared to the prior CT scan on 04/22/2018. 7. Chronic severe anterior wedge compression fracture of L1, which is similar in appearance compared to the prior CT scan on 04/22/2018. D/W attending potential drainage of Pleural effusion Discussed imaging and plan with Dr Myers of pulmonary service and agrees drainage would be helpful. Will request consult from her as well. (3) Influenza A Status: Acute Problem Text: 12/05 Completed course of Tamiflu. 12/02 Resp status stable on usual 2L NC Tamiflu at renal dose Cont nebs (4) Hypotension Status: Resolved Response to Treatment: Improving Problem Text: 12/02 - Had some hypotension the night after dialysis on 11/30, Improved with NS bolus x 500 cc. Now on stress dose Hydrocortisone (Patient on chronic prednisone likely has some adrenal insufficiency). (5) End stage renal disease on dialysis Status: Chronic Response to Treatment: Stable Problem Text: Nephrology following. cont dialysis as per usual routine M/W/F (6) Chronic systolic heart failure Status: Chronic Response to Treatment: Stable (7) COPD (chronic obstructive pulmonary disease) Status: Chronic Problem Text: cont nebs & chronic prednisone (8) Diabetes mellitus, type 2 Status: Chronic Response to Treatment: Stable Problem Text: Cont sliding scale - monitor BS and adjust management while on steroids (9) Anemia due to chronic kidney disease, on chronic dialysis Status: Chronic Response to Treatment: Stable Problem Text: Aranesp per Nephrology (10) Amputation leg, bilat Status: Chronic Response to Treatment: Stable Plan/VTE VTE Prophylaxis Ordered?: No VTE Exclusion Mechanical Proph: Bilateral Amputee VTE Exclusion Pharmacological: History of Drug Allergy VS, I&O, 24H, Fishbone Vital Signs/I&O Vital Signs Date Time Temp Pulse Resp B/P (MAP) Pulse Ox O2 Delivery O2 Flow Rate FiO2 12/05/18 05:00 2.0 12/05/18 04:45 97.8 88 20 89/38 (55) 100 12/04/18 20:22 Nasal Cannula I&O- Last 24 Hours up to 6 AM 12/05/18 06:00 Intake Total 480 ml Output Total 0 ml Balance 480 ml Laboratory Data 24H LABS Laboratory Tests 2 12/04/18 12:03: Bedside Glucose (Misc Panel) 166H 12/04/18 16:55: Bedside Glucose (Misc Panel) 150H 12/04/18 20:04: Bedside Glucose (Misc Panel) 195H Microbiology Microbiology 11/30/18 Blood Culture - Final, Complete NO GROWTH AFTER 5 DAYS 11/29/18 Blood Culture - Final, Complete NO GROWTH AFTER 5 DAYS 12/02/18 Acid Fast Stain, Received Pending 12/02/18 Mycobacterial Culture, Received Pending 12/02/18 Fungal Smear, Received Pending 12/02/18 Fungal Culture, Received Pending 12/02/18 Gram Stain - Final, Complete 12/02/18 Body Fluid Culture - Final, Complete 11/30/18 Stool Occult Blood ([facility]) - Final, Complete 12/03/18 MRSA Screen - Final, Complete 11/30/18 Respiratory Virus Panel (PCR) ([facility]) - Final, Complete Influenza A H1-2008 MODESTO BUNDY PA-C Dec 05, 2018 09:07
[2018-12-05 09:13] LABS: BASO % 0.1 % (0.0-1.0); EOS # 0.1 10^3/uL (0.0-0.50); EOS % 0.8 % (0.0-3.0); HEMOGLOBIN 9.7 g/dl (12.0-15.5); LYMPH # 1.2 10^3/uL (1.5-4.5); LYMPH % 9.3 % (24.0-44.0); MEAN CORPUSCULAR HEMOGLOBIN 32.4 pg (27.0-33.0); MEAN CORPUSCULAR HGB CONC 32.3 g/dl (32.0-36.5); MEAN CORPUSCULAR VOLUME 100.3 fl (80.0-96.0); MONO # 1.5 10^3/uL (0.0-0.8); MONO % 11.7 % (0.0-5.0); NEUTROPHILS % 76.4 % (36.0-66.0); PLATELET COUNT, AUTOMATED 185 10^3/uL (150-450); RED BLOOD COUNT 2.99 10^6/uL (4.00-5.40); WHITE BLOOD COUNT 13.1 10^3/uL (4.0-10.0)
[2018-12-05] MEDS ORDERED: DOXY100T PO (09:26)
--- NOTE | 2018-12-05 10:59 | REP ---
ULTRASOUND-GUIDED RIGHT THORACENTESIS The procedure was performed under the direct supervision of Dr. danielle. The risks and benefits of the procedure were explained and informed consent was obtained by the health care proxy. The right pleural effusion was localized using ultrasound guidance. The skin was prepped and draped in a sterile fashion. 1% lidocaine was used as a local anesthetic. Using ultrasound guidance an 8-Tamazight multi side-hole catheter was inserted using trocar technique. 250 ml of clear pink tinged fluid was withdrawn and sent to lab for analysis. The catheter was then removed. The patient tolerated the procedure well and there were no immediate complications. After the appropriate amount of monitored convalescence the patient was discharged from the department. Reviewed by ITZ Jansen 12/02/2018 05:06 P Electronically Signed by Yoan Danielle MD 12/05/2018 10:50 A
--- NOTE | 2018-12-05 11:17 | IPN ---
DATE: 12/03/2018 Mrs. Garcia is seen this morning on her bedside. She is feeling better today and reports that her appetite has improved. She denies any nausea, vomiting, dyspnea, chest pain, fever or chills. She has been admitted once again with pneumonia and is currently being treated with antibiotics. She also had a thoracentesis done. On physical examination, she is awake and alert and at her baseline mentation. Temperature 96.6 degrees Fahrenheit, heart rate 88 per minute and respiratory rate 20 per minute. Blood pressure 120/48 mmHg and oxygen 100% on 2 liters of oxygen. Head is atraumatic. Neck is supple and jugular venous distention (JVD) is not elevated. Left sided Perma-Cath is present on upper chest without any signs of infection. Heart sounds are irregular in rhythm and lungs sound slightly diminished at bases. Abdomen is obese, soft and nontender and bowel sounds are normal. Extremities have no cyanosis or clubbing. Neurologically, she is at her baseline mentation. She has bilateral lower extremity amputations. Today's labs show sodium 137, potassium 4.0, CO2 27, BUN 16 and creatinine 2.03. PROBLEMS: 1. End-stage renal disease. The patient was dialyzed yesterday and will be dialyzed again on Wednesday. 2. Hyponatremia. This has corrected and no other intervention is indicated. 3. Anemia. Her anemia is stable and chronic related to end-stage renal disease. We will continue to manage with dialysis. 4. Recurrent pneumonia. Etiology remains uncertain. I would suggest to get a CT scan of chest with IV contrast to rule out any possibility of obstructive pneumonia. She had a CT scan done without IV contrast which did not show any significant adenopathy that can be blamed for possible obstruction. She does have a patchy air space opacities in the right upper lobe, middle lobe and left upper lobe. She remains afebrile currently on antibiotics. 5. Systolic congestive heart failure. Her volume status is very well compensated at present and we will continue to manage with dialysis.
[2018-12-05] MEDS ORDERED: HEPARIN 1,000 UNITS/ML 10ML VIAL (FOR RADIOLOGY& DIALYSIS ONLY) XX ONE (11:30)
--- NOTE | 2018-12-05 11:35 | IPN ---
DATE: 12/04/2018 The patient is seen on the progressive care unit (PCU). She reports that her breathing slightly better today. Still has a congested cough but breathing comfortably, saturating well. Not having any chest pains or palpitations, stomachache, heartburn or indigestion. Last evening, she had to be symptomatic hypotension with systolic blood pressure at 70. We ordered a bolus of IV saline and her blood pressure came up. Her current medication regimen calls for her to be on aspirin, midodrine, Tamiflu, hydrocortisone, Nephro-Erica, Zocor, vancomycin, meropenem, Protonix, vitamin D, Celexa, Senokot-S, Colace, folic acid, MiraLAX, prednisone, scheduled DuoNebs, Humalog insulin coverage, guaifenesin, Renvela, Tylenol as needed albuterol, as needed for hypoglycemia. On examination her temperature is 97.6, blood pressure 124/58, pulse 82 and regular, respirations 20, O2 saturation was 100% of 3 liters. She is alert, pleasant, cooperative, not in any distress. Voice is still a little bit hoarse. She still does have a congested hoarseness but is not in any respiratory distress. No facial weakness. Speech is clear. No neck masses, tenderness or adenopathy. No carotid bruits. Lungs show some coarse breath sounds at the bases. Heart has slightly irregular rhythm with a grade 2/6 systolic murmur heard across precordium. Abdomen is soft and nontender without any masses or organomegaly. Bowel sounds are active. She has an above-knee amputation on the right, below-knee amputation on the left. Labs today show a BUN of 28, creatinine 2.94, sodium 135, potassium 4.2, albumin 3.0. Blood sugars running 191-209 over the last 24 hours. ASSESSMENT: 1. Nosocomial pneumonia, -/+ aspiration. 2. Influenza A. 3. Chronic obstructive lung disease. 4. Congestive heart failure. 5. Coronary artery disease. 6. Diabetes mellitus. 7. End-stage renal disease on dialysis. PLAN: The patient will continue to receive her antibiotics and nebulizer treatments. I am going to discontinue her IV corticosteroid at this time as she is on some by mouth. She does seem to have improved since her thoracentesis on Wednesday although it appears that some of her effusion was probably there during her last admission. Sometime this week she will be able to return to the [facility]. I should note that she does not use a long-acting insulin as she has been quite prone to hypoglycemic episodes when we use more than a sliding scale on her. PHILIP
--- NOTE | 2018-12-05 11:56 | PHACANCOPD ---
PHARMACY VANCOMYCIN DOSING Pt Demographics Demographics Patient Age:83 , Weight:80.800 , Gender: female Adjusted Body Weight Date: 11/30/18, Adjusted Body Weight: Kg Events Past 24 Hours Events Past 24 Hours: YES: Dialysis, Elevation in WBC; NO: Diuretic Therapy, Change in CrCl, Fever, Pending Diagnostics, Pending Procedures, Other Vancomycin Vancomycin Target Ranges: 15-20 mcg/ml Vancomycin Load Y/N: Yes Load Dose Date Time Vancomycin Load Dose: 1G Date: 11/29/18 Time: 2300 Vancomycin Dose Date: 11/30/18. Current Vancomycin Dose: Intermittent Dosing?: No Labs Labs Vital Signs Label Value Date Time Patient Temperature 97.3 degrees F 12/05/18 0800 Temperature Source Temporal 12/05/18 0800 Patient Temperature 97.8 degrees F 12/05/18 0445 Temperature Source Temporal 12/05/18 044 Patient Temperature 98.7 degrees F 12/04/18 2000 Temperature Source Temporal 12/04/181999 Item Value Date Time White Blood Count 13.1 10^3/uL H 12/05/18 0820 White Blood Count 7.0 10^3/uL 12/02/18 0603 White Blood Count 10.4 10^3/uL H 12/01/18 1607 Creatinine 2.94 MG/DL H 12/04/18 0345 Creatinine 2.03 MG/DL H 12/03/18 0422 Creatinine 3.39 MG/DL H 12/02/18 0603 Random Vancomycin Level 16.5 UG/ML 12/05/18 0820 Random Vancomycin Level 19.4 UG/ML 12/02/18 0603 Micro Microbiology 11/30/18 Blood Culture - Final, Complete NO GROWTH AFTER 5 DAYS 11/29/18 Blood Culture - Final, Complete NO GROWTH AFTER 5 DAYS 12/02/18 Acid Fast Stain, Received Pending 12/02/18 Mycobacterial Culture, Received Pending 12/02/18 Fungal Smear, Received Pending 12/02/18 Fungal Culture, Received Pending 12/02/18 Gram Stain - Final, Complete 12/02/18 Body Fluid Culture - Final, Complete 11/30/18 Stool Occult Blood (AILEEN) - Final, Complete 12/03/18 MRSA Screen - Final, Complete 11/30/18 Respiratory Virus Panel (PCR) (AILEEN) - Final, Complete Influenza A H1-2008 Creatinine Clearance Date:11/30/18. Creatinine Clearance: . Assessment and Plan Maintaining Current Dose?: Yes Reason for dose change: No Dose Change Pharmacist Note Pharmacist Note 12/05/18: Random drawn this AM @0820 resulted at 16.5mcg/ml. This is within our goal of 15-20mcg/ml. At this time we will continue the current dose of Vanco 1G IV HD. We will continue to monitor and adjust dose as needed. Date: 11/30/18. Pharmacist note: Pt. is an 83 year old female from the [facility]. She is here for worsening SOB. She has been here in Sep and Oct for pneumonia. She has tested positive for Influenza A. We have also started her on Merrem 500mg IV Q24H and Vanco for Pneumonia. I have ordered a MRSA nares to help with future de-escalation. Per her last two visits and consults I have scheduled the pt to receive Vanco 1G IV HD. She receives HD on MWF and is currently receiving it now. I have scheduled a random for Wed AM. We will continue to monitor and adjust dose as needed. RICHARD GOMEZ PHARMACY Dec 05, 2018 11:56
--- NOTE | 2018-12-05 15:35 | IPN ---
DATE OF VISIT: 12/04/2018 Mrs. Garcia is seen this morning on her bedside. She is still feeling weak and somewhat short of breath. She was hypotensive last evening and nursing staff called Dr. Ho who gave her a fluid bolus of normal saline 500 mL. Her blood pressure has since been improved. On physical exam, this morning her temperature is 97.6 degrees Fahrenheit, heart rate 82 per minute and respiratory rate 20 per minute. Blood pressure now 124/58 mmHg and oxygen saturation 100%. Head is atraumatic. Neck is supple and jugular venous distention (JVD) is not visible sitting up in the bed and head elevated. Perma-Cath is present in left internal jugular vein. She is using oxygen via nasal cannula. Heart sounds are irregular in rhythm and lungs with bilateral rhonchi. Abdomen obese, soft and nontender, and bowel sounds are normal. Extremities have no cyanosis or clubbing. She has bilateral lower extremity amputations. Neurologically, she is awake, alert and at her baseline mentation. Today's labs show sodium 135, potassium 4.2, CO2 26, BUN 28 and creatinine 2.94. Glucose 171 and calcium 8.3. PROBLEMS: 1. End-stage renal disease. Patient is regularly dialyzed on Wednesday, Wednesday and Wednesday schedule. She was last dialyzed on Wednesday and next dialysis will be scheduled for tomorrow morning. 2. Chronic systolic congestive heart failure. Her volume status seems reasonably well-compensated. She was given a fluid bolus of 500 mL last night due to low blood pressure. It did not affect her volume status and we will dialyze her tomorrow morning. There is no emergent need for dialysis today. 3. Recurrent pneumonia. Patient has been admitted multiple times during the last couple of years with recurrent pneumonia. She seems to be improving with antibiotics. She had a CT scan of chest done without IV contrast, and I would suggest to her primary care team to consider a CT scan with IV contrast to rule out any possibility for obstructing bronchial lesions. 4. Anemia. She has been stable and anemia will be managed with dialysis. At present, there is no emergent indication for a transfusion.
--- NOTE | 2018-12-06 08:13 | IPN ---
DATE: 12/05/2018 Mrs. Garcia seen this morning during hemodialysis. She is resting comfortably and denies any complaints. Her dyspnea has improved. She has no fever or chills. She denies any nausea or vomiting. On physical exam, temperature 97.3 degrees Fahrenheit, heart rate 85 per minute and respiratory rate 16 per minute. Blood pressure 158/55 mmHg and oxygen saturation 100% on 2 liters oxygen. Head is atraumatic. Neck is supple and jugular venous distention (JVD) not abnormally elevated. She has a left-sided internal jugular vein Perma-Cath in place. Heart sounds irregular in rhythm. Lungs with diminished breath sounds and basilar crackles. Abdomen: Obese, soft and nontender. Extremities: Without any cyanosis or clubbing. She has bilateral lower extremity amputations. Today's labs show WBC count 13.1, hemoglobin 9.7 and hematocrit 30. Sodium 135, potassium 4.2, BUN 28 and creatinine 2.94. PROBLEMS: 1. End-stage renal disease. The patient is being dialyzed today and she is tolerating her dialysis treatment well. 2. Congestive heart failure: She does have chronic congestive heart failure. However, her volume status is reasonably well-compensated. She did receive a fluid bolus over the weekend due to hypertension. Today we are trying to be gentle and removing only as much fluid as she can easily tolerated. We have set her up for 2 liters of fluid removal so far. 3. Anemia: Her anemia has been stable and no changes are being made today. 4. Pneumonia: The patient is clinically improving. She remains on vancomycin and meropenem.
--- NOTE | 2018-12-06 09:38 | DSES ---
DATE OF ADMISSION: 11/30/2018 DATE OF DISCHARGE: 12/05/2018 ATTENDING: Dr. Padma Morales. PRIMARY CARE PROVIDER: Dr. Marty Ho. HISTORY OF PRESENT ILLNESS: This is an 83-year-old female patient of [facility] who was transferred over to [facility] for evaluation after she was noted to have increased shortness of breath and coughing. She had recently been hospitalized with nosocomial pneumonia. She had been treated with IV vancomycin and meropenem and discharged back to the detention on oral doxycycline. She developed some low grade temperature at the detention and they felt as though her shortness of breath did not continue to improve. She was admitted to [facility] with recurrent pneumonia and influenza. During her hospitalization, she did remain medically stable. She was noted to have on chest CT scan, patchy airspace opacities in the right upper lobe, right middle lobe, left upper, left lower lobe consistent with pneumonia. A moderate sized located right pleural effusion and a small left pleural effusion. Pulmonary was consulted who placed thoracentesis where [address] Myers has seen the patient. Fluid appeared to be lymphocytic predominantly, less likely an exudative effusion. Very well could be associated with her end-stage renal disease. Monitor for re-accumulation. Respiratory status has consistently improved during her hospitalization. She has completed a 5-day course or renally dosed Tamiflu. We will continue with IV vancomycin on dialysis days and her IV meropenem, which she completed 5 days of, will be transitioned over to oral doxycycline upon her transition back over to [facility]. DISCHARGE DIAGNOSES: Nosocomial pneumonia. Loculated right pleural effusion. Influenza A. Hypotension secondary to end-stage renal disease dialysis. End-stage renal disease on chronic dialysis. Chronic systolic congestive heart failure. Chronic obstructive pulmonary disease (COPD) with chronic respiratory failure. Diabetes mellitus type 2. Anemia secondary to chronic kidney disease. Bilateral above knee amputation (AKA). DISCHARGE MEDICATIONS: - vancomycin on dialysis days - doxycycline 100 mg by mouth twice a day times 10 days - acetaminophen 650 mg every 4 hours as needed for pain or fever - albuterol 2.5 mg inhaler every 2 hours as needed for shortness of breath. - DuoNeb inhaled every 6 hours. - aspirin 325 mg daily - Dulcolax 10 mg per rectum daily as needed for constipation. - Refresh tears one drop each eye three times a day. - vitamin D3 2000 units by mouth daily - citalopram 20 mg by mouth daily - senna two tablets by mouth twice a day - Colace 100 mg by mouth twice a day - Fleet Enema daily per rectum as needed for constipation. - folic acid 1 mg by mouth daily - Mucinex 600 mg by mouth every 8 hours - Humalog sliding scale - midodrine 5 mg four times weekly - midodrine 5 mg three times weekly - Nepro with carbohydrate steady liquid 90 mL by mouth twice a day - Protonix 40 mg by mouth daily - MiraLAX powder by mouth daily - Renvela 800 mg two tablets by mouth four times weekly, three tablets by mouth weekly. - simvastatin 40 mg by mouth nightly. - Kionex 15 grams per 60 mL by mouth weekly - vitamin B complex - Nephro-Erica one tablet by mouth daily DISCHARGE PLAN: Followup with Dr. Ho at [facility]. She will continue with outpatient dialysis. She should have a renal level 3 diet consistent carbohydrate, 1200 fluid restriction.
== END 2018-12-05 13:14 | DRG 193 ==
LOC: EDBD 21:41 → M ED 21:41 → M ED INP 11-30 01:02 → M MS5PR 11-30 19:30 → M PCU 12-02 14:42
PROVIDERS: ADMIT Hospitalist; ATTEND Family Medicine
PROC: 5A1D70Z Performance of Urinary Filtration, Intermittent, Less than 6 Hours Per Day (ICD-10-PCS; principal; 2018-11-30)
PROC: 0W993ZZ Drainage of Right Pleural Cavity, Percutaneous Approach (ICD-10-PCS; 2018-12-02)
DX: J10.00 Influenza due to other identified influenza virus with unspecified type of pneumonia (principal); N18.6 End stage renal disease; J96.11 Chronic respiratory failure with hypoxia; I50.22 Chronic systolic (congestive) heart failure; I13.2 Hypertensive heart and chronic kidney disease with heart failure and with stage 5 chronic kidney disease, or end stage renal disease; N25.81 Secondary hyperparathyroidism of renal origin; J90 Pleural effusion, not elsewhere classified; J18.9 Pneumonia, unspecified organism; E11.22 Type 2 diabetes mellitus with diabetic chronic kidney disease; Z66 Do not resuscitate; I48.2 Chronic atrial fibrillation; J69.0 Pneumonitis due to inhalation of food and vomit; J44.9 Chronic obstructive pulmonary disease, unspecified; I95.3 Hypotension of hemodialysis; R06.02 Shortness of breath; F41.9 Anxiety disorder, unspecified; D63.1 Anemia in chronic kidney disease; Z89.512 Acquired absence of left leg below knee; Z89.611 Acquired absence of right leg above knee; Z99.81 Dependence on supplemental oxygen; Z88.1 Allergy status to other antibiotic agents; Z88.5 Allergy status to narcotic agent; Z88.8 Allergy status to other drugs, medicaments and biological substances; Z99.2 Dependence on renal dialysis; Y95 Nosocomial condition; Z79.82 Long term (current) use of aspirin; Z79.899 Other long term (current) drug therapy; Z95.1 Presence of aortocoronary bypass graft

== ENCOUNTER → 2018-11-29 | Outpatient (REF) | payer MEDICARE, MEDICAID ==
[~2018-11-29] MED LIST changes: +ALBU83IN INH; +DOXY100T PO; +MUCI600T37 PO; +PRED10TA2 PO
--- NOTE | 2018-11-29 16:13 | REP ---
Portable chest x-ray: Sitting AP view. History: Pneumonia. Comparison chest x-ray: November 17, 2018. Findings: There are areas of increased parenchymal opacity both bases. This is more pronounced than on October 04, 2018 or on the more recent study of November 17, 2018. There is some discoid atelectasis in the left base although some of the opacity may be infiltrate as well. The right base opacity appears to be an infiltrate. There is blunting of the right lateral pleural angle. Prior sternotomy is seen with a bipolar pacemaker in the right heart. Cardiomegaly is again observed. There is a left internal jugular transvenous central catheter again noted. Impression: Bibasilar infiltrates, more prominent than on 11/17/2018. Blunting of the right lateral pleural angle indicating small right pleural effusion. Electronically Signed by Apolinar Us MD 11/29/2018 05:50 P
== END ==
LOC: SKLAB3 12:38
PROVIDERS: ATTEND Family Medicine
DX: J18.9 Pneumonia, unspecified organism (principal)

== ENCOUNTER → 2019-01-19 | Outpatient (CLI) | payer MEDICARE, MEDICAID ==
[~2019-01-19] MED LIST changes: -/FAMO2TA PO; -/FERG32TA PO; -/GLYB5TA; -/HYDR10TAB PO; -/PANT40TA PO; -/WARF25TA; -/WARF2TA PO; -/WARF5TA; -/WARF5TA OR; -/WARF5TA PO; +ALBU83IN INH; +ASPI-255 PO; -ASPI325T25 PO; -CITA20TA4 PO; +CITA20TA6 PO; +COUM1TAB16 PO; +COUM1TAB17; +COUM1TAB17 OR; +COUM1TAB17 PO; +COUM1TAB18; -DOCU10ELUD PO; +DOCU5LIQ PO; +FAMO1TAB11 PO; +FERR1TAB6 PO; +GLUC1VIA2 SC; -GLUC1VL SC; -GLUC4GMTAB PO; +GLYB1TAB29; +HYDR-3677 PO; +LEAD1CHW PO; -MIRA255PW PO; +MUCI600T37 PO; +NEPH1TAB11 PO; -NEPHTAB PO; +POLY1POW4 PO; +PRED10TA2 PO; -SILV50CR TOP; +THER1CRE16 TOP; -VANC250C2 IV; +VANC250C3 IV
--- NOTE | 2019-01-19 13:00 | REP ---
CT chest without contrast: History: Shortness of breath. Pneumonia. Comparison study: November 30, 2018. CT findings: Digital preliminary repair mechanic radiograph demonstrates a bipolar pacemaker in the enlarged heart. Median sternotomy wires are noted. The patient appears to be rotated somewhat to the right. There is a small persistent right pleural effusion, however, this has improved considerably from the prior study. There is an area of peripheral consolidation in the right middle lobe which is improved as well. Patchy area of peripheral atelectasis is seen in the upper lobe posteriorly. This is unchanged. There is a focus of consolidation in the left lower lobe posteromedially which is a little more prominent than on the November 30, 2018 prior study. Mild plate-like atelectasis is seen anterolaterally in the left lower lobe. There is fissural thickening in the right major fissure. No pericardial effusion is seen. No adrenal lesion is observed. Prominent vascular calcification is noted. Wedging in the L1 vertebral body is again noted. Impression: Improved right pleural effusion. Persistent consolidation in the left lower lobe and right middle lobe. Aeration is improved overall. Electronically Signed by Apolinar Us MD 01/19/2019 01:11 P
== END ==
LOC: M RAD 08:41
PROVIDERS: ATTEND Internal Medicine Nephrology
DX: J90 Pleural effusion, not elsewhere classified (principal); R06.02 Shortness of breath

== ENCOUNTER → 2019-02-14 | Outpatient (REF) | payer MEDICARE, MEDICAID ==
[2019-02-14 11:40] LABS: HEMOGLOBIN A1c 5.9 %
== END ==
LOC: SKLAB3 07:00
PROVIDERS: ATTEND Family Medicine
DX: E11.9 Type 2 diabetes mellitus without complications (principal)

== ENCOUNTER → 2019-03-27 | Outpatient (REF) | payer MEDICARE, MEDICAID, OTHER ==
--- NOTE | 2019-03-27 13:31 | REP ---
Clinical: Abnormal breath sounds. Comparison: 12/13. Findings: Cardiomegaly is appreciated. Evidence for prior sternotomy, pacemaker, and double-lumen dialysis catheter. Bibasilar opacities suggest elements of atelectasis and possible small right pleural effusion. Mild pulmonary vascular congestion and interstitial edema cannot be excluded. Impression: Cannot exclude pulmonary vascular congestion and interstitial edema along with bibasilar atelectasis and small right pleural effusion. Electronically Signed by Luis Gomez MD 03/27/2019 01:22 P
[2019-03-27 13:34] LABS: HEMATOCRIT 32.6 % (36.0-47.0); HEMOGLOBIN 10.6 g/dl (12.0-15.5); MEAN CORPUSCULAR HEMOGLOBIN 34.8 pg (27.0-33.0); MEAN CORPUSCULAR HGB CONC 32.5 g/dl (32.0-36.5); MEAN CORPUSCULAR VOLUME 106.9 fl (80.0-96.0); PLATELET COUNT, AUTOMATED 171 10^3/uL (150-450); RED BLOOD COUNT 3.05 10^6/uL (4.00-5.40); WHITE BLOOD COUNT 19.2 10^3/uL (4.0-10.0)
[2019-03-27 14:14] LABS: CALCIUM LEVEL 8.4 MG/DL (8.8-10.2); CREATININE FOR GFR 1.7 MG/DL (0.55-1.30); GLOMERULAR FILTRATION RATE 30.6 (>32); POTASSIUM SERUM 2.6 MEQ/L (3.5-5.1)
== END ==
LOC: SKLAB3 12:55
PROVIDERS: ATTEND Family Medicine
DX: R53.83 Other fatigue (principal); R09.89 Other specified symptoms and signs involving the circulatory and respiratory systems

== ENCOUNTER → 2019-03-28 | Outpatient (REF) | payer MEDICARE, MEDICAID, OTHER ==
[2019-03-28 07:02] LABS: HEMATOCRIT 32.5 % (36.0-47.0); HEMOGLOBIN 10.5 g/dl (12.0-15.5); MEAN CORPUSCULAR HEMOGLOBIN 34.9 pg (27.0-33.0); MEAN CORPUSCULAR HGB CONC 32.3 g/dl (32.0-36.5); PLATELET COUNT, AUTOMATED 168 10^3/uL (150-450); RED BLOOD COUNT 3.01 10^6/uL (4.00-5.40); WHITE BLOOD COUNT 18.2 10^3/uL (4.0-10.0)
[2019-03-28 07:36] LABS: CALCIUM LEVEL 8.1 MG/DL (8.8-10.2); CREATININE FOR GFR 2.38 MG/DL (0.55-1.30); GLOMERULAR FILTRATION RATE 20.8 (>32); POTASSIUM SERUM 3.6 MEQ/L (3.5-5.1)
== END ==
LOC: SKLAB3 07:00
PROVIDERS: ATTEND Family Medicine
DX: D72.829 Elevated white blood cell count, unspecified (principal)

== ENCOUNTER → 2019-03-29 | Outpatient (REF) | payer MEDICARE, MEDICAID, OTHER ==
[2019-03-29 11:31] LABS: HEMATOCRIT 34.1 % (36.0-47.0); HEMOGLOBIN 10.9 g/dl (12.0-15.5); MEAN CORPUSCULAR VOLUME 106.2 fl (80.0-96.0); PLATELET COUNT, AUTOMATED 168 10^3/uL (150-450); RED BLOOD COUNT 3.21 10^6/uL (4.00-5.40); WHITE BLOOD COUNT 16.8 10^3/uL (4.0-10.0)
== END ==
LOC: SKLAB3 09:55
PROVIDERS: ATTEND Family Medicine
DX: D72.829 Elevated white blood cell count, unspecified (principal)

== ENCOUNTER → 2019-03-31 | Outpatient (REF) | payer MEDICARE, MEDICAID, OTHER ==
[2019-03-31 13:14] LABS: HEMATOCRIT 33.5 % (36.0-47.0); HEMOGLOBIN 10.7 g/dl (12.0-15.5); MEAN CORPUSCULAR HEMOGLOBIN 34.2 pg (27.0-33.0); MEAN CORPUSCULAR HGB CONC 31.9 g/dl (32.0-36.5); PLATELET COUNT, AUTOMATED 207 10^3/uL (150-450); RED BLOOD COUNT 3.13 10^6/uL (4.00-5.40); WHITE BLOOD COUNT 15.8 10^3/uL (4.0-10.0)
== END ==
LOC: SKLAB3 11:41
PROVIDERS: ATTEND Family Medicine
DX: D72.829 Elevated white blood cell count, unspecified (principal); J18.9 Pneumonia, unspecified organism

== ENCOUNTER → 2019-04-04 | Outpatient (REF) | payer MEDICARE, MEDICAID ==
[~2019-04-04] MED LIST changes: +ACET-907 PO; +ASPI1TAB8 PO; +BACT800T5 PO; +DOCU100C16 PO; +ENEMENE22 PR; +GABA-1171 PO; +HYDR-3715 PO; +MIRA3350 PO; +MUCI600T31 PO; +NEPR1LIQ2 PO; +ONDA-83 PO; -ONDA4TAB5 PO; +SIMV40TA20 PO
== END ==
LOC: SKLAB3 18:08
PROVIDERS: ATTEND Family Medicine
DX: R22.9 Localized swelling, mass and lump, unspecified (principal); L03.019 Cellulitis of unspecified finger

== ENCOUNTER → 2019-05-05 | Outpatient (REF) | payer MEDICARE, MEDICAID ==
[~2019-05-05] MED LIST changes: -ACET-907 PO; -ASPI1TAB8 PO; -BACT800T5 PO; -DOCU100C16 PO; -ENEMENE22 PR; -GABA-1171 PO; -HYDR-3715 PO; -MIRA3350 PO; -MUCI600T31 PO; -NEPR1LIQ2 PO; -ONDA-83 PO; +ONDA4TAB5 PO; -SIMV40TA20 PO
== END ==
LOC: M LAB REF 16:36
PROVIDERS: ATTEND Surgery
DX: S61.301A Unspecified open wound of left index finger with damage to nail, initial encounter (principal)
CPT/HCPCS: 11042; 11044; 11730; 88304; G0463

== ENCOUNTER → 2019-05-11 | Outpatient (REF) | payer MEDICARE, MEDICAID | LOC: M SFHCPLAZ 16:35 | PROVIDERS: ATTEND Physician Assistant | DX: S61.301D Unspecified open wound of left index finger with damage to nail, subsequent encounter (principal) ==

== ENCOUNTER → 2019-05-18 | Outpatient (REF) | payer MEDICARE, MEDICAID | LOC: M SFHCWAGY 16:39 | PROVIDERS: ATTEND Physician Assistant | DX: S61.301D Unspecified open wound of left index finger with damage to nail, subsequent encounter (principal) ==

== ENCOUNTER → 2019-05-18 | Outpatient (REF) | payer MEDICARE, MEDICAID | LOC: M LAB REF 16:20 | PROVIDERS: ATTEND Physician Assistant | DX: M86.142 Other acute osteomyelitis, left hand (principal); S61.301D Unspecified open wound of left index finger with damage to nail, subsequent encounter ==

== ENCOUNTER → 2019-05-23 | Outpatient (REF) | payer MEDICARE, MEDICAID ==
[~2019-05-23] MED LIST changes: +ACET-907 PO; +ASPI1TAB8 PO; +BACT800T5 PO; +DOCU100C16 PO; +ENEMENE22 PR; +GABA-1171 PO; +HYDR-3715 PO; +MIRA3350 PO; +MUCI600T31 PO; +NEPR1LIQ2 PO
[2019-05-23 07:42] LABS: HEMOGLOBIN A1c 6.3 %
== END ==
LOC: SKLAB3 07:00
PROVIDERS: ATTEND Family Medicine
DX: E11.9 Type 2 diabetes mellitus without complications (principal)

== ENCOUNTER → 2019-06-01 | Outpatient (REF) | payer MEDICARE, MEDICAID | LOC: M LAB REF 16:33 | PROVIDERS: ATTEND Physician Assistant | DX: S61.301D Unspecified open wound of left index finger with damage to nail, subsequent encounter (principal) ==

== ENCOUNTER → 2019-06-13 | Outpatient (REF) | payer MEDICARE, MEDICAID ==
[2019-06-13 11:12] LABS: BASO % 0.2 % (0.0-1.0); EOS # 0.1 10^3/uL (0.0-0.5); EOS % 1.3 % (0.0-3.0); HEMATOCRIT 27.9 % (36.0-47.0); HEMOGLOBIN 8.5 g/dl (12.0-15.5); LYMPH # 0.9 10^3/uL (1.5-5.0); LYMPH % 7.9 % (24.0-44.0); MEAN CORPUSCULAR HEMOGLOBIN 35.4 pg (27.0-33.0); MEAN CORPUSCULAR HGB CONC 30.5 g/dl (32.0-36.5); MONO # 1.6 10^3/uL (0.0-0.8); MONO % 14.7 % (0.0-5.0); NEUTROPHILS # 8.3 10^3/uL (1.5-8.5); NEUTROPHILS % 75.5 % (36.0-66.0); PLATELET COUNT, AUTOMATED 236 10^3/uL (150-450)
[2019-06-13 11:16] LABS: MEAN CORPUSCULAR VOLUME 116.3 fl (80.0-96.0)
[2019-06-13 11:36] LABS: ANISOCYTOSIS 1+; HYPOCHROMASIA 1+; PLATELET ESTIMATE NORMAL (NORMAL); POLYCHROMASIA 1+
[2019-06-13 12:03] LABS: ERYTHROCYTE SEDIMENTATION RATE 56 mm/hr (0-30)
--- NOTE | 2019-06-13 17:09 | REP ---
Left hand four views: Comparison is the left index finger study dated 06/25/2017. There is diffuse demineralization. There is PIP and DIP joint space narrowing compatible with early osteoarthritic change. There has been amputation of the index finger distal phalange at the level of the proximal shaft as a change from the comparison study. There are no lytic, blastic or destructive changes to suggest osteomyelitis. Impression: The there has been amputation of a portion of the index finger distal phalange. There is no lytic, blastic or destructive change to suggest osteomyelitis. 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 Electronically Signed by Yoan Wells MD 06/13/2019 05:01 P
== END ==
LOC: SKLAB3 14:03
PROVIDERS: ATTEND Family Medicine
DX: L08.9 Local infection of the skin and subcutaneous tissue, unspecified (principal)

== ENCOUNTER → 2019-06-14 | Outpatient (CLI) | payer MEDICARE, MEDICAID ==
--- NOTE | 2019-06-14 15:37 | REP ---
Upper extremity arterial ultrasound for left arm pain: Artery flow velocity Phasicity Left subclavian distal 107 cm/sec biphasic Left axillary 58.8 cm/sec biphasic Brachial proximal 60.4 cm/sec by/triphasic Brachial mid 68.3 cm/sec by/triphasic Brachial and distal 44.8 cm/sec triphasic Radial proximal 44.9 cm/sec monophasic Radial mid 44.9 cm/sec monophasic Radial distal 38.8 cm/sec monophasic Radial proximal 78.3 cm/sec biphasic Radial mid 40.1 cm/sec monophasic Radial and distal 48.9 cm/sec monophasic There is heavily calcified atheroma in the mid/distal radial/ulnar arteries. There is monophasic flow in the mid/distal radial/ulnar arteries. Electronically Signed by Yoan Wells MD 06/14/2019 03:29 P
== END ==
LOC: M RAD 13:58
PROVIDERS: ATTEND Surgery Vascular Surgery
DX: R09.89 Other specified symptoms and signs involving the circulatory and respiratory systems (principal); M79.602 Pain in left arm

== ENCOUNTER 2019-06-15 06:31 | Emergency (ER) | payer MEDICARE, MEDICAID ==
[~2019-06-15 06:31] MED LIST changes: -ACET-907 PO; -ASPI1TAB8 PO; -BACT800T5 PO; -DOCU100C16 PO; -ENEMENE22 PR; -GABA-1171 PO; -HYDR-3715 PO; -MIRA3350 PO; -MUCI600T31 PO; -NEPR1LIQ2 PO
[2019-06-15] MEDS ORDERED: NS 500 ML IV ONE (07:15)
[2019-06-15 07:16] LABS: BASO % 0.1 % (0.0-1.0); EOS % 0.1 % (0.0-3.0); HEMATOCRIT 28.7 % (36.0-47.0); HEMOGLOBIN 8.8 g/dl (12.0-15.5); LYMPH # 0.4 10^3/uL (1.5-5.0); LYMPH % 2.6 % (24.0-44.0); MEAN CORPUSCULAR HEMOGLOBIN 35.2 pg (27.0-33.0); MEAN CORPUSCULAR HGB CONC 30.7 g/dl (32.0-36.5); MONO # 1.6 10^3/uL (0.0-0.8); MONO % 9.9 % (0.0-5.0); NEUTROPHILS # 13.5 10^3/uL (1.5-8.5); NEUTROPHILS % 86.1 % (36.0-66.0); PLATELET COUNT, AUTOMATED 243 10^3/uL (150-450); WHITE BLOOD COUNT 15.6 10^3/uL (4.0-10.0)
[2019-06-15 07:18] LABS: MEAN CORPUSCULAR VOLUME 114.8 fl (80.0-96.0)
[2019-06-15] MEDS ORDERED: cefTRIAXone SOD 2 GM in D5W MINI-BAG PLUS 50 ML IV ONE (07:30)
[2019-06-15 07:32] LABS: VENOUS BASE EXCESS -10.3 (-2.0-2.0); VENOUS HCO3 15.2 MEQ/L (23.0-27.0); VENOUS O2 SATURATION 99.6 % (60.0-80.0); VENOUS PARTIAL PRESSURE CO2 31.8 mmHg (38.0-50.0); VENOUS PARTIAL PRESSURE O2 156.9 mmHg (30.0-50.0); VENOUS PH 7.296 UNITS (7.330-7.430); VENOUS TOTAL CO2 16.1 MEQ/L (24.0-28.0)
[2019-06-15 07:33] LABS: CALCIUM LEVEL 8.8 MG/DL (8.8-10.2); CREATININE FOR GFR 2.29 MG/DL (0.55-1.30); FREE THYROXINE INDEX 2.2 % (1.3-4.8); GLOMERULAR FILTRATION RATE 21.7 (>32); POTASSIUM SERUM 4.6 MEQ/L (3.5-5.1); THYROID STIMULATING HORMONE 3.89 uIU/ML (0.358-3.740); THYROXINE (T4) 5.7 UG/DL (4.5-12.0)
[2019-06-15] MEDS ORDERED: NS 2,660 ML in IV 1 EA IV ONE (07:45)
[2019-06-15 07:48] LABS: ANISOCYTOSIS 2+; HYPOCHROMASIA 1+; PLATELET ESTIMATE NORMAL (NORMAL)
[2019-06-15] MEDS ORDERED: MIDO5TA PO (07:49)
[2019-06-15] MEDS ORDERED: ALPR0.25 PO (07:49)
[2019-06-15] MEDS ORDERED: NEPH1TAB11 PO (07:49)
[2019-06-15] MEDS ORDERED: MIRA3350 PO (07:49)
[2019-06-15] MEDS ORDERED: RENV2TAB PO (07:49)
[2019-06-15] MEDS ORDERED: REFR0.5D8 OU (07:49)
[2019-06-15] MEDS ORDERED: NEPR1LIQ2 PO (07:49)
[2019-06-15] MEDS ORDERED: DULC10SU2 PR (07:49)
[2019-06-15] MEDS ORDERED: HYDR-3715 PO (07:49)
[2019-06-15] MEDS ORDERED: ACET-907 PO ×2 (07:49)
[2019-06-15] MEDS ORDERED: BACT800T5 PO (07:49)
[2019-06-15] MEDS ORDERED: PROT1TAB2 PO (07:49)
[2019-06-15] MEDS ORDERED: IPRA0.00 INH (07:49)
[2019-06-15] MEDS ORDERED: ALB2.5NEB INH (07:49)
[2019-06-15] MEDS ORDERED: ZOCO40TA PO (07:49)
[2019-06-15] MEDS ORDERED: COLA100C5 PO (07:49)
[2019-06-15] MEDS ORDERED: MUCI600T31 PO (07:49)
[2019-06-15] MEDS ORDERED: ASPI1TAB8 PO (07:49)
[2019-06-15] MEDS ORDERED: CELE20TA PO (07:49)
[2019-06-15] MEDS ORDERED: DOCU100C16 PO (07:49)
[2019-06-15] MEDS ORDERED: FOLI1TAB11 PO (07:49)
[2019-06-15] MEDS ORDERED: GABA-1171 PO (07:49)
[2019-06-15] MEDS ORDERED: ENEMENE22 PR (07:49)
[2019-06-15] MEDS ORDERED: SODI200S PO (07:49)
[2019-06-15 08:00] VITALS: BP 57/25
--- NOTE | 2019-06-15 08:03 | REP ---
Portable chest, 07:21 a.m., single AP view with the the patient supine: Comparison 03/27/2019. There is pleural thickening on the right that has significantly increased. This could be a right pleural effusion or pleural reactive change. The the patient is rotated obscuring most of the right lung. The visualized right lung is otherwise clear. Left lung is clear. Cardiomegaly, sternotomy wires and pacemaker are unchanged. There is a left IJ dual lumen central venous catheter with the tip in the superior vena cava as an interval change. Supine position precludes evaluation for pneumothorax, however, no large pneumothorax is identified. Impression: Enlarging right pleural effusion. Cardiomegaly. Left IJ central venous catheter. Electronically Signed by Yoan Wells MD 06/15/2019 07:54 A
== END 2019-06-15 08:33 | disposition home or self-care (01) ==
LOC: M ED 06:31
DX: R40.20 Unspecified coma (principal); I12.9 Hypertensive chronic kidney disease with stage 1 through stage 4 chronic kidney disease, or unspecified chronic kidney disease; E11.9 Type 2 diabetes mellitus without complications; J44.9 Chronic obstructive pulmonary disease, unspecified; N18.9 Chronic kidney disease, unspecified; Z88.8 Allergy status to other drugs, medicaments and biological substances; Z88.0 Allergy status to penicillin; Z79.899 Other long term (current) drug therapy
CPT/HCPCS: 71045; 80048; 82803; 83605; 84436; 84443; 84479; 85025; 87040; 96365; 99284; J0696